=== PATIENT | female | born 1995 | race African-American/Black ===

== ENCOUNTER 2016-11-28 20:21 | Inpatient (IN) | payer SELFPAY ==
[~2016-11-28] VITALS: Ht 297.2 cm; Wt 70.3 kg
[2016-11-28 20:23] VITALS: BP 128/83; PULSE 131; RESP 15; TEMP 99.1; O2SAT 100
--- NOTE | 2016-11-28 20:59 | PD ---
HPI Chief Complaint: Psychiatric Symptoms Time Seen by Provider: 20:58 Travel History International Travel<30 days: No Contact w/Intl Traveler<30days: No Traveled to known affect area: No History of Present Illness HPI 21 yo F arrives voluntarily with mother 1 day following discharge from inpatient psychiatry facility in [place]. Pt has dx of schizophrenia. She was discharged with a few "mood stabilizer" samples. Today the patient ran into traffic. The patient does answer questions. The history is provided by the mother. Patient argues with mother at the time of evaluation. Wood act completed by the undersigned. Location neuropsychiatric. Severity moderate. Timing constant. PFSH Past Medical History Schizophrenia: Yes ?: Not LMP: uto Past Surgical History Surgical History: No Previous Surgery Social History Tobacco Use: No Allergies-Medications (Allergen,Severity, Reaction): Coded Allergies: No Known Allergies (Unverified , 11/28/16) Reported Meds & Prescriptions Reported Meds & Active Scripts Active Active Prescriptions or Reported Medications Unobtainable Review of Systems ROS Limitations: Clinical Condition, Uncooperative Physical Exam Narrative GENERAL: 21-year-old female answers no questions SKIN: Warm and dry. HEAD: Atraumatic. Normocephalic. EYES: Pupils equal and round. No scleral icterus. No injection or drainage. ENT: No nasal bleeding or discharge. Mucous membranes pink and moist. NECK: Trachea midline. No JVD. CARDIOVASCULAR: Regular rate and rhythm. RESPIRATORY: No accessory muscle use. Clear to auscultation. Breath sounds equal bilaterally. GASTROINTESTINAL: Abdomen soft, non-tender, nondistended. Hepatic and splenic margins not palpable. MUSCULOSKELETAL: Extremities without clubbing, cyanosis, or edema. No obvious deformities. NEUROLOGICAL: Awake and alert. No obvious cranial nerve deficits. Motor grossly within normal limits. Five out of 5 muscle strength in the arms and legs. Normal speech. PSYCHIATRIC: Does not answer questions. Positive suicidal gesture earlier today. Data Data Last Documented VS Vital Signs Date Time Temp Pulse Resp B/P (MAP) Pulse Ox O2 Delivery O2 Flow Rate FiO2 11/28/16 22:08 92 17 99 Room Air 11/28/16 20:23 99.1 128/83 (98) VS reviewed Orders Orders Complete Blood Count With Diff (11/28/16 21:40) Comprehensive Metabolic Panel (11/28/16 21:40) Iv Access Insert/Monitor (11/28/16 21:40) Ecg Monitoring (11/28/16 21:40) Psych Screen (11/28/16 21:40) Drug Screen, Random Urine (11/28/16 21:40) Sodium Chlor 0.9% 1000 Ml Inj (Ns 1000 M (11/28/16 21:45) Labs Laboratory Tests Test 11/28/16 21:50 White Blood Count 13.1 TH/MM3 Red Blood Count 3.99 MIL/MM3 Hemoglobin 11.3 GM/DL Hematocrit 34.7 % Mean Corpuscular Volume 86.9 FL Mean Corpuscular Hemoglobin 28.2 PG Mean Corpuscular Hemoglobin Concent 32.5 % Red Cell Distribution Width 16.1 % Platelet Count 288 TH/MM3 Mean Platelet Volume 7.7 FL Neutrophils (%) (Auto) 72.3 % Lymphocytes (%) (Auto) 19.2 % Monocytes (%) (Auto) 7.4 % Eosinophils (%) (Auto) 0.6 % Basophils (%) (Auto) 0.5 % Neutrophils # (Auto) 9.5 TH/MM3 Lymphocytes # (Auto) 2.5 TH/MM3 Monocytes # (Auto) 1.0 TH/MM3 Eosinophils # (Auto) 0.1 TH/MM3 Basophils # (Auto) 0.1 TH/MM3 CBC Comment DIFF FINAL Differential Comment Blood Urea Nitrogen 9 MG/DL Creatinine 0.93 MG/DL Random Glucose 97 MG/DL Total Protein 8.1 GM/DL Albumin 4.0 GM/DL Calcium Level 9.2 MG/DL Alkaline Phosphatase 77 U/L Aspartate Amino Transf (AST/SGOT) 13 U/L Alanine Aminotransferase (ALT/SGPT) 21 U/L Total Bilirubin 0.2 MG/DL Sodium Level 139 MEQ/L Potassium Level 3.8 MEQ/L Chloride Level 104 MEQ/L Carbon Dioxide Level 29.5 MEQ/L Anion Gap 6 MEQ/L Estimat Glomerular Filtration Rate 92 ML/MIN [facility] Medical Decision Making Medical Screen Exam Complete: Yes Emergency Medical Condition: Yes Differential Diagnosis Altered mental status/psychosis due to infection/environmental exposure/ metabolic abnormality, polypharmacy, alcohol abuse/intoxication, illicit or prescribed drug abuse, malingering/secondary gain, non-organic psychiatric disease Narrative Course CBC & BMP Diagram 11/28/16 21:50 Total Protein 8.1, Albumin 4.0, Calcium Level 9.2, Alkaline Phosphatase 77, Aspartate Amino Transf (AST/SGOT) 13 L, Alanine Aminotransferase (ALT/SGPT) 21, Total Bilirubin 0.2 IVF given. HR decreased to 92. Work up unremarkable. Pt medical stable for psychiatry evaluation. Diagnosis Primary Impression: Psychosis Qualified Codes: F29 - Unspecified psychosis not due to a substance or known physiological condition Additional Impression: Suicidal behavior Qualified Codes: T14.91 - Suicide attempt Scripts Unable to Obtain Active Prescriptions or Reported Meds Ricci Nelson MD Nov 28, 2016 20:59
[2016-11-28] MEDS ORDERED: SODIUM CHLOR 0.9% 1000 ML INJ 1,000 ML IV ONE (21:45)
[2016-11-28 22:08] VITALS: PULSE 92; RESP 17; O2SAT 99
[2016-11-28 22:12] LABS: AUTOMATED NEUTROPHIL # 9.5 TH/MM3 (1.8-7.7); BASOPHIL # 0.1 TH/MM3 (0-0.2); BASOPHIL % 0.5 % (0.0-2.0); EOSINOPHIL # 0.1 TH/MM3 (0-0.4); EOSINOPHIL % 0.6 % (0.0-4.0); HEMATOCRIT 34.7 % (35.0-46.0); HEMO FLAGS DIFF FINAL; LYMPH % 19.2 % (9.0-44.0); LYMPHOCYTE # 2.5 TH/MM3 (1.0-4.8); MEAN CELL VOLUME 86.9 FL (80.0-100.0); MEAN CORPUSCULAR HEMOGLOBIN 28.2 PG (27.0-34.0); MEAN CORPUSCULAR HGB CONC 32.5 % (32.0-36.0); MONO % 7.4 % (0.0-8.0); NEUT % 72.3 % (16.0-70.0); PLATELET COUNT 288 TH/MM3 (150-450); RED BLOOD COUNT 3.99 MIL/MM3 (4.00-5.30); RED CELL DISTRIBUTION WIDTH 16.1 % (11.6-17.2); WHITE BLOOD COUNT 13.1 TH/MM3 (4.0-11.0)
[2016-11-28 22:36] LABS: ALT (GPT) 21 U/L (10-53); ANION GAP 6 MEQ/L (5-15); AST (GOT) 13 U/L (15-37); BICARBONATE 29.5 MEQ/L (21.0-32.0); BLOOD UREA NITROGEN 9 MG/DL (7-18); CHLORIDE 104 MEQ/L (98-107); GLOMERULAR FILTRATION RATE 92 ML/MIN (>89); POTASSIUM 3.8 MEQ/L (3.5-5.1); SODIUM (NA) 139 MEQ/L (136-145)
[2016-11-28 22:38] LABS: ALKALINE PHOSPHATASE 77 U/L (45-117); TOTAL BILIRUBIN ADULT 0.2 MG/DL (0.2-1.0)
[2016-11-29 06:00] VITALS: BP 120/67; PULSE 101; RESP 16; O2SAT 100
[2016-11-29] MEDS ORDERED: OLANZapine IM 10 MG VIAL IM ONE (06:30)
[2016-11-29 10:15] VITALS: BP 96/56; PULSE 100; TEMP 98.7; O2SAT 100
[2016-11-29 15:00] VITALS: BP 144/75; PULSE 106; RESP 20; TEMP 98.4; O2SAT 100
[2016-11-29 22:09] VITALS: BP 119/64; PULSE 104; RESP 18
[2016-11-29] MEDS ORDERED: HALOPERIDOL LACTATE 5 MG/ML AMP IM ONE (23:15)
[2016-11-29] MEDS ORDERED: LORazepam 2 MG/ML VIAL IM ONE (23:15)
[2016-11-29] MEDS ORDERED: diphenhydrAMINE HCL 50 MG/ML VIAL IM ONE (23:15)
[2016-11-30 06:31] VITALS: RESP 16
[2016-11-30 10:50] VITALS: BP 106/67; PULSE 78; RESP 18
[2016-11-30 13:48] LABS: BETA HCG QUANT LESS THAN 1 MIU/ML (0-5)
[2016-11-30 17:27] VITALS: BP 98/54; PULSE 72; RESP 18
[2016-11-30 23:24] VITALS: RESP 16
[2016-12-01 06:08] VITALS: BP 110/62; PULSE 101; RESP 20
--- NOTE | 2016-12-01 08:15 | PD ---
Data Data Last Documented VS Vital Signs Date Time Temp Pulse Resp B/P (MAP) Pulse Ox O2 Delivery O2 Flow Rate FiO2 12/01/16 11:11 101 18 100/70 (80) 100 Room Air 11/29/16 15:00 98.4 Orders Orders Complete Blood Count With Diff (11/28/16 21:40) Comprehensive Metabolic Panel (11/28/16 21:40) Iv Access Insert/Monitor (11/28/16 21:40) Ecg Monitoring (11/28/16 21:40) Psych Screen (11/28/16 21:40) Drug Screen, Random Urine (11/28/16 21:40) Sodium Chlor 0.9% 1000 Ml Inj (Ns 1000 M (11/28/16 21:45) Diet Regular Basic (11/29/16 Breakfast) Olanzapine Inj (Zyprexa Inj) (11/29/16 06:30) Diet Regular Basic (11/29/16 Lunch) Haloperidol Inj (Haldol Inj) (11/29/16 23:15) Lorazepam Inj (Ativan Inj) (11/29/16 23:15) Diphenhydramine Inj (Benadryl Inj) (11/29/16 23:15) Diet Regular Basic (11/30/16 Breakfast) Diet Regular Basic (11/30/16 Lunch) Beta Hcg (Quant/Titer) (11/30/16 13:16) Diet Regular Basic (11/30/16 Dinner) Diet Regular Basic (12/01/16 Breakfast) Diet Regular Basic (12/01/16 Lunch) Olanzapine Odt (Zyprexa Zydis Odt) (12/01/16 11:00) Admit Order (Ed Use Only) (12/01/16 13:17) Labs Laboratory Tests Test 11/28/16 21:50 White Blood Count 13.1 TH/MM3 Red Blood Count 3.99 MIL/MM3 Hemoglobin 11.3 GM/DL Hematocrit 34.7 % Mean Corpuscular Volume 86.9 FL Mean Corpuscular Hemoglobin 28.2 PG Mean Corpuscular Hemoglobin Concent 32.5 % Red Cell Distribution Width 16.1 % Platelet Count 288 TH/MM3 Mean Platelet Volume 7.7 FL Neutrophils (%) (Auto) 72.3 % Lymphocytes (%) (Auto) 19.2 % Monocytes (%) (Auto) 7.4 % Eosinophils (%) (Auto) 0.6 % Basophils (%) (Auto) 0.5 % Neutrophils # (Auto) 9.5 TH/MM3 Lymphocytes # (Auto) 2.5 TH/MM3 Monocytes # (Auto) 1.0 TH/MM3 Eosinophils # (Auto) 0.1 TH/MM3 Basophils # (Auto) 0.1 TH/MM3 CBC Comment DIFF FINAL Differential Comment Blood Urea Nitrogen 9 MG/DL Creatinine 0.93 MG/DL Random Glucose 97 MG/DL Total Protein 8.1 GM/DL Albumin 4.0 GM/DL Calcium Level 9.2 MG/DL Alkaline Phosphatase 77 U/L Aspartate Amino Transf (AST/SGOT) 13 U/L Alanine Aminotransferase (ALT/SGPT) 21 U/L Total Bilirubin 0.2 MG/DL Sodium Level 139 MEQ/L Potassium Level 3.8 MEQ/L Chloride Level 104 MEQ/L Carbon Dioxide Level 29.5 MEQ/L Anion Gap 6 MEQ/L Estimat Glomerular Filtration Rate 92 ML/MIN Human Chorionic Gonadotropin, Quant LESS THAN 1 MIU/ML Urine Opiates Screen NEG Urine Barbiturates Screen NEG Urine Amphetamines Screen NEG Urine Benzodiazepines Screen NEG Urine Cocaine Screen NEG Urine Cannabinoids Screen NEG MDM Supervised Visit with LORENA: No Narrative Course Was asked to see this patient by the psych screener for possible discharge this morning as a Wood act has been lifted. Apparently there is some social issues at play here with the patient's Wood act stated that she tried to walk out into traffic. On my evaluation. Ration is fairly somnolent she was not sedated overnight but is unwilling to speak with me. She has no medical complaints at this time and remains medically clear. After seeing the patient with the psych screener she would like the psychiatrist to evaluate the patient one last time prior to discharge Dr. Balderas has reevaluated the patient and plans for admission to the psychiatric unit. Diagnosis Primary Impression: Psychosis Qualified Codes: F29 - Unspecified psychosis not due to a substance or known physiological condition Additional Impression: Suicidal behavior Qualified Codes: T14.91 - Suicide attempt Scripts Unable to Obtain Active Prescriptions or Reported Meds Condition: Chance Galarza MD Dec 01, 2016 08:15
--- NOTE | 2016-12-01 10:53 | PD ---
History of Present Illness Chief Complaint: Psychiatric Symptoms Time Seen by Provider: 10:45 Travel History International Travel<30 Days: No Contact w/Intl Traveler<30days: No Known affected area: No Legal Status Legal Status: Voluntary History of Present Illness: 21-year-old female placed under a Wood act 3 days ago for wandering in traffic. Patient evaluated by this physician yesterday and this morning. Although patient wants to go home, her mother is in a chcf and the patient is not welcome there. Patient is willing to stay here in the emergency department despite the fact that she has been here for 3 days. Patient is also willing to take medication because she is hearing voices and is unable to describe what they are telling her. Her affect is inappropriate and she is unable to care for herself as demonstrated by her walking into traffic and having no way to obtain money or work. Although patient's mother is supportive , the patient has a 2-year-old sister staying with mom. This physician is concerned the patient may act in a psychotic fashion that would continue to be dangerous to herself or others. Therefore, with patient's consent, we will treat her with Zyprexa. This case was discussed with Dewayne Penny, psychiatry legal administrator. (No beds available to admit patient at this time.) PFSH Past Medical History Medical History: Denies Significant Hx Schizophrenia: Yes ?: Not LMP: uto Past Surgical History Surgical History: No Previous Surgery Psychiatric History Psychiatric History Hx Psychiatric Treatment: Per biological mother - patient's biological father is Jeffrey Mondragon. She is unaware of there being any mental illness issues on his side. Mother stated Schizophrenia is on her side. She stated that she has an Uncle and Great Aunt who had Schizophrenia but both of them are . History of Inpatient Treatment: Yes Guns or firearms in home: No Social History Hx Alcohol Use: No Hx Tobacco Use: No Hx Substance Use: No Hx of Substance Use Treatment: No Allergies-Medications (Allergen,Severity, Reaction): Coded Allergies: No Known Allergies (Unverified , 11/28/16) Reported Meds & Prescriptions Reported Meds & Active Scripts Active Active Prescriptions or Reported Medications Unobtainable Review of Systems Except as stated in HPI: all other systems reviewed are Neg Exam Exam Limitations: Clinical Condition, Poor Historian Alert: Yes [place]: Person, Place Mood: Calm Affect: Restricted, Flat Speech: Illogical Eye Contact: Indirect Memory Intact: Immediate, Recent, Remote Hallucinations: Auditory Delusions: Yes Delusion Type: Paranoid Insight/Judgement Impaired MDM Medical Decision Making Medical Record Reviewed: Yes Assessment/Plan Patient interviewed twice, medical record reviewed, case discussed with nurse, Evelyn. Case also discussed with service line legal administrator. In this physician's opinion, while the patient is voluntarily here for treatment at this time, she is unable to care for self and should not go home with her mother. This physician is asking the patient's nurse to call mother and confirmed this. Despite the patient being in the emergency room for 3 days, there have been limited beds at [place] and at [facility]. Patient will have to wait for open bed and begin treatment here in emergency department. Orders Orders Beta Hcg (Quant/Titer) (11/30/16 13:16) Diet Regular Basic (11/30/16 Dinner) Diet Regular Basic (12/01/16 Breakfast) Diet Regular Basic (12/01/16 Lunch) Olanzapine Odt (Zyprexa Zydis Odt) (12/01/16 11:00) Results Vital Signs Date Time Temp Pulse Resp B/P (MAP) Pulse Ox O2 Delivery O2 Flow Rate FiO2 12/01/16 06:08 101 20 110/62 (78) 11/30/16 23:24 16 11/30/16 17:27 72 18 98/54 (69) 11/30/16 10:50 78 18 106/67 (80) Diagnosis Primary Impression: Schizophrenia, paranoid type Prescriptions Unable to Obtain Active Prescriptions or Reported Meds Darío Balderas MD Dec 01, 2016 10:53
[2016-12-01] MEDS ORDERED: OLANZapine ODT 5 MG TAB PO ONE (11:00)
[2016-12-01 11:11] VITALS: BP 100/70; PULSE 101; RESP 18; O2SAT 100
[2016-12-01] MEDS ORDERED: ALUMINUM/MAGNESIUM/SIMETH 30 ML CUP PO PRN (13:30)
[2016-12-01] MEDS ORDERED: MAGNESIUM HYDROXIDE SUSP 30 ML CUP PO PRN (13:30)
--- NOTE | 2016-12-01 13:33 | HHI.HP ---
Provisional Diagnosis Admission Date [place] I. Schizophrenia Certification of Person's Competence To Provide Express and Informed Consent I have personally examined Sahara Rios , a person being served at [facility] on, Dec 01, 2016 13:23. Express and informed consent means consent voluntarily given in writing, by a competent person, after sufficient explanation and disclosure of the subject matter involved to enable the person to make a knowing and willful decision without any element of force, fraud, deceit, duress, or other form of constraint or coercion. This person is 18 years of age or older, is not now known to be incompetent to consent to treatment with a guardian advocate, and does not have a health care surrogate or proxy currently making medical treatment decisions. I have found this person to be one of the following: [] Competent to provide express and informed consent, as defined above, for voluntary admission to this facility and is competent to provide express and informed consent for treatment. He/she has the consistent capacity to make well reasoned, willful, and knowing decisions concerning his or her medical or mental health treatment. The person fully and consistently understands the purpose of the admission for examination/placement and is fully capable of personally exercising all rights [place] [x] Incompetent to provide express and informed consent to voluntary admission, and this is incompetent to provide express and informed consent to treatment. The person must be transferred to involuntary status and a petition for a guardian advocate filed with the Circuit Court. [] Refusing to provide express and informed consent to voluntary admission but is competent to provide express and informed consent for treatment. The person must be discharged or transferred to involuntary status. Form shall be completed within 24 hours of a person's arrival at the receiving facility and filed in the clinical record of each person: 1. Admitted on a voluntary basis 2. Permitted to provide express and informed consent to his/her own treatment 3. Allowed to transfer from involuntary to voluntary status 4. Prior to permitting a person to consent to his or her own treatment after having been previously found incompetent to consent to treatment. History of Present Illness Capacity: Lacks Capacity HPI This is a 21-year-old female with a history of schizophrenia diagnosed at the age of 19, presenting now after walking into traffic, verbally threatening her mother, experiencing auditory hallucinations, banging her hands, and inability to care for herself. The patient has been in the emergency department for 3 days and at one point was considered for discharge to mother so that patient could be treated on an outpatient basis. However, mother is moving and has a 2- year-old child and is unable to care for the patient at this time. Additionally , the patient has decompensated in the last 12 hours. At this point she is spitting up food, banging her hands together in a stabbing motion, admitting to auditory hallucinations, responding to internal stimuli, and feeling paranoid about leaving. Her affect is very flat and inappropriate. She appears to be exhibiting thought blocking. Her mother states she walks into traffic without looking in either direction and does not appear to understand what she is doing. Patient has no money, no place to live and no weight to care for herself at this time. Mother is willing to serve as guardian advocate. Review of Systems Except as stated in HPI: all other systems reviewed are Neg Past Psych History Psychological trauma history Diagnosed at age 19 with schizophrenia, according to the patient's mother. Patient recently hospitalized at [facility]. She was also incarcerated for theft prior to that. Violence risk - others (6 mos) Moderate to high. Patient has threatened her mother. Violence risk - self (6 mos) High. Substance Abuse History Drugs/Alcohol past 12 months Denied Past Family Social History Coded Allergies: No Known Allergies (Unverified , 11/28/16) Unable to Obtain Active Prescriptions or Reported Meds Started on Abilify and given dose of Zyprexa situs Family History Positive for schizophrenia in 2 family relatives. Social History Patient has been homeless and refusing assistance from her mother intermittently over the last 2 years. She is unemployed. She denies the use of alcohol or drugs. She has been incarcerated for theft. Patient's Strengths (min. 2) Resilient and has access to healthcare. Physical Exam GENERAL: SKIN: Warm and dry. HEAD: Normocephalic. EYES: No scleral icterus. No injection or drainage. NECK: Supple, trachea midline. No JVD or lymphadenopathy. CARDIOVASCULAR: Regular rate and rhythm without murmurs, gallops, or rubs. RESPIRATORY: Breath sounds equal bilaterally. No accessory muscle use. GASTROINTESTINAL: Abdomen soft, non-tender, nondistended. MUSCULOSKELETAL: No cyanosis, or edema. BACK: Nontender without obvious deformity. No CVA tenderness. Vital Signs Vital Signs Date Time Temp Pulse Resp B/P (MAP) Pulse Ox O2 Delivery O2 Flow Rate FiO2 12/01/16 11:11 101 18 100/70 (80) 100 Room Air 11/29/16 15:00 98.4 Mental Status Examination Speech: Unremarkable, Incoherent Orientation: Person Memory: Impaired (describe) Thought Process: Loose Association Thought Content: Bizarre thinking Hallucination Type: Auditory Attention and Concentration: Abnormal Suicidal Ideation: No Previous Suicide Attempts: No Homicidal Ideation: No Previous Homicide Attempts: No Insight: Poor Judgment: Poor Affect: Anxious Affect if Inappropriate: Flat Mood: Anxious Motor Activity: Normal gait Assessment & Plan Problem List: (1) Schizophrenia, paranoid type ICD Codes: F20.0 - Paranoid schizophrenia Status: Acute Assessment & Plan Estimated LOS: days patient felt to be in acute danger of self-neglect and self -harm. She is grossly psychotic and has decompensated "before our eyes". She is no longer able to speak coherently regarding her circumstances or herself. She was wandering in traffic just before she got here. She will not listen to her mother and her mother is unable to care for her. For these reasons, the patient is being admitted for further evaluation and treatment. Patient is not considered to be competent. This physician has ordered a CBC and comprehensive metabolic panel. This is to determine if any infectious process or metabolic process is causing or contributing to her psychosis. Additionally, this physician has ordered a thyroid-stimulating hormone level, vitamin B 12 level and vitamin D level, to determine if deficiencies in these areas are causing or contributing to her psychosis. I have also ordered an EKG to determine her cardiac conduction as she is being placed on antipsychotic medications which could adversely affect her cardiac conduction system. This physician has asked for a second opinion from a psychiatrist as the patient is felt to be incompetent to make medical decisions regarding her care. This physician has spoken with the patient's nurse regarding her recent behavior and spoken with the patient's mother regarding her recent behavior. Finally, case management is being involved to gather more information and assist with disposition planning. Darío Balderas MD Dec 01, 2016 13:33
[2016-12-01 15:16] VITALS: BP 139/82; PULSE 107; RESP 20; O2SAT 100
[2016-12-01 16:57] VITALS: BP 116/67; PULSE 94; RESP 16; TEMP 98.2; O2SAT 99
[2016-12-01] MEDS ORDERED: ARIPiprazole 5 MG TAB PO SCH (21:00)
[2016-12-01] MEDS: LORazepam 1 MG TAB PO PRN (21:51)
[2016-12-01] MEDS: diphenhydrAMINE HCL 50 MG CAP PO PRN (21:51)
[2016-12-02 06:13] VITALS: BP 111/61; PULSE 70; RESP 18; TEMP 98.1; O2SAT 98
--- NOTE | 2016-12-02 11:23 | PD.PSY.CON ---
Provisional Diagnosis Admission Date Dec 01, 2016 at 13:21 [place] I. 1. Schizophrenia, undifferentiated type, acute exacerbation [place]rom[place] II. Deferred History of Present Illness Service Psychiatry Consult Requested By Dr. Balderas Reason for Consult Second opinion for involuntary psychiatric hospitalization Primary Care Physician No Primary Care Physician HPI From Dr. Balderas's H&P: This is a 21-year-old female with a history of schizophrenia diagnosed at the age of 19, presenting now after walking into traffic, verbally threatening her mother, experiencing auditory hallucinations, banging her hands, and inability to care for herself. The patient has been in the emergency department for 3 days and at one point was considered for discharge to mother so that patient could be treated on an outpatient basis. However, mother is moving and has a 2- year-old child and is unable to care for the patient at this time. Additionally , the patient has decompensated in the last 12 hours. At this point she is spitting up food, banging her hands together in a stabbing motion, admitting to auditory hallucinations, responding to internal stimuli, and feeling paranoid about leaving. Her affect is very flat and inappropriate. She appears to be exhibiting thought blocking. Her mother states she walks into traffic without looking in either direction and does not appear to understand what she is doing. Patient has no money, no place to live and no weight to care for herself at this time. Mother is willing to serve as guardian advocate. On my exam today: Patient seen and examined with counselor and nurse. Chart reviewed. Case discussed with nursing staff who reports that the patient continues to respond to internal stimuli. She also reportedly refused laboratories this morning. On my examination today, the patient presents as fairly childlike. She does still appear somewhat internally preoccupied but denies any audiovisual hallucinations. She describes her mood as good and does not describe any depressive or hypomanic/manic symptoms. She denies any suicidal or homicidal ideation but it is not clear that she is reliable to contract for safety, and see the safety concerns highlighted by Dr. Balderas, above. Remainder of the psychiatric ROS is negative. The patient has no physical complaints. She is tolerating the Abilify well without side effects. Past psychiatric history: The patient is unsure of her psychiatric diagnosis. She says that she is not currently under the care of a psychiatrist. She denies a history of psychiatric admissions or suicide attempts. Family history: The patient reports that her mother has bipolar illness. Chemical dependency history: The patient denies any abuse of drugs or alcohol. Social history: The patient lives with her mother. She is single with no children. She went to college for 1 year and studied dance. She says that she is a [employer]regational but was raised Rastafari. Review of Systems ROS Limitations: Psychotic, Poor Historian Except as stated in HPI: all other systems reviewed are Neg Past Family Social History Coded Allergies: No Known Allergies (Unverified , 11/28/16) Past Medical History See electronic medical record Unable to Obtain Active Prescriptions or Reported Meds Current Medications Medications (Trade) Dose Ordered Sig/Jose Carlos Route Start Time Stop Time Status Last Admin (Ativan) 1 mg Q6H PRN PO 12/01/16 13:30 12/01/16 21:51 (Ativan Inj) 1 mg Q6H PRN IM 12/01/16 13:30 (Benadryl) 50 mg Q6H PRN PO 12/01/16 13:30 12/01/16 21:51 (Benadryl Inj) 50 mg Q6H PRN IM 12/01/16 13:30 (Tylenol) 650 mg Q4H PRN PO 12/01/16 13:30 (Milk Of Magnesia Liq) 30 ml DAILY PRN PO 12/01/16 13:30 (Mag-Al Plus Susp Liq) 30 ml Q6H PRN PO 12/01/16 13:30 (Abilify) 5 mg HS PO 12/01/16 21:00 12/01/16 21:51 Family History See above Social History see above Patient's Strengths (min. 2) In a monitored setting. Verbally fluent. Physical Exam Physical exam completed by ED provider. On my examination today, the patient appears to be in no acute physical distress. No abnormal motor movements noted. Labs and vitals reviewed: Vital Signs Vital Signs Date Time Temp Pulse Resp B/P (MAP) Pulse Ox O2 Delivery O2 Flow Rate FiO2 12/02/16 06:13 98.1 70 18 111/61 (78) 98 12/01/16 15:16 Room Air Lab Results Item Value Date Time White Blood Count 13.1 TH/MM3 H 11/28/160 Hemoglobin 11.3 GM/DL L 11/28/162149 Platelet Count 288 TH/MM3 11/28/162149 Sodium Level 139 MEQ/L 11/28/162149 Potassium Level 3.8 MEQ/L 11/28/162149 Chloride Level 104 MEQ/L 11/28/162149 Carbon Dioxide Level 29.5 MEQ/L 11/28/162149 Blood Urea Nitrogen 9 MG/DL 11/28/162149 Creatinine 0.93 MG/DL 11/28/162149 Aspartate Amino Transf (AST/SGOT) 13 U/L L 11/28/162149 Alanine Aminotransferase (ALT/SGPT) 21 U/L 11/28/162149 Alkaline Phosphatase 77 U/L 11/28/162149 Human Chorionic Gonadotropin, Quant LESS THAN 1 MIU/ML 11/28/162149 Urine Opiates Screen NEG 11/28/162149 Urine Barbiturates Screen NEG 11/28/162149 Urine Amphetamines Screen NEG 11/28/162149 Urine Benzodiazepines Screen NEG 11/28/162149 Urine Cocaine Screen NEG 11/28/162149 Urine Cannabinoids Screen NEG 11/28/162149 Patient did reportedly refuse follow-up laboratories this morning. Mental Status Examination No motor abnormalities noted Appearance In hospital gown. Somewhat disheveled but maintaining basic hygiene. Speech: Unremarkable Orientation: Person Memory: Impaired (describe) (likely some degree of confabulation) Thought Process: Organized Thought Content: Other (no delusions elicited) Language Unremarkable Fund of Knowledge Average. Hallucination Type: Auditory (remains a little internally preoccupied) Attention and Concentration: Abnormal Suicidal Ideation: No Previous Suicide Attempts: No Homicidal Ideation: No Previous Homicide Attempts: No Insight: Poor Judgment: Poor Affect: Euthymic Mood: Other (good) Assessment & Plan Problem List: (1) Schizophrenia, undifferentiated, acute episode ICD Codes: F20.3 - Undifferentiated schizophrenia Assessment & Plan Given the circumstances of the patient's presentation here and her presentation on my examination today, I concur with Dr. Balderas that the patient meets criteria for involuntary psychiatric hospitalization under the [place] act. I have completed the second opinion paperwork. I will be assuming care of the patient. Titrate Abilify to 10 mg at bedtime to target residual psychotic symptoms. Consider long-acting injectable antipsychotic. Obtain laboratories ordered by Dr. Balderas. Counselor to see and obtain collateral. Continue to monitor on the high acuity unit. Continue other medications and care as ordered. Discharge Planning Pending psychiatric stabilization Request HC Surrog/Guard Advoc?: Yes Blaine Benedict MD Dec 02, 2016 11:23
--- NOTE | 2016-12-02 12:04 | EKG ---
Date Performed: 12/02/2016 Time Performed: 10:18:11 PTAGE: 21 years EKG: Sinus rhythm NORMAL ECG NO PREVIOUS TRACING DOCTOR: Bebeto Benton Interpretating Date/Time 12/02/2016 12:02:17
[2016-12-02 17:08] VITALS: BP 114/64; PULSE 97; RESP 18; TEMP 98.4; O2SAT 99
[2016-12-02] MEDS: diphenhydrAMINE HCL 50 MG CAP PO PRN (22:33)
[2016-12-02] MEDS: ARIPiprazole 5 MG TAB PO SCH (22:33)
[2016-12-02] MEDS: LORazepam 1 MG TAB PO PRN (22:33)
[2016-12-03 06:15] VITALS: BP 92/52; PULSE 78; RESP 18; TEMP 98; O2SAT 98
--- NOTE | 2016-12-03 09:41 | HHI.PYPN ---
Subjective Remarks Patient seen and examined with counselor and nurse. Chart reviewed. Case discussed with nursing staff who reports patient continues to respond to internal stimuli and has been noted gesticulating to herself. On my examination today, the patient presents as somewhat thought delayed and hypoverbal. She remains internally preoccupied, although she denies AVH when asked. 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 No SI or HI. Denies side effects from medications. No physical complaints. Review of Systems ROS Limitations: Psychotic, Poor Historian Except as stated in HPI: all other systems reviewed are Neg Objective Alert: Yes [place]: Person, Place Mood: Calm Affect: Flat Memory Intact: Comment (not formally assessed) Hallucinations: Auditory (internally preoccupied) Delusions: No Delusion Type: Other (no delusions elicited) Suicidal: Ideation (no SI) Homicidal: Ideation (no HI) Insight/Judgment Poor Remarks Thought process a little delayed. Content of speech fairly vague in general. No motoric abnormalities noted. Labs Test 12/03/16 08:54 Item Value Date Time White Blood Count 9.0 TH/MM3 12/03/16 0854 Hemoglobin 11.9 GM/DL 12/03/16 0854 Platelet Count 306 TH/MM3 12/03/16 0854 Sodium Level 141 MEQ/L 12/03/16 0854 Potassium Level 4.0 MEQ/L 12/03/16 0854 Chloride Level 105 MEQ/L 12/03/16 0854 Carbon Dioxide Level 29.9 MEQ/L 12/03/16 0854 Blood Urea Nitrogen 10 MG/DL 12/03/16 0854 Creatinine 0.73 MG/DL 12/03/16 0854 Aspartate Amino Transf (AST/SGOT) 13 U/L L 12/03/16 0854 Alanine Aminotransferase (ALT/SGPT) 16 U/L 12/03/16 0854 Alkaline Phosphatase 74 U/L 12/03/16 0854 Vitamin B12 Level 707 PG/ML 12/03/16 0854 Thyroid Stimulating Hormone 3rd Gen 0.473 uIU/ML 12/03/16 0854 Laboratories obtained this morning reviewed. These are largely unremarkable. Vitamin D level pending. EKG read as normal sinus rhythm with a QTC of 387 ms. Vitals/IOs Vital Signs Date Time Temp Pulse Resp B/P (MAP) Pulse Ox O2 Delivery O2 Flow Rate FiO2 12/03/16 06:15 98.0 78 18 92/52 (65) 98 12/01/16 15:16 Room Air Assessment & Plan Problem List: (1) Schizophrenia, undifferentiated, acute episode ICD Codes: F20.3 - Undifferentiated schizophrenia Assessment & Plan Titrate Abilify to 15 mg at bedtime to target psychotic symptoms. I will add low dose Ambien as needed for sleep. Continue to monitor on the inpatient unit. Continue other medications and care as ordered. Justification for Cont. Inpt. Impairment in reality construction. Medication changes. High risk for decompensation in less restrictive environment. Discharge Planning Pending psychiatric stabilization Request HC Surrog/Guard Advoc?: Yes Blaine Benedict MD Dec 03, 2016 09:41
[2016-12-03 09:45] LABS: AUTOMATED NEUTROPHIL # 5.5 TH/MM3 (1.8-7.7); BASOPHIL # 0.1 TH/MM3 (0-0.2); BASOPHIL % 0.6 % (0.0-2.0); EOSINOPHIL # 0.2 TH/MM3 (0-0.4); EOSINOPHIL % 1.9 % (0.0-4.0); HEMATOCRIT 36.2 % (35.0-46.0); HEMO FLAGS DIFF FINAL; LYMPH % 29.8 % (9.0-44.0); LYMPHOCYTE # 2.7 TH/MM3 (1.0-4.8); MEAN CELL VOLUME 87.6 FL (80.0-100.0); MEAN CORPUSCULAR HEMOGLOBIN 28.8 PG (27.0-34.0); MEAN CORPUSCULAR HGB CONC 32.9 % (32.0-36.0); MONO % 6.3 % (0.0-8.0); NEUT % 61.4 % (16.0-70.0); PLATELET COUNT 306 TH/MM3 (150-450); RED BLOOD COUNT 4.14 MIL/MM3 (4.00-5.30); RED CELL DISTRIBUTION WIDTH 15.2 % (11.6-17.2)
[2016-12-03 10:33] LABS: ANION GAP 6 MEQ/L (5-15); AST (GOT) 13 U/L (15-37); BICARBONATE 29.9 MEQ/L (21.0-32.0); BLOOD UREA NITROGEN 10 MG/DL (7-18); CHLORIDE 105 MEQ/L (98-107); GLOMERULAR FILTRATION RATE 122 ML/MIN (>89); SODIUM (NA) 141 MEQ/L (136-145)
[2016-12-03 10:34] LABS: ALT (GPT) 16 U/L (10-53)
[2016-12-03 10:59] LABS: ALKALINE PHOSPHATASE 74 U/L (45-117); HDL CHOLESTEROL 78.3 MG/DL (40.0-60.0); LDL CHOLESTEROL 79 MG/DL (0-99); TOTAL BILIRUBIN ADULT 0.2 MG/DL (0.2-1.0)
[2016-12-03 12:29] LABS: HEMOGLOBIN A1a 0.7 %; HEMOGLOBIN A1b 0.5 %; HEMOGLOBIN Ao 87.9 %; HEMOGLOBIN F 1.2 %; HEMOGLOBIN LA1C 1.6 %; HEMOGLOBIN P3 2.9 %
[2016-12-03 17:45] VITALS: BP 112/67; PULSE 104; RESP 18; TEMP 98.7; O2SAT 99
[2016-12-03] MEDS: ZOLPIDEM TARTRATE 5 MG TAB PO PRN (20:44)
[2016-12-03] MEDS: ARIPiprazole 5 MG TAB PO SCH (20:44)
[2016-12-04] MEDS: diphenhydrAMINE HCL 50 MG CAP PO PRN ×2 (00:43→23:58)
[2016-12-04 06:01] VITALS: BP 116/77; PULSE 68; RESP 15; TEMP 98.8; O2SAT 100
--- NOTE | 2016-12-04 11:59 | HHI.PYPN ---
Subjective Remarks patient seen and examined with nurse. Chart reviewed. Case discussed with nursing staff. Patient no real behavioral problem except she urinated in the corner of her room overnight. When I ask the patient about this today she says that she was scared of ghosts. She says that ghosts have been making the doors squeak. Denies any complaints of dysuria or other symptoms. No other hallucinatory material. Remains quite childlike. Denies side effects from medications. No other physical complaints. Review of Systems ROS Limitations: Psychotic, Poor Historian Except as stated in HPI: all other systems reviewed are Neg Objective Alert: Yes [place]: Person, Place Mood: Calm Affect: Other (childlike) Memory Intact: Comment (not formally assessed) Hallucinations: Auditory (ghosts) Delusions: Yes Delusion Type: Other (see above) Suicidal: Ideation (no SI) Homicidal: Ideation (no HI) Insight/Judgment Poor Remarks No abnormal motor movements noted. Grooming and hygiene fair at best. Speech wnl for rate. Steady gait and station. Labs Labs reviewed. Vitamin D level low. Vitals/IOs Vital Signs Date Time Temp Pulse Resp B/P (MAP) Pulse Ox O2 Delivery O2 Flow Rate FiO2 12/04/16 06:01 98.8 68 15 116/77 (90) 100 12/01/16 15:16 Room Air Assessment & Plan Problem List: (1) Schizophrenia, undifferentiated, acute episode ICD Codes: F20.3 - Undifferentiated schizophrenia Assessment & Plan Abilify 15 mg this evening to target psychotic symptoms. Start vitamin D supplement. Check a urinalysis. Continue to monitor on the inpatient unit. Continue other medications and care as ordered. Justification for Cont. Inpt. Med changes. Impairment in reality construction. High risk for decompensation in less restrictive environment. Discharge Planning Pending psychiatric stabilization. Request HC Surrog/Guard Advoc?: Yes Blaine Benedict MD Dec 04, 2016 11:59
[2016-12-04 16:00] VITALS: BP_SYST 66; PULSE 74; RESP 16; TEMP 99.1; O2SAT 98
[2016-12-04] MEDS: ERGOCALCIFEROL (VIT D2) 50,000 UNIT CAP PO SCH (17:00)
[2016-12-04] MEDS: ZOLPIDEM TARTRATE 5 MG TAB PO PRN (20:54)
[2016-12-04] MEDS ORDERED: ARIPiprazole 15 MG TAB PO SCH (21:00)
[2016-12-04] MEDS: LORazepam 1 MG TAB PO PRN (23:58)
[2016-12-05 06:03] VITALS: BP 124/69; PULSE 85; RESP 14; TEMP 98.4; O2SAT 99
--- NOTE | 2016-12-05 11:59 | HHI.PYPN ---
Subjective Remarks Patient seen and examined with nurse. Chart reviewed. Case discussed with nursing staff who reports that the patient had difficulty sleeping last night. Nurse reports that the patient has been quite animated and pacing around the unit gesturing. On my examination today, the patient presents with a silly, childlike affect. She says that she slept poorly overnight because she was scared of ghosts who were tapping on her window. She says "they don't like me, or like me too much." Denies side effects from medications but says that she has done better with Risperdal in the past and that this agent helped her sleep. No physical complaints. Review of Systems ROS Limitations: Psychotic, Poor Historian Except as stated in HPI: all other systems reviewed are Neg Objective Alert: Yes [place]: Person, Place Mood: Calm Affect: Other (quite childlike) Memory Intact: Comment (not formally assessed) Hallucinations: Auditory (ongoing, ghosts) Delusions: Yes Delusion Type: Other (of ghosts harassing her) Suicidal: Ideation (no SI) Homicidal: Ideation (no HI) Insight/Judgment Poor Remarks No motoric abnormalities noted. Grooming and hygiene fair. Labs Labs reviewed. Urinalysis bland. Vitals/IOs Vital Signs Date Time Temp Pulse Resp B/P (MAP) Pulse Ox O2 Delivery O2 Flow Rate FiO2 12/05/16 06:03 98.4 85 14 124/69 (87) 99 12/01/16 15:16 Room Air Assessment & Plan Problem List: (1) Schizophrenia, undifferentiated, acute episode ICD Codes: F20.3 - Undifferentiated schizophrenia Assessment & Plan We haven't seen much benefit with the Abilify, and the patient reports a better response to Risperdal in the past. Discontinue Abilify and initiate Risperdal M tabs 1 mg twice daily with plans to titrate through the weekend. To consider long-acting injectable Risperdal or Invega Sustenna. Continue to monitor on the inpatient unit. Continue other medications and care as ordered. Justification for Cont. Inpt. Impairment in reality construction. Medication changes. High risk for decompensation in less restrictive environment. Discharge Planning Case discussed with counselor. Unclear if patient's mother is able to accept the patient home at this time or if placement will be required. Counselor to clarify. Request HC Surrog/Guard Advoc?: Yes Blaine Benedict MD Dec 05, 2016 11:59
[2016-12-05 13:47] LABS: BLOOD, URINE NEG (NEG); COMMENT (UR) CULT NOT INDICATED; CULTURE IF INDICATED CULT NOT INDICATED; GLUCOSE,URINE NEG (NEG); KETONE, URINE NEG (NEG); MUCUS URINE FEW /lpf (OCC); NITRITE,URINE NEG (NEG); PH, URINE 6.5 (5.0-8.5); SQUAMOUS EPITHELIAL CELL URINE 4 /hpf (0-5); URINE COLOR YELLOW (YELLW/STRAW)
[2016-12-05 17:58] VITALS: BP 125/66; PULSE 100; RESP 17; TEMP 98.3; O2SAT 99
[2016-12-05] MEDS: risperiDONE ODT 1 MG TAB PO SCH (20:21)
[2016-12-05] MEDS: ZOLPIDEM TARTRATE 5 MG TAB PO PRN (20:21)
[2016-12-06 06:11] VITALS: BP 132/65; PULSE 79; RESP 17; TEMP 97.6; O2SAT 97
[2016-12-06] MEDS: risperiDONE ODT 1 MG TAB PO SCH ×2 (08:56→20:36)
[2016-12-06] MEDS: LORazepam 1 MG TAB PO PRN (09:49)
[2016-12-06 18:27] VITALS: BP 118/72; PULSE 83; RESP 16; TEMP 97.6; O2SAT 100
--- NOTE | 2016-12-06 18:52 | HHI.PYPN ---
Subjective Remarks Patient was seen and case discussed with nursing. Patient remains internally preoccupied. She is responding to internal stimuli and smiling inappropriately throughout the interview. Flat affect, soft spoken. Compliant with medications and tolerating it well. Objective Alert: Yes [place]: Person, Place Mood: Calm Affect: Other (quite childlike) Memory Intact: Comment (not formally assessed) Hallucinations: Auditory (ongoing, ghosts) Delusions: Yes Delusion Type: Other (internally stimulated) Suicidal: Ideation (no SI) Homicidal: Ideation (no HI) Insight/Judgment Poor Vitals/IOs Vital Signs Date Time Temp Pulse Resp B/P (MAP) Pulse Ox O2 Delivery O2 Flow Rate FiO2 12/06/16 18:27 97.6 83 16 118/72 (87) 100 Assessment & Plan Problem List: (1) Schizophrenia, undifferentiated, acute episode ICD Codes: F20.3 - Undifferentiated schizophrenia Assessment & Plan Continue current treatment plan Justification for Cont. Inpt. Patient would decompensate in a less restrictive setting Request HC Surrog/Guard Advoc?: Yes Martinez Adhikari DO Dec 06, 2016 18:52
[2016-12-06] MEDS: ZOLPIDEM TARTRATE 5 MG TAB PO PRN (22:07)
[2016-12-07 06:00] VITALS: BP 113/61; PULSE 69; RESP 18; TEMP 98.1; O2SAT 98
[2016-12-07] MEDS: risperiDONE ODT 1 MG TAB PO SCH ×3 (08:47→20:36)
--- NOTE | 2016-12-07 14:30 | HHI.PYPN ---
Subjective Remarks Patient was seen and case discussed with nursing. Patient remains elevated and smiling inappropriately throughout the interview. Responding to internal stimuli. Patient is contradicting with the voices that she hears telling the nurse yes, than telling me no. Says she hears yelling at night. Says that she is scared of her room. Tearful this morning per nursing. Denies suicidal or homicidal ideations Objective Alert: Yes [place]: Person, Place Mood: Calm Affect: Other (quite childlike) Memory Intact: Comment (not formally assessed) Hallucinations: Auditory (negative things per nursing) Delusions: Yes Delusion Type: Other (internally stimulated) Suicidal: Ideation (no SI) Homicidal: Ideation (no HI) Insight/Judgment Poor Vitals/IOs Vital Signs Date Time Temp Pulse Resp B/P (MAP) Pulse Ox O2 Delivery O2 Flow Rate FiO2 12/07/16 06:00 98.1 69 18 113/61 (78) 98 Assessment & Plan Problem List: (1) Schizophrenia, undifferentiated, acute episode ICD Codes: F20.3 - Undifferentiated schizophrenia Assessment & Plan Continue current treatment plan Justification for Cont. Inpt. Patient will decompensate in a less restrictive setting Request HC Surrog/Guard Advoc?: Yes Martinez Adhikari DO Dec 07, 2016 14:30
[2016-12-07 18:00] VITALS: BP 107/70; PULSE 79; RESP 18; TEMP 98.1; O2SAT 100
[2016-12-07] MEDS: diphenhydrAMINE HCL 50 MG CAP PO PRN (20:34)
[2016-12-07] MEDS: LORazepam 2 MG/ML VIAL IM PRN (21:41)
[2016-12-08 05:46] VITALS: BP 116/66; PULSE 79; RESP 16; TEMP 98.1; O2SAT 96
[2016-12-08] MEDS: risperiDONE ODT 1 MG TAB PO SCH ×2 (08:57→20:55)
[2016-12-08 15:48] VITALS: BP 129/85; PULSE 99; RESP 18; TEMP 98.1; O2SAT 98
--- NOTE | 2016-12-08 17:44 | HHI.PYPN ---
Subjective Remarks Patient seen in [place] with nurse Celia, patient mood somewhat elevated silly patient appears to be responding to internal stimuli acknowledging voices in her head. Patient showing no insight into disease however she is compliant with her medications Review of Systems Except as stated in HPI: all other systems reviewed are Neg Objective Alert: Yes [place]: Person, Place Mood: Calm Affect: Other (quite childlike) Memory Intact: Comment (not formally assessed) Hallucinations: Auditory (negative things per nursing) Delusions: Yes Delusion Type: Other (internally stimulated) Suicidal: Ideation (no SI) Homicidal: Ideation (no HI) Insight/Judgment Very poor Vitals/IOs Vital Signs Date Time Temp Pulse Resp B/P (MAP) Pulse Ox O2 Delivery O2 Flow Rate FiO2 12/08/16 15:48 98.1 99 18 129/85 (100) 98 Assessment & Plan Problem List: (1) Schizophrenia, undifferentiated, acute episode ICD Codes: F20.3 - Undifferentiated schizophrenia Assessment & Plan Estimated LOS: days patient continue psychotic and paranoid with mildly elevated almost childlike attitude. Compliant medications. For now continue treatment Justification for Cont. Inpt. At this time patient will decompensate the placed in the lower level of care Discharge Planning To be determined Request HC Surrog/Guard Advoc?: Yes James Jones MD Dec 08, 2016 17:44
[2016-12-08] MEDS: ZOLPIDEM TARTRATE 5 MG TAB PO PRN (20:55)
[2016-12-09 06:11] VITALS: BP 124/77; PULSE 78; RESP 16; TEMP 98.4; O2SAT 97
[2016-12-09] MEDS: risperiDONE ODT 1 MG TAB PO SCH ×2 (08:25→20:58)
--- NOTE | 2016-12-09 10:05 | HHI.PYPN ---
Subjective Remarks Patient seen in her room with nurse Kathy and counselor Eulalio. Patient compliant medications. Patient continues superficial silly childlike marked thought blocking acknowledges continued auditory hallucinations of a somewhat silly threatening manner. Today patient's past history with compliance medication I feel the addition of a monthly decanoate would be appropriate. I will order invega sustena 234 milligrams IM today and every 28 days Review of Systems Except as stated in HPI: all other systems reviewed are Neg Objective Alert: Yes [place]: Person, Place Mood: Calm Affect: Other (quite childlike) Memory Intact: Comment (not formally assessed) Hallucinations: Auditory (negative things per nursing) Delusions: Yes Delusion Type: Other (internally stimulated) Suicidal: Ideation (no SI) Homicidal: Ideation (no HI) Insight/Judgment Very poor Vitals/IOs Vital Signs Date Time Temp Pulse Resp B/P (MAP) Pulse Ox O2 Delivery O2 Flow Rate FiO2 12/09/16 06:11 98.4 78 16 124/77 (93) 97 Assessment & Plan Problem List: (1) Schizophrenia, undifferentiated, acute episode ICD Codes: F20.3 - Undifferentiated schizophrenia Assessment & Plan Estimated LOS: days patient remained psychotic delusional somewhat silly and childlike. She medication addition above Justification for Cont. Inpt. At this time patient will decompensate the placed in a lower level of care Discharge Planning To be determined Request HC Surrog/Guard Advoc?: Yes James Jones MD Dec 09, 2016 10:05
[2016-12-09] MEDS ORDERED: PALIPERIDONE PALMITATE 234 MG/1.5 ML SYRINGE IM SCH (11:00)
[2016-12-09 18:20] VITALS: BP 128/65; PULSE 80; RESP 17; TEMP 98.3; O2SAT 98
[2016-12-09] MEDS: diphenhydrAMINE HCL 50 MG CAP PO PRN (20:58)
[2016-12-09] MEDS: ZOLPIDEM TARTRATE 5 MG TAB PO PRN (20:58)
[2016-12-10 06:20] VITALS: BP 121/66; PULSE 82; RESP 16; TEMP 98.1; O2SAT 100
[2016-12-10] MEDS: risperiDONE ODT 1 MG TAB PO SCH ×2 (08:32→21:18)
--- NOTE | 2016-12-10 13:27 | HHI.PYPN ---
Subjective Remarks Patient seen in day room with nurse Steffi, chart review, patient compliant medications, patient did receive her invega sustena yesterday. Patient continues somewhat superficial childlike acknowledges continued auditory hallucinations but diminishing. Distal feel patient has the capacity to sign voluntary. Patient has been scheduled for [employer] tomorrow will lift [employer] act allow her sign voluntary. Review of Systems Except as stated in HPI: all other systems reviewed are Neg Objective Alert: Yes [place]: Person, Place Mood: Calm Affect: Other (quite childlike) Memory Intact: Comment (not formally assessed) Hallucinations: Auditory (negative things per nursing) Delusions: Yes Delusion Type: Other (internally stimulated) Suicidal: Ideation (no SI) Homicidal: Ideation (no HI) Insight/Judgment Very poor Vitals/IOs Vital Signs Date Time Temp Pulse Resp B/P (MAP) Pulse Ox O2 Delivery O2 Flow Rate FiO2 12/10/16 06:20 98.1 82 16 121/66 (84) 100 Assessment & Plan Problem List: (1) Schizophrenia, undifferentiated, acute episode ICD Codes: F20.3 - Undifferentiated schizophrenia Assessment & Plan Estimated LOS: days patient is psychotic but slowly improving. Compliant medications will lift [employer] act allow patient to sign voluntary Justification for Cont. Inpt. Stating patient would decompensate if placed in the lower level of care Discharge Planning To be determined Request HC Surrog/Guard Advoc?: Yes James Jones MD Dec 10, 2016 13:27
[2016-12-10 17:00] VITALS: BP 107/62; PULSE 92; RESP 18; TEMP 97.8; O2SAT 100
[2016-12-10] MEDS: LORazepam 1 MG TAB PO PRN (18:25)
[2016-12-10] MEDS: ZOLPIDEM TARTRATE 5 MG TAB PO PRN (21:18)
[2016-12-10] MEDS: diphenhydrAMINE HCL 50 MG CAP PO PRN (21:19)
[2016-12-11 05:38] VITALS: BP 104/59; PULSE 82; RESP 17; TEMP 97.8
[2016-12-11] MEDS: risperiDONE ODT 1 MG TAB PO SCH (08:31)
[2016-12-11] MEDS: BENZTROPINE MESYLATE 1 MG TAB PO SCH ×2 (14:45→20:42)
--- NOTE | 2016-12-11 14:52 | HHI.PYPN ---
Subjective Remarks Patient seen in day room with nurse Radha, patient walking with a somewhat stiff gait. Denies any significant less nuclear pain. Continue somewhat silly and superficial is of responding to internal stimuli. I question patient is having some akathisia. We'll discontinue oral Respinol. And Cogentin 0.5 mg twice a day Review of Systems Except as stated in HPI: all other systems reviewed are Neg Mental Status Examination Appearance: Appropriate Consciousness: Alert, Highly Distractible Orientation: Person Motor Activity: Other (patient somewhat stiff in her gait and her posture) Speech: Hesitant, Other (tangential) Language: Other (markedly disorganized) Fund of Knowledge: Poor Attention and Concentration: Easily Distracted Memory: Impaired Mood: Appropriate (to somewhat restricted) Affect: Other Thought Process & Associations: Tangential Thought Content: Bizarre thinking Hallucination Type: Auditory (quite vague) Delusion Type: Other (vigilant) Suicidal Ideation: No Suicidal Plan: No Suicidal Intention: No Homicidal Ideation: No Homicidal Plan: No Homicidal Intention: No Insight: Poor Judgment: Poor Results Vitals/IOs Vital Signs Date Time Temp Pulse Resp B/P (MAP) Pulse Ox O2 Delivery O2 Flow Rate FiO2 12/11/16 05:38 97.8 82 17 104/59 (74) 12/10/16 17:00 100 Assessment & Plan Problem List: (1) Schizophrenia, undifferentiated, acute episode ICD Codes: F20.3 - Undifferentiated schizophrenia Assessment & Plan Estimated LOS: days patient continues psychotic somewhat superficial and silly. She'll be having some fascia will discontinue oral Respinol at Cogentin 0.5 mg twice a day Justification for Cont. Inpt. This time patient decompensate the placed in a lower level of care Discharge Planning Consider discharge to family home when stabilized Request HC Surrog/Guard Advoc?: Yes James Jones MD Dec 11, 2016 14:52
[2016-12-11] MEDS ORDERED: PILL SPLITTER OTHER PRN (15:00)
[2016-12-11 16:21] VITALS: BP 119/71; PULSE 111; RESP 18; TEMP 97.6; O2SAT 99
[2016-12-11] MEDS: ERGOCALCIFEROL (VIT D2) 50,000 UNIT CAP PO SCH (17:00)
[2016-12-11] MEDS: diphenhydrAMINE HCL 50 MG CAP PO PRN (20:42)
[2016-12-11] MEDS: LORazepam 1 MG TAB PO PRN (20:42)
[2016-12-12 05:41] VITALS: BP 95/46; PULSE 78; RESP 18; TEMP 98.6; O2SAT 99
[2016-12-12] MEDS: BENZTROPINE MESYLATE 1 MG TAB PO SCH ×2 (08:00→20:06)
[2016-12-12] MEDS: ACETAMINOPHEN 325 MG TAB PO PRN (12:22)
--- NOTE | 2016-12-12 15:43 | HHI.PYPN ---
Subjective Remarks Patient seen in [place] with nurse Radha, chart review, patient compliant medications. Patient somewhat more flexible today moving extremities more easily scratching at head making gestures with and. Stating she has profits her head in the profits are talking to her Chief Complaint: patient psychotic hearing voices threatening mother walking and dancing in Review of Systems Except as stated in HPI: all other systems reviewed are Neg Mental Status Examination Appearance: Appropriate Consciousness: Alert, Highly Distractible Orientation: Person Motor Activity: Other (patient somewhat stiff in her gait and her posture) Speech: Hesitant, Other (tangential) Language: Other (markedly disorganized) Fund of Knowledge: Poor Attention and Concentration: Easily Distracted Memory: Impaired Mood: Appropriate (to somewhat restricted) Affect: Other Thought Process & Associations: Tangential Thought Content: Bizarre thinking Hallucination Type: Auditory (quite vague) Delusion Type: Other (vigilant) Suicidal Ideation: No Suicidal Plan: No Suicidal Intention: No Homicidal Ideation: No Homicidal Plan: No Homicidal Intention: No Insight: Poor Judgment: Poor Results Vitals/IOs Vital Signs Date Time Temp Pulse Resp B/P (MAP) Pulse Ox O2 Delivery O2 Flow Rate FiO2 12/12/16 05:41 98.6 78 18 95/46 (62) 99 Assessment & Plan Problem List: (1) Schizophrenia, undifferentiated, 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 Inpt. At this time patient will decompensate the placed in a lower level of care Discharge Planning Plan is to return to home with mother once patient is stabilized Request HC Surrog/Guard Advoc?: Yes James Jones MD Dec 12, 2016 15:43
[2016-12-12 16:58] VITALS: BP 109/70; PULSE 95; RESP 18; TEMP 98.5; O2SAT 100
[2016-12-13 05:45] VITALS: BP 108/55; PULSE 71; RESP 16; TEMP 97.2; O2SAT 98
[2016-12-13] MEDS: BENZTROPINE MESYLATE 1 MG TAB PO SCH ×2 (07:56→20:17)
--- NOTE | 2016-12-13 13:11 | HHI.PYPN ---
Subjective Remarks Pt seen and discussed with staff. EPS symptoms resolved and have not returned. Today AH have decreased in frequency and intensity. No aggression or behavior problems. She remains paranoid and refuses to engage in interview with MD Chief Complaint: Pt admitted for psychosis Mental Status Examination Appearance: Appropriate Consciousness: Alert, Highly Distractible Orientation: Person Motor Activity: Other (patient somewhat stiff in her gait and her posture) Speech: Hesitant, Other (tangential) Language: Other (markedly disorganized) Fund of Knowledge: Poor Attention and Concentration: Easily Distracted Memory: Impaired Mood: Appropriate (to somewhat restricted) Affect: Other Thought Process & Associations: Tangential Thought Content: Bizarre thinking, Delusional Hallucination Type: Auditory (quite vague) Delusion Type: Paranoid, Other (vigilant) Suicidal Ideation: No Suicidal Plan: No Suicidal Intention: No Homicidal Ideation: No Homicidal Plan: No Homicidal Intention: No Insight: Poor Judgment: Poor Results Vitals/IOs Vital Signs Date Time Temp Pulse Resp B/P (MAP) Pulse Ox O2 Delivery O2 Flow Rate FiO2 12/13/16 05:45 97.2 71 16 108/55 (72) 98 Assessment & Plan Problem List: (1) Schizophrenia, undifferentiated, acute episode ICD Codes: F20.3 - Undifferentiated schizophrenia Assessment & Plan Continue current tx plan. Estimated LOS: days Justification for Cont. Inpt. impairments in reality testing Request HC Surrog/Guard Advoc?: Yes Frannie Banks MD Dec 13, 2016 13:11
[2016-12-13] MEDS: LORazepam 1 MG TAB PO PRN ×2 (14:20→20:17)
[2016-12-13 17:38] VITALS: BP 144/68; PULSE 101; RESP 17; TEMP 98.2; O2SAT 99
[2016-12-13] MEDS: ZOLPIDEM TARTRATE 5 MG TAB PO PRN (22:17)
[2016-12-14 05:30] VITALS: BP 95/67; PULSE 70; RESP 17; TEMP 97.4; O2SAT 100
[2016-12-14] MEDS: BENZTROPINE MESYLATE 1 MG TAB PO SCH ×2 (07:44→20:13)
[2016-12-14] MEDS: LORazepam 2 MG/ML VIAL IM PRN (10:15)
--- NOTE | 2016-12-14 12:35 | HHI.PYPN ---
Subjective Remarks Pt seen and discussed with staff. She has been hypersexual and making inappropriate, sexually aggressive gestures to male MHTs. She was given ativan PO for agitation but was ineffective. She is increasingly disorganzied in behaviors. Given risperidone ODT 1mg X1 dose for agitation. No SI/HI Chief Complaint: Pt admitted for psychosis Mental Status Examination Appearance: Appropriate Consciousness: Alert, Highly Distractible Orientation: Person Motor Activity: Other (patient somewhat stiff in her gait and her posture) Speech: Hesitant, Other (tangential) Language: Other (markedly disorganized) Fund of Knowledge: Poor Attention and Concentration: Easily Distracted Memory: Impaired Mood: Irritable Affect: Labile Thought Process & Associations: Tangential Thought Content: Bizarre thinking, Delusional Hallucination Type: Auditory (quite vague) Delusion Type: Paranoid, Other (vigilant) Suicidal Ideation: No Suicidal Plan: No Suicidal Intention: No Homicidal Ideation: No Homicidal Plan: No Homicidal Intention: No Insight: Poor Judgment: Poor Results Vitals/IOs Vital Signs Date Time Temp Pulse Resp B/P (MAP) Pulse Ox O2 Delivery O2 Flow Rate FiO2 12/14/16 05:30 97.4 70 17 95/67 (76) 100 Assessment & Plan Problem List: (1) Schizophrenia, undifferentiated, acute episode ICD Codes: F20.3 - Undifferentiated schizophrenia Assessment & Plan Continue current tx plan. Estimated LOS: days Justification for Cont. Inpt. impairments in reality testing Request HC Surrog/Guard Advoc?: Yes Frannie Banks MD Dec 14, 2016 12:35
[2016-12-14] MEDS ORDERED: risperiDONE ODT 1 MG TAB PO ONE (12:45)
[2016-12-14 16:23] VITALS: BP 99/66; PULSE 108; RESP 16; TEMP 97.7; O2SAT 99
[2016-12-14] MEDS: diphenhydrAMINE HCL 50 MG CAP PO PRN (20:13)
[2016-12-14] MEDS: ZOLPIDEM TARTRATE 5 MG TAB PO PRN (20:13)
[2016-12-15 05:46] VITALS: BP 100/60; PULSE 60; RESP 16; TEMP 98.6; O2SAT 100
[2016-12-15] MEDS: BENZTROPINE MESYLATE 1 MG TAB PO SCH ×2 (09:00→20:31)
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
[2016-12-15 15:29] VITALS: BP 113/67; PULSE 96; RESP 18; TEMP 96.4; O2SAT 97
[2016-12-16 05:43] VITALS: BP 108/61; PULSE 67; RESP 16; TEMP 98.2; O2SAT 99
[2016-12-16] MEDS: BENZTROPINE MESYLATE 1 MG TAB PO SCH ×3 (09:31→21:15)
--- NOTE | 2016-12-16 12:51 | HHI.PYPN ---
Subjective Remarks Patient seen in [place] with nurse Zeina, counselor Adriane, and medical student key, patient markedly elevated intense superficial childlike mood at the same her mood and behaviors are quite hypersexual, she has a saying she wants to make love to various staff members on the unit, she has been exposing her breasts in the day room. Also including with me. Patient so far showing mixed compliance with the Tegretol. His right opinion at this time with increased manic type behaviors and hypersexuality vaguely to significantly dangerous situations the patient does need medication to help slow her down more quickly. We will order Haldol 5 mg twice a day to be given along with Cogentin 1 mg twice a day. Hopefully will also gain further compliance with the Tegretol Chief Complaint: Pt admitted for psychosis Review of Systems Except as stated in HPI: all other systems reviewed are Neg Mental Status Examination Appearance: Appropriate Consciousness: Alert, Highly Distractible Orientation: Person Motor Activity: Other (patient somewhat manic and hyperactive moving in a loose dancing [place]) Speech: Pressured, Rapid, Other (quite sexual in nature) Language: Other (markedly disorganized) Fund of Knowledge: Poor Attention and Concentration: Easily Distracted Memory: Impaired Mood: Angry, Oppositional, Anxious, Irritable Affect: Other Thought Process & Associations: Disorganized, Tangential Thought Content: Bizarre thinking, Delusional Hallucination Type: Auditory (quite vague) Delusion Type: Paranoid, Other (vigilant) Suicidal Ideation: No Suicidal Plan: No Suicidal Intention: No Homicidal Ideation: No Homicidal Plan: No Homicidal Intention: No Insight: Poor Judgment: Poor Results Vitals/IOs Vital Signs Date Time Temp Pulse Resp B/P (MAP) Pulse Ox O2 Delivery O2 Flow Rate FiO2 12/16/16 05:43 98.2 67 16 108/61 (77) 99 Assessment & Plan Problem List: (1) Schizophrenia, undifferentiated, acute episode ICD Codes: F20.3 - Undifferentiated schizophrenia Assessment & Plan Estimated LOS: days patient now showing increased manic behaviors, rapid pressured speech somewhat hyperactive and hypersexual. Blood lab Haldol 5 mg twice a day and Cogentin 1 mg twice a day to regimen. Also encourage improve compliance with Tegretol Justification for Cont. Inpt. At this time patient will decompensate the placed a lower level of care Discharge Planning Continue to consider placement with mother once patient is stabilized Request HC Surrog/Guard Advoc?: Yes James Jones MD Dec 16, 2016 12:51
[2016-12-16] MEDS: HALOPERIDOL 5 MG TAB PO SCH ×2 (14:15→21:15)
[2016-12-16] MEDS: diphenhydrAMINE HCL 50 MG CAP PO PRN (21:16)
[2016-12-16] MEDS: ZOLPIDEM TARTRATE 5 MG TAB PO PRN (21:16)
[2016-12-17 06:14] VITALS: RESP 16; TEMP 98.4; O2SAT 97
[2016-12-17] MEDS: HALOPERIDOL 5 MG TAB PO SCH ×2 (09:29→20:56)
[2016-12-17] MEDS: BENZTROPINE MESYLATE 1 MG TAB PO SCH ×2 (09:29→20:56)
--- NOTE | 2016-12-17 12:37 | HHI.PYPN ---
Subjective Remarks Patient seen in [place] with nurse Zeina, chart review, patient compliant medicine. Patient while somewhat calmer than yesterday remains quite hypersexual and delusional somewhat grandiose. Patient scheduled for a Tegretol blood level tomorrow morning. For now continue treatment considering patient's significant mood component of this I question whether her diagnosis might better be described as schizoaffective disorder bipolar type Chief Complaint: Pt admitted for psychosis Review of Systems Except as stated in HPI: all other systems reviewed are Neg Mental Status Examination Appearance: Appropriate Consciousness: Alert, Highly Distractible Orientation: Person Motor Activity: Other (patient somewhat manic and hyperactive moving in a loose dancing [place]) Speech: Pressured, Rapid, Other (quite sexual in nature) Language: Other (markedly disorganized) Fund of Knowledge: Poor Attention and Concentration: Easily Distracted Memory: Impaired Mood: Angry, Oppositional, Anxious, Irritable Affect: Other Thought Process & Associations: Disorganized, Tangential Thought Content: Bizarre thinking, Delusional Hallucination Type: Auditory (quite vague) Delusion Type: Paranoid, Other (vigilant) Suicidal Ideation: No Suicidal Plan: No Suicidal Intention: No Homicidal Ideation: No Homicidal Plan: No Homicidal Intention: No Insight: Poor Judgment: Poor Results Vitals/IOs Vital Signs Date Time Temp Pulse Resp B/P (MAP) Pulse Ox O2 Delivery O2 Flow Rate FiO2 12/17/16 06:14 98.4 16 97 12/16/16 05:43 67 108/61 (77) Assessment & Plan Problem List: (1) Schizophrenia, undifferentiated, acute episode ICD Codes: F20.3 - Undifferentiated schizophrenia (2) Schizoaffective disorder, bipolar type ICD Codes: F25.0 - Schizoaffective disorder, bipolar type Assessment & Plan Estimated LOS: days patient's mood remains elevated intense hypersexual she also now is making vague statements about voices in her head. And that she has been having sex with a "" ghost" patient scheduled for Depakote blood level tomorrow also Justification for Cont. Inpt. At this time patient will decompensate who placed a lower level of care Discharge Planning Patient remains quite psychotic in the midst of medication management and adjustment Request HC Surrog/Guard Advoc?: Yes James Jones MD Dec 17, 2016 12:37
[2016-12-17 16:00] VITALS: BP 94/53; PULSE 67; RESP 18; O2SAT 99
[2016-12-17] MEDS: ZOLPIDEM TARTRATE 5 MG TAB PO PRN (20:56)
[2016-12-17] MEDS: diphenhydrAMINE HCL 50 MG CAP PO PRN (20:56)
[2016-12-18 06:00] VITALS: BP 101/59; PULSE 68; RESP 18; TEMP 97.9; O2SAT 98
[2016-12-18] MEDS: HALOPERIDOL 5 MG TAB PO SCH ×2 (08:31→20:16)
[2016-12-18] MEDS: BENZTROPINE MESYLATE 1 MG TAB PO SCH ×2 (08:31→20:16)
[2016-12-18] MEDS: LORazepam 1 MG TAB PO PRN (10:21)
--- NOTE | 2016-12-18 15:45 | HHI.PYPN ---
Subjective Remarks Patient seen in her room with nurse Marnie and medical student key, patient compliant medications. Staff states that well patient was showering today she stated she had a pelvic in her vagina that fell out. She also states there is a mouse that lives in her vagina. She also continues to be inappropriate with male patient's becoming somewhat intimidating and invading their personal space. It appears patient refused Tegretol level this a.m. will ordered for tomorrow morning. I feel it is medically necessary less patient may be restrained to draw the blood Chief Complaint: Pt admitted for psychosis Review of Systems Except as stated in HPI: all other systems reviewed are Neg Mental Status Examination Appearance: Appropriate Consciousness: Alert, Highly Distractible Orientation: Person Motor Activity: Other (patient somewhat manic and hyperactive moving in a loose dancing [place]) Speech: Pressured, Rapid, Other (quite sexual in nature) Language: Other (markedly disorganized) Fund of Knowledge: Poor Attention and Concentration: Easily Distracted Memory: Impaired Mood: Angry, Oppositional, Anxious, Irritable Affect: Other Thought Process & Associations: Disorganized, Tangential Thought Content: Bizarre thinking, Delusional Hallucination Type: Auditory (quite vague), Tactile (patient felt as if a pelican her falling out of her vagina and most lives in the vagina) Delusion Type: Paranoid, Other (vigilant) Suicidal Ideation: No Suicidal Plan: No Suicidal Intention: No Homicidal Ideation: No Homicidal Plan: No Homicidal Intention: No Insight: Poor Judgment: Poor Results Vitals/IOs Vital Signs Date Time Temp Pulse Resp B/P (MAP) Pulse Ox O2 Delivery O2 Flow Rate FiO2 12/18/16 06:00 97.9 68 18 101/59 (73) 98 Assessment & Plan Problem List: (1) Schizophrenia, undifferentiated, acute episode ICD Codes: F20.3 - Undifferentiated schizophrenia (2) Schizoaffective disorder, bipolar type ICD Codes: F25.0 - Schizoaffective disorder, bipolar type Assessment & Plan Estimated LOS: days patient continues quite psychotic delusional paranoid and hypersexual. We'll attempt to get Tegretol blood level tomorrow Justification for Cont. Inpt. At this time patient will decompensate then placed a lower level of care Discharge Planning Plan would be for patient to return home when she is stabilized Request HC Surrog/Guard Advoc?: Yes James Jones MD Dec 18, 2016 15:45
[2016-12-18] MEDS: ERGOCALCIFEROL (VIT D2) 50,000 UNIT CAP PO SCH (17:00)
[2016-12-18] MEDS: ZOLPIDEM TARTRATE 5 MG TAB PO PRN (20:15)
[2016-12-18] MEDS: diphenhydrAMINE HCL 50 MG CAP PO PRN (20:15)
[2016-12-19 06:25] VITALS: BP 90/53; PULSE 60; RESP 16; TEMP 97.9; O2SAT 99
[2016-12-19] MEDS: HALOPERIDOL 5 MG TAB PO SCH ×2 (09:00→20:51)
[2016-12-19] MEDS: BENZTROPINE MESYLATE 1 MG TAB PO SCH ×2 (09:00→20:51)
[2016-12-19] MEDS ORDERED: HALOPERIDOL LACTATE 5 MG/ML AMP IM STA (10:45)
[2016-12-19] MEDS ORDERED: LORazepam 2 MG/ML VIAL IM STA (10:46)
--- NOTE | 2016-12-19 14:13 | PD.PN.STU ---
Subjective Remarks pt is a 21 y.o AA female with a hx of schizophrenia who has [facility] since 12/01/2016. Pt was brought to the ED under [facility] secondary to "walking into traffic". She was at the EDX3 day during which she was considered to be sent home to mother. However, because her mother has a 2 yr old child, she is unable to properly care for [place] and is therefore unable to bring her home. During her hospital stay [place] has seemed to decompensate. She has been having auditory and visual hallucinations, delusions, and responds to internal stimuli. She has been confused, uncooperative, and antagonizes other patients in the unit. Today, she still has the delusion that there is a mouse in her vagina. Pt is on Tegratol. her Tegratol blood level is 4.7. Considering increasing the dose Objective Vitals Vital Signs Date Time Temp Pulse Resp B/P (MAP) Pulse Ox O2 Delivery O2 Flow Rate FiO2 12/19/16 06:25 97.9 60 16 90/53 (65) 99 Objective Remarks pt is well developed female, disheveled, confused. She seems to be responding to internal stimuli. She is very uncooperative Medications and IVs Tegretol Haldol Risperidone A/P Assessment and Plan 1. Schizophrenia Today's Blood Tegretol level was 4.7. can safely increase the dose of Tegretol. Will look into placement Discharge Planning will keep patient in the unit until stable enough and until a more permeant living arraignment is found [place] Bustillo M3 Dec 19, 2016 14:13
--- NOTE | 2016-12-19 16:02 | HHI.PYPN ---
Subjective Remarks Patient seen in [place] with nurse Steffi, chart review, Depakote level drawn the same as 4.7 on 100 mg twice a day. Will increase dose 200 mg a.m. 20 mg at bedtime and repeat blood level on . Patient remains superficial silly quite psychotic and hypersexual. Today stated she felt like people touching her "privates" Chief Complaint: Pt admitted for psychosis Review of Systems Except as stated in HPI: all other systems reviewed are Neg Mental Status Examination Appearance: Appropriate Consciousness: Alert, Highly Distractible Orientation: Person Motor Activity: Other (patient somewhat manic and hyperactive moving in a loose dancing [place]) Speech: Pressured, Rapid, Other (quite sexual in nature) Language: Other (markedly disorganized) Fund of Knowledge: Poor Attention and Concentration: Easily Distracted Memory: Impaired Mood: Angry, Oppositional, Anxious, Irritable Affect: Other Thought Process & Associations: Disorganized, Tangential Thought Content: Bizarre thinking, Delusional Hallucination Type: Auditory (quite vague), Tactile (patient felt as if a pelican her falling out of her vagina and most lives in the vagina) Delusion Type: Paranoid, Other (vigilant) Suicidal Ideation: No Suicidal Plan: No Suicidal Intention: No Homicidal Ideation: No Homicidal Plan: No Homicidal Intention: No Insight: Poor Judgment: Poor Results Labs Test 12/19/16 09:12 Carbamazepine (Tegretol) Level 4.7 MCG/ML Vitals/IOs Vital Signs Date Time Temp Pulse Resp B/P (MAP) Pulse Ox O2 Delivery O2 Flow Rate FiO2 12/19/16 06:25 97.9 60 16 90/53 (65) 99 Assessment & Plan Problem List: (1) Schizophrenia, undifferentiated, acute episode ICD Codes: F20.3 - Undifferentiated schizophrenia (2) Schizoaffective disorder, bipolar type ICD Codes: F25.0 - Schizoaffective disorder, bipolar type Assessment & Plan Estimated LOS: days patient remains psychotic delusional sexually inappropriate. She medication adjustment above Justification for Cont. Inpt. At this time patient will decompensate placed on the lower level of care Discharge Planning Placement would be predicted back with patient's mother once she is stabilized Request HC Surrog/Guard Advoc?: Yes James Jones MD Dec 19, 2016 16:02
[2016-12-19 18:14] VITALS: BP 97/61; PULSE 100; RESP 17; O2SAT 99
[2016-12-19] MEDS: diphenhydrAMINE HCL 50 MG CAP PO PRN (20:50)
[2016-12-19] MEDS: LORazepam 1 MG TAB PO PRN (23:21)
[2016-12-19] MEDS: ZOLPIDEM TARTRATE 5 MG TAB PO PRN (23:21)
[2016-12-20 06:07] VITALS: BP 107/77; PULSE 73; RESP 16; TEMP 97.7; O2SAT 99
[2016-12-20] MEDS: BENZTROPINE MESYLATE 1 MG TAB PO SCH ×2 (08:49→20:22)
[2016-12-20] MEDS: HALOPERIDOL 5 MG TAB PO SCH ×2 (08:49→20:22)
--- NOTE | 2016-12-20 16:08 | HHI.PYPN ---
Subjective Remarks Patient was seen and case discussed with nursing. Patient remains pleasantly psychotic. Affect is elevated. She has a bizarre delusions that there are rats in her vagina. His compliant with medications and behaving well on the unit. Admits to auditory hallucinations at night. Chief Complaint: Pt admitted for psychosis Mental Status Examination Appearance: Appropriate Consciousness: Alert, Highly Distractible Orientation: Person Motor Activity: Other (patient somewhat manic and hyperactive moving in a loose dancing [place]) Speech: Pressured, Other (quite sexual in nature) Language: Other (markedly disorganized) Fund of Knowledge: Poor Attention and Concentration: Easily Distracted Memory: Impaired Mood: Anxious, Irritable Affect: Anxious Thought Process & Associations: Disorganized, Tangential Thought Content: Bizarre thinking, Delusional Hallucination Type: Auditory (quite vague), Tactile (patient felt as if a pelican her falling out of her vagina and most lives in the vagina) Delusion Type: Paranoid, Other (vigilant) Suicidal Ideation: No Suicidal Plan: No Suicidal Intention: No Homicidal Ideation: No Homicidal Plan: No Homicidal Intention: No Insight: Poor Judgment: Poor Results Vitals/IOs Vital Signs Date Time Temp Pulse Resp B/P (MAP) Pulse Ox O2 Delivery O2 Flow Rate FiO2 12/20/16 06:07 97.7 73 16 107/77 (87) 99 Assessment & Plan Problem List: (1) Schizophrenia, undifferentiated, acute episode ICD Codes: F20.3 - Undifferentiated schizophrenia (2) Schizoaffective disorder, bipolar type ICD Codes: F25.0 - Schizoaffective disorder, bipolar type Assessment & Plan Continue current treatment plan Justification for Cont. Inpt. Patient would decompensate in a less restrictive setting Request HC Surrog/Guard Advoc?: Yes Martinez Adhikari DO Dec 20, 2016 16:07
[2016-12-20 17:47] VITALS: BP 103/63; PULSE 80; RESP 16; TEMP 97.7; O2SAT 99
[2016-12-20] MEDS: LORazepam 1 MG TAB PO PRN (20:22)
[2016-12-21 05:45] VITALS: BP 90/50; PULSE 52; RESP 16; TEMP 97.7; O2SAT 100
[2016-12-21] MEDS: HALOPERIDOL 5 MG TAB PO SCH ×2 (08:51→21:52)
[2016-12-21] MEDS: BENZTROPINE MESYLATE 1 MG TAB PO SCH ×2 (08:51→21:52)
[2016-12-21 10:30] VITALS: BP 100/69; PULSE 88
[2016-12-21] MEDS: LORazepam 1 MG TAB PO PRN (11:09)
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
[2016-12-21 20:14] VITALS: BP 111/60; PULSE 97; RESP 20
[2016-12-21] MEDS: ZOLPIDEM TARTRATE 5 MG TAB PO PRN (21:52)
[2016-12-22 00:04] VITALS: BP 96/54; PULSE 75
[2016-12-22 06:11] VITALS: BP 117/55; PULSE 75; RESP 16; TEMP 98; O2SAT 98
--- NOTE | 2016-12-22 12:53 | HHI.PYPN ---
Subjective Remarks Patient seen in the day room with nurse Katina and medical student key, patient now is noncompliant with her medications did refuse also the Tegretol blood level drawn this morning. She is showing increased signs of ap denying mental illness denying need for medication states she just wants to be discharged. Patient also been more intrusive with the other patients on the floor staff. She is also started her menstrual period. She showing more irritability and paranoia towards me also. When attempted to discuss her legal status, medications, and my concern for her she said she does not have mental illness will refused medications in the future. At this time I feel patient does not have capacity to make decisions concerning her admission or her medication. Thus I feel she does meet criteria for involuntary psychiatric hospitalization of the [place] act. I will do first opinion petition supporting the [place] act. And I will also ask for healthcare surrogate and guardian advocate. We will adjust patient's Haldol to 10 mg by mouth, and if she refuses then to give her 10 mg although IM in its place. Only with permission of health care surrogate/guardian advocate. At this time I'll also initiate state hospital referral packet Chief Complaint: Pt admitted for psychosis Review of Systems Except as stated in HPI: all other systems reviewed are Neg Mental Status Examination Appearance: Appropriate Consciousness: Alert, Highly Distractible Orientation: Person Motor Activity: Other (patient somewhat manic and hyperactive moving in a loose dancing [place]) Speech: Pressured, Other (quite sexual in nature) Language: Other (markedly disorganized) Fund of Knowledge: Poor Attention and Concentration: Easily Distracted Memory: Impaired Mood: Anxious, Irritable Affect: Anxious Thought Process & Associations: Disorganized, Tangential Thought Content: Bizarre thinking, Delusional Hallucination Type: Auditory (quite vague), Tactile (patient felt as if a pelican her falling out of her vagina and most lives in the vagina) Delusion Type: Paranoid, Other (vigilant) Suicidal Ideation: No Suicidal Plan: No Suicidal Intention: No Homicidal Ideation: No Homicidal Plan: No Homicidal Intention: No Insight: Poor Judgment: Poor Results Vitals/IOs Vital Signs Date Time Temp Pulse Resp B/P (MAP) Pulse Ox O2 Delivery O2 Flow Rate FiO2 12/22/16 06:11 98.0 75 16 117/55 (75) 98 Assessment & Plan Problem List: (1) Schizophrenia, undifferentiated, acute episode ICD Codes: F20.3 - Undifferentiated schizophrenia (2) Schizoaffective disorder, bipolar type ICD Codes: F25.0 - Schizoaffective disorder, bipolar type Assessment & Plan Estimated LOS: days patient showing increased psychosis increased manic behaviors, noncompliance medication denial of illness refusal to accept medication. Thus I will initiate the [place] act I'll do first opinion petition supporting [place] act I feel she does not have capacity to sign for medications or admission thus I will do a health care surrogate and guardian advocate. See medication adjustments above Justification for Cont. Inpt. Patient increased psychosis ap noncompliance medication denial of illness needing more significant medication management observation Discharge Planning With this time it patient's increased psychosis I question whether he should also initiate state hospital referral at this time Request HC Surrog/Guard Advoc?: Yes James Jones MD Dec 22, 2016 12:53
[2016-12-22] MEDS: ACETAMINOPHEN 325 MG TAB PO PRN (13:22)
[2016-12-22] MEDS: HALOPERIDOL 5 MG TAB PO SCH (13:22)
[2016-12-22] MEDS: LORazepam 2 MG/ML VIAL IM PRN (17:05)
[2016-12-22 18:00] VITALS: BP 114/66; PULSE 85; RESP 16; TEMP 98.7; O2SAT 99
[2016-12-22] MEDS: BENZTROPINE MESYLATE 1 MG TAB PO SCH (20:26)
[2016-12-22] MEDS: HALOPERIDOL LACTATE 5 MG/ML AMP IM SCH (20:27)
[2016-12-22] MEDS: ZOLPIDEM TARTRATE 5 MG TAB PO PRN (21:34)
[2016-12-22] MEDS: diphenhydrAMINE HCL 50 MG CAP PO PRN (21:34)
[2016-12-23 06:03] VITALS: PULSE 51; RESP 16; TEMP 98; O2SAT 98
[2016-12-23] MEDS: BENZTROPINE MESYLATE 1 MG TAB PO SCH ×2 (07:57→20:51)
[2016-12-23] MEDS: HALOPERIDOL 5 MG TAB PO SCH ×2 (07:57→20:51)
[2016-12-23] MEDS: HALOPERIDOL LACTATE 5 MG/ML AMP IM SCH ×2 (08:11→20:51)
--- NOTE | 2016-12-23 13:06 | HHI.PYPN ---
Subjective Remarks Patient seen in day room with nurse Katina and medical student sheryl. Chart reviewed, now compliant medications. Patient today is calm more appropriate pleasant with me somewhat childlike and silly in her responses. She does acknowledge feeling that she does not need medication feeling that she does not have a mental illness. I attempted to explain my response to her behaviors from yesterday she showed little insight with that. For now continue treatment Chief Complaint: Pt admitted for psychosis Review of Systems Except as stated in HPI: all other systems reviewed are Neg Mental Status Examination Appearance: Appropriate Consciousness: Alert, Highly Distractible Orientation: Person Motor Activity: Other (patient somewhat manic and hyperactive moving in a loose dancing [place]) Speech: Pressured, Other (quite sexual in nature) Language: Other (markedly disorganized) Fund of Knowledge: Poor Attention and Concentration: Easily Distracted Memory: Impaired Mood: Anxious, Irritable Affect: Anxious Thought Process & Associations: Disorganized, Tangential Thought Content: Bizarre thinking, Delusional Hallucination Type: Auditory (quite vague), Tactile (patient felt as if a pelican her falling out of her vagina and most lives in the vagina) Delusion Type: Paranoid, Other (vigilant) Suicidal Ideation: No Suicidal Plan: No Suicidal Intention: No Homicidal Ideation: No Homicidal Plan: No Homicidal Intention: No Insight: Poor Judgment: Poor Results Labs Test 12/22/16 19:08 Carbamazepine (Tegretol) Level 6.1 MCG/ML Vitals/IOs Vital Signs Date Time Temp Pulse Resp B/P (MAP) Pulse Ox O2 Delivery O2 Flow Rate FiO2 12/23/16 06:03 98.0 51 16 98 12/22/16 18:00 114/66 (82) Assessment & Plan Problem List: (1) Schizophrenia, undifferentiated, acute episode ICD Codes: F20.3 - Undifferentiated schizophrenia (2) Schizoaffective disorder, bipolar type ICD Codes: F25.0 - Schizoaffective disorder, bipolar type Assessment & Plan Estimated LOS: days patient continue psychotic paranoid and delusional. Though the paranoia behaviors have softened somewhat Justification for Cont. Inpt. At this time patient will decompensate then placed in a lower level of care Discharge Planning Placement may be problematic. We have service state referral packet Request HC Surrog/Guard Advoc?: Yes James Jones MD Dec 23, 2016 13:06
--- NOTE | 2016-12-23 14:52 | PD.PSY.CON ---
Provisional Diagnosis Admission Date Dec 01, 2016 at 13:21 Seltzer I. 1. Schizophrenia, undifferentiated type, acute exacerbation Seltzer II. Deferred History of Present Illness Service Psychiatry Consult Requested By Reason for Consult Second opinion Primary Care Physician No Primary Care Physician HPI From Dr. Balderas's H&P: This is a 21-year-old female with a history of schizophrenia diagnosed at the age of 19, presenting now after walking into traffic, verbally threatening her mother, experiencing auditory hallucinations, banging her hands, and inability to care for herself. The patient has been in the emergency department for 3 days and at one point was considered for discharge to mother so that patient could be treated on an outpatient basis. However, mother is moving and has a 2- year-old child and is unable to care for the patient at this time. Additionally , the patient has decompensated in the last 12 hours. At this point she is spitting up food, banging her hands together in a stabbing motion, admitting to auditory hallucinations, responding to internal stimuli, and feeling paranoid about leaving. Her affect is very flat and inappropriate. She appears to be exhibiting thought blocking. Her mother states she walks into traffic without looking in either direction and does not appear to understand what she is doing. Patient has no money, no place to live and no weight to care for herself at this time. Mother is willing to serve as guardian advocate. Patient was seen today for psychiatric evaluation of second opinion. Patient is in the floor, disorganized, oppositional and resistant to provide information. She says that she feels okay, reports hearing voices, but declined to open up about the content. She denies suicidal and homicidal ideation, she denies visual hallucinations. Past Family Social History Coded Allergies: No Known Allergies (Unverified , 11/28/16) Unable to Obtain Active Prescriptions or Reported Meds Current Medications Medications (Trade) Dose Ordered Sig/Jose Carlos Route Start Time Stop Time Status Last Admin (Ativan) 1 mg Q6H PRN PO 12/01/16 13:30 12/21/16 11:09 (Ativan Inj) 1 mg Q6H PRN IM 12/01/16 13:30 12/22/16 17:05 (Benadryl) 50 mg Q6H PRN PO 12/01/16 13:30 12/22/16 21:34 (Benadryl Inj) 50 mg Q6H PRN IM 12/01/16 13:30 (Tylenol) 650 mg Q4H PRN PO 12/01/16 13:30 12/22/16 13:22 (Milk Of Magnesia Liq) 30 ml DAILY PRN PO 12/01/16 13:30 (Mag-Al Plus Susp Liq) 30 ml Q6H PRN PO 12/01/16 13:30 (Ambien) 5 mg HS PRN PO 12/03/16 13:45 12/22/16 21:34 (Drisdol) 50,000 units Q7D PO 12/04/16 17:00 01/22/17 17:01 12/11/16 17:00 (Invega Sustenna Inj) 234 mg Q28D IM 12/09/16 11:00 12/09/16 13:11 (Pill Splitter) 1 ea UNSCH PRN OTHER 12/11/16 15:00 (Cogentin) 1 mg BID PO 12/16/16 12:45 12/23/16 07:57 (TEGretol CHEW) 100 mg DAILY PO 12/20/16 09:00 12/23/16 07:57 (TEGretol CHEW) 200 mg HS PO 12/19/16 21:00 12/22/16 20:25 (Haldol) 10 mg BID PO 12/22/16 21:00 12/23/16 07:57 (Haldol Inj) 10 mg BID IM 12/22/16 21:00 Patient's Strengths (min. 2) In a monitored setting. Verbally fluent. Physical Exam Vital Signs Vital Signs Date Time Temp Pulse Resp B/P (MAP) Pulse Ox O2 Delivery O2 Flow Rate FiO2 12/23/16 06:03 98.0 51 16 98 12/22/16 18:00 114/66 (82) Lab Results Test 12/22/16 19:08 Carbamazepine (Tegretol) Level 6.1 MCG/ML Mental Status Examination Appearance: Appropriate Consciousness: Alert, Highly Distractible Orientation: Person Motor Activity: Other (patient somewhat manic and hyperactive moving in a loose dancing [place]) Speech: Pressured, Other (quite sexual in nature) Language: Other (markedly disorganized) Fund of Knowledge: Poor Attention and Concentration: Easily Distracted Memory: Impaired Mood: Anxious, Irritable Affect: Anxious Thought Process & Associations: Disorganized, Tangential Thought Content: Bizarre thinking, Delusional Hallucination Type: Auditory (quite vague), Tactile (patient felt as if a pelican her falling out of her vagina and most lives in the vagina) Delusion Type: Paranoid, Other (vigilant) Suicidal Ideation: No Suicidal Plan: No Suicidal Intention: No Homicidal Ideation: No Homicidal Plan: No Homicidal Intention: No Insight: Poor Judgment: Poor Assessment & Plan Problem List: (1) Schizophrenia, undifferentiated, acute episode ICD Codes: F20.3 - Undifferentiated schizophrenia (2) Schizoaffective disorder, bipolar type ICD Codes: F25.0 - Schizoaffective disorder, bipolar type Assessment & Plan: I have seen and examined this patient, reviewed the documentation, agree and concur with Dr. Jones's assessment and plan. Assessment & Plan Estimated LOS: days Request HC Surrog/Guard Advoc?: Yes Jian Donohue MD Dec 23, 2016 14:52
[2016-12-23 15:53] VITALS: BP 97/52; PULSE 80; RESP 18; TEMP 98.4; O2SAT 98
[2016-12-23] MEDS: ACETAMINOPHEN 325 MG TAB PO PRN (16:35)
[2016-12-24 06:06] VITALS: BP 92/51; PULSE 60; RESP 16; TEMP 97.4; O2SAT 96
[2016-12-24] MEDS: HALOPERIDOL 5 MG TAB PO SCH ×2 (08:03→20:43)
[2016-12-24] MEDS: BENZTROPINE MESYLATE 1 MG TAB PO SCH ×2 (08:03→20:43)
[2016-12-24] MEDS: HALOPERIDOL LACTATE 5 MG/ML AMP IM SCH ×2 (08:41→20:45)
--- NOTE | 2016-12-24 14:08 | HHI.PYPN ---
Subjective Chief Complaint: Pt admitted for psychosis Remarks Patient seen in day room with nurse Stacey, chart reviewed. Patient compliant medications. She continues superficial silly and somewhat hypersexual. Today she also has smeared toothpaste on her face like face cream. Patient continues to show no insight into her disease continues labile irritable denies need for medication upon discharge relate she hasn't mental illness Review of Systems Except as stated in HPI: all other systems reviewed are Neg Mental Status Examination Appearance: Appropriate Consciousness: Alert, Highly Distractible Orientation: Person Motor Activity: Other (patient somewhat manic and hyperactive moving in a loose dancing [place]) Speech: Pressured, Other (quite sexual in nature) Language: Other (markedly disorganized) Fund of Knowledge: Poor Attention and Concentration: Easily Distracted Memory: Impaired Mood: Anxious, Irritable Affect: Anxious Thought Process & Associations: Disorganized, Tangential Thought Content: Bizarre thinking, Delusional Hallucination Type: Auditory (quite vague), Tactile (patient felt as if a pelican her falling out of her vagina and most lives in the vagina) Delusion Type: Paranoid, Other (vigilant) Suicidal Ideation: No Suicidal Plan: No Suicidal Intention: No Homicidal Ideation: No Homicidal Plan: No Homicidal Intention: No Insight: Poor Judgment: Poor Results Vitals/IOs Vital Signs Date Time Temp Pulse Resp B/P (MAP) Pulse Ox O2 Delivery O2 Flow Rate FiO2 12/24/16 06:06 97.4 60 16 92/51 (65) 96 Assessment & Plan Problem List: (1) Schizophrenia, undifferentiated, acute episode ICD Codes: F20.3 - Undifferentiated schizophrenia (2) Schizoaffective disorder, bipolar type ICD Codes: F25.0 - Schizoaffective disorder, bipolar type Assessment & Plan Estimated LOS: days patient continue somewhat psychotic manic flavor. And delusional. For now continue treatment. Patient is scheduled for [facility] tomorrow Justification for Cont. Inpt. At this time patient will decompensate place a lower level of care Discharge Planning The state referral packet has been sent on this young woman Request HC Surrog/Guard Advoc?: Yes James Jones MD Dec 24, 2016 14:08
[2016-12-24 17:00] VITALS: BP 111/72; PULSE 100; RESP 18; TEMP 98.1; O2SAT 100
[2016-12-24] MEDS: ACETAMINOPHEN 325 MG TAB PO PRN (18:35)
[2016-12-24] MEDS: ZOLPIDEM TARTRATE 5 MG TAB PO PRN (20:43)
[2016-12-24] MEDS: diphenhydrAMINE HCL 50 MG CAP PO PRN (20:43)
[2016-12-25 05:59] VITALS: BP 104/50; PULSE 57; RESP 16; TEMP 98; O2SAT 97
[2016-12-25] MEDS: HALOPERIDOL LACTATE 5 MG/ML AMP IM SCH ×2 (09:00→20:42)
[2016-12-25] MEDS: HALOPERIDOL 5 MG TAB PO SCH ×2 (09:17→20:42)
[2016-12-25] MEDS: BENZTROPINE MESYLATE 1 MG TAB PO SCH ×2 (09:17→20:43)
--- NOTE | 2016-12-25 14:59 | HHI.PYPN ---
Subjective Chief Complaint: Pt admitted for psychosis Remarks Patient seen in [facility]. Patient retained by [employer] court cashier and waiter/waitress. With guardian advocate appointed. Patient somewhat quite and court though with his superficial somewhat childlike silly attitude. Continue to deny need for medication. Patient seen back on the unit continues superficial silly and childlike. Initially showing some resistance to taking the medication though reluctantly agreed to the oral medicine Review of Systems Except as stated in HPI: all other systems reviewed are Neg Mental Status Examination Appearance: Appropriate Consciousness: Alert, Highly Distractible Orientation: Person Motor Activity: Other (patient somewhat manic and hyperactive moving in a loose dancing [place]) Speech: Pressured, Other (quite sexual in nature) Language: Other (markedly disorganized) Fund of Knowledge: Poor Attention and Concentration: Easily Distracted Memory: Impaired Mood: Anxious, Irritable Affect: Anxious Thought Process & Associations: Disorganized, Tangential Thought Content: Bizarre thinking, Delusional Hallucination Type: Auditory (quite vague), Tactile (patient felt as if a pelican her falling out of her vagina and most lives in the vagina) Delusion Type: Paranoid, Other (vigilant) Suicidal Ideation: No Suicidal Plan: No Suicidal Intention: No Homicidal Ideation: No Homicidal Plan: No Homicidal Intention: No Insight: Poor Judgment: Poor Results Vitals/IOs Vital Signs Date Time Temp Pulse Resp B/P (MAP) Pulse Ox O2 Delivery O2 Flow Rate FiO2 12/25/16 05:59 98.0 57 16 104/50 (68) 97 Assessment & Plan Problem List: (1) Schizophrenia, undifferentiated, acute episode ICD Codes: F20.3 - Undifferentiated schizophrenia (2) Schizoaffective disorder, bipolar type ICD Codes: F25.0 - Schizoaffective disorder, bipolar type Assessment & Plan Estimated LOS: days patient continues psychotic superficial silly and childlike , continues with overly sexual comments and behaviors Justification for Cont. Inpt. At this time patient will decompensate of placed on the lower level of care Discharge Planning State referral packet has been sent Request HC Surrog/Guard Advoc?: Yes James Jones MD Dec 25, 2016 14:59
[2016-12-25] MEDS: ERGOCALCIFEROL (VIT D2) 50,000 UNIT CAP PO SCH (16:43)
[2016-12-25] MEDS: diphenhydrAMINE HCL 50 MG CAP PO PRN (20:42)
[2016-12-25] MEDS: ZOLPIDEM TARTRATE 5 MG TAB PO PRN (20:42)
[2016-12-26 05:51] VITALS: BP 91/61; PULSE 59; RESP 18; TEMP 98; O2SAT 97
[2016-12-26] MEDS: BENZTROPINE MESYLATE 1 MG TAB PO SCH ×2 (08:40→20:22)
[2016-12-26] MEDS: HALOPERIDOL 5 MG TAB PO SCH ×2 (08:40→20:22)
[2016-12-26] MEDS: HALOPERIDOL LACTATE 5 MG/ML AMP IM SCH ×2 (08:42→20:48)
--- NOTE | 2016-12-26 15:19 | HHI.PYPN ---
Subjective Chief Complaint: Pt admitted for psychosis Remarks Patient seen in her room with nurse Allison and medical student key . Chart reviewed, patient compliant medication. Patient today showed marked disorganization of to the point of flight of ideas somewhat sexualized and somatic in his nature she was quite childlike somewhat hyperactive and silly. Will increase Tegretol to 20 mg twice a day check level on 12/29 Review of Systems Except as stated in HPI: all other systems reviewed are Neg Mental Status Examination Appearance: Appropriate Consciousness: Alert, Highly Distractible Orientation: Person Motor Activity: Other (patient somewhat manic and hyperactive moving in a loose dancing [place]) Speech: Pressured, Other (quite sexual in nature) Language: Other (markedly disorganized) Fund of Knowledge: Poor Attention and Concentration: Easily Distracted Memory: Impaired Mood: Anxious, Irritable Affect: Anxious Thought Process & Associations: Disorganized, Tangential Thought Content: Bizarre thinking, Delusional Hallucination Type: Auditory (quite vague), Tactile (patient felt as if a pelican her falling out of her vagina and most lives in the vagina) Delusion Type: Paranoid, Other (vigilant) Suicidal Ideation: No Suicidal Plan: No Suicidal Intention: No Homicidal Ideation: No Homicidal Plan: No Homicidal Intention: No Insight: Poor Judgment: Poor Results Vitals/IOs Vital Signs Date Time Temp Pulse Resp B/P (MAP) Pulse Ox O2 Delivery O2 Flow Rate FiO2 12/26/16 05:51 98.0 59 18 91/61 (71) 97 Assessment & Plan Problem List: (1) Schizophrenia, undifferentiated, acute episode ICD Codes: F20.3 - Undifferentiated schizophrenia (2) Schizoaffective disorder, bipolar type ICD Codes: F25.0 - Schizoaffective disorder, bipolar type Assessment & Plan Estimated LOS: days patient continues psychotic somewhat manic delusional with rapid pressured speech that is markedly disorganized. We'll increase Tegretol to 200 mg twice a day check level in 12/29 Justification for Cont. Inpt. At this time patient will decompensate in place to the lower level of care Discharge Planning Continue to await word from [facility] hospital referral Request HC Surrog/Guard Advoc?: Yes James Jones MD Dec 26, 2016 15:19
[2016-12-26 18:03] VITALS: BP 133/68; PULSE 75; RESP 17; TEMP 98.2; O2SAT 100
[2016-12-26] MEDS: diphenhydrAMINE HCL 50 MG CAP PO PRN (20:22)
[2016-12-27 05:39] VITALS: BP 103/58; PULSE 63; RESP 18; TEMP 97.7; O2SAT 99
[2016-12-27] MEDS: HALOPERIDOL LACTATE 5 MG/ML AMP IM SCH ×2 (09:00→21:00)
[2016-12-27] MEDS: HALOPERIDOL 5 MG TAB PO SCH ×2 (09:02→20:31)
[2016-12-27] MEDS: BENZTROPINE MESYLATE 1 MG TAB PO SCH ×2 (09:03→20:30)
--- NOTE | 2016-12-27 13:47 | HHI.PYPN ---
Subjective Chief Complaint: Pt admitted for psychosis Remarks Pt seen and discussed with staff. She was aggressive with staff earlier today and was redirected to her room. She calmed without ETO and has spent most of afternoon sleeping. She is paranoid and disorganized. Mental Status Examination Appearance: Appropriate Consciousness: Alert, Highly Distractible Orientation: Person Motor Activity: Other (patient somewhat manic and hyperactive moving in a loose dancing [place]) Speech: Pressured, Other (quite sexual in nature) Language: Other (markedly disorganized) Fund of Knowledge: Poor Attention and Concentration: Easily Distracted Memory: Impaired Mood: Irritable, Other (withdrawn) Affect: Other (bizarre stare) Thought Process & Associations: Disorganized, Tangential Thought Content: Bizarre thinking, Delusional Hallucination Type: Auditory (quite vague), Tactile (patient felt as if a pelican her falling out of her vagina and most lives in the vagina) Delusion Type: Paranoid, Other (vigilant) Suicidal Ideation: No Suicidal Plan: No Suicidal Intention: No Homicidal Ideation: No Homicidal Plan: No Homicidal Intention: No Insight: Poor Judgment: Poor Results Vitals/IOs Vital Signs Date Time Temp Pulse Resp B/P (MAP) Pulse Ox O2 Delivery O2 Flow Rate FiO2 12/27/16 05:39 97.7 63 18 103/58 (73) 99 Assessment & Plan Problem List: (1) Schizoaffective disorder, bipolar type ICD Codes: F25.0 - Schizoaffective disorder, bipolar type Assessment & Plan Continue current tx plan. Estimated LOS: days Justification for Cont. Inpt. impairments in reality testing and safety Request HC Surrog/Guard Advoc?: Yes Frannie Banks MD Dec 27, 2016 13:47
[2016-12-27 17:29] VITALS: BP 106/54; PULSE 69; RESP 17; TEMP 97.9; O2SAT 100
[2016-12-27] MEDS: diphenhydrAMINE HCL 50 MG CAP PO PRN (20:30)
[2016-12-27] MEDS: ZOLPIDEM TARTRATE 5 MG TAB PO PRN (20:31)
[2016-12-28 05:12] VITALS: BP 97/55; PULSE 60; RESP 18; TEMP 97.3; O2SAT 99
[2016-12-28] MEDS: BENZTROPINE MESYLATE 1 MG TAB PO SCH ×2 (08:28→20:23)
[2016-12-28] MEDS: HALOPERIDOL 5 MG TAB PO SCH ×2 (08:29→20:23)
[2016-12-28] MEDS: HALOPERIDOL LACTATE 5 MG/ML AMP IM SCH ×2 (09:00→20:23)
--- NOTE | 2016-12-28 13:45 | HHI.PYPN ---
Subjective Chief Complaint: Pt admitted for psychosis Remarks Pt seen and discussed with staff. She has not been aggressive today. She is compliant with medications. She has been dancing and singing on the unit. She had to be redirected due to putting TV remote on genitals. Mental Status Examination Appearance: Appropriate Consciousness: Alert, Highly Distractible Orientation: Person Motor Activity: Other (patient somewhat manic and hyperactive moving in a loose dancing [place]) Speech: Pressured, Other (quite sexual in nature) Language: Other (markedly disorganized) Fund of Knowledge: Poor Attention and Concentration: Easily Distracted Memory: Impaired Mood: Other (elevated) Affect: Other (bizarre stare) Thought Process & Associations: Disorganized, Tangential Thought Content: Bizarre thinking, Delusional Hallucination Type: Auditory (quite vague), Tactile (patient felt as if a pelican her falling out of her vagina and most lives in the vagina) Delusion Type: Paranoid, Other (vigilant) Suicidal Ideation: No Suicidal Plan: No Suicidal Intention: No Homicidal Ideation: No Homicidal Plan: No Homicidal Intention: No Insight: Poor Judgment: Poor Results Vitals/IOs Vital Signs Date Time Temp Pulse Resp B/P (MAP) Pulse Ox O2 Delivery O2 Flow Rate FiO2 12/28/16 05:12 97.3 60 18 97/55 (69) 99 Assessment & Plan Problem List: (1) Schizoaffective disorder, bipolar type ICD Codes: F25.0 - Schizoaffective disorder, bipolar type Assessment & Plan Continue current tx plan Estimated LOS: days Justification for Cont. Inpt. impairments in reality testing and social functioning Request HC Surrog/Guard Advoc?: Yes Frannie Banks MD Dec 28, 2016 13:45
[2016-12-28 17:05] VITALS: BP 109/64; PULSE 78; RESP 17; TEMP 97.2; O2SAT 97
[2016-12-28] MEDS: ZOLPIDEM TARTRATE 5 MG TAB PO PRN (22:18)
[2016-12-28] MEDS: diphenhydrAMINE HCL 50 MG CAP PO PRN (22:18)
[2016-12-29 05:56] VITALS: BP 97/64; PULSE 59; RESP 16; TEMP 97.8; O2SAT 100
[2016-12-29] MEDS: HALOPERIDOL LACTATE 5 MG/ML AMP IM SCH ×2 (09:00→20:39)
[2016-12-29] MEDS: HALOPERIDOL 5 MG TAB PO SCH ×2 (09:06→20:39)
[2016-12-29] MEDS: BENZTROPINE MESYLATE 1 MG TAB PO SCH ×2 (09:06→20:39)
--- NOTE | 2016-12-29 14:01 | PD.TTN ---
Patient Problems 1. Discharge planning 2. Medication compliance 3. Knowledge deficit 4. Lack of coping skills Progress Toward Goals Provider Present: Dr. Any Jones Provider Input: Dr. Jones's treatment team met to discuss patient treatment plan, discharge, and medication. Doctor reports patient is childlike, superficial no insight. Continue treatment. Nurse(s) Input: Patient's nurse Celia reports patient is medication compliant, childlike, internally stimulated. Psychiatric Counselors Present: [facility]cc[facility] Input: Patient seen today in her room. Patient presents childlike, seclusive, affect blunted. Patient is alert to person, place, but has poor insight into her situation. Patient is medication compliant, eating and sleeping ok. Patient's affect is congruent with her mood. Patient denies suicidal and homicidal ideation. Patient denies being internally stimulated , however patient presents internally stimulated. [facility] at [facility] Group Spec/RT/OT/HILL Present: SERGIO Blanchard Spec/RT/OT/HILL Input: Melina HILL reports patient stopped attending groups, and isolates Kylee Mccoy [facility] Dec 29, 2016 14:01
--- NOTE | 2016-12-29 17:09 | HHI.PYPN ---
Subjective Chief Complaint: Pt admitted for psychosis Remarks Patient seen in dayroom with medical student Bhavna mackey alert and calm at this time though somewhat silly and superficial, no behavior problems. Compliant medications. Review of Systems Except as stated in HPI: all other systems reviewed are Neg Mental Status Examination Appearance: Appropriate Consciousness: Alert, Highly Distractible Orientation: Person Motor Activity: Other (patient somewhat manic and hyperactive moving in a loose dancing [place]) Speech: Pressured, Other (quite sexual in nature) Language: Other (markedly disorganized) Fund of Knowledge: Poor Attention and Concentration: Easily Distracted Memory: Impaired Mood: Other (elevated) Affect: Other (bizarre stare) Thought Process & Associations: Disorganized, Tangential Thought Content: Bizarre thinking, Delusional Hallucination Type: Auditory (quite vague), Tactile (patient felt as if a pelican her falling out of her vagina and most lives in the vagina) Delusion Type: Paranoid, Other (vigilant) Suicidal Ideation: No Suicidal Plan: No Suicidal Intention: No Homicidal Ideation: No Homicidal Plan: No Homicidal Intention: No Insight: Poor Judgment: Poor Results Labs Test 12/29/16 11:02 Carbamazepine (Tegretol) Level 7.3 MCG/ML Vitals/IOs Vital Signs Date Time Temp Pulse Resp B/P (MAP) Pulse Ox O2 Delivery O2 Flow Rate FiO2 12/29/16 05:56 97.8 59 16 97/64 (75) 100 Assessment & Plan Problem List: (1) Schizoaffective disorder, bipolar type ICD Codes: F25.0 - Schizoaffective disorder, bipolar type Assessment & Plan Estimated LOS: days patient remains somewhat psychotic silly with no significant insight into her disease. Continue to await word from [facility] Justification for Cont. Inpt. Patient will decompensate if placed in a lower level of care Discharge Planning Continue to await word from state referral Request HC Surrog/Guard Advoc?: Yes James Jones MD Dec 29, 2016 17:09
[2016-12-29 17:17] VITALS: BP 111/56; PULSE 80; RESP 18; TEMP 97.4; O2SAT 99
[2016-12-29] MEDS: ACETAMINOPHEN 325 MG TAB PO PRN (17:23)
[2016-12-29] MEDS: ZOLPIDEM TARTRATE 5 MG TAB PO PRN (20:41)
[2016-12-30 05:49] VITALS: BP 98/53; PULSE 62; RESP 16; TEMP 97.7
[2016-12-30] MEDS: HALOPERIDOL 5 MG TAB PO SCH ×2 (09:00→20:43)
[2016-12-30] MEDS: HALOPERIDOL LACTATE 5 MG/ML AMP IM SCH ×2 (09:00→21:00)
[2016-12-30] MEDS: BENZTROPINE MESYLATE 1 MG TAB PO SCH ×2 (09:00→20:43)
[2016-12-30] MEDS: LORazepam 1 MG TAB PO PRN (09:08)
--- NOTE | 2016-12-30 12:53 | HHI.PYPN ---
Subjective Chief Complaint: Pt admitted for psychosis Remarks Patient seen in day room this morning with nurse Alexandria and medical students rufino and key, continue showed some diffusely sexual inappropriate behavior this morning. Staff states the patient was rubbing her perineum well flirting with some male patient's on the unit. Patient's Tegretol level this morning is 7.3 on 20 mg twice a day Tegretol. Will increase Tegretol to 200 mg a.m. 300 mg at bedtime check a blood level on 01/02, patient has been compliant with her medication Review of Systems Except as stated in HPI: all other systems reviewed are Neg Mental Status Examination Appearance: Appropriate Consciousness: Alert, Highly Distractible Orientation: Person Motor Activity: Other (patient somewhat manic and hyperactive moving in a loose dancing [place]) Speech: Pressured, Other (quite sexual in nature) Language: Other (markedly disorganized) Fund of Knowledge: Poor Attention and Concentration: Easily Distracted Memory: Impaired Mood: Other (elevated) Affect: Other (bizarre stare) Thought Process & Associations: Disorganized, Tangential Thought Content: Bizarre thinking, Delusional Hallucination Type: Auditory (quite vague), Tactile (patient felt as if a pelican her falling out of her vagina and most lives in the vagina) Delusion Type: Paranoid, Other (vigilant) Suicidal Ideation: No Suicidal Plan: No Suicidal Intention: No Homicidal Ideation: No Homicidal Plan: No Homicidal Intention: No Insight: Poor Judgment: Poor Results Vitals/IOs Vital Signs Date Time Temp Pulse Resp B/P (MAP) Pulse Ox O2 Delivery O2 Flow Rate FiO2 12/30/16 05:49 97.7 62 16 98/53 (68) 12/29/16 17:17 99 Assessment & Plan Problem List: (1) Schizoaffective disorder, bipolar type ICD Codes: F25.0 - Schizoaffective disorder, bipolar type Assessment & Plan Estimated LOS: days patient continues delusional psychotic and hypersexual with her behaviors. She medication adjustments above Justification for Cont. Inpt. At this point patient will decompensate if placed in a lower level of care Discharge Planning With continued await word from state placement referral Request HC Surrog/Guard Advoc?: Yes James Jones MD Dec 30, 2016 12:53
--- NOTE | 2016-12-30 13:53 | PD.TTN ---
Patient Problems 1. Discharge planning 2. Medication compliance 3. Knowledge deficit 4. Lack of coping skills Progress Toward Goals Provider Present: Dr. Any Jones Provider Input: Dr. Jones's treatment team met to discuss patient treatment plan, discharge, and medication. Doctor reports patient is childlike, superficial no insight. Continue treatment. 12/30/16 Patient continues to present childlike, no insight. Continue treatment Nurse(s) Input: Patient's nurse Celia reports patient is medication compliant, childlike, internally stimulated. 12/30/16 Patient's nurse Alexandria reports patient is sexually inappropriate, pacing halls, continues touching herself in front of other males Psychiatric Counselors [facility] Input: Patient seen today in her room. Patient presents childlike, seclusive, affect blunted. Patient is alert to person, place, but has poor insight into her situation. Patient is medication compliant, eating and sleeping ok. Patient's affect is congruent with her mood. Patient denies suicidal and homicidal ideation. Patient denies being internally stimulated , 12/30/16 Patient has poor insight. Patient denies suicidal and homicidal ideation. Patient made good eye contact. Patient is medication compliant. Patient is alert to person and place. Patient continues to present internally stimulated along with delusional content. Patient continues to present with inappropriate behaviors. [facility] however patient presents internally stimulated. Patient at this time [facility] Group Spec/RT/OT/HILL Present: SERGIO Blanchard Group Spec/RT/OT/HILL Input: Melina HILL reports patient stopped attending groups, and isolates 12/30/16 Edward Schreiber OT states patient is not able to tolerate groups Kylee MccoyMegan Dec 30, 2016 13:53
[2016-12-30 18:16] VITALS: BP 94/50; PULSE 104; RESP 16; TEMP 98.4; O2SAT 100
[2016-12-30] MEDS: ZOLPIDEM TARTRATE 5 MG TAB PO PRN (20:44)
[2016-12-31 05:34] VITALS: BP 103/54; PULSE 64; RESP 18; TEMP 97.6; O2SAT 99
[2016-12-31] MEDS: HALOPERIDOL LACTATE 5 MG/ML AMP IM SCH ×2 (09:00→20:18)
[2016-12-31] MEDS: HALOPERIDOL 5 MG TAB PO SCH ×2 (10:10→20:18)
[2016-12-31] MEDS: BENZTROPINE MESYLATE 1 MG TAB PO SCH ×2 (10:11→20:18)
[2016-12-31] MEDS: LORazepam 2 MG/ML VIAL IM PRN (11:54)
[2016-12-31] MEDS: diphenhydrAMINE HCL 50 MG/ML VIAL IM PRN (11:54)
--- NOTE | 2016-12-31 14:40 | HHI.PYPN ---
Subjective Chief Complaint: Pt admitted for psychosis Remarks Patient seen in her room with nurse Allison, chart reviewed, patient compliant medications. Patient laying on her mattress on the floor Uma position quite similar to the position she was in when I saw her yesterday. Staff states she was up talking earlier today continuing to be sexually inappropriate and intrusive and somewhat challenging to other patients and staff. Thus refuse to speak with me today. For now continue treatment with continued await word from the [facility] Review of Systems Except as stated in HPI: all other systems reviewed are Neg Mental Status Examination Appearance: Appropriate Consciousness: Alert, Highly Distractible Orientation: Person Motor Activity: Other (patient somewhat manic and hyperactive moving in a loose dancing [place]) Speech: Pressured, Other (quite sexual in nature) Language: Other (markedly disorganized) Fund of Knowledge: Poor Attention and Concentration: Easily Distracted Memory: Impaired Mood: Other (elevated) Affect: Other (bizarre stare) Thought Process & Associations: Disorganized, Tangential Thought Content: Bizarre thinking, Delusional Hallucination Type: Auditory (quite vague), Tactile (patient felt as if a pelican her falling out of her vagina and most lives in the vagina) Delusion Type: Paranoid, Other (vigilant) Suicidal Ideation: No Suicidal Plan: No Suicidal Intention: No Homicidal Ideation: No Homicidal Plan: No Homicidal Intention: No Insight: Poor Judgment: Poor Results Vitals/IOs Vital Signs Date Time Temp Pulse Resp B/P (MAP) Pulse Ox O2 Delivery O2 Flow Rate FiO2 12/31/16 05:34 97.6 64 18 103/54 (70) 99 Assessment & Plan Problem List: (1) Schizoaffective disorder, bipolar type ICD Codes: F25.0 - Schizoaffective disorder, bipolar type Assessment & Plan Estimated LOS: days patient continues labile with sexually inappropriate behaviors, compliant medications. For now continue treatment continued would word from [facility] Justification for Cont. Inpt. At this time patient will decompensate if placed in a lower level of care Discharge Planning Continue to await word from [facility] Request HC Surrog/Guard Advoc?: Yes James Jones MD Dec 31, 2016 14:40
[2016-12-31] MEDS: ACETAMINOPHEN 325 MG TAB PO PRN (20:17)
[2016-12-31] MEDS: ZOLPIDEM TARTRATE 5 MG TAB PO PRN (20:17)
[2016-12-31] MEDS: diphenhydrAMINE HCL 50 MG CAP PO PRN (20:17)
[2016-12-31] MEDS: LORazepam 1 MG TAB PO PRN (22:22)
[2017-01-01 05:51] VITALS: BP 102/55; PULSE 58; RESP 16; TEMP 97.8; O2SAT 99
[2017-01-01] MEDS: HALOPERIDOL 5 MG TAB PO SCH ×3 (08:20→21:00)
[2017-01-01] MEDS: BENZTROPINE MESYLATE 1 MG TAB PO SCH ×3 (08:21→21:00)
[2017-01-01] MEDS: HALOPERIDOL LACTATE 5 MG/ML AMP IM SCH ×2 (08:24→20:42)
--- NOTE | 2017-01-01 11:19 | HHI.PYPN ---
Subjective Chief Complaint: Pt admitted for psychosis Remarks Patient seen in her room with nurse Allison, chart review, patient compliant medications. Patient sitting on her mattress on the floor she is more alert focused with me calm and cooperative. She is somewhat vague about auditory hallucinations, she is somewhat delusional mildly tangential. She states she is willing to continue taking medication. She states she has talked with a mother who may be willing to have her return with her. We'll have counselor verify if this is a possibility. Patient so far is been compliant also with a Tegretol. There is a repeat blood level to be drawn tomorrow morning. We will adjust medications according to that result. Otherwise continue to await word from [facility] Review of Systems Except as stated in HPI: all other systems reviewed are Neg Mental Status Examination Appearance: Appropriate Consciousness: Alert, Highly Distractible Orientation: Person Motor Activity: Other (patient somewhat manic and hyperactive moving in a loose dancing [place]) Speech: Pressured, Other (quite sexual in nature) Language: Other (markedly disorganized) Fund of Knowledge: Poor Attention and Concentration: Easily Distracted Memory: Impaired Mood: Other (elevated) Affect: Other (bizarre stare) Thought Process & Associations: Disorganized, Tangential Thought Content: Bizarre thinking, Delusional Hallucination Type: Auditory (quite vague), Tactile (patient felt as if a pelican her falling out of her vagina and most lives in the vagina) Delusion Type: Paranoid, Other (vigilant) Suicidal Ideation: No Suicidal Plan: No Suicidal Intention: No Homicidal Ideation: No Homicidal Plan: No Homicidal Intention: No Insight: Poor Judgment: Poor Results Vitals/IOs Vital Signs Date Time Temp Pulse Resp B/P (MAP) Pulse Ox O2 Delivery O2 Flow Rate FiO2 01/01/17 05:51 97.8 58 16 102/55 (71) 99 Assessment & Plan Problem List: (1) Schizoaffective disorder, bipolar type ICD Codes: F25.0 - Schizoaffective disorder, bipolar type Assessment & Plan Estimated LOS: days patient continues somewhat delusional confused and psychotic though it is softening somewhat. She continues to be compliant medication. She is tolerating the Tegretol well will repeat blood level tomorrow morning Justification for Cont. Inpt. This time patient decompensate if not placed in an appropriate level of care Discharge Planning Continue to await word from [facility]. We'll also have counselor verify with mother possibility of return living with her Request HC Surrog/Guard Advoc?: Yes James Jones MD Jan 01, 2017 11:19
[2017-01-01] MEDS: ERGOCALCIFEROL (VIT D2) 50,000 UNIT CAP PO SCH (17:27)
[2017-01-01 18:02] VITALS: BP 128/59; PULSE 70; RESP 17; TEMP 98.5; O2SAT 100
[2017-01-01] MEDS: ACETAMINOPHEN 325 MG TAB PO PRN (18:26)
[2017-01-01] MEDS: diphenhydrAMINE HCL 50 MG CAP PO PRN (20:05)
[2017-01-01] MEDS: LORazepam 2 MG/ML VIAL IM PRN (20:43)
[2017-01-01] MEDS: diphenhydrAMINE HCL 50 MG/ML VIAL IM PRN (20:43)
[2017-01-02 05:53] VITALS: BP 96/54; PULSE 65; RESP 18; TEMP 97.7; O2SAT 97
[2017-01-02] MEDS: BENZTROPINE MESYLATE 1 MG TAB PO SCH ×2 (08:53→20:49)
[2017-01-02] MEDS: HALOPERIDOL LACTATE 5 MG/ML AMP IM SCH ×2 (08:55→21:00)
[2017-01-02] MEDS: HALOPERIDOL 5 MG TAB PO SCH ×2 (09:00→20:49)
--- NOTE | 2017-01-02 15:19 | HHI.PYPN ---
Subjective Chief Complaint: Pt admitted for psychosis Remarks Patient seen in room with nurse Allison, chart review, patient showing mixed compliance with the medication. Tegretol blood level drawn this morning came back at 6.6 will increase Tegretol to 200 mg a.m. 400 mg at bedtime patient continue somewhat silly, staff states patient is continues intrusive with sexually inappropriate behavior towards one of the male patient's. For now continue treatment Review of Systems Except as stated in HPI: all other systems reviewed are Neg Mental Status Examination Appearance: Appropriate Consciousness: Alert, Highly Distractible Orientation: Person Motor Activity: Other (patient somewhat manic and hyperactive moving in a loose dancing [place]) Speech: Pressured, Other (quite sexual in nature) Language: Other (markedly disorganized) Fund of Knowledge: Poor Attention and Concentration: Easily Distracted Memory: Impaired Mood: Other (elevated) Affect: Other (bizarre stare) Thought Process & Associations: Disorganized, Tangential Thought Content: Bizarre thinking, Delusional Hallucination Type: Auditory (quite vague), Tactile (patient felt as if a pelican her falling out of her vagina and most lives in the vagina) Delusion Type: Paranoid, Other (vigilant) Suicidal Ideation: No Suicidal Plan: No Suicidal Intention: No Homicidal Ideation: No Homicidal Plan: No Homicidal Intention: No Insight: Poor Judgment: Poor Results Labs Test 01/02/17 09:39 Carbamazepine (Tegretol) Level 6.6 MCG/ML Vitals/IOs Vital Signs Date Time Temp Pulse Resp B/P (MAP) Pulse Ox O2 Delivery O2 Flow Rate FiO2 01/02/17 05:53 97.7 65 18 96/54 (17) 97 Assessment & Plan Problem List: (1) Schizoaffective disorder, bipolar type ICD Codes: F25.0 - Schizoaffective disorder, bipolar type Assessment & Plan Estimated LOS: days patient continue psychotic intrusive with inappropriate sexual behavior at times. Tegretol blood level was 6.6 today will increase Tegretol to 200 mg a.m. 400 mg at bedtime check a blood level on 01/05 Justification for Cont. Inpt. At this time patient decompensated placed a lower level of care Discharge Planning Continue to await word from state placement Request HC Surrog/Guard Advoc?: Yes James Jones MD Jan 02, 2017 15:19
[2017-01-02 17:00] VITALS: BP 103/51; PULSE 76; RESP 18; TEMP 98.1; O2SAT 98
[2017-01-02] MEDS: LORazepam 1 MG TAB PO PRN (17:34)
[2017-01-02] MEDS: diphenhydrAMINE HCL 50 MG CAP PO PRN (20:49)
[2017-01-03 05:46] VITALS: BP 91/53; PULSE 62; RESP 16; TEMP 97.9; O2SAT 98
[2017-01-03 08:09] VITALS: BP 105/61; PULSE 96
[2017-01-03] MEDS: HALOPERIDOL 5 MG TAB PO SCH ×2 (08:55→20:33)
[2017-01-03] MEDS: HALOPERIDOL LACTATE 5 MG/ML AMP IM SCH ×2 (08:55→20:38)
[2017-01-03] MEDS: BENZTROPINE MESYLATE 1 MG TAB PO SCH ×2 (08:55→20:33)
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
[2017-01-03 18:39] VITALS: BP 106/61; PULSE 94; RESP 17; TEMP 98.1; O2SAT 99
[2017-01-03] MEDS: diphenhydrAMINE HCL 50 MG CAP PO PRN (20:33)
[2017-01-03] MEDS: ZOLPIDEM TARTRATE 5 MG TAB PO PRN (20:35)
[2017-01-04 05:33] VITALS: BP 101/55; PULSE 71; RESP 18; TEMP 97.5; O2SAT 98
[2017-01-04] MEDS: HALOPERIDOL 5 MG TAB PO SCH ×2 (08:43→20:51)
[2017-01-04] MEDS: BENZTROPINE MESYLATE 1 MG TAB PO SCH ×2 (08:43→20:51)
[2017-01-04] MEDS: HALOPERIDOL LACTATE 5 MG/ML AMP IM SCH ×2 (08:44→20:55)
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
[2017-01-04 16:48] VITALS: BP 104/57; PULSE 69; RESP 16; TEMP 97.1; O2SAT 99
[2017-01-04] MEDS: diphenhydrAMINE HCL 50 MG CAP PO PRN (20:51)
[2017-01-04] MEDS: ZOLPIDEM TARTRATE 5 MG TAB PO PRN (20:51)
[2017-01-05 05:48] VITALS: BP 90/51; PULSE 65; RESP 18; TEMP 98; O2SAT 98
[2017-01-05] MEDS: HALOPERIDOL LACTATE 5 MG/ML AMP IM SCH (09:00)
[2017-01-05] MEDS: HALOPERIDOL 5 MG TAB PO SCH (09:15)
[2017-01-05] MEDS: BENZTROPINE MESYLATE 1 MG TAB PO SCH (09:15)
[2017-01-05] MEDS ORDERED: PALI234P IM (13:12)
[2017-01-05] MEDS ORDERED: Benztropine PO (13:12)
[2017-01-05] MEDS ORDERED: HALO10TA PO (13:12)
[2017-01-05] MEDS ORDERED: ERGO1CAP30 PO (13:12)
[2017-01-05] MEDS ORDERED: CARB100C PO (13:12)
--- NOTE | 2017-01-05 13:22 | HHI.DS ---
Psychiatry Discharge Summary Inpatient Psychiatric care?: Yes Advance Directive: No Reason Not Provided: Due to Patient Condition Mental Health AdvanceDirective: No Health Care Proxy: No Admission Admission Date Dec 01, 2016 at 13:21 Admission Diagnosis: (1) Schizoaffective disorder, bipolar type ICD Code: F25.0 - Schizoaffective disorder, bipolar type Brief History From Dr. Balderas's H&P: This is a 21-year-old female with a history of schizophrenia diagnosed at the age of 19, presenting now after walking into traffic, verbally threatening her mother, experiencing auditory hallucinations, banging her hands, and inability to care for herself. The patient has been in the emergency department for 3 days and at one point was considered for discharge to mother so that patient could be treated on an outpatient basis. However, mother is moving and has a 2- year-old child and is unable to care for the patient at this time. Additionally , the patient has decompensated in the last 12 hours. At this point she is spitting up food, banging her hands together in a stabbing motion, admitting to auditory hallucinations, responding to internal stimuli, and feeling paranoid about leaving. Her affect is very flat and inappropriate. She appears to be exhibiting thought blocking. Her mother states she walks into traffic without looking in either direction and does not appear to understand what she is doing. Patient has no money, no place to live and no weight to care for herself at this time. Mother is willing to serve as guardian advocate. Patient was seen today for psychiatric evaluation of second opinion. Patient is in the floor, disorganized, oppositional and resistant to provide information. She says that she feels okay, reports hearing voices, but declined to open up about the content. She denies suicidal and homicidal ideation, she denies visual hallucinations. Tobacco Use In Past 30 Days: No Tobacco Past 30 Days Alcohol Use: Never Hospital Course Patient psychosis delusions behavioral issues, hypersexual behavior showed some mild improvement over extended period of time with adjustments of the medication. However she never did improve to the point where she met criteria for discharge the community. It was felt by the treatment team the patient needed extended care at the [facility]. 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 The packet was sent to [facility]. The [facility] of except the patient in transfer her with is been significant delays in bed placement. At this time patient will be transferred to [facility] see issue for further care and attention until that placement date his assigned patient transferred from that facility to [facility] Results Blood Pressure 90 / 51 Vital Signs Date Time Temp Pulse Resp B/P (MAP) Pulse Ox O2 Delivery O2 Flow Rate FiO2 01/05/17 05:48 98.0 65 18 90/51 (64) 98 Laboratory Results Test 12/03/16 08:54 Cholesterol Level 169 MG/DL (120-200) HDL Cholesterol 78.3 MG/DL (40.0-60.0) Hemoglobin A1c 4.3 % (4.3-6.0) LDL Cholesterol 79 MG/DL (0-99) Triglycerides Level 58 MG/DL (42-150) Summary of Procedures None done Pending results at discharge: No Medications # of Antipsychotic meds at D/C: 2 Appropriate >1 Antipsych meds?: 4 (patient being transferred to [facility] see issue for further monitoring and stabilization well awaiting bed placement at [facility]) Approp Antipsych med options 1 - Minimum of three failed multiple trials of monotherapy. 2 - Documented plan to taper to monotherapy due to previous use of multiple meds OR cross-taper in progress at D/C. 3 - Documentation of augmentation of Clozapine. 4 - Justification other than those listed in allowable values 1-3, document here : Discharge Discharge Date: Jan 05, 2017 Discharge Diagnosis: (1) Schizoaffective disorder, bipolar type Diagnosis: Principal ICD Code: F25.0 - Schizoaffective disorder, bipolar type Pt Condition on Discharge: Stable Discharge Disposition: Disc to Psych Care Fac Discharge Instructions Diet Instructions: As Tolerated, No Restrictions Activities you can perform: Regular-No Restrictions Scheduled Appointment: [facility] (patient to be transferred to their CSU for further stabilization monitoring hospitalization until but placement available at [facility]) Discharge Time > 30 minutes Mental Status Examination Appearance: Appropriate Consciousness: Alert, Highly Distractible Orientation: Person Motor Activity: Other (patient somewhat manic and hyperactive moving in a loose dancing [place]) Speech: Pressured, Other (quite sexual in nature) Language: Other (markedly disorganized) Fund of Knowledge: Poor Attention and Concentration: Easily Distracted Memory: Impaired Mood: Other (elevated) Affect: Other (bizarre stare) Thought Process & Associations: Circumstantial, Disorganized Thought Content: Bizarre thinking, Delusional Hallucination Type: Auditory (denies today), Tactile (patient felt as if a pelican her falling out of her vagina and most lives in the vagina) Delusion Type: Paranoid, Other (vigilant) Suicidal Ideation: No Suicidal Plan: No Suicidal Intention: No Homicidal Ideation: No Homicidal Plan: No Homicidal Intention: No Insight: Poor Judgment: Poor Discharge/Advance Care Plan Health Problems: (1) Schizoaffective disorder, bipolar type Goals to promote your health * To prevent worsening of your condition and complications * To maintain your health at the optimal level Directions to meet your goals Take your medications as prescribed Follow your dietary instruction Follow activity as directed Keep your appointments as scheduled Take your immunizations and boosters as scheduled If your symptoms worsen call your PCP, if no PCP go to Urgent Care Center or Emergency Room For 29/09 questions related to your inpatient stay or results of tests pending at discharge, please contact Dr. James Jones at Smoking is Dangerous to Your Health. Avoid second hand smoking James Jones MD Jan 05, 2017 13:22
--- NOTE | 2017-01-05 14:23 | PD.TTN ---
Patient Problems 1. Discharge planning 2. Medication compliance 3. Knowledge deficit 4. Lack of coping skills Progress Toward Goals Provider Present: Dr. Any Jones Provider Input: Dr. Jones's treatment team met to discuss patient treatment plan, discharge, and medication. Doctor reports patient is childlike, superficial no insight. Continue treatment. 12/30/16 Patient continues to present childlike, no insight. Continue treatment 01/05 Pt medication regiment will continue to be evaluated to assist with further stabilization. Nurse(s) Present: Alexandria Pal RN Nurse(s) Input: Patient's nurse Celia reports patient is medication compliant, childlike, internally stimulated. 12/30/16 Patient's nurse Alexandria reports patient is sexually inappropriate, pacing halls, continues touching herself in front of other males 01/05 Pt appears seclusive, medication compliant, fatigued, withdrawn and is no behavioral problem. She has voiced no further delusions or paranoia. She has been appropriate on unit. Psychiatric Counselors Present: Eulalio Fang [facility], Kylee Mccoy, [facility] Psych Therapist Input: Patient seen today in her room. Patient presents childlike, seclusive, affect blunted. Patient is alert to person, place, but has poor insight into her situation. Patient is medication compliant, eating and sleeping ok. Patient's affect is congruent with her mood. Patient denies suicidal and homicidal ideation. Patient denies being internally stimulated , 12/30/16 Patient has poor insight. Patient denies suicidal and homicidal ideation. Patient made good eye contact. Patient is medication compliant. Patient is alert to person and place. Patient continues to present internally stimulated along with delusional content. Patient continues to present with inappropriate behaviors. [facility] however patient presents internally stimulated. Patient at this time [facility]. 01/05 Pt continues to appear withdrawn, to be responding to internal stimuli, guarded, discharge focused and cooperative. She appears less inappropriate on unit suggesting some improvement. She presents with limited insight into condition and need for care. She appears to be minimizing symptoms as an attempt to be discharged. She presents with limited knowledge of coping and emotional regulation skills at this time. Group Spec/RT/OT/HILL Present: SERGIO Blanchard, SERGIO Pelaez Group Spec/RT/OT/HILL Input: Melina Bennett HILL reports patient stopped attending groups, and isolates 12/30/16 Edward Schreiber OT states patient is not able to tolerate groups 01/05 Pt attends some groups when she is able to tolerate. She is often inappropriate. Discharge Plan Other Pt has been referred to [facility] and will remain on unit for further stabilization while awaiting admission there. Eulalio Fang [facility] Jan 05, 2017 14:23
== END 2017-01-05 14:05 | DRG 885 ==
LOC: NEPD 20:21 → NEDA 12-01 13:21 → H270 12-01 16:52
PROVIDERS: ADMIT Psychiatry & Neurology Psychiatry; ATTEND Psychiatry & Neurology Psychiatry
DX: F25.0 Schizoaffective disorder, bipolar type (principal); Z91.14 Patient's other noncompliance with medication regimen; Z81.8 Family history of other mental and behavioral disorders
CPT/HCPCS: 80053; 80061; 80156; 80307; 81001; 82306; 82607; 83036; 84443; 84702; 85025; 93005; 96360; 96361; 96372; J1200; J1630; J2060; J2426; J7030; Q0163

== ENCOUNTER 2017-01-19 14:20 | Inpatient (IN) | payer SELFPAY ==
[~2017-01-19 14:20] MED LIST: Benztropine PO; CARB100C PO; HALO10TA PO; PALI234P IM; VITA500012 PO
[2017-01-19 14:22] VITALS: BP 120/72; PULSE 77; RESP 14; TEMP 98.2; O2SAT 100
--- NOTE | 2017-01-19 14:30 | PD ---
HPI Chief Complaint: Psychiatric Symptoms Time Seen by Provider: 14:30 Travel History International Travel<30 days: No Contact w/Intl Traveler<30days: No Traveled to known affect area: No History of Present Illness HPI 21 year-old female history of paranoid concerning presents to emergency department with her mother today voluntarily for psychiatric evaluation. Patient has been having auditory hallucinations. She been hearing voices. She has been being told to herself. Today the patient was looking for a knife at her mother's house to herself. Prior to arrival, the patient's mother states that she attempted to run into traffic. Patient states that she does not know why she is doing this but she cannot help it. She states she does not want to hurt herself that is why she is here. Patient denies any other acute medical needs. She has no other symptoms to report. PFSH Past Medical History Anxiety: No Depression: No Endocrine: No Genitourinary: No Immune Disorder: No Musculoskeletal: No Neurologic: No Psychiatric: Yes (Pt was diagnosed with Schizophrenia at the age of 19) Reproductive: No Respiratory: No Schizophrenia: Yes ?: Not Social History Alcohol Use: No Tobacco Use: No Substance Use: No Allergies-Medications (Allergen,Severity, Reaction): Coded Allergies: No Known Allergies (Unverified , 11/28/16) Reported Meds & Prescriptions Reported Meds & Active Scripts Active Ergocalciferol 50,000 Unit Cap 50,000 Units PO Q7D Carbamazepine 100 Mg Chew 200 Mg PO DIRECTED 2 by mouth in a.m., 4 by mouth at at bedtime [Benztropine] 1 MG Tab 1 Mg PO BID Review of Systems Except as stated in HPI: all other systems reviewed are Neg Physical Exam Narrative GENERAL: Well-nourished female patient, appears without distress SKIN: Warm and dry. HEAD: Atraumatic. Normocephalic. EYES: Pupils equal and round. No scleral icterus. No injection or drainage. ENT: No nasal bleeding or discharge. Mucous membranes pink and moist. NECK: Trachea midline. CARDIOVASCULAR: Regular rate RESPIRATORY: No accessory muscle use. GASTROINTESTINAL: Abdomen nondistended. MUSCULOSKELETAL: Extremities without clubbing, cyanosis, or edema. No obvious deformities. NEUROLOGICAL: Awake and alert. No obvious cranial nerve deficits. Normal speech. Data Data Last Documented VS Vital Signs Date Time Temp Pulse Resp B/P (MAP) Pulse Ox O2 Delivery O2 Flow Rate FiO2 01/20/17 10:00 83 18 109/70 (83) Room Air 01/19/17 18:09 97.3 100 Orders Orders Complete Blood Count With Diff (01/19/17 14:29) Basic Metabolic Panel (Bmp) (01/19/17 14:29) Ed Urine Pregnancytest Poc (01/19/17 14:29) Psych Screen (01/19/17 14:29) Drug Screen, Random Urine (01/19/17 14:29) Alcohol (Ethanol) (01/19/17 14:29) Diet Regular Basic (01/20/17 Breakfast) Diet Regular Basic (01/20/17 Lunch) Haloperidol (Haldol) (01/20/17 13:45) Benztropine (Cogentin) (01/20/17 14:00) Carbamazepine Chew (Tegretol Chew) (01/20/17 14:00) Admit Order (Ed Use Only) (01/20/17 15:08) Labs Laboratory Tests Test 01/19/17 14:56 01/19/17 18:38 White Blood Count 8.3 TH/MM3 Red Blood Count 3.90 MIL/MM3 Hemoglobin 11.1 GM/DL Hematocrit 33.6 % Mean Corpuscular Volume 86.0 FL Mean Corpuscular Hemoglobin 28.5 PG Mean Corpuscular Hemoglobin Concent 33.1 % Red Cell Distribution Width 14.9 % Platelet Count 253 TH/MM3 Mean Platelet Volume 8.2 FL Neutrophils (%) (Auto) 61.1 % Lymphocytes (%) (Auto) 31.3 % Monocytes (%) (Auto) 6.0 % Eosinophils (%) (Auto) 1.2 % Basophils (%) (Auto) 0.4 % Neutrophils # (Auto) 5.1 TH/MM3 Lymphocytes # (Auto) 2.6 TH/MM3 Monocytes # (Auto) 0.5 TH/MM3 Eosinophils # (Auto) 0.1 TH/MM3 Basophils # (Auto) 0.0 TH/MM3 CBC Comment DIFF FINAL Differential Comment Blood Urea Nitrogen 11 MG/DL Creatinine 0.70 MG/DL Random Glucose 77 MG/DL Calcium Level 8.9 MG/DL Sodium Level 140 MEQ/L Potassium Level 4.2 MEQ/L Chloride Level 105 MEQ/L Carbon Dioxide Level 29.7 MEQ/L Anion Gap 5 MEQ/L Estimat Glomerular Filtration Rate 128 ML/MIN Ethyl Alcohol Level LESS THAN 3 MG/DL Urine Opiates Screen NEG Urine Barbiturates Screen NEG Urine Amphetamines Screen NEG Urine Benzodiazepines Screen NEG Urine Cocaine Screen NEG Urine Cannabinoids Screen NEG MDM Medical Decision Making Medical Screen Exam Complete: Yes Emergency Medical Condition: Yes Medical Record Reviewed: Yes Differential Diagnosis Mood disorder versus personality disorder versus adjustment reaction disorder Narrative Course 21-year-old female presents to emergency department voluntarily for psychiatric evaluation. Patient appears without distress. Lab work is without acute concern. Patient is medically cleared to undergo psychiatric screening for further evaluation and disposition. Mental health screening discussed with the patient. Psychiatric screen ordered. Diagnosis Primary Impression: Schizoaffective disorder, bipolar type Condition: Stable Ruth Walsh Jan 19, 2017 14:30
[2017-01-19 15:31] LABS: AUTOMATED NEUTROPHIL # 5.1 TH/MM3 (1.8-7.7); BASOPHIL % 0.4 % (0.0-2.0); EOSINOPHIL # 0.1 TH/MM3 (0-0.4); EOSINOPHIL % 1.2 % (0.0-4.0); HEMATOCRIT 33.6 % (35.0-46.0); HEMO FLAGS DIFF FINAL; LYMPH % 31.3 % (9.0-44.0); LYMPHOCYTE # 2.6 TH/MM3 (1.0-4.8); MEAN CORPUSCULAR HEMOGLOBIN 28.5 PG (27.0-34.0); MEAN CORPUSCULAR HGB CONC 33.1 % (32.0-36.0); NEUT % 61.1 % (16.0-70.0); PLATELET COUNT 253 TH/MM3 (150-450); RED CELL DISTRIBUTION WIDTH 14.9 % (11.6-17.2); WHITE BLOOD COUNT 8.3 TH/MM3 (4.0-11.0)
[2017-01-19 16:00] LABS: BLOOD UREA NITROGEN 11 MG/DL (7-18)
[2017-01-19 16:01] LABS: ALCOHOL LESS THAN 3 MG/DL (0-5); ANION GAP 5 MEQ/L (5-15); BICARBONATE 29.7 MEQ/L (21.0-32.0); CHLORIDE 105 MEQ/L (98-107); GLOMERULAR FILTRATION RATE 128 ML/MIN (>89); POTASSIUM 4.2 MEQ/L (3.5-5.1); SODIUM (NA) 140 MEQ/L (136-145)
[2017-01-19 18:09] VITALS: BP 123/75; PULSE 50; RESP 16; TEMP 97.3; O2SAT 100
[2017-01-20 06:09] VITALS: BP 90/51; PULSE 58; RESP 18
[2017-01-20 10:00] VITALS: BP 109/70; PULSE 83; RESP 18
[2017-01-20] MEDS ORDERED: HALOPERIDOL 10 MG TAB PO SCH (13:45)
[2017-01-20] MEDS ORDERED: BENZTROPINE MESYLATE 1 MG TAB PO SCH (14:00)
[2017-01-20] MEDS ORDERED: ALUMINUM/MAGNESIUM/SIMETH 30 ML CUP PO PRN (15:15)
[2017-01-20] MEDS ORDERED: LORazepam 2 MG/ML VIAL IM PRN (15:15)
[2017-01-20] MEDS ORDERED: MAGNESIUM HYDROXIDE SUSP 30 ML CUP PO PRN (15:15)
[2017-01-20] MEDS ORDERED: ACETAMINOPHEN 325 MG TAB PO PRN (15:15)
[2017-01-20] MEDS ORDERED: LORazepam 1 MG TAB PO PRN (15:15)
[2017-01-20] MEDS ORDERED: diphenhydrAMINE HCL 50 MG CAP PO PRN (15:15)
[2017-01-20] MEDS ORDERED: diphenhydrAMINE HCL 50 MG/ML VIAL IM PRN (15:15)
--- NOTE | 2017-01-20 15:20 | HHI.HP ---
Provisional Diagnosis Admission Date [place] I. Schizophrenia, chronic paranoid type Certification of Person's Competence To Provide Express and Informed Consent I have personally examined Sahara Rios , a person being served at [facility] on, Jan 20, 2017 15:14. Express and informed consent means consent voluntarily given in writing, by a competent person, after sufficient explanation and disclosure of the subject matter involved to enable the person to make a knowing and willful decision without any element of force, fraud, deceit, duress, or other form of constraint or coercion. This person is 18 years of age or older, is not now known to be incompetent to consent to treatment with a guardian advocate, and does not have a health care surrogate or proxy currently making medical treatment decisions. I have found this person to be one of the following: [x] Competent to provide express and informed consent, as defined above, for voluntary admission to this facility and is competent to provide express and informed consent for treatment. He/she has the consistent capacity to make well reasoned, willful, and knowing decisions concerning his or her medical or mental health treatment. The person fully and consistently understands the purpose of the admission for examination/placement and is fully capable of personally exercising all rights [place] Incompetent to provide express and informed consent to voluntary admission, and this is incompetent to provide express and informed consent to treatment. The person must be transferred to involuntary status and a petition for a guardian advocate filed with the Circuit Court. [] Refusing to provide express and informed consent to voluntary admission but is competent to provide express and informed consent for treatment. The person must be discharged or transferred to involuntary status. Form shall be completed within 24 hours of a person's arrival at the receiving facility and filed in the clinical record of each person: 1. Admitted on a voluntary basis 2. Permitted to provide express and informed consent to his/her own treatment 3. Allowed to transfer from involuntary to voluntary status 4. Prior to permitting a person to consent to his or her own treatment after having been previously found incompetent to consent to treatment. History of Present Illness Capacity: Has Capacity HPI 21-year-old female who is known to this physician from a previous hospitalization at [facility], approximately 2 months ago. Patient was kept in the psychiatric unit here at [facility] for over a month, placed on a state hospital waiting bed and eventually transferred to [facility] According to reports, even though the patient had 2 weeks to wait for a state hospital bed, she was discharged by [facility] She continued to have auditory hallucinations of a command nature, telling her to walk out into traffic and kill herself. She was admitted to [facility] twice but is presenting here at [facility] at this time with the very same symptoms. Upon interview, the patient continues to demonstrate a very flat affect and report auditory hallucinations. These auditory hallucinations are telling her to walk into traffic. They're also telling her to suffocate herself. This physician interviewed the patient's mother and is aware of the patient's mother is unable to care for the patient, despite the mother's desire to be helpful. The patient has a 2-year-old sister who lives with the mother and the mother is afraid for the 2-year-olds safety. Patient has obviously not responded to the combination of Haldol and in a vague assist Marleen in the past. Therefore, this physician changed the patient's medication to Abilify with hopes she will be placed on Abilify Maintena. Review of Systems Except as stated in HPI: all other systems reviewed are Neg Past Psych History Psychological trauma history Unknown for psychological trauma. Patient was diagnosed with schizophrenia at age 19. Violence risk - others (6 mos) Moderate. Patient experiencing command hallucinations which makes her dangerous. Violence risk - self (6 mos) High. Patient experiencing command hallucinations to harm herself. Substance Abuse History Drugs/Alcohol past 12 months Denied Past Family Social History Coded Allergies: No Known Allergies (Unverified , 11/28/16) Active Scripts Ergocalciferol (Ergocalciferol) 50,000 Unit Cap, 48143 UNITS PO Q7D for health, #4 CAP 0 Refills Prov:James Jones MD 01/05/17 Carbamazepine (Carbamazepine) 100 Mg Chew, 200 MG PO DIRECTED for health, # 180 EA 0 Refills 2 by mouth in a.m., 4 by mouth at at bedtime Prov:James Jones MD 01/05/17 [Benztropine] 1 MG TAB No Conflict Check, 1 MG PO BID for health, #60 0 Refills Prov:James Jones MD 01/05/17 Discontinued Scripts Haloperidol (Haloperidol) 10 Mg Tab, 10 MG PO BID for health, #60 TAB 0 Refills Prov:James Jones MD 01/05/17 Paliperidone Palmitate Inj (Invega Sustenna Inj) 234 Mg/1.5 Ml Inj, 234 MG IM Q28D for health, #1 INJECTION 0 Refills Next injection due 01/06/17 Prov:James Jones MD 01/05/17 Current Medications Medications (Trade) Dose Ordered Sig/Jose Carlos Route Start Time Stop Time Status Last Admin (Haldol) 10 mg BID PO 01/20/17 13:45 01/20/17 14:13 (Cogentin) 1 mg BID PO 01/20/17 14:00 01/20/17 14:13 (TEGretol CHEW) 200 mg BID PO 01/20/17 14:00 01/20/17 14:36 (Ativan) 1 mg Q6H PRN PO 01/20/17 15:15 UNV (Ativan Inj) 1 mg Q6H PRN IM 01/20/17 15:15 UNV (Benadryl) 50 mg Q6H PRN PO 01/20/17 15:15 UNV (Benadryl Inj) 50 mg Q6H PRN IM 01/20/17 15:15 UNV (Tylenol) 650 mg Q4H PRN PO 01/20/17 15:15 UNV (Milk Of Magnesia Liq) 30 ml DAILY PRN PO 01/20/17 15:15 UNV (Mag-Al Plus Susp Liq) 30 ml Q6H PRN PO 01/20/17 15:15 UNV Family Psych History According to patient's mother, there are 2 family relatives with schizophrenia. Social History Patient is unemployed and has been unemployed for many months. She does not abuse alcohol or illicit substances. She leaves home without any plan or ability to care for herself. Mother has been unable to care for patient. Patient is obviously disabled due to significant mental illness. Patient's Strengths (min. 2) Young and has access to healthcare. Physical Exam GENERAL: SKIN: Warm and dry. HEAD: Normocephalic. EYES: No scleral icterus. No injection or drainage. NECK: Supple, trachea midline. No JVD or lymphadenopathy. CARDIOVASCULAR: Regular rate and rhythm without murmurs, gallops, or rubs. RESPIRATORY: Breath sounds equal bilaterally. No accessory muscle use. GASTROINTESTINAL: Abdomen soft, non-tender, nondistended. MUSCULOSKELETAL: No cyanosis, or edema. BACK: Nontender without obvious deformity. No CVA tenderness. Vital Signs Vital Signs Date Time Temp Pulse Resp B/P (MAP) Pulse Ox O2 Delivery O2 Flow Rate FiO2 01/20/17 10:00 83 18 109/70 (83) Room Air 01/19/17 18:09 97.3 100 Lab Results Test 01/19/17 18:38 Urine Opiates Screen NEG Urine Barbiturates Screen NEG Urine Amphetamines Screen NEG Urine Benzodiazepines Screen NEG Urine Cocaine Screen NEG Urine Cannabinoids Screen NEG Mental Status Examination Appearance: Disheveled Consciousness: Alert Orientation: Person, Place, Date/Time Motor Activity: Normal gait Speech: Hesitant Language: Adequate Fund of Knowledge: Adequate Attention and Concentration: Inadequate Memory: Impaired Mood: Anxious Affect: Flat Thought Process & Associations: Intact Thought Content: Bizarre thinking, Delusional Hallucination Type: Command Delusion Type: Bizarre Suicidal Ideation: Yes Suicidal Plan: Yes Suicidal Intention: Yes Homicidal Ideation: No Homicidal Plan: No Homicidal Intention: No Insight: Fair Judgment: Impulsive Assessment & Plan Problem List: (1) Schizophrenia, paranoid type ICD Codes: F20.0 - Paranoid schizophrenia Assessment & Plan Estimated LOS: days. Nurse rec tensioner Marlene Cabrera spoke with service line personal care home administrator Mahesh Penny and patient to be admitted to [facility] despite this physician's feeling she was inappropriately discharged by [facility] on 2 recent occasions. Patient remains at high risk for self-harm, demonstrating obvious thought blocking, auditory hallucinations of a command nature, wanting to walk into traffic or suffocate herself according to the hallucinations. This physician has ordered a CBC and basic metabolic profile to determine if some new infectious process or metabolic process might be aggravating the patient's psychosis. Additionally, the patient is receiving a hemoglobin A1c and lipid panel to determine if the patient's recent medications of Haldol and in [place] are causing some metabolic syndrome. (These medicines are known to cause weight gain, diminished high density lipoproteins, increased cholesterol, increased prolactin levels, etc.) this physician changed the patient's antipsychotic medicine to Abilify as the patient's previous combination of Haldol and Invega Sustenna were obviously ineffective. This physician also ordered an EKG to determine if any cardiac conduction changes occurred as a result of the recent psychotropic medicine she has received (the combination of Haldol and Invega Sustenna). This physician spoke with the nurse practitioner, Marlene Cabrera, regarding the patient's recent behavior. This physician is also requesting case management to once again become involved in disposition planning. Darío Balderas MD Jan 20, 2017 15:20
[2017-01-20] MEDS ORDERED: ERGOCALCIFEROL (VIT D2) 50,000 UNIT CAP PO SCH (17:00)
[2017-01-20 17:13] VITALS: BP 111/67; PULSE 62; RESP 18; O2SAT 100
[2017-01-20 17:14] VITALS: BP 111/67; PULSE 62; RESP 18; O2SAT 100
[2017-01-20] MEDS ORDERED: ARIPiprazole 5 MG TAB PO SCH (21:00)
== END 2017-01-20 18:16 | DRG 885 ==
LOC: NEPJ 14:20 → NEDA 01-20 15:10
PROVIDERS: ADMIT Psychiatry & Neurology Psychiatry; ATTEND Psychiatry & Neurology Psychiatry
DX: F20.0 Paranoid schizophrenia (principal); Z81.8 Family history of other mental and behavioral disorders
CPT/HCPCS: 80048; 80307; 84703; 85025

== ENCOUNTER 2017-02-08 02:34 | Observation (INO) | payer OTHER ==
[2017-02-08] VITALS (8 sets, daily range): BP systolic 103–127; BP diastolic 51–81; PULSE 68–99; RESP 15–20; TEMP 96.8–98.9; O2SAT 96–99
[~2017-02-08 02:34] MED LIST changes: -HALO10TA PO; -PALI234P IM
[2017-02-08] MEDS ORDERED: LITH300T3 PO (03:31)
[2017-02-08 04:57] LABS: BLOOD, URINE NEG (NEG); COMMENT (UR) CULT NOT INDICATED; CULTURE IF INDICATED CULT NOT INDICATED; GLUCOSE,URINE NEG (NEG); KETONE, URINE NEG (NEG); NITRITE,URINE NEG (NEG); PH, URINE 7.5 (5.0-8.5); SQUAMOUS EPITHELIAL CELL URINE <1 /hpf (0-5); URINE COLOR YELLOW (YELLW/STRAW)
--- NOTE | 2017-02-08 04:57 | PD ---
HPI Chief Complaint: Psychiatric Symptoms Time Seen by Provider: 04:35 Travel History International Travel<30 days: No Contact w/Intl Traveler<30days: No Traveled to known affect area: No History of Present Illness HPI 21-year-old female presents to the emergency department in police custody for evaluation of possible overdose and Wood act for suicidal ideation. Patient reportedly had mentioned these concerns to her mother and apparently all 911 voicing concerns for wanting to harm herself. According to police/long enforcement Wood act the patient called 911 and started saying she wanted to kill herself and that she had overdosed on pills mother also supported that she supposedly took 3 bottles of pills today patient only presents with a empty bottle of remeron, lithium, and benztropine.. Patient here on provide any history. Patient here only response to acknowledge he her name. PFSH Past Medical History Narrative Medical Bipolar disorder and schizoaffective disorder no tobacco use no alcohol use no substance use cervical nursing notes reviewed Bipolar Disorder: Yes Anxiety: No Depression: No Diabetes: No Diminished Hearing: No Endocrine: No Genitourinary: No Immune Disorder: No Implanted Vascular Access Dvce: No Musculoskeletal: No Neurologic: No Psychiatric: Yes (Pt was diagnosed with Schizophrenia at the age of 19) Reproductive: No Respiratory: No Schizophrenia: Yes Tetanus Vaccination: Unknown Influenza Vaccination: No ?: Not Past Surgical History Surgical History: No Previous Surgery Social History Alcohol Use: No Tobacco Use: No Substance Use: No Allergies-Medications (Allergen,Severity, Reaction): Coded Allergies: No Known Allergies (Unverified Adverse Reaction, Unknown, 02/08/17) Reported Meds & Prescriptions Reported Meds & Active Scripts Active Ergocalciferol 50,000 Unit Cap 50,000 Units PO Q7D Carbamazepine 100 Mg Chew 200 Mg PO DIRECTED 2 by mouth in a.m., 4 by mouth at at bedtime [Benztropine] 1 MG Tab 1 Mg PO BID Reported Gays Carbonate 300 Mg Tab 300 Mg PO BID Review of Systems ROS Limitations: Clinical Condition, Poor Historian Except as stated in HPI: all other systems reviewed are Neg Physical Exam Narrative GENERAL: Well-developed well-nourished female in no acute distress no respiratory distress SKIN: Warm and dry. HEAD: Normocephalic. EYES: No scleral icterus. No injection or drainage. NECK: Supple, trachea midline. No JVD or lymphadenopathy. CARDIOVASCULAR: Increased Regular rate and rhythm without murmurs, gallops, or rubs. RESPIRATORY: Breath sounds equal bilaterally. No accessory muscle use. GASTROINTESTINAL: Abdomen soft, non-tender, nondistended. MUSCULOSKELETAL: No cyanosis, or edema. BACK: Nontender without obvious deformity. No CVA tenderness. Data Data Last Documented VS Vital Signs Date Time Temp Pulse Resp B/P (MAP) Pulse Ox O2 Delivery O2 Flow Rate FiO2 02/08/17 03:05 98.3 96 18 127/81 (96) 99 Orders Orders Complete Blood Count With Diff (02/08/17 04:35) Comprehensive Metabolic Panel (02/08/17 04:35) Thyroid Stimulating Hormone (02/08/17 04:35) Urinalysis - C+S If Indicated (02/08/17 04:35) Ed Urine Pregnancytest Poc (02/08/17 04:35) Electrocardiogram (02/08/17 04:35) Psych Screen (02/08/17 04:35) Gays (Li) (02/08/17 04:35) Blood Glucose (02/08/17 04:35) Drug Screen, Random Urine (02/08/17 04:35) Alcohol (Ethanol) (02/08/17 04:35) Salicylates (Aspirin) (02/08/17 04:35) Tylenol (Acetaminophen) (02/08/17 04:35) Labs Laboratory Tests Test 02/08/17 04:30 White Blood Count 10.5 TH/MM3 Red Blood Count 3.65 MIL/MM3 Hemoglobin 10.4 GM/DL Hematocrit 31.4 % Mean Corpuscular Volume 86.0 FL Mean Corpuscular Hemoglobin 28.4 PG Mean Corpuscular Hemoglobin Concent 33.0 % Red Cell Distribution Width 15.2 % Platelet Count 262 TH/MM3 Mean Platelet Volume 8.5 FL Neutrophils (%) (Auto) 62.9 % Lymphocytes (%) (Auto) 27.0 % Monocytes (%) (Auto) 8.0 % Eosinophils (%) (Auto) 1.7 % Basophils (%) (Auto) 0.4 % Neutrophils # (Auto) 6.6 TH/MM3 Lymphocytes # (Auto) 2.8 TH/MM3 Monocytes # (Auto) 0.8 TH/MM3 Eosinophils # (Auto) 0.2 TH/MM3 Basophils # (Auto) 0.0 TH/MM3 CBC Comment DIFF FINAL Differential Comment Urine Color YELLOW Urine Turbidity CLEAR Urine pH 7.5 Urine Specific [place] 1.020 Urine Protein NEG mg/dL Urine Glucose (UA) NEG mg/dL Urine Ketones NEG mg/dL Urine Occult Blood NEG Urine Nitrite NEG Urine Bilirubin NEG Urine Urobilinogen LESS THAN 2.0 MG/DL Urine Leukocyte Esterase NEG Urine WBC 1 /hpf Urine Squamous Epithelial Cells <1 /hpf Microscopic Urinalysis Comment CULT NOT INDICATED Blood Urea Nitrogen 14 MG/DL Creatinine 0.72 MG/DL Random Glucose 78 MG/DL Total Protein 6.9 GM/DL Albumin 3.6 GM/DL Calcium Level 9.2 MG/DL Alkaline Phosphatase 79 U/L Aspartate Amino Transf (AST/SGOT) 9 U/L Alanine Aminotransferase (ALT/SGPT) 12 U/L Total Bilirubin 0.1 MG/DL Sodium Level 140 MEQ/L Potassium Level 3.5 MEQ/L Chloride Level 106 MEQ/L Carbon Dioxide Level 28.2 MEQ/L Anion Gap 6 MEQ/L Estimat Glomerular Filtration Rate 124 ML/MIN Thyroid Stimulating Hormone 3rd Gen 2.550 uIU/ML Salicylates Level LESS THAN 1.7 MG/DL Urine Opiates Screen NEG Acetaminophen Level LESS THAN 2.0 MCG/ML Urine Barbiturates Screen NEG Urine Amphetamines Screen NEG Urine Benzodiazepines Screen NEG Gays Level 1.6 MEQ/L Urine Cocaine Screen NEG Urine Cannabinoids Screen NEG Ethyl Alcohol Level LESS THAN 3 MG/DL MDM Medical Decision Making Medical Screen Exam Complete: Yes Emergency Medical Condition: Yes Medical Record Reviewed: Yes Interpretation(s) CBC & BMP Diagram 02/08/17 04:30 Total Protein 6.9, Albumin 3.6, Calcium Level 9.2, Alkaline Phosphatase 79, Aspartate Amino Transf (AST/SGOT) 9 L, Alanine Aminotransferase (ALT/SGPT) 12, Total Bilirubin 0.1 L EKG: Normal sinus rhythm rate 84 normal axis and intervals no ST elevation or injury pattern or ectopy noted Vital Signs Date Time Temp Pulse Resp B/P (MAP) Pulse Ox O2 Delivery O2 Flow Rate FiO2 02/08/17 03:05 98.3 96 18 127/81 (96) 99 Gays: 1.6 minimally elevated Urine drug screen: Negative Salicylate level less than 1.7, not elevated acetaminophen level less than 2, not elevated serum alcohol less than 3, not elevated Differential Diagnosis Polysubstance ingestion, intentional versus accidental overdose, depression, suicidal ideation, elect to light disturbance, arrhythmia Narrative Course Specimens collected and sent for resulting EKG ordered; poison control contacted , and patient will be medically cleared for psych screening Patient resting comfortably voicing no complaints stable vital signs CBC is automated differential grossly within normal limits chemistries within normal range with normal renal function salicylate level acetaminophen level; alcohol level not elevated urine drug screen is negative however lithium is 1.6 which is minimally elevated upper limit of normal is 1.5. Poison control has been contacted Will repeat lithium level and if trends downward well medically clear patient for psych screening Diagnosis Primary Impression: Depression Additional Impressions: Suicidal ideation Polysubstance overdose Qualified Codes: T50.902A - Poisoning by unspecified drugs, medicaments and biological substances, intentional self-harm, initial encounter Juli Hameed MD Feb 08, 2017 04:57
[2017-02-08 05:04] LABS: AUTOMATED NEUTROPHIL # 6.6 TH/MM3 (1.8-7.7); BASOPHIL % 0.4 % (0.0-2.0); EOSINOPHIL # 0.2 TH/MM3 (0-0.4); EOSINOPHIL % 1.7 % (0.0-4.0); HEMATOCRIT 31.4 % (35.0-46.0); HEMO FLAGS DIFF FINAL; LYMPHOCYTE # 2.8 TH/MM3 (1.0-4.8); MEAN CORPUSCULAR HEMOGLOBIN 28.4 PG (27.0-34.0); NEUT % 62.9 % (16.0-70.0); PLATELET COUNT 262 TH/MM3 (150-450); RED BLOOD COUNT 3.65 MIL/MM3 (4.00-5.30); RED CELL DISTRIBUTION WIDTH 15.2 % (11.6-17.2); WHITE BLOOD COUNT 10.5 TH/MM3 (4.0-11.0)
[2017-02-08 05:16] LABS: ALT (GPT) 12 U/L (10-53); ANION GAP 6 MEQ/L (5-15); AST (GOT) 9 U/L (15-37); BICARBONATE 28.2 MEQ/L (21.0-32.0); BLOOD UREA NITROGEN 14 MG/DL (7-18); CHLORIDE 106 MEQ/L (98-107); GLOMERULAR FILTRATION RATE 124 ML/MIN (>89); POTASSIUM 3.5 MEQ/L (3.5-5.1); SODIUM (NA) 140 MEQ/L (136-145)
[2017-02-08 05:24] LABS: ALCOHOL LESS THAN 3 MG/DL (0-5)
[2017-02-08 05:26] LABS: ALKALINE PHOSPHATASE 79 U/L (45-117); TOTAL BILIRUBIN ADULT 0.1 MG/DL (0.2-1.0)
[2017-02-08 05:33] LABS: ACETAMINOPHEN LESS THAN 2.0 MCG/ML (10.0-30.0)
[2017-02-08 07:12] LABS: ALT (GPT) 16 U/L (10-53); ANION GAP 5 MEQ/L (5-15); AST (GOT) 11 U/L (15-37); BICARBONATE 28.4 MEQ/L (21.0-32.0); BLOOD UREA NITROGEN 14 MG/DL (7-18); CHLORIDE 108 MEQ/L (98-107); GLOMERULAR FILTRATION RATE 126 ML/MIN (>89); MAGNESIUM 2.4 MG/DL (1.5-2.5); POTASSIUM 4.1 MEQ/L (3.5-5.1); SODIUM (NA) 141 MEQ/L (136-145)
[2017-02-08 07:14] LABS: ALKALINE PHOSPHATASE 77 U/L (45-117); TOTAL BILIRUBIN ADULT 0.2 MG/DL (0.2-1.0)
[2017-02-08] MEDS ORDERED: ONDANSETRON HCL 4 MG/2 ML VIAL IVP PRN (08:15)
[2017-02-08] MEDS ORDERED: SENNOSIDES 8.6 MG TAB PO PRN (08:15)
[2017-02-08] MEDS ORDERED: MAGNESIUM HYDROXIDE SUSP 30 ML CUP PO PRN (08:15)
[2017-02-08] MEDS ORDERED: SODIUM CHLORIDE 0.9% FLUSH 10 ML FLUSH IV FLUSH PRN (08:15)
[2017-02-08] MEDS ORDERED: NALOXONE HCL 0.4 MG/ML AMP IV PUSH PRN (08:15)
[2017-02-08] MEDS ORDERED: BISACODYL 10 MG SUPP RECTAL PRN (08:15)
[2017-02-08] MEDS ORDERED: LACTULOSE SYRUP 20 GM/30 ML CUP PO PRN (08:15)
[2017-02-08] MEDS: DOCUSATE SODIUM 50 MG/SENNA 8.6 MG TAB PO SCH ×2 (08:52→21:56)
[2017-02-08] MEDS: SODIUM CHLORIDE 0.9% FLUSH 10 ML FLUSH IV FLUSH SCH ×2 (08:52→21:56)
--- NOTE | 2017-02-08 10:06 | HHI.HP ---
[facility] [place] No Primary Care Physician Admission Diagnosis lithium overdose Diagnoses: Travel History International Travel<30 Days: No Contact w/Intl Traveler <30 Da: No Traveled to Known Affected Are: No History of Present Illness 21-year-old female presents to the emergency department after an intentional overdose. Per ED notes, the patient was brought in in police custody for evaluation of possible overdose and Wood act for suicidal ideation. The patient apparently called 911 and stated that she wanted to kill herself and that she had overdosed on pills. She presented to the ED with empty bottles of Remeron, lithium and benztropine. During our interview, the patient refuses to answer what she took or if she currently has any suicidal ideation. She is alert and oriented and mildly cooperative with the exam. [place] level I.6 on admission, currently 1.7. Electrolytes within normal limits. Review of Systems Unable to obtain as patient refuses to answer any questions Past Family Social History Past Medical History Denies medical history Past Surgical History Denies surgical history Reported Medications Patient states she does not take any medications on a daily basis Allergies: Coded Allergies: No Known Allergies (Unverified Allergy, Unknown, 02/08/17) Family History Patient refuses to answer Social History Patient refuses to answer Physical Exam Vital Signs Vital Signs Date Time Temp Pulse Resp B/P (MAP) Pulse Ox O2 Delivery O2 Flow Rate FiO2 02/08/17 09:35 68 15 103/53 (70) 98 Room Air 02/08/17 08:12 86 15 117/59 (78) 98 Room Air 02/08/17 06:43 80 18 117/59 (78) 99 Room Air 02/08/17 03:05 98.3 96 18 127/81 (96) 99 Physical Exam GENERAL: female lying in bed with a blanket over her head SKIN: No rashes, ecchymoses or lesions. Cool and dry. HEAD: Atraumatic. Normocephalic. No temporal or scalp tenderness. EYES: Pupils equal round and reactive. Extraocular motions intact. No scleral icterus. No injection or drainage. ENT: Nose without bleeding, purulent drainage or septal hematoma. Throat without erythema, tonsillar hypertrophy or exudate. Uvula midline. Airway patent. NECK: Trachea midline. No JVD or lymphadenopathy. Supple, nontender, no meningeal signs. CARDIOVASCULAR: Regular rate and rhythm without murmurs, gallops, or rubs. RESPIRATORY: Clear to auscultation. Breath sounds equal bilaterally. No wheezes , rales, or rhonchi. GASTROINTESTINAL: Abdomen soft, non-tender, nondistended. No hepato-splenomegaly , or palpable masses. No guarding. MUSCULOSKELETAL: Extremities without clubbing, cyanosis, or edema. No joint tenderness, effusion, or edema noted. No calf tenderness. NEUROLOGICAL: Awake and alert. Cranial nerves II through XII intact. Motor and sensory grossly within normal limits. Normal speech when she does answer questions. Laboratory Laboratory Tests Test 02/08/17 04:30 02/08/17 06:30 White Blood Count 10.5 Red Blood Count 3.65 Hemoglobin 10.4 Hematocrit 31.4 Mean Corpuscular Volume 86.0 Mean Corpuscular Hemoglobin 28.4 Mean Corpuscular Hemoglobin Concent 33.0 Red Cell Distribution Width 15.2 Platelet Count 262 Mean Platelet Volume 8.5 Neutrophils (%) (Auto) 62.9 Lymphocytes (%) (Auto) 27.0 Monocytes (%) (Auto) 8.0 Eosinophils (%) (Auto) 1.7 Basophils (%) (Auto) 0.4 Neutrophils # (Auto) 6.6 Lymphocytes # (Auto) 2.8 Monocytes # (Auto) 0.8 Eosinophils # (Auto) 0.2 Basophils # (Auto) 0.0 CBC Comment DIFF FINAL Differential Comment Urine Color YELLOW Urine Turbidity CLEAR Urine pH 7.5 Urine Specific [place] 1.020 Urine Protein NEG Urine Glucose (UA) NEG Urine Ketones NEG Urine Occult Blood NEG Urine Nitrite NEG Urine Bilirubin NEG Urine Urobilinogen LESS THAN 2.0 Urine Leukocyte Esterase NEG Urine WBC 1 Urine Squamous Epithelial Cells <1 Microscopic Urinalysis Comment CULT NOT INDICATED Blood Urea Nitrogen 14 14 Creatinine 0.72 0.71 Random Glucose 78 89 Total Protein 6.9 6.9 Albumin 3.6 3.6 Calcium Level 9.2 9.2 Alkaline Phosphatase 79 77 Aspartate Amino Transf (AST/SGOT) 9 11 Alanine Aminotransferase (ALT/SGPT) 12 16 Total Bilirubin 0.1 0.2 Sodium Level 140 141 Potassium Level 3.5 4.1 Chloride Level 106 108 Carbon Dioxide Level 28.2 28.4 Anion Gap 6 5 Estimat Glomerular Filtration Rate 124 126 Thyroid Stimulating Hormone 3rd Gen 2.550 Salicylates Level LESS THAN 1.7 Urine Opiates Screen NEG Acetaminophen Level LESS THAN 2.0 LESS THAN 2.0 Urine Barbiturates Screen NEG Urine Amphetamines Screen NEG Urine Benzodiazepines Screen NEG [place] Level 1.6 1.7 Urine Cocaine Screen NEG Urine Cannabinoids Screen NEG Ethyl Alcohol Level LESS THAN 3 Magnesium Level 2.4 Result Diagram: 02/08/170 02/08/17 0630 Caprini VTE Risk Assessment Caprini VTE Risk Assessment: No/Low Risk (score <= 1) Caprini Risk Assessment Model Point Value = 1 Point Value = 2 Point Value = 3 Point Value = 5 Age 41-60 Minor surgery BMI > 25 kg/m2 Swollen legs Varicose veins or History of unexplained or recurrent spontaneous Oral contraceptives or hormone replacement Sepsis (< 1 month) Serious lung disease, including pneumonia (< 1 month) Abnormal pulmonary function Acute myocardial infarction Congestive heart failure (< 1 month) History of inflammatory bowel disease Medical patient at bed rest Age 61-74 Arthroscopic surgery Major open surgery (> 45 min) Laparoscopic surgery (> 45 min) Malignancy Confined to bed (> 72 hours) Immobilizing plaster cast Central venous access Age >= 75 History of VTE Family history of VTE Factor V Leiden Prothrombin [id number] Lupus anticoagulant Anticardiolipin antibodies Elevated serum homocysteine Heparin-induced thrombocytopenia Other congenital or acquired thrombophilia Stroke (< 1 month) Elective arthroplasty Hip, pelvis, or leg fracture Acute spinal cord injury (< 1 month) Prophylaxis Regimen Total Risk Factor Score Risk Level Prophylaxis Regimen 0-1 Low Early ambulation 2 Moderate Order ONE of the following: *Sequential Compression Device (SCD) *Heparin 5000 units SQ BID 3-4 Higher Order ONE of the following medications: *Heparin 5000 units SQ TID *Enoxaparin/Lovenox 40 mg SQ daily (WT < 150 kg, CrCl > 30 mL/min) *Enoxaparin/Lovenox 30 mg SQ daily (WT < 150 kg, CrCl > 10-29 mL/min) *Enoxaparin/Lovenox 30 mg SQ BID (WT < 150 kg, CrCl > 30 mL/min) AND/OR *Sequential Compression Device (SCD) 5 or more Highest Order ONE of the following medications: *Heparin 5000 units SQ TID (Preferred with Epidurals) *Enoxaparin/Lovenox 40 mg SQ daily (WT < 150 kg, CrCl > 30 mL/min) *Enoxaparin/Lovenox 30 mg SQ daily (WT < 150 kg, CrCl > 10-29 mL/min) *Enoxaparin/Lovenox 30 mg SQ BID (WT < 150 kg, CrCl > 30 mL/min) AND *Sequential Compression Device (SCD) Assessment and Plan Assessment and Plan 21-year-old female under Wood act for intentional overdose. 1. Suicidal ideation/intentional overdose/Wood act Patient had 3 empty bottles: Remeron, lithium and benztropine on her arrival to the emergency department Mah[place] level remains elevated at 1.7 Poison control contacted, recommend close monitoring. No intervention needed unless patient's lithium level is 2.5 Check lithium level every 2 hours Monitor sodium levels BMP every 6 hours Psychiatry consulted, appreciate assistance [facility] Heart healthy diet Electrolytes: as above SCDs Case discussed with ER physician at length Rosalie Gonzalez MD Feb 08, 2017 10:06
[2017-02-08 13:56] LABS: BICARBONATE 28.7 MEQ/L (21.0-32.0); POTASSIUM 4.3 MEQ/L (3.5-5.1)
--- NOTE | 2017-02-08 19:01 | PD ---
Data Data Last Documented VS Vital Signs Date Time Temp Pulse Resp B/P (MAP) Pulse Ox O2 Delivery O2 Flow Rate FiO2 02/08/17 06:43 80 18 117/59 (78) 99 Room Air 02/08/17 03:05 98.3 Orders Orders Complete Blood Count With Diff (02/08/17 04:35) Comprehensive Metabolic Panel (02/08/17 04:35) Thyroid Stimulating Hormone (02/08/17 04:35) Urinalysis - C+S If Indicated (02/08/17 04:35) Ed Urine Pregnancytest Poc (02/08/17 04:35) Electrocardiogram (02/08/17 04:35) Psych Screen (02/08/17 04:35) [place] (Li) (02/08/17 04:35) Blood Glucose (02/08/17 04:35) Drug Screen, Random Urine (02/08/17 04:35) Alcohol (Ethanol) (02/08/17 04:35) Salicylates (Aspirin) (02/08/17 04:35) Tylenol (Acetaminophen) (02/08/17 04:35) [place] (Li) (02/08/17 06:02) Tylenol (Acetaminophen) (02/08/17 06:02) Comprehensive Metabolic Panel (02/08/17 06:06) Magnesium (Mg) (02/08/17 06:06) Admit Order (Ed Use Only) (02/08/17 08:07) Labs Laboratory Tests Test 02/08/17 04:30 02/08/17 06:30 White Blood Count 10.5 TH/MM3 Red Blood Count 3.65 MIL/MM3 Hemoglobin 10.4 GM/DL Hematocrit 31.4 % Mean Corpuscular Volume 86.0 FL Mean Corpuscular Hemoglobin 28.4 PG Mean Corpuscular Hemoglobin Concent 33.0 % Red Cell Distribution Width 15.2 % Platelet Count 262 TH/MM3 Mean Platelet Volume 8.5 FL Neutrophils (%) (Auto) 62.9 % Lymphocytes (%) (Auto) 27.0 % Monocytes (%) (Auto) 8.0 % Eosinophils (%) (Auto) 1.7 % Basophils (%) (Auto) 0.4 % Neutrophils # (Auto) 6.6 TH/MM3 Lymphocytes # (Auto) 2.8 TH/MM3 Monocytes # (Auto) 0.8 TH/MM3 Eosinophils # (Auto) 0.2 TH/MM3 Basophils # (Auto) 0.0 TH/MM3 CBC Comment DIFF FINAL Differential Comment Urine Color YELLOW Urine Turbidity CLEAR Urine pH 7.5 Urine Specific [place] 1.020 Urine Protein NEG mg/dL Urine Glucose (UA) NEG mg/dL Urine Ketones NEG mg/dL Urine Occult Blood NEG Urine Nitrite NEG Urine Bilirubin NEG Urine Urobilinogen LESS THAN 2.0 MG/DL Urine Leukocyte Esterase NEG Urine WBC 1 /hpf Urine Squamous Epithelial Cells <1 /hpf Microscopic Urinalysis Comment CULT NOT INDICATED Blood Urea Nitrogen 14 MG/DL 14 MG/DL Creatinine 0.72 MG/DL 0.71 MG/DL Random Glucose 78 MG/DL 89 MG/DL Total Protein 6.9 GM/DL 6.9 GM/DL Albumin 3.6 GM/DL 3.6 GM/DL Calcium Level 9.2 MG/DL 9.2 MG/DL Alkaline Phosphatase 79 U/L 77 U/L Aspartate Amino Transf (AST/SGOT) 9 U/L 11 U/L Alanine Aminotransferase (ALT/SGPT) 12 U/L 16 U/L Total Bilirubin 0.1 MG/DL 0.2 MG/DL Sodium Level 140 MEQ/L 141 MEQ/L Potassium Level 3.5 MEQ/L 4.1 MEQ/L Chloride Level 106 MEQ/L 108 MEQ/L Carbon Dioxide Level 28.2 MEQ/L 28.4 MEQ/L Anion Gap 6 MEQ/L 5 MEQ/L Estimat Glomerular Filtration Rate 124 ML/MIN 126 ML/MIN Thyroid Stimulating Hormone 3rd Gen 2.550 uIU/ML Salicylates Level LESS THAN 1.7 MG/DL Urine Opiates Screen NEG Acetaminophen Level LESS THAN 2.0 MCG/ML LESS THAN 2.0 MCG/ML Urine Barbiturates Screen NEG Urine Amphetamines Screen NEG Urine Benzodiazepines Screen NEG [place] Level 1.6 MEQ/L 1.7 MEQ/L Urine Cocaine Screen NEG Urine Cannabinoids Screen NEG Ethyl Alcohol Level LESS THAN 3 MG/DL Magnesium Level 2.4 MG/DL [facility] Supervised Visit with LORENA: No Narrative Course The history, exam, and medical decision-making in the associated midlevel provider note were completed with my assistance. I reviewed and agree with the findings presented. I attest that I had a [id number] encounter with the patient on the same day, and personally performed and documented my assessment and findings in the medical record. *My assessment and Findings: This is a patient that was seen by Dr. Hameed. She overdosed on lithium as well as Remeron and Cogentin. [place] level was slightly elevated on repeat. Patient was placed in observation for serial lithium levels. She is under a Wood act and will require psychiatric evaluation. Physician Communication Physician Communication Discussed with Dr. Gonzalez Diagnosis Primary Impression: Depression Additional Impressions: Suicidal ideation Polysubstance overdose Qualified Codes: T50.902A - Poisoning by unspecified drugs, medicaments and biological substances, intentional self-harm, initial encounter Admitting Information Admitting Physician Requests: Observation Ellen Salgado MD Feb 08, 2017 19:01
[2017-02-08 22:13] LABS: POTASSIUM 3.7 MEQ/L (3.5-5.1)
--- NOTE | 2017-02-08 22:13 | EKG ---
Date Performed: 02/08/2017 Time Performed: 05:39:14 PTAGE: 21 years EKG: Sinus rhythm NORMAL ECG PREVIOUS TRACING : 12/02/2016 10.18 Compared to prior tracing no significant change DOCTOR: Rakesh Garcia Interpretating Date/Time 02/08/2017 22:12:51
[2017-02-09 01:14] LABS: BICARBONATE 28.9 MEQ/L (21.0-32.0)
[2017-02-09 03:44] VITALS: BP 108/62; PULSE 73; RESP 18; TEMP 98.8; O2SAT 99
[2017-02-09 06:15] LABS: AUTOMATED NEUTROPHIL # 6.4 TH/MM3 (1.8-7.7); BASOPHIL # 0.1 TH/MM3 (0-0.2); BASOPHIL % 0.5 % (0.0-2.0); EOSINOPHIL # 0.3 TH/MM3 (0-0.4); EOSINOPHIL % 2.8 % (0.0-4.0); HEMATOCRIT 32.1 % (35.0-46.0); HEMO FLAGS DIFF FINAL; LYMPHOCYTE # 2.9 TH/MM3 (1.0-4.8); MEAN CELL VOLUME 86.2 FL (80.0-100.0); MEAN CORPUSCULAR HEMOGLOBIN 29.9 PG (27.0-34.0); MEAN CORPUSCULAR HGB CONC 34.7 % (32.0-36.0); MONO % 6.7 % (0.0-8.0); PLATELET COUNT 244 TH/MM3 (150-450); RED BLOOD COUNT 3.73 MIL/MM3 (4.00-5.30); RED CELL DISTRIBUTION WIDTH 15.9 % (11.6-17.2); WHITE BLOOD COUNT 10.4 TH/MM3 (4.0-11.0)
[2017-02-09 06:48] LABS: BICARBONATE 27.6 MEQ/L (21.0-32.0); POTASSIUM 3.9 MEQ/L (3.5-5.1)
[2017-02-09 07:21] VITALS: BP 97/54; PULSE 82; RESP 18; TEMP 98.5; O2SAT 98
[2017-02-09] MEDS: DOCUSATE SODIUM 50 MG/SENNA 8.6 MG TAB PO SCH (08:44)
[2017-02-09] MEDS: SODIUM CHLORIDE 0.9% FLUSH 10 ML FLUSH IV FLUSH SCH (08:44)
--- NOTE | 2017-02-09 10:12 | HHI.PR ---
Subjective Remarks 21-year-old female presents to the emergency department after an intentional overdose. Per ED notes, the patient was brought in in police custody for evaluation of possible overdose and Wood act for suicidal ideation. The patient apparently called 911 and stated that she wanted to kill herself and that she had overdosed on pills. She presented to the ED with empty bottles of Remeron, lithium and benztropine. During our interview, the patient refuses to answer what she took or if she currently has any suicidal ideation. She is alert and oriented and mildly cooperative with the exam. [place] level I.6 on admission, currently 1.7. Electrolytes within normal limits. 12-4 Follow up on patient s/p OD. Patient seen and examined. Patient states she feels ok. She denies any dizziness, lightheadedness or vision changes. She reports some phlegm in her throat but denies any cough or sputum production. She denies any fever or chills. She denies any chest pain or dyspnea. She denies any nausea, vomiting or abdominal pain. 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 consult psychiatry continue wood act dw rn and pt needs to see psychiatry medically cleared lithium level is better Objective Vitals Vital Signs Date Time Temp Pulse Resp B/P (MAP) Pulse Ox O2 Delivery O2 Flow Rate FiO2 02/09/17 07:21 98.5 82 18 97/54 (68) 98 02/09/17 03:44 98.8 73 18 108/62 (77) 99 02/08/17 20:24 98.9 99 18 111/57 (75) 99 02/08/17 17:01 96.8 80 20 110/60 (77) 96 02/08/17 12:03 98.0 20 106/63 (77) 96 02/08/17 10:51 66 15 105/51 (69) 98 I/O 02/08/17 02/08/17 02/08/17 02/09/17 02/09/17 02/09/17 06:59 14:59 22:59 06:59 14:59 22:59 Intake Total 240 ml Balance 240 ml Intake Oral 240 ml # Voids 1 1 Result Diagram: 02/09/17 0557 02/09/17 0557 Other Results Laboratory Tests Test 02/08/17 04:30 12/3/17 06:30 02/08/17 12:30 02/08/17 21:26 White Blood Count 10.5 TH/MM3 Red Blood Count 3.65 MIL/MM3 Hemoglobin 10.4 GM/DL Hematocrit 31.4 % Mean Corpuscular Volume 86.0 FL Mean Corpuscular Hemoglobin 28.4 PG Mean Corpuscular Hemoglobin Concent 33.0 % Red Cell Distribution Width 15.2 % Platelet Count 262 TH/MM3 Mean Platelet Volume 8.5 FL Neutrophils (%) (Auto) 62.9 % Lymphocytes (%) (Auto) 27.0 % Monocytes (%) (Auto) 8.0 % Eosinophils (%) (Auto) 1.7 % Basophils (%) (Auto) 0.4 % Neutrophils # (Auto) 6.6 TH/MM3 Lymphocytes # (Auto) 2.8 TH/MM3 Monocytes # (Auto) 0.8 TH/MM3 Eosinophils # (Auto) 0.2 TH/MM3 Basophils # (Auto) 0.0 TH/MM3 CBC Comment DIFF FINAL Differential Comment Urine Color YELLOW Urine Turbidity CLEAR Urine pH 7.5 Urine Specific [place] 1.020 Urine Protein NEG mg/dL Urine Glucose (UA) NEG mg/dL Urine Ketones NEG mg/dL Urine Occult Blood NEG Urine Nitrite NEG Urine Bilirubin NEG Urine Urobilinogen LESS THAN 2.0 MG/DL Urine Leukocyte Esterase NEG Urine WBC 1 /hpf Urine Squamous Epithelial Cells <1 /hpf Microscopic Urinalysis Comment CULT NOT INDICATED Blood Urea Nitrogen 14 MG/DL 14 MG/DL 11 MG/DL 15 MG/DL Creatinine 0.72 MG/DL 0.71 MG/DL 0.72 MG/DL 0.89 MG/DL Random Glucose 78 MG/DL 89 MG/DL 76 MG/DL 87 MG/DL Total Protein 6.9 GM/DL 6.9 GM/DL Albumin 3.6 GM/DL 3.6 GM/DL Calcium Level 9.2 MG/DL 9.2 MG/DL 9.3 MG/DL 8.8 MG/DL Alkaline Phosphatase 79 U/L 77 U/L Aspartate Amino Transf (AST/SGOT) 9 U/L 11 U/L Alanine Aminotransferase (ALT/SGPT) 12 U/L 16 U/L Total Bilirubin 0.1 MG/DL 0.2 MG/DL Sodium Level 140 MEQ/L 141 MEQ/L 140 MEQ/L 139 MEQ/L Potassium Level 3.5 MEQ/L 4.1 MEQ/L 4.3 MEQ/L 3.7 MEQ/L Chloride Level 106 MEQ/L 108 MEQ/L 108 MEQ/L 105 MEQ/L Carbon Dioxide Level 28.2 MEQ/L 28.4 MEQ/L 28.7 MEQ/L 26.0 MEQ/L Anion Gap 6 MEQ/L 5 MEQ/L 3 MEQ/L 8 MEQ/L Estimat Glomerular Filtration Rate 124 ML/MIN 126 ML/MIN 124 ML/MIN 97 ML/MIN Thyroid Stimulating Hormone 3rd Gen 2.550 uIU/ML Salicylates Level LESS THAN 1.7 MG/DL Urine Opiates Screen NEG Acetaminophen Level LESS THAN 2.0 MCG/ML LESS THAN 2.0 MCG/ML Urine Barbiturates Screen NEG Urine Amphetamines Screen NEG Urine Benzodiazepines Screen NEG [place] Level 1.6 MEQ/L 1.7 MEQ/L 1.2 MEQ/L 0.9 MEQ/L Urine Cocaine Screen NEG Urine Cannabinoids Screen NEG Ethyl Alcohol Level LESS THAN 3 MG/DL Magnesium Level 2.4 MG/DL Test 02/09/17 00:35 02/09/17 05:57 Blood Urea Nitrogen 14 MG/DL 15 MG/DL Creatinine 0.81 MG/DL 0.85 MG/DL Random Glucose 80 MG/DL 80 MG/DL Calcium Level 8.7 MG/DL 8.7 MG/DL Sodium Level 139 MEQ/L 139 MEQ/L Potassium Level 4.0 MEQ/L 3.9 MEQ/L Chloride Level 106 MEQ/L 105 MEQ/L Carbon Dioxide Level 28.9 MEQ/L 27.6 MEQ/L Anion Gap 4 MEQ/L 6 MEQ/L Estimat Glomerular Filtration Rate 108 ML/MIN 102 ML/MIN [place] Level 0.9 MEQ/L White Blood Count 10.4 TH/MM3 Red Blood Count 3.73 MIL/MM3 Hemoglobin 11.1 GM/DL Hematocrit 32.1 % Mean Corpuscular Volume 86.2 FL Mean Corpuscular Hemoglobin 29.9 PG Mean Corpuscular Hemoglobin Concent 34.7 % Red Cell Distribution Width 15.9 % Platelet Count 244 TH/MM3 Mean Platelet Volume 7.8 FL Neutrophils (%) (Auto) 62.0 % Lymphocytes (%) (Auto) 28.0 % Monocytes (%) (Auto) 6.7 % Eosinophils (%) (Auto) 2.8 % Basophils (%) (Auto) 0.5 % Neutrophils # (Auto) 6.4 TH/MM3 Lymphocytes # (Auto) 2.9 TH/MM3 Monocytes # (Auto) 0.7 TH/MM3 Eosinophils # (Auto) 0.3 TH/MM3 Basophils # (Auto) 0.1 TH/MM3 CBC Comment DIFF FINAL Differential Comment Objective Remarks GENERAL: Well-nourished, well-developed female in NAD. Awake and alert. Sitter at the bedside. SKIN: Warm and dry. HEAD: Normocephalic. Atraumatic. EYES: EOMI. No scleral icterus. No injection or drainage. ENT: No nasal bleeding or discharge. Mucous membranes pink and moist. NECK: Trachea midline. CARDIOVASCULAR: Tachycardic. S1, S2 noted. No murmur appreciated. RESPIRATORY: Nonlabored. Clear to auscultation. Breath sounds equal bilaterally. GASTROINTESTINAL: Abdomen soft, non-tender, nondistended. Normoactive bowel sounds x4. MUSCULOSKELETAL: No obvious deformities. Extremities without clubbing, cyanosis , or edema. NEUROLOGICAL: Awake and alert. Able to move all extremities. No focal neurologic finding. Normal speech. PSYCHIATRIC: Inappropriate mood and flat affect; insight and judgment abnormal. Medications and IVs Current Medications Medications (Trade) Dose Ordered Sig/Jose Carlos Route Start Time Stop Time Status Last Admin (NS Flush) 2 ml UNSCH PRN IV FLUSH 02/08/17 08:15 (NS Flush) 2 ml BID IV FLUSH 02/08/17 09:00 02/09/17 08:44 (Zofran Inj) 4 mg Q6H PRN IVP 02/08/17 08:15 (Narcan Inj) 0.4 mg UNSCH PRN IV PUSH 02/08/17 08:15 (Miranda-Colace) 1 tab BID PO 02/08/17 09:00 02/09/17 08:44 (Milk Of Magnesia Liq) 30 ml Q12H PRN PO 02/08/17 08:15 (Senokot) 17.2 mg Q12H PRN PO 02/08/17 08:15 (Dulcolax Supp) 10 mg DAILY PRN RECTAL 02/08/17 08:15 (Lactulose Liq) 30 ml DAILY PRN PO 02/08/17 08:15 Urinary Catheter: No Vascular Central Line Catheter: No A/P Problem List: (1) Polysubstance overdose ICD Code: T50.901A - Poisoning by unspecified drugs, medicaments and biological substances, accidental (unintentional), initial encounter Status: Acute (2) Schizophrenia, undifferentiated, acute episode ICD Code: F20.3 - Undifferentiated schizophrenia (3) Schizoaffective disorder, bipolar type ICD Code: F25.0 - Schizoaffective disorder, bipolar type (4) Schizophrenia, paranoid type ICD Code: F20.0 - Paranoid schizophrenia (5) Depression ICD Code: F32.9 - Major depressive disorder, single episode, unspecified Status: Acute (6) Suicidal ideation ICD Code: R45.851 - Suicidal ideations Status: Acute Assessment and Plan 21-year-old female under Wood act for intentional overdose. Suicidal ideation/intentional overdose Schizophrenia - patient under Wood Act - Patient had 3 empty bottles: Remeron, lithium and benztropine on her arrival to the emergency department - Poison control contacted and recommended monitoring lithium level which has trended down to 0.9 - Psych consulted, appreciate assistance. Patient is medically stable to transfer to inpatient psychiatry if accepted. - continue sitter at bedside DVT prophylaxis - patient is ambulatory Discussed with patient and Dr. Reilly Discharge patient to home Condition on discharge: Improved Wood Act lifted by psychiatry Regular Diet as tolerated Ad Ledy activity Rx written: Resume home medications Follow-up with primary care physician MEDICALLY CLEARED FOR INPATIENT PSYCHIATRY WOOD ACT LIFTED BY PSYCHIATRY DC TO HOME Discharge Planning WOOD ACT LIFTED BY PSYCHIATRY DC TO HOME Attending Statement The exam, history, and the medical decision-making described in the above note were completed with the assistance of the mid-level provider. I reviewed and agree with the findings presented. I attest that I had a [id number] encounter with the patient on the same day, and personally performed and documented my assessment and findings in the medical record. Problem Qualifiers (1) Polysubstance overdose: Qualified Codes: T50.902A - Poisoning by unspecified drugs, medicaments and biological substances, intentional self-harm, initial encounter Lore Castañeda Feb 09, 2017 10:12 Duran Reilly DO Feb 09, 2017 11:02
--- NOTE | 2017-02-09 10:58 | RADRPT ---
EXAM DATE/TIME: 02/09/2017 10:21 [facility] COMPARISON: No previous studies available for comparison. INDICATIONS : Shortness of breath. MEDICAL HISTORY : None. SURGICAL HISTORY : None. ENCOUNTER: Initial ACUITY: 1 day PAIN SCORE: 0/10 LOCATION: Bilateral chest FINDINGS: Portable AP view of the chest demonstrates a normal-sized cardiac silhouette. Lungs are underinflated with mild left basilar opacity. No pneumothorax is visualized. The bones and soft tissues demonstrat e no acute abnormality. CONCLUSION: Underinflation and mild left basilar opacity which could represent atelectasis. However, consolidatio n or small effusion cannot be excluded. If it would assist with clinical management consider good ins piratory formal PA and lateral views of the chest. James Flower MD on February 09, 2017 at 10:54 Board Certified Radiologist. This report was verified electronically.
--- NOTE | 2017-02-09 11:09 | HHI.DS ---
Discharge Summary Admission Date Feb 08, 2017 at 08:09 Discharge Date: Feb 09, 2017 Admitting Diagnosis lithium overdose (1) Polysubstance overdose ICD Code: T50.901A - Poisoning by unspecified drugs, medicaments and biological substances, accidental (unintentional), initial encounter Diagnosis: Principal Status: Acute (2) Schizophrenia, undifferentiated, acute episode ICD Code: F20.3 - Undifferentiated schizophrenia Diagnosis: Principal (3) Schizoaffective disorder, bipolar type ICD Code: F25.0 - Schizoaffective disorder, bipolar type (4) Schizophrenia, paranoid type ICD Code: F20.0 - Paranoid schizophrenia Diagnosis: Secondary (5) Depression ICD Code: F32.9 - Major depressive disorder, single episode, unspecified Diagnosis: Principal Status: Acute (6) Suicidal ideation ICD Code: R45.851 - Suicidal ideations Diagnosis: Principal Status: Acute Procedures NONE Brief History - From Admission 21-year-old female presents to the emergency department after an intentional overdose. Per ED notes, the patient was brought in in police custody for evaluation of possible overdose and Wood act for suicidal ideation. The patient apparently called 911 and stated that she wanted to kill herself and that she had overdosed on pills. She presented to the ED with empty bottles of Remeron, lithium and benztropine. During our interview, the patient refuses to answer what she took or if she currently has any suicidal ideation. She is alert and oriented and mildly cooperative with the exam. [place] level I.6 on admission, currently 1.7. Electrolytes within normal limits. CBC/BMP: 02/09/17 0557 02/09/17 0557 Significant Findings Laboratory Tests Test 02/08/17 04:30 02/08/17 06:30 02/08/17 12:30 02/08/17 21:26 Red Blood Count 3.65 MIL/MM3 (4.00-5.30) Hemoglobin 10.4 GM/DL (11.6-15.3) Hematocrit 31.4 % (35.0-46.0) Aspartate Amino Transf (AST/SGOT) 9 U/L (15-37) 11 U/L (15-37) Total Bilirubin 0.1 MG/DL (0.2-1.0) Salicylates Level LESS THAN 1.7 MG/DL Acetaminophen Level LESS THAN 2.0 MCG/ML LESS THAN 2.0 MCG/ML [place] Level 1.6 MEQ/L (0.5-1.5) 1.7 MEQ/L (0.5-1.5) Chloride Level 108 MEQ/L (98-107) 108 MEQ/L (98-107) Anion Gap 3 MEQ/L (5-15) Test 02/09/17 00:35 02/09/17 05:57 Anion Gap 4 MEQ/L (5-15) Red Blood Count 3.73 MIL/MM3 (4.00-5.30) Hemoglobin 11.1 GM/DL (11.6-15.3) Hematocrit 32.1 % (35.0-46.0) PE at Discharge GENERAL: Well-nourished, well-developed female in NAD. Awake and alert. Sitter at the bedside. SKIN: Warm and dry. HEAD: Normocephalic. Atraumatic. EYES: EOMI. No scleral icterus. No injection or drainage. ENT: No nasal bleeding or discharge. Mucous membranes pink and moist. NECK: Trachea midline. CARDIOVASCULAR: Tachycardic. S1, S2 noted. No murmur appreciated. RESPIRATORY: Nonlabored. Clear to auscultation. Breath sounds equal bilaterally. GASTROINTESTINAL: Abdomen soft, non-tender, nondistended. Normoactive bowel sounds x4. MUSCULOSKELETAL: No obvious deformities. Extremities without clubbing, cyanosis , or edema. NEUROLOGICAL: Awake and alert. Able to move all extremities. No focal neurologic finding. Normal speech. PSYCHIATRIC: Inappropriate mood and flat affect; insight and judgment abnormal. Hospital Course 21-year-old female presents to the emergency department after an intentional overdose. Per ED notes, the patient was brought in in police custody for evaluation of possible overdose and Wood act for suicidal ideation. The patient apparently called 911 and stated that she wanted to kill herself and that she had overdosed on pills. She presented to the ED with empty bottles of Remeron, lithium and benztropine. During our interview, the patient refuses to answer what she took or if she currently has any suicidal ideation. She is alert and oriented and mildly cooperative with the exam. [place] level I.6 on admission, currently 1.7. Electrolytes within normal limits. 12-4 Follow up on patient s/p OD. Patient seen and examined. Patient states she feels ok. She denies any dizziness, lightheadedness or vision changes. She reports some phlegm in her throat but denies any cough or sputum production. She denies any fever or chills. She denies any chest pain or dyspnea. She denies any nausea, vomiting or abdominal pain. 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 consult psychiatry continue wood act dw rn and pt needs to see psychiatry medically cleared lithium level is better Pt Condition on Discharge: Good Discharge Disposition: Disc to Psych Care Fac Discharge Time: <= 30 minutes Discharge Instructions DIET: Follow Instructions for: As Tolerated, No Restrictions Speech Therapy-Diet Recommends: Regular Activities you can perform: Regular-No Restrictions Follow up Referrals: PCP Follow-up - 1 Week Psychiatry Adult - Today Continued Medications: Carbamazepine (Carbamazepine) 100 Mg Chew 200 MG PO DIRECTED for health, #180 EA 0 Refills 2 by mouth in a.m., 4 by mouth at at bedtime Ergocalciferol (Ergocalciferol) 50,000 Unit Cap 78181 UNITS PO Q7D for health, #4 CAP 0 Refills [place] Carbonate ([place] Carbonate) 300 Mg Tab 300 MG PO BID, TAB 0 Refills [Benztropine] () 1 MG TAB 1 MG PO BID for health, #60 0 Refills Duran Reilly DO Feb 09, 2017 11:09
[2017-02-09 11:31] VITALS: BP 118/77; PULSE 109; RESP 18; TEMP 98.2; O2SAT 99
[2017-02-09] MEDS ORDERED: Benztropine PO (11:34)
[2017-02-09] MEDS ORDERED: CARB100C PO (11:34)
[2017-02-09] MEDS ORDERED: VITA500012 PO (11:34)
[2017-02-09] MEDS ORDERED: LITH300T3 PO (11:34)
--- NOTE | 2017-02-09 12:44 | PD.PSY.CON ---
Provisional Diagnosis Admission Date Feb 08, 2017 at 08:09 [place]. Schizoaffective disorder, bipolar type History of Present Illness Service Psychiatry Consult Requested By Attending physician Reason for Consult Possible lithium overdose Primary Care Physician No Primary Care Physician HPI 21-year-old female brought in under a Wood act for possible medication overdose. Patient is known to this physician from previous visits to [facility]. She carries a history of schizoaffective disorder and is currently living with her mother and her sister. (This physician has met with the patient's mother.) The patient is currently denying that she overdosed on her medications. She states she was simply taking her medicines while riding a song, waiting for the police to come. Her affect is somewhat inappropriate in that she smiles at this physician. She denies being depressed or suicidal. She reports being compliant with her medicines and her current treatment. (This has been a problem in the past.) This physician reviewed the patient's lithium levels since her arrival and has seen the levels peak and start going down. Even at their highest level, it is unlikely a transient level of approximately 1.7 is going to cause any harm. Patient has been repeatedly hospitalized here at [facility] and [facility]. Apparently she is still being treated at [facility] and is willing to return there today for further evaluation and care. [facility] has apparently declined to send her to the [facility] [place] in the past. As the patient is not currently psychotic and she is verbally and competently marino for safety, this physician feels she does not meet Wood act criteria. She would like to go home and seek outpatient care and this is felt to be the least restrictive alternative. Review of Systems Except as stated in HPI: all other systems reviewed are Neg Past Family Social History Coded Allergies: No Known Allergies (Unverified Allergy, Unknown, 02/08/17) Active Scripts [place] Carbonate ([place] Carbonate) 300 Mg Tab, 300 MG PO BID for Anxiety, # 60 TAB 0 Refills Prov:Duran Reilly DO 02/09/17 Ergocalciferol (Ergocalciferol) 50,000 Unit Cap, [id number] UNITS PO Q7D for health, #4 CAP 0 Refills Prov:Duran Reilly DO 02/09/17 Carbamazepine (Carbamazepine) 100 Mg Chew, 200 MG PO DIRECTED for health, # 180 EA 0 Refills 2 by mouth in a.m., 4 by mouth at at bedtime Prov:Duran Reilly DO 02/09/17 [Benztropine] 1 MG TAB No Conflict Check, 1 MG PO BID for health, #60 TAB 0 Refills Prov:Duran Reilly DO 02/09/17 Family Psych History Positive for psychotic mental illness Social History Unemployed. Did poorly in school. Lives with her mother. Denies alcohol or illicit substance abuse. Patient's Strengths (min. 2) Verbal and has access to healthcare. Physical Exam Vital Signs Vital Signs Date Time Temp Pulse Resp B/P (MAP) Pulse Ox O2 Delivery O2 Flow Rate FiO2 02/09/17 11:31 98.2 109 18 118/77 (91) 99 02/08/17 09:35 Room Air I/O 02/09/17 02/09/17 02/10/17 08:00 16:00 00:00 Intake Total 240 ml Balance 240 ml Lab Results Test 02/08/17 21:26 02/09/17 00:35 02/09/17 05:57 Blood Urea Nitrogen 15 MG/DL 14 MG/DL 15 MG/DL Creatinine 0.89 MG/DL 0.81 MG/DL 0.85 MG/DL Random Glucose 87 MG/DL 80 MG/DL 80 MG/DL Calcium Level 8.8 MG/DL 8.7 MG/DL 8.7 MG/DL Sodium Level 139 MEQ/L 139 MEQ/L 139 MEQ/L Potassium Level 3.7 MEQ/L 4.0 MEQ/L 3.9 MEQ/L Chloride Level 105 MEQ/L 106 MEQ/L 105 MEQ/L Carbon Dioxide Level 26.0 MEQ/L 28.9 MEQ/L 27.6 MEQ/L Anion Gap 8 MEQ/L 4 MEQ/L 6 MEQ/L Estimat Glomerular Filtration Rate 97 ML/MIN 108 ML/MIN 102 ML/MIN [place] Level 0.9 MEQ/L 0.9 MEQ/L White Blood Count 10.4 TH/MM3 Red Blood Count 3.73 MIL/MM3 Hemoglobin 11.1 GM/DL Hematocrit 32.1 % Mean Corpuscular Volume 86.2 FL Mean Corpuscular Hemoglobin 29.9 PG Mean Corpuscular Hemoglobin Concent 34.7 % Red Cell Distribution Width 15.9 % Platelet Count 244 TH/MM3 Mean Platelet Volume 7.8 FL Neutrophils (%) (Auto) 62.0 % Lymphocytes (%) (Auto) 28.0 % Monocytes (%) (Auto) 6.7 % Eosinophils (%) (Auto) 2.8 % Basophils (%) (Auto) 0.5 % Neutrophils # (Auto) 6.4 TH/MM3 Lymphocytes # (Auto) 2.9 TH/MM3 Monocytes # (Auto) 0.7 TH/MM3 Eosinophils # (Auto) 0.3 TH/MM3 Basophils # (Auto) 0.1 TH/MM3 CBC Comment DIFF FINAL Differential Comment Mental Status Examination Appearance: Appropriate Consciousness: Alert Orientation: x4 Motor Activity: Normal gait Speech: Unremarkable Language: Adequate Fund of Knowledge: Adequate Attention and Concentration: Adequate Memory: Unremarkable Mood: Appropriate Affect: Other Thought Process & Associations: Intact Thought Content: Appropriate Hallucination Type: None Delusion Type: None Suicidal Ideation: No Suicidal Plan: No Suicidal Intention: No Homicidal Ideation: No Homicidal Plan: No Homicidal Intention: No Insight: Adequate Judgment: Adequate Assessment & Plan Problem List: (1) Schizoaffective disorder, bipolar type ICD Codes: F25.0 - Schizoaffective disorder, bipolar type Assessment & Plan Estimated LOS: days patient interviewed at bedside. Medical record reviewed. Case discussed with patient's nurse and physician. While patient continues to show some signs of mental illness, she does not meet Wood act criteria at this time and she would like to go home. As she is willing to seek follow up at [facility], least restrictive alternative applies. Patient is not psychotic or suicidal. Darío Balderas MD Feb 09, 2017 12:44
== END 2017-02-09 12:27 | disposition home or self-care (01) ==
LOC: NEPC 02:34 → NEDA 08:09 → NEPGCP 11:03
PROVIDERS: ADMIT Hospitalist; ATTEND Hospitalist
DX: T43.592A Poisoning by other antipsychotics and neuroleptics, intentional self-harm, initial encounter (principal); R06.02 Shortness of breath; F25.0 Schizoaffective disorder, bipolar type
CPT/HCPCS: 71010; 80048; 80053; 80178; 80307; 81001; 83735; 84443; 84703; 85025; 93005; 99285; G0378

== ENCOUNTER 2017-02-12 10:10 | Emergency (ER) | payer OTHER ==
[~2017-02-12] VITALS: Ht 165.1 cm; Wt 68.2 kg
[~2017-02-12 10:10] MED LIST changes: +LITH300T3 PO
[2017-02-12 10:30] VITALS: BP 116/75; PULSE 98; RESP 15; TEMP 98; O2SAT 98
[2017-02-12 11:36] LABS: BLOOD, URINE NEG (NEG); COMMENT (UR) CULT NOT INDICATED; CULTURE IF INDICATED CULT NOT INDICATED; GLUCOSE,URINE NEG (NEG); KETONE, URINE NEG (NEG); MUCUS URINE FEW /lpf (OCC); NITRITE,URINE NEG (NEG); PH, URINE 5.5 (5.0-8.5); SQUAMOUS EPITHELIAL CELL URINE 1 /hpf (0-5); URINE COLOR YELLOW (YELLW/STRAW)
[2017-02-12 11:51] LABS: AUTOMATED NEUTROPHIL # 6.4 TH/MM3 (1.8-7.7); BASOPHIL # 0.1 TH/MM3 (0-0.2); BASOPHIL % 0.6 % (0.0-2.0); EOSINOPHIL # 0.1 TH/MM3 (0-0.4); EOSINOPHIL % 1.2 % (0.0-4.0); HEMATOCRIT 33.5 % (35.0-46.0); HEMO FLAGS DIFF FINAL; LYMPH % 23.1 % (9.0-44.0); LYMPHOCYTE # 2.1 TH/MM3 (1.0-4.8); MEAN CELL VOLUME 87.2 FL (80.0-100.0); MEAN CORPUSCULAR HEMOGLOBIN 28.6 PG (27.0-34.0); MEAN CORPUSCULAR HGB CONC 32.8 % (32.0-36.0); MONO % 5.4 % (0.0-8.0); NEUT % 69.7 % (16.0-70.0); PLATELET COUNT 259 TH/MM3 (150-450); RED BLOOD COUNT 3.84 MIL/MM3 (4.00-5.30); WHITE BLOOD COUNT 9.1 TH/MM3 (4.0-11.0)
[2017-02-12 12:05] LABS: ANION GAP 5 MEQ/L (5-15)
[2017-02-12 12:17] LABS: ALKALINE PHOSPHATASE 79 U/L (45-117); ALT (GPT) 15 U/L (10-53); AST (GOT) 10 U/L (15-37); BICARBONATE 30.3 MEQ/L (21.0-32.0); BLOOD UREA NITROGEN 12 MG/DL (7-18); CHLORIDE 106 MEQ/L (98-107); GLOMERULAR FILTRATION RATE 92 ML/MIN (>89); POTASSIUM 3.8 MEQ/L (3.5-5.1); SODIUM (NA) 141 MEQ/L (136-145); TOTAL BILIRUBIN ADULT 0.4 MG/DL (0.2-1.0)
[2017-02-12 12:20] LABS: ACETAMINOPHEN LESS THAN 2.0 MCG/ML (10.0-30.0); ALCOHOL LESS THAN 3 MG/DL (0-5)
--- NOTE | 2017-02-12 12:53 | PD ---
HPI Chief Complaint: Suicide Ideation/Attempt Time Seen by Provider: 10:33 Travel History International Travel<30 days: No Contact w/Intl Traveler<30days: No Traveled to known affect area: No History of Present Illness HPI Patient is a 21-year-old female presents emergency department under Wood act. Patient states that she took multiple pills last night and the chief make of these pills was given gentamicin but is unsure exactly what she took. She states her parents watch her overnight and when she was doing fine decided to Wood act her this morning. Patient denies taking any Tylenol. Denies any physical complaints currently denies any chest pain shortness breath abdominal pain nausea vomiting. She has been seen here multiple times for psychosis. She states the voices in her head told her to take pills. PFSH Past Medical History Bipolar Disorder: Yes Anxiety: No Depression: Yes Cancer: No Cardiovascular Problems: No Diabetes: No Diminished Hearing: No Endocrine: No Genitourinary: No Immune Disorder: No Implanted Vascular Access Dvce: No Musculoskeletal: No Neurologic: No Psychiatric: Yes (Pt was diagnosed with Schizophrenia at the age of 19) Reproductive: No Respiratory: No Schizophrenia: Yes ?: Not Social History Alcohol Use: No Tobacco Use: No Substance Use: No Allergies-Medications (Allergen,Severity, Reaction): Coded Allergies: No Known Allergies (Unverified Allergy, Unknown, 02/08/17) Reported Meds & Prescriptions Reported Meds & Active Scripts Active Hasty Carbonate 300 Mg Tab 300 Mg PO BID Ergocalciferol 50,000 Unit Cap 50,000 Units PO Q7D Carbamazepine 100 Mg Chew 200 Mg PO DIRECTED 2 by mouth in a.m., 4 by mouth at at bedtime [Benztropine] 1 MG Tab 1 Mg PO BID Review of Systems Except as stated in HPI: all other systems reviewed are Neg Physical Exam Narrative GENERAL: Well-developed well-nourished, not blinking but in no obvious distress. SKIN: Focused skin assessment warm/dry. HEAD: Atraumatic. Normocephalic. EYES: Pupils equal and round. No scleral icterus. No injection or drainage. ENT: No nasal bleeding or discharge. Mucous membranes pink and moist. NECK: Trachea midline. No JVD. CARDIOVASCULAR: Regular rate and rhythm. No murmur appreciated. RESPIRATORY: No accessory muscle use. Clear to auscultation. Breath sounds equal bilaterally. GASTROINTESTINAL: Abdomen soft, non-tender, nondistended. Hepatic and splenic margins not palpable. MUSCULOSKELETAL: No obvious deformities. No clubbing. No cyanosis. No edema. NEUROLOGICAL: Awake and alert. No obvious cranial nerve deficits. Motor grossly within normal limits. Normal speech. PSYCHIATRIC: Flat affect, blank stare at times, denies any suicidal homicidal ideation, endorses audio hallucinations. Data Data Last Documented VS Vital Signs Date Time Temp Pulse Resp B/P (MAP) Pulse Ox O2 Delivery O2 Flow Rate FiO2 02/12/17 17:26 02/12/17 14:54 98.3 94 18 97 Room Air Orders Orders Complete Blood Count With Diff (02/12/17 10:31) Comprehensive Metabolic Panel (02/12/17 10:31) Urinalysis - C+S If Indicated (02/12/17 10:31) Ed Urine Pregnancytest Poc (02/12/17 10:31) Electrocardiogram (02/12/17 10:31) Psych Screen (02/12/17 10:31) Drug Screen, Random Urine (02/12/17 10:31) Alcohol (Ethanol) (02/12/17 10:31) Salicylates (Aspirin) (02/12/17 10:31) Tylenol (Acetaminophen) (02/12/17 10:31) Diet 2200 Ada Cons Carb (02/12/17 Lunch) Labs Laboratory Tests Test 02/12/17 10:20 02/12/17 10:30 White Blood Count 9.1 TH/MM3 Red Blood Count 3.84 MIL/MM3 Hemoglobin 11.0 GM/DL Hematocrit 33.5 % Mean Corpuscular Volume 87.2 FL Mean Corpuscular Hemoglobin 28.6 PG Mean Corpuscular Hemoglobin Concent 32.8 % Red Cell Distribution Width 16.0 % Platelet Count 259 TH/MM3 Mean Platelet Volume 8.1 FL Neutrophils (%) (Auto) 69.7 % Lymphocytes (%) (Auto) 23.1 % Monocytes (%) (Auto) 5.4 % Eosinophils (%) (Auto) 1.2 % Basophils (%) (Auto) 0.6 % Neutrophils # (Auto) 6.4 TH/MM3 Lymphocytes # (Auto) 2.1 TH/MM3 Monocytes # (Auto) 0.5 TH/MM3 Eosinophils # (Auto) 0.1 TH/MM3 Basophils # (Auto) 0.1 TH/MM3 CBC Comment DIFF FINAL Differential Comment Blood Urea Nitrogen 12 MG/DL Creatinine 0.93 MG/DL Random Glucose 87 MG/DL Total Protein 7.2 GM/DL Albumin 3.8 GM/DL Calcium Level 8.9 MG/DL Alkaline Phosphatase 79 U/L Aspartate Amino Transf (AST/SGOT) 10 U/L Alanine Aminotransferase (ALT/SGPT) 15 U/L Total Bilirubin 0.4 MG/DL Sodium Level 141 MEQ/L Potassium Level 3.8 MEQ/L Chloride Level 106 MEQ/L Carbon Dioxide Level 30.3 MEQ/L Anion Gap 5 MEQ/L Estimat Glomerular Filtration Rate 92 ML/MIN Salicylates Level LESS THAN 1.7 MG/DL Acetaminophen Level LESS THAN 2.0 MCG/ML Ethyl Alcohol Level LESS THAN 3 MG/DL Urine Color YELLOW Urine Turbidity CLEAR Urine pH 5.5 Urine Specific Baker 1.017 Urine Protein NEG mg/dL Urine Glucose (UA) NEG mg/dL Urine Ketones NEG mg/dL Urine Occult Blood NEG Urine Nitrite NEG Urine Bilirubin NEG Urine Urobilinogen 2.0 MG/DL Urine Leukocyte Esterase NEG Urine RBC LESS THAN 1 /hpf Urine WBC 1 /hpf Urine Squamous Epithelial Cells 1 /hpf Urine Mucus FEW /lpf Microscopic Urinalysis Comment CULT NOT INDICATED Urine Opiates Screen NEG Urine Barbiturates Screen NEG Urine Amphetamines Screen NEG Urine Benzodiazepines Screen NEG Urine Cocaine Screen NEG Urine Cannabinoids Screen NEG MDM Medical Decision Making Medical Screen Exam Complete: Yes Emergency Medical Condition: Yes Differential Diagnosis Overdose, schizophrenia, electro-light abnormality, Narrative Course Patient is 21-year-old female with history of schizophrenia and schizoaffective disorder presents emergency department for evaluation after overdose last night. She states the voices in her head told her to take an unknown number of pills and unknown identity. She states the major contributor these pills that she took was Cogentin. Tylenol level negative, she seemed an amply stable labs are all within normal limits. She is medically cleared for psychiatric evaluation and disposition Diagnosis Primary Impression: Schizophrenia, undifferentiated, acute episode Condition: Stable Chance Monge MD Feb 12, 2017 12:53
[2017-02-12 14:54] VITALS: BP 124/83; PULSE 94; RESP 18; TEMP 98.3; O2SAT 97
--- NOTE | 2017-02-12 16:25 | EKG ---
Date Performed: 02/12/2017 Time Performed: 11:08:23 PTAGE: 21 years EKG: Sinus rhythm WITH MARKED SINUS ARRHYTHMIA ST ELEVATION, PROBABLY EARLY REPOLARIZATION BORDERLINE ECG Since PREVIOUS TRACING , no significant change noted PREVIOUS TRACIN02/08/2017 05.39 DOCTOR: Blair Lee Interpretating Date/Time 02/12/2017 16:24:22
== END 2017-02-12 17:45 ==
LOC: NEPD 10:10 → NEPJ 17:45
DX: F23 Brief psychotic disorder (principal); R94.31 Abnormal electrocardiogram [ECG] [EKG]; F31.9 Bipolar disorder, unspecified
CPT/HCPCS: 80053; 80307; 81001; 84703; 85025; 93005; 99285

== ENCOUNTER 2017-03-10 13:32 | Emergency (ER) | payer OTHER ==
[~2017-03-10] VITALS: Ht 175.3 cm; Wt 100.0 kg
[2017-03-10 13:35] VITALS: BP 107/68; PULSE 72; RESP 12; TEMP 98.9; O2SAT 97
[2017-03-10 14:14] VITALS: BP 131/77; PULSE 83; RESP 18; TEMP 98.2; O2SAT 99
[2017-03-10] MEDS ORDERED: ZIPRASIDONE MESYLATE 20 MG VIAL IM ONE (15:15)
[2017-03-10] MEDS ORDERED: diphenhydrAMINE HCL 50 MG/ML VIAL IM ONE (15:15)
[2017-03-10] MEDS ORDERED: MIRTA15 PO (15:32)
[2017-03-10] MEDS ORDERED: ZYPR20TA PO (15:32)
[2017-03-10] MEDS ORDERED: LITH300C2 PO (15:33)
[2017-03-10 16:21] LABS: AUTOMATED NEUTROPHIL # 6.8 TH/MM3 (1.8-7.7); BASOPHIL % 0.4 % (0.0-2.0); EOSINOPHIL % 0.5 % (0.0-4.0); HEMATOCRIT 36.7 % (35.0-46.0); HEMOGLOBIN 12.2 GM/DL (11.6-15.3); LYMPH % 23.5 % (9.0-44.0); LYMPHOCYTE # 2.2 TH/MM3 (1.0-4.8); MEAN CELL VOLUME 87.3 FL (80.0-100.0); MEAN CORPUSCULAR HGB CONC 33.3 % (32.0-36.0); MEAN PLATELET VOLUME 8.1 FL (7.0-11.0); MONO % 4.2 % (0.0-8.0); MONOCYTE # 0.4 TH/MM3 (0-0.9); NEUT % 71.4 % (16.0-70.0); PLATELET COUNT 256 TH/MM3 (150-450); RED BLOOD COUNT 4.21 MIL/MM3 (4.00-5.30); RED CELL DISTRIBUTION WIDTH 15.6 % (11.6-17.2); WHITE BLOOD COUNT 9.5 TH/MM3 (4.0-11.0)
[2017-03-10 16:30] LABS: ALBUMIN 4.3 GM/DL (3.4-5.0); ALT (GPT) 12 U/L (10-53); AST (GOT) 10 U/L (15-37); BICARBONATE 30.7 MEQ/L (21.0-32.0); BLOOD UREA NITROGEN 7 MG/DL (7-18); CALCIUM 9.4 MG/DL (8.5-10.1); CHLORIDE 105 MEQ/L (98-107); CREATININE 0.93 MG/DL (0.50-1.00); GLOMERULAR FILTRATION RATE 92 ML/MIN (>89); GLUCOSE,RANDOM 79 MG/DL (74-106); SODIUM (NA) 142 MEQ/L (136-145)
[2017-03-10 16:33] LABS: ALKALINE PHOSPHATASE 91 U/L (45-117); TOTAL BILIRUBIN ADULT 0.6 MG/DL (0.2-1.0); TOTAL PROTEIN 8.2 GM/DL (6.4-8.2)
--- NOTE | 2017-03-10 17:50 | PD ---
HPI Chief Complaint: Psychiatric Symptoms Time Seen by Provider: 17:47 Travel History International Travel<30 days: No Contact w/Intl Traveler<30days: No Traveled to known affect area: No History of Present Illness HPI 21-year-old Afro-Monegasque female with history of schizophrenia is brought into the emergency department voluntarily with visual laboratory hallucinations. Patient denies suicidal ideation. She has no significant medical complaints. She is unsure of her last menstrual period was when she is short of 2 months ago. She is supposed to be on lithium but it is unclear whether she has been taking her medications. She has no known drug allergies. PFSH Past Medical History Bipolar Disorder: Yes Anxiety: No Depression: Yes Cancer: No Cardiovascular Problems: No Diabetes: No Patient Takes Glucophage: No Diminished Hearing: No Endocrine: No Genitourinary: No Immune Disorder: No Implanted Vascular Access Dvce: No Musculoskeletal: No Neurologic: No Psychiatric: Yes (Pt was diagnosed with Schizophrenia at the age of 19) Reproductive: No Respiratory: No Schizophrenia: Yes Tetanus Vaccination: Unknown ?: Unknown LMP: Reports no menses in 2months. : 0 Para: 0 Miscarriage: 0 : 0 Past Surgical History Surgical History: No Previous Surgery Social History Alcohol Use: Yes (Once in a while) Tobacco Use: Yes (Black and Milds) Substance Use: No Allergies-Medications (Allergen,Severity, Reaction): Coded Allergies: No Known Allergies (Unverified Allergy, Unknown, 03/10/17) Per pt. Reported Meds & Prescriptions Reported Meds & Active Scripts Active Reported [place] Carbonate 300 Mg Cap 300 Mg PO BID Zyprexa (Olanzapine) 20 Mg Tab 20 Mg PO HS Mirtazapine 15 Mg Tab 15 Mg PO HS Review of Systems ROS Limitations: Psychotic, Poor Historian Except as stated in HPI: all other systems reviewed are Neg General / Constitutional: No: Fever Eyes: No: Visual changes HENT: No: Headaches Cardiovascular: No: Chest Pain or Discomfort Respiratory: No: Shortness of Breath Gastrointestinal: No: Abdominal Pain Genitourinary: No: Dysuria Musculoskeletal: No: Pain Skin: No Rash Neurologic: No: Weakness Psychiatric: No: Depression Endocrine: No: Polydipsia Hematologic/Lymphatic: No: Easy Bruising Physical Exam Exam Limitations: Psychotic Narrative GENERAL: Patient appears in no obvious distress. SKIN: Warm and dry. Normal color. Normal turgor. No signs of trauma. HEAD: Atraumatic. Normocephalic. EYES: Pupils equal and round. No scleral icterus. No injection or drainage. ENT: No nasal bleeding or discharge. Mucous membranes pink and moist. Pharynx is clear. Airway is patent. NECK: Trachea midline. No JVD. CARDIOVASCULAR: Regular rate and rhythm. RESPIRATORY: No accessory muscle use. Clear to auscultation. Breath sounds equal bilaterally. GASTROINTESTINAL: Abdomen soft, non-tender, nondistended. Hepatic and splenic margins not palpable. MUSCULOSKELETAL: Extremities without clubbing, cyanosis, or edema. No obvious deformities. NEUROLOGICAL: Awake and alert. No obvious cranial nerve deficits. Motor grossly within normal limits. Five out of 5 muscle strength in the arms and legs. Normal speech. Data Data Last Documented VS Vital Signs Date Time Temp Pulse Resp B/P (MAP) Pulse Ox O2 Delivery O2 Flow Rate FiO2 03/10/17 14:14 98.2 83 18 131/77 (95) 99 Room Air Orders Orders Ziprasidone Inj (Geodon Inj) (03/10/17 15:15) Diphenhydramine Inj (Benadryl Inj) (03/10/17 15:15) Complete Blood Count With Diff (03/10/17 15:37) Comprehensive Metabolic Panel (03/10/17 15:37) Urinalysis - C+S If Indicated (03/10/17 15:37) Ed Urine Pregnancytest Poc (03/10/17 15:37) Psych Screen (03/10/17 15:37) Belfry (Li) (03/10/17 15:37) Drug Screen, Random Urine (03/10/17 15:37) Diet Regular Basic (03/10/17 Dinner) Labs Laboratory Tests Test 03/10/17 15:45 White Blood Count 9.5 TH/MM3 Red Blood Count 4.21 MIL/MM3 Hemoglobin 12.2 GM/DL Hematocrit 36.7 % Mean Corpuscular Volume 87.3 FL Mean Corpuscular Hemoglobin 29.0 PG Mean Corpuscular Hemoglobin Concent 33.3 % Red Cell Distribution Width 15.6 % Platelet Count 256 TH/MM3 Mean Platelet Volume 8.1 FL Neutrophils (%) (Auto) 71.4 % Lymphocytes (%) (Auto) 23.5 % Monocytes (%) (Auto) 4.2 % Eosinophils (%) (Auto) 0.5 % Basophils (%) (Auto) 0.4 % Neutrophils # (Auto) 6.8 TH/MM3 Lymphocytes # (Auto) 2.2 TH/MM3 Monocytes # (Auto) 0.4 TH/MM3 Eosinophils # (Auto) 0.0 TH/MM3 Basophils # (Auto) 0.0 TH/MM3 CBC Comment DIFF FINAL Differential Comment Blood Urea Nitrogen 7 MG/DL Creatinine 0.93 MG/DL Random Glucose 79 MG/DL Total Protein 8.2 GM/DL Albumin 4.3 GM/DL Calcium Level 9.4 MG/DL Alkaline Phosphatase 91 U/L Aspartate Amino Transf (AST/SGOT) 10 U/L Alanine Aminotransferase (ALT/SGPT) 12 U/L Total Bilirubin 0.6 MG/DL Sodium Level 142 MEQ/L Potassium Level 3.6 MEQ/L Chloride Level 105 MEQ/L Carbon Dioxide Level 30.7 MEQ/L Anion Gap 6 MEQ/L Estimat Glomerular Filtration Rate 92 ML/MIN Belf[place] Level LESS THAN 0.1 MEQ/L MDM Medical Decision Making Medical Screen Exam Complete: Yes Emergency Medical Condition: Yes Differential Diagnosis Schizophrenia. Psychosis. Psychiatric evaluation. Narrative Course Psychiatric labs ordered per protocol. Urine is negative. Patient is medically cleared for psychiatric evaluation. Diagnosis Primary Impression: Schizophrenia, undifferentiated, acute episode Additional Impression: Medical clearance for psychiatric admission Condition: Stable Edward Velazquez Mar 10, 2017 17:50
[2017-03-10 18:20] VITALS: BP 112/67; PULSE 75; RESP 16; O2SAT 100
[2017-03-11 01:35] LABS: BILIRUBIN, URINE NEG (NEG); BLOOD, URINE NEG (NEG); GLUCOSE,URINE NEG (NEG); KETONE, URINE NEG (NEG); NITRITE,URINE NEG (NEG); PH, URINE 7.5 (5.0-8.5); SQUAMOUS EPITHELIAL CELL URINE 1 /hpf (0-5); URINE COLOR LIGHT-YELLOW (YELLW/STRAW); URINE LEUKOCYTE ESTERASE NEG (NEG)
== END 2017-03-10 20:31 ==
LOC: NEPJ 13:32
DX: F20.3 Undifferentiated schizophrenia (principal); F31.9 Bipolar disorder, unspecified; Z72.0 Tobacco use; Z79.899 Other long term (current) drug therapy
CPT/HCPCS: 80053; 80178; 80307; 81001; 84703; 85025; 96372; 99284; J1200; J3486

== ENCOUNTER 2017-05-10 15:10 | Inpatient (IN) | payer OTHER ==
[~2017-05-10] VITALS: Ht 175.3 cm; Wt 91.7 kg
[~2017-05-10 15:10] MED LIST changes: -Benztropine PO; -CARB100C PO; +LITH300C2 PO; -LITH300T3 PO; +MIRTA15 PO; -VITA500012 PO; +ZYPR20TA PO
[2017-05-10 15:31] VITALS: BP 143/65; PULSE 139; RESP 16; TEMP 98.2; O2SAT 99
[2017-05-10 17:42] VITALS: BP 120/75; PULSE 130; RESP 18; TEMP 97.5; O2SAT 100
[2017-05-10 19:55] LABS: AUTOMATED NEUTROPHIL # 5.7 TH/MM3 (1.8-7.7); BASOPHIL # 0.1 TH/MM3 (0-0.2); BASOPHIL % 0.6 % (0.0-2.0); EOSINOPHIL # 0.1 TH/MM3 (0-0.4); EOSINOPHIL % 0.6 % (0.0-4.0); HEMATOCRIT 32.1 % (35.0-46.0); HEMOGLOBIN 10.8 GM/DL (11.6-15.3); LYMPH % 35.4 % (9.0-44.0); LYMPHOCYTE # 3.5 TH/MM3 (1.0-4.8); MEAN CELL VOLUME 90.2 FL (80.0-100.0); MEAN CORPUSCULAR HEMOGLOBIN 30.2 PG (27.0-34.0); MEAN CORPUSCULAR HGB CONC 33.5 % (32.0-36.0); MEAN PLATELET VOLUME 8.1 FL (7.0-11.0); MONO % 4.9 % (0.0-8.0); MONOCYTE # 0.5 TH/MM3 (0-0.9); NEUT % 58.5 % (16.0-70.0); PLATELET COUNT 253 TH/MM3 (150-450); RED BLOOD COUNT 3.56 MIL/MM3 (4.00-5.30); RED CELL DISTRIBUTION WIDTH 15.6 % (11.6-17.2); WHITE BLOOD COUNT 9.8 TH/MM3 (4.0-11.0)
[2017-05-10 20:13] LABS: ALBUMIN 3.2 GM/DL (3.4-5.0); AST (GOT) 13 U/L (15-37); BICARBONATE 26.7 MEQ/L (21.0-32.0); BLOOD UREA NITROGEN 11 MG/DL (7-18); CALCIUM 8.1 MG/DL (8.5-10.1); CHLORIDE 110 MEQ/L (98-107); CREATININE 0.88 MG/DL (0.50-1.00); GLOMERULAR FILTRATION RATE 98 ML/MIN (>89); GLUCOSE,RANDOM 85 MG/DL (74-106); SODIUM (NA) 142 MEQ/L (136-145)
[2017-05-10 20:24] LABS: ACETAMINOPHEN LESS THAN 2.0 MCG/ML (10.0-30.0); ALKALINE PHOSPHATASE 75 U/L (45-117); ALT (GPT) 12 U/L (10-53); TOTAL BILIRUBIN ADULT 0.2 MG/DL (0.2-1.0); TOTAL PROTEIN 6.5 GM/DL (6.4-8.2)
[2017-05-10] MEDS ORDERED: OLANZapine IM 10 MG VIAL IM ONE (20:30)
[2017-05-10] MEDS ORDERED: diphenhydrAMINE HCL 50 MG/ML VIAL IM ONE (20:30)
[2017-05-10] MEDS ORDERED: OLAN15TA PO (20:31)
[2017-05-10] MEDS ORDERED: RISP2TAB2 PO (20:31)
[2017-05-10] MEDS ORDERED: DIVA500T PO (20:31)
--- NOTE | 2017-05-10 20:35 | PD ---
HPI Chief Complaint: Medical Clearance Time Seen by Provider: 19:26 Travel History International Travel<30 days: No Contact w/Intl Traveler<30days: No Traveled to known affect area: No History of Present Illness HPI 21-year-old black female with a history of schizophrenia noncompliant presents emergency department under a Wood act. The patient once again has been noncompliant with her medications. She is becoming increasingly paranoid and delusional at home. She is becoming combative with family members. The patient is responding to internal stimuli. She is acutely psychotic. The patient is unable to render a complete history today. She babbles inappropriately at times. PFS Past Medical History Narrative Medical Schizophrenia, bipolar Bipolar Disorder: Yes Anxiety: No Depression: Yes Cancer: No Cardiovascular Problems: No Diabetes: No Diminished Hearing: No Endocrine: No Genitourinary: No Immune Disorder: No Implanted Vascular Access Dvce: No Musculoskeletal: No Neurologic: No Psychiatric: Yes (Pt was diagnosed with Schizophrenia at the age of 19) Reproductive: No Respiratory: No Schizophrenia: Yes Tetanus Vaccination: Unknown ?: Not : 0 Para: 0 Miscarriage: 0 : 0 Past Surgical History Surgical History: Unable to Obtain Social History Alcohol Use: Yes (Once in a while) Tobacco Use: Yes (Black and Milds) Substance Use: Yes Allergies-Medications (Allergen,Severity, Reaction): Coded Allergies: No Known Allergies (Unverified Allergy, Unknown, 03/10/17) Per pt. Reported Meds & Prescriptions Reported Meds & Active Scripts Active Reported Divalproex DR (Divalproex Sodium) 500 Mg Tabdr 500 Mg PO HS Risperidone 2 Mg Tab 2 Mg PO BID Olanzapine 15 Mg Tab 30 Mg PO HS Review of Systems ROS Limitations: Psychotic Physical Exam Narrative GENERAL: Well-nourished, well-developed patient. SKIN: Warm and dry. HEAD: Normocephalic and atraumatic. EYES: No scleral icterus. No injection or drainage. ENT: No nasal drainage noted. Mucous membranes pink. Airway patent. NECK: Supple, trachea midline. Moves head freely without obvious discomfort. CARDIOVASCULAR: Regular rate and rhythm without murmurs, gallops, or rubs. RESPIRATORY: Breath sounds equal bilaterally. No accessory muscle use. GASTROINTESTINAL: Abdomen soft, non-tender, nondistended. EXTREMITIES: No cyanosis or edema. BACK: Nontender without obvious deformity. No CVA tenderness. NEURO: Patient is alert and oriented. no sensorimotor deficits. Nonfocal. Normal speech. PSYCH: Patient is acutely psychotic. She is babbling and responding to internal stimuli. She is not making any sense. Data Data Last Documented VS Vital Signs Date Time Temp Pulse Resp B/P (MAP) Pulse Ox O2 Delivery O2 Flow Rate FiO2 05/10/17 17:42 97.5 130 18 120/75 (90) 100 Room Air Orders Orders Complete Blood Count With Diff (05/10/17 18:16) Comprehensive Metabolic Panel (05/10/17 18:16) Thyroid Stimulating Hormone (05/10/17 18:16) Psych Screen (05/10/17 18:16) Drug Screen, Random Urine (05/10/17 18:16) Alcohol (Ethanol) (05/10/17 18:16) Salicylates (Aspirin) (05/10/17 18:16) Tylenol (Acetaminophen) (05/10/17 18:16) Ed Urine Pregnancytest Poc (05/10/17 19:29) Olanzapine Inj (Zyprexa Inj) (05/10/17 20:30) Diphenhydramine Inj (Benadryl Inj) (05/10/17 20:30) Labs Laboratory Tests Test 05/10/17 19:20 05/10/17 19:35 White Blood Count 9.8 TH/MM3 Red Blood Count 3.56 MIL/MM3 Hemoglobin 10.8 GM/DL Hematocrit 32.1 % Mean Corpuscular Volume 90.2 FL Mean Corpuscular Hemoglobin 30.2 PG Mean Corpuscular Hemoglobin Concent 33.5 % Red Cell Distribution Width 15.6 % Platelet Count 253 TH/MM3 Mean Platelet Volume 8.1 FL Neutrophils (%) (Auto) 58.5 % Lymphocytes (%) (Auto) 35.4 % Monocytes (%) (Auto) 4.9 % Eosinophils (%) (Auto) 0.6 % Basophils (%) (Auto) 0.6 % Neutrophils # (Auto) 5.7 TH/MM3 Lymphocytes # (Auto) 3.5 TH/MM3 Monocytes # (Auto) 0.5 TH/MM3 Eosinophils # (Auto) 0.1 TH/MM3 Basophils # (Auto) 0.1 TH/MM3 CBC Comment DIFF FINAL Differential Comment Blood Urea Nitrogen 11 MG/DL Creatinine 0.88 MG/DL Random Glucose 85 MG/DL Total Protein 6.5 GM/DL Albumin 3.2 GM/DL Calcium Level 8.1 MG/DL Alkaline Phosphatase 75 U/L Aspartate Amino Transf (AST/SGOT) 13 U/L Alanine Aminotransferase (ALT/SGPT) 12 U/L Total Bilirubin 0.2 MG/DL Sodium Level 142 MEQ/L Potassium Level 3.9 MEQ/L Chloride Level 110 MEQ/L Carbon Dioxide Level 26.7 MEQ/L Anion Gap 5 MEQ/L Estimat Glomerular Filtration Rate 98 ML/MIN Thyroid Stimulating Hormone 3rd Gen 0.365 uIU/ML Salicylates Level 3.5 MG/DL Acetaminophen Level LESS THAN 2.0 MCG/ML Ethyl Alcohol Level LESS THAN 3 MG/DL Urine Opiates Screen NEG Urine Barbiturates Screen NEG Urine Amphetamines Screen NEG Urine Benzodiazepines Screen NEG Urine Cocaine Screen NEG Urine Cannabinoids Screen POS MDM Medical Decision Making Medical Screen Exam Complete: Yes Emergency Medical Condition: Yes Medical Record Reviewed: Yes Interpretation(s) HCG: Negative Laboratory Tests Test 05/10/17 19:20 05/10/17 19:35 White Blood Count 9.8 TH/MM3 Red Blood Count 3.56 MIL/MM3 Hemoglobin 10.8 GM/DL Hematocrit 32.1 % Mean Corpuscular Volume 90.2 FL Mean Corpuscular Hemoglobin 30.2 PG Mean Corpuscular Hemoglobin Concent 33.5 % Red Cell Distribution Width 15.6 % Platelet Count 253 TH/MM3 Mean Platelet Volume 8.1 FL Neutrophils (%) (Auto) 58.5 % Lymphocytes (%) (Auto) 35.4 % Monocytes (%) (Auto) 4.9 % Eosinophils (%) (Auto) 0.6 % Basophils (%) (Auto) 0.6 % Neutrophils # (Auto) 5.7 TH/MM3 Lymphocytes # (Auto) 3.5 TH/MM3 Monocytes # (Auto) 0.5 TH/MM3 Eosinophils # (Auto) 0.1 TH/MM3 Basophils # (Auto) 0.1 TH/MM3 CBC Comment DIFF FINAL Differential Comment Blood Urea Nitrogen 11 MG/DL Creatinine 0.88 MG/DL Random Glucose 85 MG/DL Total Protein 6.5 GM/DL Albumin 3.2 GM/DL Calcium Level 8.1 MG/DL Alkaline Phosphatase 75 U/L Aspartate Amino Transf (AST/SGOT) 13 U/L Alanine Aminotransferase (ALT/SGPT) 12 U/L Total Bilirubin 0.2 MG/DL Sodium Level 142 MEQ/L Potassium Level 3.9 MEQ/L Chloride Level 110 MEQ/L Carbon Dioxide Level 26.7 MEQ/L Anion Gap 5 MEQ/L Estimat Glomerular Filtration Rate 98 ML/MIN Thyroid Stimulating Hormone 3rd Gen 0.365 uIU/ML Salicylates Level 3.5 MG/DL Acetaminophen Level LESS THAN 2.0 MCG/ML Ethyl Alcohol Level LESS THAN 3 MG/DL Urine Opiates Screen NEG Urine Barbiturates Screen NEG Urine Amphetamines Screen NEG Urine Benzodiazepines Screen NEG Urine Cocaine Screen NEG Urine Cannabinoids Screen POS Differential Diagnosis MDM: High Differential diagnoses: Schizophrenia, schizoaffective disorder, bipolar, anxiety, depression, adjustment reaction, mood disorder NOS, ODD, depressive disorder NOS, dementia, dementia with agitation, psychosis NOS, substance induced mood disorder, DMDD, Asperger syndrome, infection,electrolyte abnormality, malingering. Narrative Course Mental health screening discussed with the patient. Psychiatric screen ordered. The patient is medicated with Zyprexa 10 mg IM and Benadryl 50 mg IM. The patient has been medically cleared. This is medical clearance for psychiatric admission, schizophrenia Diagnosis Primary Impression: Medical clearance for psychiatric admission Additional Impression: Schizophrenia Condition: Stable Clyde Pandey May 10, 2017 20:35
[2017-05-10 21:50] VITALS: BP 103/53; PULSE 97; RESP 18; TEMP 99.1; O2SAT 97
[2017-05-11 02:16] VITALS: BP 107/57; PULSE 80; RESP 18; TEMP 98.5; O2SAT 100
[2017-05-11 06:22] VITALS: BP 130/69; PULSE 76; RESP 18; TEMP 98.2; O2SAT 98
--- NOTE | 2017-05-11 09:36 | MB ---
cc: Blaine Benedict MD DATE OF CONSULT: 05/11/2017 PHYSICIAN REQUESTING CONSULTATION: Emergency Department REASON FOR CONSULTATION: Psychiatric evaluation. HISTORY OF PRESENT ILLNESS: Ms. Bhagat is a 21-year-old female with a history of schizoaffective disorder, well known to the psychiatric service here from multiple previous contacts. She presents on this occasion voluntarily, and per the ED provider note she has been nonadherent with medications and increasingly paranoid and delusional at home. Reviewing the electronic medical record, I note the patient was seen most recently in the emergency room in March and was previously admitted under Dr. Balderas. The patient is seen and examined. Chart reviewed. Case discussed with nursing staff. On my examination today, the patient tells me, "Me and my mom keep getting into it." She says that they have been arguing about pizza. She endorses commend auditory hallucinations to hurt herself, although she denies any erum jeffrey suicidal ideation, intent or plan. She denies any homicidal ideation. Patient seems unreliable to contract for safety at this point. She is paranoid regarding her mother and says that she is trying to scare her. She says, "I just want to be somewhere safe." Affect is somewhat dysphoric. No hypomanic or manic symptoms. The remainder of the psychiatric ROS is negative. No physical complaints. PAST PSYCHIATRIC HISTORY: The patient has a history of schizoaffective disorder. She follows at [facility] with Manish Kim. She was reportedly prescribed Risperdal, Zyprexa and Cogentin. She does report that she is medication compliant, although this is somewhat questionable. She reports she was psychiatrically admitted most recently one month ago. She endorses previous suicide attempts, drinking bleach. She initially says that this was done a few weeks ago but then says that she did this when she was 5 years old. FAMILY HISTORY: The patient reports that her mother has bipolar disorder. CHEMICAL DEPENDENCY HISTORY: No reported abuse of substances. SOCIAL HISTORY: The patient lives with her mother. She is single with no children. She has a ninth grade education. She reports that she has no income, in particular no disability income. Denies any or legal history. Denies any access to guns or firearms. Denies any protestant or spiritual beliefs. PAST MEDICAL HISTORY: No reported medical issues. MEDICATIONS: As above. ALLERGIES: NO KNOWN ALLERGIES. REVIEW OF SYSTEMS: Except at noted in the HPI, this is negative. PHYSICAL EXAMINATION: VITAL SIGNS: Temp 98.5, blood pressure 107/57, pulse 80/minute, respirations 18/minute, pulse oximetry 100% on room air. Physical examination was completed by the ED provider. On my examination today, the patient appears to be in no acute physical distress. No motor abnormalities noted. LABORATORIES REVIEWED: CMP unremarkable. CBC reveals mild normocytic anemia with a hemoglobin of 10.8. Urine toxicology positive for cannabinoids. Alcohol level undetectable. Tylenol and salicylate level undetectable. MENTAL STATUS EXAMINATION: The patient is in hospital attire. She is somewhat disheveled but maintaining basic hygiene. She is awake and alert and oriented x 3. No motor abnormalities noted. Speech is within normal limits for rate, tone and volume. Language and fund of knowledge seems somewhat reduced. Focus and concentration is somewhat distracted. Memory grossly intact on clinical exam. Mood is dysphoric and affect is restricted and consistent with state of mood. Thought process tangential. No loosening of associations. No paranoid delusions likely present. The patient endorses command auditory hallucinations to self-injure, although she does deny any suicidal intent at this time. No homicidal ideation. No other hallucinatory material. Insight and judgement are presently poor. ASSESSMENT AND PLAN: 1. Schizoaffective disorder, bipolar type, F25.0. 2. Cannabis abuse, F12.10. This is a 21-year-old female with psychiatric history as detailed above who presents voluntarily to the psychiatric emergency room. On my examination today, the patient reports command auditory hallucinations to self-injure. She is fairly dysphoric. She does report medication adherence, although this is somewhat questionable. The patient most certainly requires psychiatric admission at this time for safety, observation and stabilization, although she is ambivalent at best about admission to the inpatient psychiatric unit at this time. I will therefore initiate a Wood Act for the purpose of admitting the patient to the inpatient unit. Our high acuity unit is presently full and so I have instructed the nursing staff to refer the patient for high acuity inpatient services elsewhere. Patient to be retained in the J pod under a Wood Act until the patient can be safely transferred to a high acuity inpatient bed. Case discussed with nursing staff. Thank you very much for this consultation. MD JOSUE Collins/ALFRED/oziel , 07:40 AM , 09:12 AM MINESH
[2017-05-11] MEDS ORDERED: diphenhydrAMINE HCL 50 MG CAP PO ONE (16:00)
[2017-05-11] MEDS ORDERED: OLANZapine ODT 10 MG TAB PO ONE (16:00)
[2017-05-11 17:58] VITALS: BP 102/54; PULSE 94; RESP 18; O2SAT 99
[2017-05-11 22:37] VITALS: BP 113/75; PULSE 96; RESP 18; TEMP 98.5; O2SAT 100
[2017-05-11] MEDS ORDERED: BENZTROPINE MESYLATE 2 MG/2 ML VIAL IM PRN (22:45)
[2017-05-11] MEDS ORDERED: ALUMINUM/MAGNESIUM/SIMETH 30 ML CUP PO PRN (22:45)
[2017-05-11] MEDS ORDERED: BENZTROPINE MESYLATE 1 MG TAB PO PRN (22:45)
[2017-05-11] MEDS ORDERED: MAGNESIUM HYDROXIDE SUSP 30 ML CUP PO PRN (22:45)
[2017-05-12 06:12] VITALS: BP 91/52; PULSE 62; RESP 18; TEMP 97.7
[2017-05-12 09:19] LABS: BICARBONATE 25.7 MEQ/L (21.0-32.0); BLOOD UREA NITROGEN 13 MG/DL (7-18); CALCIUM 8.7 MG/DL (8.5-10.1); CHLORIDE 107 MEQ/L (98-107); CREATININE 1.01 MG/DL (0.50-1.00); GLOMERULAR FILTRATION RATE 84 ML/MIN (>89); GLUCOSE,RANDOM 64 MG/DL (74-106); SODIUM (NA) 141 MEQ/L (136-145)
[2017-05-12 09:21] LABS: CHOLESTEROL 128 MG/DL (120-200); TRIGLYCERIDES 68 MG/DL (42-150)
[2017-05-12 09:23] LABS: CHOLESTEROL/ HDL RATIO 1.58 RATIO; LDL CHOLESTEROL 33 MG/DL (0-99)
[2017-05-12] MEDS ORDERED: PNEUMOCOCCAL POLYVALENT INJ 25 MCG/0.5 ML SYR IM ONE (10:00)
--- NOTE | 2017-05-12 10:39 | HHI.HP ---
Provisional Diagnosis Admission Date May 11, 2017 at 18:16 [place] I. 1. Schizoaffective disorder, bipolar type, acute exacerbation 2. Cannabis abuse [place] II. Deferred Certification of Person's Competence To Provide Express and Informed Consent I have personally examined Sahara Rios , a person being served at [facility] on, May 12, 2017 10:39. Express and informed consent means consent voluntarily given in writing, by a competent person, after sufficient explanation and disclosure of the subject matter involved to enable the person to make a knowing and willful decision without any element of force, fraud, deceit, duress, or other form of constraint or coercion. This person is 18 years of age or older, is not now known to be incompetent to consent to treatment with a guardian advocate, and does not have a health care surrogate or proxy currently making medical treatment decisions. I have found this person to be one of the following: [] Competent to provide express and informed consent, as defined above, for voluntary admission to this facility and is competent to provide express and informed consent for treatment. He/she has the consistent capacity to make well reasoned, willful, and knowing decisions concerning his or her medical or mental health treatment. The person fully and consistently understands the purpose of the admission for examination/placement and is fully capable of personally exercising all rights assured [place] [x] Incompetent to provide express and informed consent to voluntary admission, and this is incompetent to provide express and informed consent to treatment. The person must be transferred to involuntary status and a petition for a guardian advocate filed with the Circuit Court. [] Refusing to provide express and informed consent to voluntary admission but is competent to provide express and informed consent for treatment. The person must be discharged or transferred to involuntary status. Form shall be completed within 24 hours of a person's arrival at the receiving facility and filed in the clinical record of each person: 1. Admitted on a voluntary basis 2. Permitted to provide express and informed consent to his/her own treatment 3. Allowed to transfer from involuntary to voluntary status 4. Prior to permitting a person to consent to his or her own treatment after having been previously found incompetent to consent to treatment. History of Present Illness Capacity: Lacks Capacity Psych Chief Complaint: Psychosis HPI From my consult note, 05/11: Ms. Rios is a 21-year-old female with a history of schizoaffective disorder, well known to the psychiatric service here from multiple previous contacts. She presents on this occasion voluntarily, and per the ED provider note she has been nonadherent with medications and increasingly paranoid and delusional at home. Reviewing the electronic medical record, I note the patient was seen most recently in the emergency room in March and was previously admitted under Dr. Balderas. The patient is seen and examined. Chart reviewed. Case discussed with nursing staff. On my examination today, the patient tells me, "Me and my mom keep getting into it." She says that they have been arguing about pizza. She endorses commend auditory hallucinations to hurt herself, although she denies any erum jeffrey suicidal ideation, intent or plan. She denies any homicidal ideation. Patient seems unreliable to contract for safety at this point. She is paranoid regarding her mother and says that she is trying to scare her. She says, "I just want to be somewhere safe." Affect is somewhat dysphoric. No hypomanic or manic symptoms. The remainder of the psychiatric ROS is negative. No physical complaints. On my exam today, 05/12: Patient seen and examined with nurse. Chart reviewed. Case discussed with nursing staff. Case discussed in treatment team. On my examination today, the patient remains internally preoccupied. She denies command auditory hallucinations presently but was reportedly experiencing them as recently as a few hours ago. She denies any suicidal or homicidal ideation but seems unreliable to contract for safety. Mood is fair, and I can elicit no depressive or hypomanic/manic symptoms. Thought process is tangential. She notes ideas of reference in which she believes that Margarita Morataya is telling her that she (i.e. patient) is Margarita Morataya. Paranoia noted. Remainder of the psychiatric ROS is negative. No physical complaints. Past psychiatric history: Patient has a history of schizoaffective disorder. Follows at [facility]. Endorses previous suicide attempt by drinking bleach. Family history: Patient denies a family history of mental illness. Chemical dependency history: Patient denies any abuse of drugs or alcohol, although her urine toxicology is positive for cannabinoids. Social history: Patient reports that she stays with her mother and younger brother. She has a ninth grade education. She reports that she has no income. She denies any legal problems. She has no children of her own. Denies any access to guns or firearms. Patient's outpatient disease case manager, Andrew Kraus, came to the unit to visit the patient today. He notes that patient is on an outpatient commitment program secondary to domestic violence charges against patient's mother. Andrew believes that the patient has been off of her medications only for a few days but has decompensated significantly in that time. Risperdal was apparently most recently added, and plan had been for long-acting injectable, although the patient had not yet had an opportunity to receive this. I did endeavor to reach patient's mother at the number listed in the EMR in hopes that she might act his healthcare surrogate to begin psychotropic medications. I left generic voicemail requesting a call back. Review of Systems ROS Limitations: Psychotic, Poor Historian Except as stated in HPI: all other systems reviewed are Neg Past Family Social History Coded Allergies: No Known Allergies (Unverified Allergy, Unknown, 03/10/17) Per pt. Past Medical History See electronic medical record Reported Medications Divalproex DR (Divalproex DR) 500 Mg Tabdr, 500 MG PO HS for Control Seizures, # 60 TAB 0 Refills 05/10/17 Risperidone (Risperidone) 2 Mg Tab, 2 MG PO BID, #60 TAB 0 Refills 05/10/17 Olanzapine (Olanzapine) 15 Mg Tab, 30 MG PO HS, #30 TAB 0 Refills 05/10/17 Discontinued Reported Medications Luck Carbonate ([place]uck Carbonate) 300 Mg Cap, 300 MG PO BID, CAP 0 Refills 03/10/17 Olanzapine (Zyprexa) 20 Mg Tab, 20 MG PO HS, #30 TAB 0 Refills 03/10/17 Mirtazapine (Mirtazapine) 15 Mg Tab, 15 MG PO HS for Depression Control, #30 TAB 0 Refills 03/10/17 Current Medications Medications (Trade) Dose Ordered Sig/Jose Carlos Route Start Time Stop Time Status Last Admin (Cogentin) 1 mg Q12H PRN PO 05/11/17 22:45 (Cogentin Inj) 1 mg Q12H PRN IM 05/11/17 22:45 (Benadryl) 50 mg HS PRN PO 05/11/17 22:45 (Tylenol) 650 mg Q4H PRN PO 05/11/17 22:45 (Milk Of Magnesia Liq) 30 ml DAILY PRN PO 05/11/17 22:45 (Mag-Al Plus Susp Liq) 30 ml Q6H PRN PO 05/11/17 22:45 Patient's Strengths (min. 2) In a monitored setting. Verbally fluent. Physical Exam Physical exam completed by ED provider. On my examination today, patient appears to be in no physical distress. No motor abnormalities noted. Labs and vitals reviewed: Vital Signs Vital Signs Date Time Temp Pulse Resp B/P (MAP) Pulse Ox O2 Delivery O2 Flow Rate FiO2 05/12/17 06:12 97.7 62 18 91/52 (65) 05/11/17 22:37 100 05/11/17 17:58 Room Air Lab Results Test 05/12/17 08:24 Blood Urea Nitrogen 13 MG/DL Creatinine 1.01 MG/DL Random Glucose 64 MG/DL Calcium Level 8.7 MG/DL Sodium Level 141 MEQ/L Potassium Level 4.0 MEQ/L Chloride Level 107 MEQ/L Carbon Dioxide Level 25.7 MEQ/L Anion Gap 8 MEQ/L Estimat Glomerular Filtration Rate 84 ML/MIN Triglycerides Level 68 MG/DL Cholesterol Level 128 MG/DL LDL Cholesterol 33 MG/DL HDL Cholesterol 81.0 MG/DL Cholesterol/HDL Ratio 1.58 RATIO EKG from February 2017 reveals normal QTc. Mental Status Examination Appearance: Disheveled Consciousness: Alert Orientation: Person, Place (at least) Motor Activity: Normal gait Speech: Unremarkable Language: Other (rambling) Fund of Knowledge: Inadequate Attention and Concentration: Easily Distracted Memory: Impaired (psychosis interferes) Mood: Other (denies issues with mood) Affect: Blunt Thought Process & Associations: Tangential Thought Content: Delusional Hallucination Type: Other (appears internally stimulated) Delusion Type: Paranoid, Other (ideas of reference) Suicidal Ideation: No (unreliable to contract for safety) Suicidal Plan: No Suicidal Intention: No Homicidal Ideation: No Homicidal Plan: No Homicidal Intention: No Insight: Poor Judgment: Poor Assessment & Plan Problem List: (1) Schizoaffective disorder, bipolar type ICD Codes: F25.0 - Schizoaffective disorder, bipolar type (2) Cannabis abuse ICD Codes: F12.10 - Cannabis abuse, uncomplicated Assessment & Plan 21-year-old female with psychiatric history as detailed above presently admitted to the inpatient unit under a Wood act. Per the outpatient disease case manager, plan had been to initiate long-acting injectable, and this seems like a reasonable goal for current hospitalization. Once we have medication consents from healthcare surrogate to initiate psychotropics, we will plan to initiate either Risperdal Consta or Invega Sustenna after assuring good tolerability of oral Risperdal. Patient requires psychiatric hospitalization at this time for safety, observation and stabilization. Admit inpatient. Involuntary status. I have completed first opinion. Consult for second opinion. Request healthcare surrogate and guardian advocate. Plan to resume psychotropic medications once consent has been obtained from healthcare surrogate at outpatient doses. Plan for long-acting injectable antipsychotic as noted above. We will also plan to add Ativan as needed for anxiety. Patient has Cogentin as needed for EPS and Benadryl as needed for sleep. Vitals every shift. Counselor to see. Disposition planning. Estimated length of stay: 5-7 days. Discharge Planning Pending psychiatric stabilization Request HC Surrog/Guard Advoc?: Yes Blaine Benedict MD May 12, 2017 10:39
[2017-05-12 16:06] LABS: HEMOGLOBIN A1C 4.7 % (4.3-6.0)
[2017-05-12 18:22] VITALS: BP 108/59; PULSE 87; RESP 18; TEMP 97.5; O2SAT 99
[2017-05-12] MEDS ORDERED: diphenhydrAMINE HCL 50 MG/ML VIAL IM ONE (21:45)
[2017-05-12] MEDS ORDERED: OLANZapine IM 10 MG VIAL IM ONE (21:45)
[2017-05-13 05:54] VITALS: BP 108/63; PULSE 60; RESP 18; TEMP 98.4; O2SAT 98
--- NOTE | 2017-05-13 10:19 | HHI.PYPN ---
Subjective Chief Complaint: Psychosis Remarks Patient seen and examined with nurse. Chart reviewed. Case discussed with nursing staff. Overnight, patient behaviorally disinhibited, dancing and yelling. She complained of worsening auditory hallucinations and was medicated by the doctor on-call with Zyprexa and Benadryl IM and passed an uneventful night thereafter. On my examination this morning, the patient remains internally stimulated. Affect blunted. Thought process perseverative on eating breakfast. No side effects from medications received overnight. No physical complaints. Review of Systems ROS Limitations: Psychotic, Poor Historian Except as stated in HPI: all other systems reviewed are Neg Mental Status Examination Appearance: Disheveled Consciousness: Alert Orientation: Person, Place Motor Activity: Other (no motor abnormalities noted) Speech: Unremarkable Language: Adequate Fund of Knowledge: Inadequate Attention and Concentration: Easily Distracted Memory: Impaired (psychosis interferes) Mood: Other (no reported issues with mood) Affect: Blunt (tending towards flat) Thought Process & Associations: Other (perseverative) Thought Content: Hallucinations Hallucination Type: Other (internally preoccupied) Delusion Type: None Suicidal Ideation: No (remains unreliable to contract for safety) Suicidal Plan: No Suicidal Intention: No Homicidal Ideation: No Homicidal Plan: No Homicidal Intention: No Insight: Poor Judgment: Poor Results Labs Labs reviewed. Anemia within historical range. Vitals/IOs Vital Signs Date Time Temp Pulse Resp B/P (MAP) Pulse Ox O2 Delivery O2 Flow Rate FiO2 05/13/17 05:54 98.4 60 18 108/63 (78) 98 05/11/17 17:58 Room Air Assessment & Plan Problem List: (1) Schizoaffective disorder, bipolar type ICD Codes: F25.0 - Schizoaffective disorder, bipolar type (2) Cannabis abuse ICD Codes: F12.10 - Cannabis abuse, uncomplicated Assessment & Plan Left a voicemail requesting a call back ~10:30am for patient's mother and presumptive HCS. Psychotropic medications on hold pending consent for these from [facility]. I will plan to resume Zyprexa, Risperdal and Cogentin and plan for long-acting injectable antipsychotic, most likely Consta or Sustenna. Continue to monitor on high acuity unit. Continue other medications and care as ordered. Justification for Cont. Inpt. Impairment in reality construction. Med changes planned. High risk for decompensation in less restrictive environment. Discharge Planning Pending psychiatric stabilization. Request HC Surrog/Guard Advoc?: Yes Blaine Benedict MD May 13, 2017 10:19
--- NOTE | 2017-05-13 13:28 | PD.PSY.CON ---
Provisional Diagnosis Admission Date May 11, 2017 at 18:16 [place] I. 1. Schizoaffective disorder, bipolar type, acute exacerbation 2. Cannabis abuse [place] II. Deferred History of Present Illness Service Psychiatry Consult Requested By Psychiatry Reason for Consult Second opinion Primary Care Physician No Primary Care Physician HPI Ms. Bhagat is a 21-year-old female with a history of schizoaffective disorder, well known to the psychiatric service here from multiple previous contacts. She presents on this occasion voluntarily, and per the ED provider note she has been nonadherent with medications and increasingly paranoid and delusional at home. Reviewing the electronic medical record, I note the patient was seen most recently in the emergency room in March and was previously admitted under .The patient is seen and examined. Chart reviewed. Case discussed with nursing staff. On my examination today, the patient tells me, "Me and my mom keep getting into it." She says that they have been arguing about pizza. She endorses commend auditory hallucinations to hurt herself, althoughshe denies any erum jeffrey suicidal ideation, intent or plan. She denies any homicidal ideation. Patient seems unreliable to contractfor safety at this point. She is paranoid regarding her mother and says that she is trying to scare her. She says, "I just want to be somewhere safe." Affect is somewhat dysphoric. No hypomanic or manic symptoms. The remainder of the psychiatric ROS is negative. Nophysical complaints. On my exam today, 05/12: Patient seen and examined with nurse. Chart reviewed. Case discussed with nursing staff. Case discussed in treatment team. On my examination today, the patient remains internally preoccupied. She denies command auditory hallucinations presently but was reportedly experiencing them as recently as a few hours ago. She denies any suicidal or homicidal ideation but seems unreliable to contract for safety. Mood is fair, and I can elicit no depressive or hypomanic/manic symptoms. Thought process is tangential. She notes ideas of reference in which she believes that Margarita Morataya is telling her that she (i.e. patient) is Margarita Morataya. Paranoia noted. Remainder of the psychiatric ROS is negative. No physical complaints. The patient is a 21 year old woman, domiciled with her mother, single, unemployed, with extensive psychiatric history of schizophrenia, schizoaffective disorder, cannabis use disorder, multiple psychiatric hospitalizations, establish outpatient psychiatric care in [facility], previous suicidal attempts, history of self cutting behavior, no significant medical history, who initially was admitted voluntarily for medication adjustment. Subsequently she was Wood acted. Consulted to me for second opinion. On psychiatric evaluation today the patient is cooperative, irritable, and guarded. Patient reports eating okay. She says that she continues hearing voices "telling me to see ghosts". Patient says that she was brought to the hospital because she was not taking her medications, she said that her current psychotropic regimen has not be working properly. She says that at time voices could be commanding type. She denies suicidal and homicidal ideation, she denies visual and auditory hallucinations. Past Family Social History Coded Allergies: No Known Allergies (Unverified Allergy, Unknown, 03/10/17) Per pt. Reported Medications Divalproex DR (Divalproex DR) 500 Mg Tabdr, 500 MG PO HS for Control Seizures, # 60 TAB 0 Refills 05/10/17 Risperidone (Risperidone) 2 Mg Tab, 2 MG PO BID, #60 TAB 0 Refills 05/10/17 Olanzapine (Olanzapine) 15 Mg Tab, 30 MG PO HS, #30 TAB 0 Refills 05/10/17 Discontinued Reported Medications [place] Carbonate ([place] Carbonate) 300 Mg Cap, 300 MG PO BID, CAP 0 Refills 03/10/17 Olanzapine (Zyprexa) 20 Mg Tab, 20 MG PO HS, #30 TAB 0 Refills 03/10/17 Mirtazapine (Mirtazapine) 15 Mg Tab, 15 MG PO HS for Depression Control, #30 TAB 0 Refills 03/10/17 Current Medications Medications (Trade) Dose Ordered Sig/Jose Carlos Route Start Time Stop Time Status Last Admin (Cogentin) 1 mg Q12H PRN PO 05/11/17 22:45 (Cogentin Inj) 1 mg Q12H PRN IM 05/11/17 22:45 (Benadryl) 50 mg HS PRN PO 05/11/17 22:45 (Tylenol) 650 mg Q4H PRN PO 05/11/17 22:45 (Milk Of Magnesia Liq) 30 ml DAILY PRN PO 05/11/17 22:45 (Mag-Al Plus Susp Liq) 30 ml Q6H PRN PO 05/11/17 22:45 Patient's Strengths (min. 2) In a monitored setting. Verbally fluent. Physical Exam Vital Signs Vital Signs Date Time Temp Pulse Resp B/P (MAP) Pulse Ox O2 Delivery O2 Flow Rate FiO2 05/13/17 05:54 98.4 60 18 108/63 (78) 98 05/11/17 17:58 Room Air Mental Status Examination Appearance: Disheveled Consciousness: Alert Orientation: Person, Place Motor Activity: Other (no motor abnormalities noted) Speech: Unremarkable Language: Adequate Fund of Knowledge: Inadequate Attention and Concentration: Easily Distracted Memory: Impaired (psychosis interferes) Mood: Other (no reported issues with mood) Affect: Blunt (tending towards flat) Thought Process & Associations: Other (perseverative) Thought Content: Hallucinations Hallucination Type: Other (internally preoccupied) Delusion Type: None Suicidal Ideation: No (remains unreliable to contract for safety) Suicidal Plan: No Suicidal Intention: No Homicidal Ideation: No Homicidal Plan: No Homicidal Intention: No Insight: Poor Judgment: Poor Assessment & Plan Problem List: (1) Schizoaffective disorder, bipolar type ICD Codes: F25.0 - Schizoaffective disorder, bipolar type Assessment & Plan: I have seen and examined this patient, reviewed the documentation, discussed with nurses, I agree and concur with Dr. Benedict assessment and plan. (2) Cannabis abuse ICD Codes: F12.10 - Cannabis abuse, uncomplicated Assessment & Plan Estimated LOS: days Request HC Surrog/Guard Advoc?: Yes Jian Donohue MD May 13, 2017 13:28
[2017-05-13] MEDS ORDERED: PALIPERIDONE PALMITATE 234 MG/1.5 ML SYRINGE IM ONE (13:45)
[2017-05-13] MEDS ORDERED: LORazepam 1 MG TAB PO PRN (14:00)
[2017-05-13] MEDS ORDERED: LORazepam 2 MG/ML VIAL IM PRN (14:00)
[2017-05-13] MEDS: BENZTROPINE MESYLATE 1 MG TAB PO SCH ×2 (15:58→21:17)
[2017-05-13 17:13] VITALS: BP 121/65; PULSE 97; RESP 18; TEMP 97.9; O2SAT 99
[2017-05-13] MEDS: OLANZapine ODT 10 MG TAB PO SCH (21:17)
[2017-05-13] MEDS: diphenhydrAMINE HCL 50 MG CAP - HS PRN PO (21:17)
[2017-05-14 06:12] VITALS: BP 101/55; PULSE 52; RESP 16; TEMP 97.8; O2SAT 98
[2017-05-14] MEDS: BENZTROPINE MESYLATE 1 MG TAB PO SCH ×2 (10:05→21:15)
--- NOTE | 2017-05-14 11:34 | HHI.PYPN ---
Subjective Chief Complaint: Psychosis Remarks Patient seen and examined. Chart reviewed. Case discussed with nursing staff. Case discussed with counselor. On my examination today, the patient is calm and cooperative with exam. She denies any SI, HI or AVH. She is tolerating medications well without side effects. No physical complaints. Review of Systems ROS Limitations: Poor Historian Except as stated in HPI: all other systems reviewed are Neg Mental Status Examination Appearance: Appropriate Consciousness: Alert Orientation: Person, Place Motor Activity: Other (no abnormal motor movements noted) Speech: Unremarkable Language: Adequate Fund of Knowledge: Inadequate Attention and Concentration: Easily Distracted Memory: Unremarkable Mood: Other (calm) Affect: Appropriate Thought Process & Associations: Intact Thought Content: Appropriate Hallucination Type: None Delusion Type: None Suicidal Ideation: No Homicidal Ideation: No Insight: Poor Judgment: Poor Results Labs Labs reviewed. No new labs. Vitals/IOs Vital Signs Date Time Temp Pulse Resp B/P (MAP) Pulse Ox O2 Delivery O2 Flow Rate FiO2 05/14/17 06:12 97.8 52 16 101/55 (70) 98 05/11/17 17:58 Room Air Assessment & Plan Problem List: (1) Schizoaffective disorder, bipolar type ICD Codes: F25.0 - Schizoaffective disorder, bipolar type (2) Cannabis abuse ICD Codes: F12.10 - Cannabis abuse, uncomplicated Assessment & Plan Plan for booster dose of Invega Sustenna over the weekend. Continue Zyprexa as ordered. Continue to monitor on high acuity unit. Continue other medications and care as ordered. Justification for Cont. Inpt. Med changes planned. Risk for decompensation in less restrictive environment. Discharge Planning Anticipate discharge beginning of next week. Request HC Surrog/Guard Advoc?: Yes Blaine Benedict MD May 14, 2017 11:34
[2017-05-14 18:21] VITALS: BP 116/59; PULSE 84; RESP 18; TEMP 96.9; O2SAT 99
[2017-05-14] MEDS: OLANZapine ODT 10 MG TAB PO SCH (21:14)
[2017-05-14] MEDS: diphenhydrAMINE HCL 50 MG CAP - HS PRN PO (21:15)
[2017-05-15 06:14] VITALS: BP 97/49; PULSE 62; RESP 16; TEMP 97.7; O2SAT 100
[2017-05-15] MEDS: BENZTROPINE MESYLATE 1 MG TAB PO SCH ×2 (10:15→21:18)
--- NOTE | 2017-05-15 10:22 | HHI.PYPN ---
Subjective Chief Complaint: Psychosis Remarks Patient seen and examined. Chart reviewed. Case discussed with nursing staff. Patient noted to be provocative but not frankly sexually inappropriate with male peers and instigating toward female peers. Case discussed in treatment team. On my examination today, patient is seclusive to room. She is somewhat hypoverbal and blunted. She presents as internally preoccupied, although she denies AVH. Denies SI or HI but seems unreliable to contract for safety. She denies side effects from medications. No physical complaints. Review of Systems ROS Limitations: Poor Historian Except as stated in HPI: all other systems reviewed are Neg Mental Status Examination Appearance: Appropriate Consciousness: Alert Orientation: Person, Place Motor Activity: Other (No motor abnormalities noted) Speech: Unremarkable Language: Adequate Fund of Knowledge: Inadequate Attention and Concentration: Easily Distracted Memory: Unremarkable Mood: Other (calm) Affect: Blunt Thought Process & Associations: Intact Thought Content: Appropriate Hallucination Type: Other (Denies AVH but appears to be responding to internal stimuli) Delusion Type: None Suicidal Ideation: No (unreliable to contract for safety) Homicidal Ideation: No Insight: Poor Judgment: Poor Results Labs Labs reviewed. Vitals/IOs Vital Signs Date Time Temp Pulse Resp B/P (MAP) Pulse Ox O2 Delivery O2 Flow Rate FiO2 05/15/17 06:14 97.7 62 16 97/49 (65) 100 05/11/17 17:58 Room Air Assessment & Plan Problem List: (1) Schizoaffective disorder, bipolar type ICD Codes: F25.0 - Schizoaffective disorder, bipolar type (2) Cannabis abuse ICD Codes: F12.10 - Cannabis abuse, uncomplicated Assessment & Plan Plan for booster dose of Invega Sustenna 156mg IM Thursday. Continue Zyprexa at HS as ordered. Continue Cogentin as ordered. Continue to monitor on the high acuity unit. Continue other medications and care as ordered. Justification for Cont. Inpt. Medication changes. Risk for decompensation and less restrictive environment. Discharge Planning Anticipate discharge Thursday. Case d/w counselor. Request HC Surrog/Guard Advoc?: Yes Blaine Benedict MD May 15, 2017 10:22
--- NOTE | 2017-05-15 10:25 | PD.TTN ---
Patient Problems 1. Discharge planning 2. Medication compliance 3. Knowledge deficit 4. Lack of coping skills Progress Toward Goals Provider Present: Dr. Leonardo Benedict Provider Input: Psychotic, started on lang acting injectable. Nurse(s) Present: None Psychiatric Counselors Present: Anna Hoskins LCSW Psych Therapist Input: Has outpatient case management discharge disposition. She needs to remain in restricted area with [facility] Crop Nutrition Scientist. Group Spec/RT/OT/HILL Present: Christiana Ace, GPS, Edward Schreiber, OT, Other ( HILL Cafeteria Assistant) Christiana Ace May 15, 2017 10:25
--- NOTE | 2017-05-15 13:02 | PD.TTN ---
Patient Problems 1. Discharge planning 2. Medication compliance 3. Knowledge deficit 4. Lack of coping skills Progress Toward Goals Provider Present: Dr. Leonardo Benedict Provider Input: 05/15/2017: Psychotic, started on long acting injectable. Nurse(s) Present: None Psychiatric Counselors Present: Anna Hoskins LCSW Psych Therapist Input: Has outpatient case management discharge disposition. Group Spec/RT/OT/HILL Present: HUBER Jarrell, Edward Schreiber, OT, Other ( HILL Assembly Line Robot Operator) Group Spec/RT/OT/HILL Input: Patient attends select group activities. No behaviors to note. Pt tends to isolate to herself. Top Edge Beveler Present: Birgit Brock Discharge Plan Possible discharge to boyfriend in [place], [place]. Documentation Scribe: Christiana Andrade May 15, 2017 13:01
[2017-05-15 18:10] VITALS: BP 133/61; PULSE 82; RESP 17; TEMP 97.6; O2SAT 100
[2017-05-15] MEDS: diphenhydrAMINE HCL 50 MG CAP - HS PRN PO (21:18)
[2017-05-15] MEDS: OLANZapine ODT 10 MG TAB PO SCH (21:18)
[2017-05-16 06:32] VITALS: BP 105/57; PULSE 82; RESP 17; TEMP 98; O2SAT 97
[2017-05-16] MEDS: BENZTROPINE MESYLATE 1 MG TAB PO SCH ×2 (12:06→20:27)
--- NOTE | 2017-05-16 12:54 | HHI.PYPN ---
Subjective Chief Complaint: Psychosis Remarks Pt seen and discussed with staff. She is compliant with medications. She has been a little less isolative today and did go out for one group. She reports that AH persist. Staff report that pt has been focused on leaving [facility]. No medication side effects. Mental Status Examination Appearance: Appropriate Consciousness: Alert Orientation: Person, Place Motor Activity: Other (No motor abnormalities noted) Speech: Unremarkable Language: Adequate Fund of Knowledge: Inadequate Attention and Concentration: Easily Distracted Memory: Unremarkable Mood: Other (calm) Affect: Blunt Thought Process & Associations: Intact Thought Content: Appropriate Hallucination Type: Auditory Delusion Type: None Suicidal Ideation: No (unreliable to contract for safety) Homicidal Ideation: No Insight: Poor Judgment: Poor Results Vitals/IOs Vital Signs Date Time Temp Pulse Resp B/P (MAP) Pulse Ox O2 Delivery O2 Flow Rate FiO2 05/16/17 06:32 98.0 82 17 105/57 (73) 97 Assessment & Plan Problem List: (1) Schizoaffective disorder, bipolar type ICD Codes: F25.0 - Schizoaffective disorder, bipolar type (2) Cannabis abuse ICD Codes: F12.10 - Cannabis abuse, uncomplicated Assessment & Plan Continue current tx plan. Estimated LOS: days Justification for Cont. Inpt. impairments in reality testing. Request HC Surrog/Guard Advoc?: Yes Frannie Banks MD May 16, 2017 12:54
[2017-05-16] MEDS: ACETAMINOPHEN 325 MG TAB PO PRN ×2 (14:26→22:30)
[2017-05-16 17:43] VITALS: BP 114/61; PULSE 104; RESP 17; TEMP 97.8; O2SAT 98
[2017-05-16] MEDS: OLANZapine ODT 10 MG TAB PO SCH (20:28)
[2017-05-17 06:19] VITALS: BP 91/43; PULSE 59; RESP 16; TEMP 97.6; O2SAT 100
[2017-05-17] MEDS: BENZTROPINE MESYLATE 1 MG TAB PO SCH ×2 (08:49→20:19)
[2017-05-17] MEDS ORDERED: PALIPERIDONE PALMITATE 156 MG/ML SYRINGE IM ONE (09:00)
--- NOTE | 2017-05-17 13:25 | HHI.PYPN ---
Subjective Chief Complaint: Psychosis Remarks Pt seen and discussed with staff. She received Sustenna MONSON today without incident. She has been more engaged in milieu activities today. She was observed pacing hallways and responding to internal stimuli. No SI/HI. She is compliant with medications. Mental Status Examination Appearance: Appropriate Consciousness: Alert Orientation: Person, Place Motor Activity: Other (No motor abnormalities noted) Speech: Unremarkable Language: Adequate Fund of Knowledge: Inadequate Attention and Concentration: Easily Distracted Memory: Unremarkable Mood: Other (calm) Affect: Blunt Thought Process & Associations: Intact Thought Content: Appropriate Hallucination Type: Auditory Delusion Type: None Suicidal Ideation: No (denies) Homicidal Ideation: No Insight: Poor Judgment: Poor Results Vitals/IOs Vital Signs Date Time Temp Pulse Resp B/P (MAP) Pulse Ox O2 Delivery O2 Flow Rate FiO2 05/17/17 06:19 97.6 59 16 91/43 (59) 100 Assessment & Plan Problem List: (1) Schizoaffective disorder, bipolar type ICD Codes: F25.0 - Schizoaffective disorder, bipolar type (2) Cannabis abuse ICD Codes: F12.10 - Cannabis abuse, uncomplicated Assessment & Plan Pt improving. Continue current tx plan Estimated LOS: days Justification for Cont. Inpt. impairments in reality testing Request HC Surrog/Guard Advoc?: Yes Frannie Banks MD May 17, 2017 13:25
[2017-05-17 17:28] VITALS: BP 103/57; PULSE 78; RESP 16; TEMP 97.8; O2SAT 100
[2017-05-17] MEDS: OLANZapine ODT 10 MG TAB PO SCH (20:19)
[2017-05-18 05:59] VITALS: BP 94/46; PULSE 66; RESP 17; TEMP 97.7; O2SAT 100
[2017-05-18] MEDS: BENZTROPINE MESYLATE 1 MG TAB PO SCH (08:02)
[2017-05-18 11:55] VITALS: BP 105/58; PULSE 74
[2017-05-18] MEDS ORDERED: OLAN15TA PO (11:56)
[2017-05-18] MEDS ORDERED: PALI156P IM (11:56)
--- NOTE | 2017-05-18 11:56 | HHI.DS ---
Psychiatry Discharge Summary Inpatient Psychiatric care?: Yes Advance Directive: No Reason Not Provided: doesnt have. Mental Health AdvanceDirective: No Health Care Proxy: No Admission Admission Date May 11, 2017 at 18:16 Admission Diagnosis: (1) Schizoaffective disorder, bipolar type ICD Code: F25.0 - Schizoaffective disorder, bipolar type (2) Cannabis abuse ICD Code: F12.10 - Cannabis abuse, uncomplicated Brief History Ms. Bhagat is a 21-year-old female with a history of schizoaffective disorder, well known to the psychiatric service here from multiple previous contacts. She presents on this occasion voluntarily, and per the ED provider note she has been nonadherent with medications and increasingly paranoid and delusional at home. Reviewing the electronic medical record, I note the patient was seen most recently in the emergency room in March and was previously admitted under .The patient is seen and examined. Chart reviewed. Case discussed with nursing staff. On my examination today, the patient tells me, "Me and my mom keep getting into it." She says that they have been arguing about pizza. She endorses commend auditory hallucinations to hurt herself, althoughshe denies any erum jeffrey suicidal ideation, intent or plan. She denies any homicidal ideation. Patient seems unreliable to contractfor safety at this point. She is paranoid regarding her mother and says that she is trying to scare her. She says, "I just want to be somewhere safe." Affect is somewhat dysphoric. No hypomanic or manic symptoms. The remainder of the psychiatric ROS is negative. Nophysical complaints. On my exam today, 05/12: Patient seen and examined with nurse. Chart reviewed. Case discussed with nursing staff. Case discussed in treatment team. On my examination today, the patient remains internally preoccupied. She denies command auditory hallucinations presently but was reportedly experiencing them as recently as a few hours ago. She denies any suicidal or homicidal ideation but seems unreliable to contract for safety. Mood is fair, and I can elicit no depressive or hypomanic/manic symptoms. Thought process is tangential. She notes ideas of reference in which she believes that Margarita Coynej is telling her that she (i.e. patient) is Margarita Morataya. Paranoia noted. Remainder of the psychiatric ROS is negative. No physical complaints. Tobacco Use In Past 30 Days: 5 or More Cigarettes/Day Alcohol Use: 2-4 Times Per Month Hospital Course Patient was admitted to a locked, inpatient psychiatric unit. Appropriate precautions were in place throughout patient's hospital stay. Patient was seen and examined on the unit by psychiatry and also visited by counselor. Psychotropic medications were adjusted. Patient tolerated medication changes well without side effects. Patient was started on long-acting injectable Invega Sustenna and received both the initial dose and the booster dose on the inpatient unit. There was no evidence of any suicidality or homicidality on the inpatient unit. Patient's behavior improved with the benefit of psychopharmacologic treatment. Collateral information was obtained from the patient's outpatient registered nurse hh case manager and mother. On the day of discharge: Patient seen and examined with nurse. Chart reviewed. Case discussed with nursing staff. No behavioral issues noted overnight. Case discussed with counselor. On my examination today, the patient requests discharge home today. She denies any suicidal or homicidal ideation, intent or plan on direct questioning and contracts for safety. Mood is "good" and I can elicit no depressive or hypomanic/manic symptoms at this time. She denies any audiovisual hallucinations. I can elicit no delusional material. I can elicit no paranoia , no ideas of reference, and in particular she does not feel like she is receiving messages from [employer] any longer. She denies any side effects from medications. Education provided to patient regarding her discharge medication regimen. No physical complaints. Suicide and violence risk assessment on day of discharge both suggest lower imminent risk, and the patient 's level of function is adequate for outpatient care. The patient has maximized benefit from this inpatient psychiatric hospital stay and will be discharged home today with psychiatric follow-up as arranged by counselor. Patient is to reenter involuntary outpatient commitment program, and counselor has liaisoned with patient's outpatient registered nurse hh case manager at my instruction to facilitate smooth transition. Patient is also to follow-up with primary care. I have counseled the patient to abstain from substances of abuse. I have counseled the patient regarding warning signs for need to return to the psychiatric emergency room as part of the general safety plan. Results Blood Pressure 94 / 46 Vital Signs Date Time Temp Pulse Resp B/P (MAP) Pulse Ox O2 Delivery O2 Flow Rate FiO2 05/18/17 05:59 97.7 66 17 94/46 (62) Recheck 105/58 100 Laboratory Results Test 05/12/17 08:24 Cholesterol Level 128 MG/DL (120-200) HDL Cholesterol 81.0 MG/DL (40.0-60.0) Hemoglobin A1c 4.7 % (4.3-6.0) LDL Cholesterol 33 MG/DL (0-99) Triglycerides Level 68 MG/DL (42-150) Summary of Procedures None done Imaging None done Pending results at discharge: No Medications # of Antipsychotic meds at D/C: 2 Appropriate >1 Antipsych meds?: 4 Approp Antipsych med options 1 - Minimum of three failed multiple trials of monotherapy. 2 - Documented plan to taper to monotherapy due to previous use of multiple meds OR cross-taper in progress at D/C. 3 - Documentation of augmentation of Clozapine. 4 - Justification other than those listed in allowable values 1-3, document here : Multiple antipsychotics required for acute stabilization Discharge Discharge Date: May 18, 2017 Discharge Diagnosis: (1) Schizoaffective disorder, bipolar type Diagnosis: Principal (stabilized) ICD Code: F25.0 - Schizoaffective disorder, bipolar type (2) Cannabis abuse Diagnosis: Secondary (counseled to quit) ICD Code: F12.10 - Cannabis abuse, uncomplicated Pt Condition on Discharge: Stable Discharge Disposition: Discharge Home Discharge Instructions Diet Instructions: As Tolerated, No Restrictions Activities you can perform: Weight Bearing as Giovany Scheduled Appointment: as per counselor's notes New Orders: BASIC METABOLIC PROF - 1 Week CBC WITH DIFF - 1 Week New Medications: Paliperidone Palmitate Inj (Invega Sustenna Inj) 156 Mg/Ml Inj 156 MG IM Q28D for Mental Health, #1 VIAL 0 Refills This dose of Invega Sustenna is due on 06/10/2017. Continued Medications: Olanzapine (Olanzapine) 15 Mg Tab 30 MG PO HS for Mental Health for 15 Days, #30 TAB 1 Refill (This prescription has been renewed) Discontinued Medications: Divalproex DR (Divalproex DR) 500 Mg Tabdr 500 MG PO HS for Control Seizures, #60 TAB 0 Refills Risperidone (Risperidone) 2 Mg Tab 2 MG PO BID, #60 TAB 0 Refills Discharge Time > 30 minutes Mental Status Examination Appearance: Appropriate Consciousness: Alert Orientation: x4 Motor Activity: Other (no hand tremor, no cogwheeling, no dystonias, no dyskinesias, no other motor abnormalities noted) Speech: Unremarkable Language: Adequate Fund of Knowledge: Inadequate Attention and Concentration: Adequate Memory: Unremarkable Mood: Appropriate Affect: Appropriate Thought Process & Associations: Intact, Logical, Linear Thought Content: Appropriate Hallucination Type: None Delusion Type: None Suicidal Ideation: No Suicidal Plan: No Suicidal Intention: No Homicidal Ideation: No Homicidal Plan: No Homicidal Intention: No Insight: Poor (chronic condition) Judgment: Poor (chronic condition) Discharge/Advance Care Plan Health Problems: (1) Schizoaffective disorder, bipolar type (2) Cannabis abuse Goals to promote your health * To prevent worsening of your condition and complications * To maintain your health at the optimal level Directions to meet your goals Take your medications as prescribed Follow your dietary instruction Follow activity as directed Keep your appointments as scheduled Take your immunizations and boosters as scheduled If your symptoms worsen call your PCP, if no PCP go to Urgent Care Center or Emergency Room For 29/09 questions related to your inpatient stay or results of tests pending at discharge, please contact Dr. Blaine Benedict at Smoking is Dangerous to Your Health. Avoid second hand smoking Blaine Benedict MD May 18, 2017 11:56
== END 2017-05-18 19:14 | disposition home or self-care (01) | DRG 885 ==
LOC: NEPJ 15:10 → NEDA 05-11 18:16 → H270 05-11 19:48
PROVIDERS: ADMIT Psychiatry & Neurology Psychiatry; ATTEND Psychiatry & Neurology Psychiatry
DX: F25.0 Schizoaffective disorder, bipolar type (principal); Z91.14 Patient's other noncompliance with medication regimen; F41.9 Anxiety disorder, unspecified; F17.290 Nicotine dependence, other tobacco product, uncomplicated; F12.10 Cannabis abuse, uncomplicated; Z81.8 Family history of other mental and behavioral disorders; Z91.5 Personal history of self-harm
CPT/HCPCS: 80048; 80053; 80061; 80307; 83036; 84443; 84703; 85025; 99285; J1200; J2426; Q0163

== ENCOUNTER 2017-06-15 13:00 | Emergency (ER) | payer OTHER ==
[~2017-06-15] VITALS: Ht 175.3 cm; Wt 94.5 kg
[~2017-06-15 13:00] MED LIST changes: -LITH300C2 PO; -MIRTA15 PO; +OLAN15TA PO; +PALI156P IM; -ZYPR20TA PO
[2017-06-15 13:57] VITALS: BP 146/88; PULSE 85; RESP 18; TEMP 98.6; O2SAT 100
--- NOTE | 2017-06-15 17:11 | PD ---
HPI Chief Complaint: Psychiatric Symptoms Time Seen by Provider: 16:50 Travel History International Travel<30 days: No Contact w/Intl Traveler<30days: No Traveled to known affect area: No History of Present Illness HPI Patient is a 21-year-old female presented to the emergency department for psychiatric evaluation. Patient presented voluntarily. She states she is out of her Seroquel. She states she wants something to help her stop wandering around. Patient reports taking 24 Coricidin pills on Thursday and an attempt to get high. She denies any suicidal ideations. She reports that she did not take those pills in order to hurt herself. She reports that she is hallucinating and hears voices. She states that she cannot have her Seroquel filled until . She has no physical complaints at this time. She denies any chest pain, abdominal pain, headache, nausea, vomiting. Symptom onset is unknown, symptoms are moderate in nature. PFSH Past Medical History Bipolar Disorder: Yes Depression: Yes Psychiatric: Yes (Schizophrenia, Schizoaffective Disorder, BiPolar Disorder) Immunizations Current: Yes Schizophrenia: Yes ?: Not : 0 Para: 0 Miscarriage: 0 : 0 Social History Alcohol Use: No Tobacco Use: Yes (Black and Milds) Substance Use: Yes (thc) Allergies-Medications (Allergen,Severity, Reaction): Coded Allergies: No Known Allergies (Unverified Allergy, Unknown, 03/10/17) Per pt. Reported Meds & Prescriptions Reported Meds & Active Scripts Active Invega Sustenna Inj (Paliperidone Palmitate) 156 Mg/Ml Inj 156 Mg IM Q28D This dose of Invega Sustenna is due on 06/10/2017. Olanzapine 15 Mg Tab 30 Mg PO HS 15 Days Review of Systems Except as stated in HPI: all other systems reviewed are Neg Psychiatric: Positive: Disorder of Thought, Mood Disorder, No: Suicidal Ideations, Homicidal Ideation Physical Exam Narrative GENERAL: Well-developed, well-nourished, alert -[place] female. Presenting in no acute distress. SKIN: Warm and dry. HEAD: Atraumatic. Normocephalic. EYES: Pupils equal and round. No scleral icterus. No injection or drainage. ENT: No nasal bleeding or discharge. Mucous membranes pink and moist. NECK: Trachea midline. No JVD. CARDIOVASCULAR: Regular rate and rhythm. RESPIRATORY: No accessory muscle use. Clear to auscultation. Breath sounds equal bilaterally. GASTROINTESTINAL: Abdomen soft, non-tender, nondistended. Hepatic and splenic margins not palpable. MUSCULOSKELETAL: Extremities without clubbing, cyanosis, or edema. No obvious deformities. NEUROLOGICAL: Awake and alert. No obvious cranial nerve deficits. Motor grossly within normal limits. Five out of 5 muscle strength in the arms and legs. Normal speech. PSYCHIATRIC: Appropriate mood and affect; insight and judgment impaired, responding to internal stimuli. Data Data Last Documented VS Vital Signs Date Time Temp Pulse Resp B/P (MAP) Pulse Ox O2 Delivery O2 Flow Rate FiO2 06/15/17 13:57 98.6 85 18 146/88 (107) 100 Orders Orders Complete Blood Count With Diff (06/15/17 13:59) Comprehensive Metabolic Panel (06/15/17 13:59) Thyroid Stimulating Hormone (06/15/17 13:59) Urinalysis - C+S If Indicated (06/15/17 13:59) Ed Urine Pregnancytest Poc (06/15/17 13:59) Psych Screen (06/15/17 13:59) Drug Screen, Random Urine (06/15/17 13:59) Alcohol (Ethanol) (06/15/17 13:59) Salicylates (Aspirin) (06/15/17 13:59) Tylenol (Acetaminophen) (06/15/17 13:59) Electrocardiogram (06/15/17 ) Call Poison Control (06/15/17 16:56) Labs Laboratory Tests Test 06/15/17 17:05 06/15/17 17:30 White Blood Count 8.3 TH/MM3 Red Blood Count 3.99 MIL/MM3 Hemoglobin 12.3 GM/DL Hematocrit 36.9 % Mean Corpuscular Volume 92.4 FL Mean Corpuscular Hemoglobin 30.9 PG Mean Corpuscular Hemoglobin Concent 33.4 % Red Cell Distribution Width 15.4 % Platelet Count 230 TH/MM3 Mean Platelet Volume 8.1 FL Neutrophils (%) (Auto) 56.0 % Lymphocytes (%) (Auto) 31.7 % Monocytes (%) (Auto) 10.2 % Eosinophils (%) (Auto) 1.4 % Basophils (%) (Auto) 0.7 % Neutrophils # (Auto) 4.7 TH/MM3 Lymphocytes # (Auto) 2.6 TH/MM3 Monocytes # (Auto) 0.8 TH/MM3 Eosinophils # (Auto) 0.1 TH/MM3 Basophils # (Auto) 0.1 TH/MM3 CBC Comment DIFF FINAL Differential Comment Blood Urea Nitrogen 12 MG/DL Creatinine 0.86 MG/DL Random Glucose 76 MG/DL Total Protein 7.4 GM/DL Albumin 3.6 GM/DL Calcium Level 8.3 MG/DL Alkaline Phosphatase 82 U/L Aspartate Amino Transf (AST/SGOT) 17 U/L Alanine Aminotransferase (ALT/SGPT) 18 U/L Total Bilirubin 0.2 MG/DL Sodium Level 142 MEQ/L Potassium Level 4.1 MEQ/L Chloride Level 107 MEQ/L Carbon Dioxide Level 28.8 MEQ/L Anion Gap 6 MEQ/L Estimat Glomerular Filtration Rate 101 ML/MIN Thyroid Stimulating Hormone 3rd Gen 0.856 uIU/ML Salicylates Level 4.6 MG/DL Acetaminophen Level LESS THAN 2.0 MCG/ML Ethyl Alcohol Level LESS THAN 3 MG/DL Urine Color YELLOW Urine Turbidity CLEAR Urine pH 7.0 Urine Specific [place] 1.023 Urine Protein NEG mg/dL Urine Glucose (UA) NEG mg/dL Urine Ketones NEG mg/dL Urine Occult Blood NEG Urine Nitrite NEG Urine Bilirubin NEG Urine Urobilinogen 2.0 MG/DL Urine Leukocyte Esterase NEG Urine RBC LESS THAN 1 /hpf Urine WBC LESS THAN 1 /hpf Urine Squamous Epithelial Cells 1 /hpf Microscopic Urinalysis Comment CULT NOT INDICATED Urine Opiates Screen NEG Urine Barbiturates Screen NEG Urine Amphetamines Screen NEG Urine Benzodiazepines Screen NEG Urine Cocaine Screen NEG Urine Cannabinoids Screen NEG MDM Medical Decision Making Medical Screen Exam Complete: Yes Emergency Medical Condition: Yes Interpretation(s) Laboratory Tests Test 06/15/17 17:05 06/15/17 17:30 White Blood Count 8.3 TH/MM3 Red Blood Count 3.99 MIL/MM3 Hemoglobin 12.3 GM/DL Hematocrit 36.9 % Mean Corpuscular Volume 92.4 FL Mean Corpuscular Hemoglobin 30.9 PG Mean Corpuscular Hemoglobin Concent 33.4 % Red Cell Distribution Width 15.4 % Platelet Count 230 TH/MM3 Mean Platelet Volume 8.1 FL Neutrophils (%) (Auto) 56.0 % Lymphocytes (%) (Auto) 31.7 % Monocytes (%) (Auto) 10.2 % Eosinophils (%) (Auto) 1.4 % Basophils (%) (Auto) 0.7 % Neutrophils # (Auto) 4.7 TH/MM3 Lymphocytes # (Auto) 2.6 TH/MM3 Monocytes # (Auto) 0.8 TH/MM3 Eosinophils # (Auto) 0.1 TH/MM3 Basophils # (Auto) 0.1 TH/MM3 CBC Comment DIFF FINAL Differential Comment Blood Urea Nitrogen 12 MG/DL Creatinine 0.86 MG/DL Random Glucose 76 MG/DL Total Protein 7.4 GM/DL Albumin 3.6 GM/DL Calcium Level 8.3 MG/DL Alkaline Phosphatase 82 U/L Aspartate Amino Transf (AST/SGOT) 17 U/L Alanine Aminotransferase (ALT/SGPT) 18 U/L Total Bilirubin 0.2 MG/DL Sodium Level 142 MEQ/L Potassium Level 4.1 MEQ/L Chloride Level 107 MEQ/L Carbon Dioxide Level 28.8 MEQ/L Anion Gap 6 MEQ/L Estimat Glomerular Filtration Rate 101 ML/MIN Thyroid Stimulating Hormone 3rd Gen 0.856 uIU/ML Salicylates Level 4.6 MG/DL Acetaminophen Level LESS THAN 2.0 MCG/ML Ethyl Alcohol Level LESS THAN 3 MG/DL Urine Color YELLOW Urine Turbidity CLEAR Urine pH 7.0 Urine Specific [place] 1.023 Urine Protein NEG mg/dL Urine Glucose (UA) NEG mg/dL Urine Ketones NEG mg/dL Urine Occult Blood NEG Urine Nitrite NEG Urine Bilirubin NEG Urine Urobilinogen 2.0 MG/DL Urine Leukocyte Esterase NEG Urine RBC LESS THAN 1 /hpf Urine WBC LESS THAN 1 /hpf Urine Squamous Epithelial Cells 1 /hpf Microscopic Urinalysis Comment CULT NOT INDICATED Urine Opiates Screen NEG Urine Barbiturates Screen NEG Urine Amphetamines Screen NEG Urine Benzodiazepines Screen NEG Urine Cocaine Screen NEG Urine Cannabinoids Screen NEG Vital Signs Date Time Temp Pulse Resp B/P (MAP) Pulse Ox O2 Delivery O2 Flow Rate FiO2 06/15/17 13:57 98.6 85 18 146/88 (107) 100 Differential Diagnosis Mood disorder versus metabolic abnormality versus psychosis versus schizophrenia versus other Narrative Course Patient is a 21-year-old female that presented to the emergency department voluntarily for psychiatric evaluation. Patient admittedly took 24 Coricidin tablets on Thursday and attempt to get high. She denies any suicidal homicidal ideations. Poison control was contacted by RN, please see her note. EKG shows normal sinus rhythm with a heart rate of 62. Labs reviewed, no acute findings identified. Patient is medically cleared for psychiatric evaluation at this time. Diagnosis Primary Impression: Medical clearance for psychiatric admission Additional Impression: Schizophrenia, paranoid type Condition: Stable Ivana Ventura Jun 15, 2017 17:11
[2017-06-15 17:19] LABS: AUTOMATED NEUTROPHIL # 4.7 TH/MM3 (1.8-7.7); BASOPHIL # 0.1 TH/MM3 (0-0.2); BASOPHIL % 0.7 % (0.0-2.0); EOSINOPHIL # 0.1 TH/MM3 (0-0.4); EOSINOPHIL % 1.4 % (0.0-4.0); HEMATOCRIT 36.9 % (35.0-46.0); HEMOGLOBIN 12.3 GM/DL (11.6-15.3); LYMPH % 31.7 % (9.0-44.0); LYMPHOCYTE # 2.6 TH/MM3 (1.0-4.8); MEAN CELL VOLUME 92.4 FL (80.0-100.0); MEAN CORPUSCULAR HEMOGLOBIN 30.9 PG (27.0-34.0); MEAN CORPUSCULAR HGB CONC 33.4 % (32.0-36.0); MEAN PLATELET VOLUME 8.1 FL (7.0-11.0); MONO % 10.2 % (0.0-8.0); MONOCYTE # 0.8 TH/MM3 (0-0.9); PLATELET COUNT 230 TH/MM3 (150-450); RED BLOOD COUNT 3.99 MIL/MM3 (4.00-5.30); RED CELL DISTRIBUTION WIDTH 15.4 % (11.6-17.2); WHITE BLOOD COUNT 8.3 TH/MM3 (4.0-11.0)
[2017-06-15 17:49] LABS: ALKALINE PHOSPHATASE 82 U/L (45-117); TOTAL BILIRUBIN ADULT 0.2 MG/DL (0.2-1.0); TOTAL PROTEIN 7.4 GM/DL (6.4-8.2)
[2017-06-15 17:51] LABS: ALBUMIN 3.6 GM/DL (3.4-5.0); ALT (GPT) 18 U/L (10-53); AST (GOT) 17 U/L (15-37); BICARBONATE 28.8 MEQ/L (21.0-32.0); BLOOD UREA NITROGEN 12 MG/DL (7-18); CALCIUM 8.3 MG/DL (8.5-10.1); CHLORIDE 107 MEQ/L (98-107); CREATININE 0.86 MG/DL (0.50-1.00); GLOMERULAR FILTRATION RATE 101 ML/MIN (>89); GLUCOSE,RANDOM 76 MG/DL (74-106); SODIUM (NA) 142 MEQ/L (136-145)
[2017-06-15 17:56] LABS: ACETAMINOPHEN LESS THAN 2.0 MCG/ML (10.0-30.0)
[2017-06-15 17:59] LABS: BILIRUBIN, URINE NEG (NEG); BLOOD, URINE NEG (NEG); GLUCOSE,URINE NEG (NEG); KETONE, URINE NEG (NEG); NITRITE,URINE NEG (NEG); SQUAMOUS EPITHELIAL CELL URINE 1 /hpf (0-5); URINE COLOR YELLOW (YELLW/STRAW); URINE LEUKOCYTE ESTERASE NEG (NEG)
[2017-06-15 19:06] VITALS: BP 119/78; PULSE 72; RESP 15
--- NOTE | 2017-06-16 04:52 | EKG ---
Date Performed: 06/15/2017 Time Performed: 17:14:42 PTAGE: 21 years EKG: Sinus rhythm NORMAL ECG No significant change from prior electrocardiogram. PREVIOUS TRACING : 02/12/2017 11.08 DOCTOR: Tray Nieves Interpretating Date/Time 06/17/2017 06:52:58
--- NOTE | 2017-06-16 12:42 | PD ---
Physical Exam Date Seen by Provider: Jun 16, 2017 Time Seen by Provider: 12:39 Narrative 21-year-old -[place] female with history of psychiatric disease, previously medically cleared for psychiatric evaluation voluntarily for being out of her Seroquel. Patient is treated through [facility], and also takes Invega IM. I am informed that the patient can give her refill on . She is requesting one dose, and she would like to go. She appears medically stable for discharge. Patient will follow-up with [facility] on as planned. Data Data Last Documented VS Vital Signs Date Time Temp Pulse Resp B/P (MAP) Pulse Ox O2 Delivery O2 Flow Rate FiO2 06/15/17 19:06 72 15 119/78 (92) 98 06/15/17 13:57 98.6 100 Orders Orders Complete Blood Count With Diff (06/15/17 13:59) Comprehensive Metabolic Panel (06/15/17 13:59) Thyroid Stimulating Hormone (06/15/17 13:59) Urinalysis - C+S If Indicated (06/15/17 13:59) Ed Urine Pregnancytest Poc (06/15/17 13:59) Psych Screen (06/15/17 13:59) Drug Screen, Random Urine (06/15/17 13:59) Alcohol (Ethanol) (06/15/17 13:59) Salicylates (Aspirin) (06/15/17 13:59) Tylenol (Acetaminophen) (06/15/17 13:59) Electrocardiogram (06/15/17 ) Call Poison Control (06/15/17 16:56) Olanzapine (Zyprexa) (06/15/17 22:45) Diet Regular Basic (06/16/17 Breakfast) Quetiapine (Seroquel) (06/16/17 12:45) Labs Laboratory Tests Test 06/15/17 17:05 06/15/17 17:30 White Blood Count 8.3 TH/MM3 Red Blood Count 3.99 MIL/MM3 Hemoglobin 12.3 GM/DL Hematocrit 36.9 % Mean Corpuscular Volume 92.4 FL Mean Corpuscular Hemoglobin 30.9 PG Mean Corpuscular Hemoglobin Concent 33.4 % Red Cell Distribution Width 15.4 % Platelet Count 230 TH/MM3 Mean Platelet Volume 8.1 FL Neutrophils (%) (Auto) 56.0 % Lymphocytes (%) (Auto) 31.7 % Monocytes (%) (Auto) 10.2 % Eosinophils (%) (Auto) 1.4 % Basophils (%) (Auto) 0.7 % Neutrophils # (Auto) 4.7 TH/MM3 Lymphocytes # (Auto) 2.6 TH/MM3 Monocytes # (Auto) 0.8 TH/MM3 Eosinophils # (Auto) 0.1 TH/MM3 Basophils # (Auto) 0.1 TH/MM3 CBC Comment DIFF FINAL Differential Comment Blood Urea Nitrogen 12 MG/DL Creatinine 0.86 MG/DL Random Glucose 76 MG/DL Total Protein 7.4 GM/DL Albumin 3.6 GM/DL Calcium Level 8.3 MG/DL Alkaline Phosphatase 82 U/L Aspartate Amino Transf (AST/SGOT) 17 U/L Alanine Aminotransferase (ALT/SGPT) 18 U/L Total Bilirubin 0.2 MG/DL Sodium Level 142 MEQ/L Potassium Level 4.1 MEQ/L Chloride Level 107 MEQ/L Carbon Dioxide Level 28.8 MEQ/L Anion Gap 6 MEQ/L Estimat Glomerular Filtration Rate 101 ML/MIN Thyroid Stimulating Hormone 3rd Gen 0.856 uIU/ML Salicylates Level 4.6 MG/DL Acetaminophen Level LESS THAN 2.0 MCG/ML Ethyl Alcohol Level LESS THAN 3 MG/DL Urine Color YELLOW Urine Turbidity CLEAR Urine pH 7.0 Urine Specific [place] 1.023 Urine Protein NEG mg/dL Urine Glucose (UA) NEG mg/dL Urine Ketones NEG mg/dL Urine Occult Blood NEG Urine Nitrite NEG Urine Bilirubin NEG Urine Urobilinogen 2.0 MG/DL Urine Leukocyte Esterase NEG Urine RBC LESS THAN 1 /hpf Urine WBC LESS THAN 1 /hpf Urine Squamous Epithelial Cells 1 /hpf Microscopic Urinalysis Comment CULT NOT INDICATED Urine Opiates Screen NEG Urine Barbiturates Screen NEG Urine Amphetamines Screen NEG Urine Benzodiazepines Screen NEG Urine Cocaine Screen NEG Urine Cannabinoids Screen NEG MDM Medical Record Reviewed: Yes Supervised Visit with LORENA: Yes Narrative Course Patient is given her Seroquel 300 mg dose p.o. now. 21-year-old -[place] female with history of psychiatric disease, previously medically cleared for psychiatric evaluation voluntarily for being out of her Seroquel. Patient is treated through [facility], and also takes Invega IM. I am informed that the patient can give her refill on . She is requesting one dose, and she would like to go. She appears medically stable for discharge. Patient will follow-up with [facility] on as planned. Diagnosis Primary Impression: Medical clearance for psychiatric admission Additional Impression: Schizophrenia, paranoid type Referrals: [facility] Patient Instructions: General Instructions Med/Other Pt SpecificInfo: No Change to Meds Disposition: 01 DISCHARGE HOME Condition: Stable Edward Velazquez Jun 16, 2017 12:42
[2017-06-16] MEDS ORDERED: QUEtiapine FUMARATE 300 MG TAB PO ONE (12:45)
== END 2017-06-16 13:46 | disposition home or self-care (01) ==
LOC: NEPD 13:00
DX: F20.0 Paranoid schizophrenia (principal); F31.9 Bipolar disorder, unspecified; Z72.0 Tobacco use; Z79.899 Other long term (current) drug therapy
CPT/HCPCS: 80053; 80307; 81001; 84443; 84703; 85025; 93005; 99284

== ENCOUNTER 2017-06-19 13:02 | Emergency (ER) | payer OTHER ==
[2017-06-19 13:06] VITALS: BP 126/80; PULSE 84; RESP 18; TEMP 97.8; O2SAT 100
[2017-06-19 14:15] VITALS: BP 151/90; PULSE 112; RESP 20; TEMP 97.6; O2SAT 99
--- NOTE | 2017-06-19 14:49 | PD ---
HPI Chief Complaint: Psychiatric Symptoms Time Seen by Provider: 14:28 Travel History International Travel<30 days: No Contact w/Intl Traveler<30days: No Traveled to known affect area: No History of Present Illness HPI Patient is a 21-year-old female presenting to the emergency department voluntarily for psychiatric evaluation. Patient states she is schizophrenic and the voices are telling her to come to the emergency department. She denies feeling suicidal but states she may get to that point because she is off her medicine. Patient states that she cannot get her medications filled until Thursday. She is currently on Seroquel and Zyprexa. She gets her [facility] . She has no complaints of pain, headache, abdominal pain, chest pain, shortness of breath. Symptom onset is chronic, symptoms are moderate in nature. Symptoms are exacerbated due to noncompliance of medication. PFSH Past Medical History Bipolar Disorder: Yes Depression: Yes Diminished Hearing: No Psychiatric: Yes (Schizophrenia, Schizoaffective Disorder, BiPolar Disorder) Immunizations Current: Yes Schizophrenia: Yes ?: Not LMP: last month : 0 Para: 0 Miscarriage: 0 : 0 Social History Alcohol Use: No Tobacco Use: Yes (Black and Milds) Substance Use: Yes (thc) Allergies-Medications (Allergen,Severity, Reaction): Coded Allergies: No Known Allergies (Unverified Allergy, Unknown, 03/10/17) Per pt. Reported Meds & Prescriptions Reported Meds & Active Scripts Active Invega Sustenna Inj (Paliperidone Palmitate) 156 Mg/Ml Inj 156 Mg IM Q28D This dose of Invega Sustenna is due on 06/10/2017. Olanzapine 15 Mg Tab 30 Mg PO HS 15 Days Review of Systems Except as stated in HPI: all other systems reviewed are Neg Psychiatric: Positive: Disorder of Thought, Mood Disorder Physical Exam Narrative GENERAL: Well-developed, well-nourished, alert -[place] female. Presenting in no acute distress. SKIN: Warm and dry. HEAD: Atraumatic. Normocephalic. EYES: Pupils equal and round. No scleral icterus. No injection or drainage. ENT: No nasal bleeding or discharge. Mucous membranes pink and moist. NECK: Trachea midline. No JVD. CARDIOVASCULAR: Regular rate and rhythm. RESPIRATORY: No accessory muscle use. Clear to auscultation. Breath sounds equal bilaterally. GASTROINTESTINAL: Abdomen soft, non-tender, nondistended. Hepatic and splenic margins not palpable. MUSCULOSKELETAL: Extremities without clubbing, cyanosis, or edema. No obvious deformities. NEUROLOGICAL: Awake and alert. No obvious cranial nerve deficits. Motor grossly within normal limits. Five out of 5 muscle strength in the arms and legs. Normal speech. PSYCHIATRIC: Appropriate mood and affect; insight and judgment normal. Appears to be responding to internal stimuli. Data Data Last Documented VS Vital Signs Date Time Temp Pulse Resp B/P (MAP) Pulse Ox O2 Delivery O2 Flow Rate FiO2 06/19/17 13:06 97.8 84 18 126/80 (95) 100 [facility] Medical Decision Making Medical Screen Exam Complete: Yes Emergency Medical Condition: Yes Medical Record Reviewed: Yes Interpretation(s) Vital Signs Date Time Temp Pulse Resp B/P (MAP) Pulse Ox O2 Delivery O2 Flow Rate FiO2 06/19/17 13:06 97.8 84 18 126/80 (95) 100 Differential Diagnosis Mood disorder versus psychosis versus metabolic abnormality versus noncompliance versus schizophrenia versus other Narrative Course Patient is a 21-year-old female presented voluntarily for psychiatric evaluation. Patient's vital signs are stable. She is well-appearing, well- kept. Mental health screening discussed with the patient. Psychiatric screen ordered. Patient was seen and evaluated emergency department on 06/15/17, labs reviewed from that visit. Patient is medically cleared for psychiatric evaluation. Diagnosis Primary Impression: Medical clearance for psychiatric admission Condition: Stable Lorenzo,Isabel STEREOTYPER Jun 19, 2017 14:49
[2017-06-19] MEDS ORDERED: OLAN15TA PO (16:32)
--- NOTE | 2017-06-19 17:23 | PD ---
Physical Exam Date Seen by Provider: Jun 19, 2017 Time Seen by Provider: 17:18 Narrative For full H&P please see previous note. Data Data Last Documented VS Vital Signs Date Time Temp Pulse Resp B/P (MAP) Pulse Ox O2 Delivery O2 Flow Rate FiO2 06/19/17 14:15 97.6 112 20 151/90 (110) 99 Room Air Orders Orders Olanzapine (Zyprexa) (06/19/17 17:30) MDM Medical Record Reviewed: Yes Supervised Visit with LORENA: No Interpretation(s) Vital Signs Date Time Temp Pulse Resp B/P (MAP) Pulse Ox O2 Delivery O2 Flow Rate FiO2 06/19/17 14:15 97.6 112 20 151/90 (110) 99 Room Air 06/19/17 13:06 97.8 84 18 126/80 (95) 100 Narrative Course Patient presented voluntarily to the emergency department for psychiatric evaluation due to being out of her medications. Medical records reviewed from previous visit. Patient was evaluated by the psychiatric screener. Patient has no suicidal homicidal ideations. She will be given dose of olanzapine now. She was given a written prescription by Yuan WALKER for 1 week's worth of medication until she can get her medications filled at [facility]. Patient was encouraged to return to emergency department any new worsening symptoms. She is advised to follow-up with [facility]. Patient stable for discharge. Diagnosis Primary Impression: Schizoaffective disorder, bipolar type Referrals: [facility] 2 days Patient Instructions: General Instructions Additional Instruction: Follow-up with [facility] to have your medications refilled Return to emergency department for any new or worsening symptoms Med/Other Pt SpecificInfo: Prescription(s) given Scripts Olanzapine (Olanzapine) 15 Mg Tab 30 MG PO HS for Mental Health for 7 Days, #14 TAB 1 Refill Prov: Jessica Franco 06/19/17 Disposition: 01 DISCHARGE HOME Condition: Stable Ivana Ventura Jun 19, 2017 17:23
[2017-06-19 18:04] VITALS: BP 142/82; PULSE 110; RESP 18; TEMP 98.5; O2SAT 99
== END 2017-06-19 18:15 | disposition home or self-care (01) ==
LOC: NEPJ 13:02
DX: F25.0 Schizoaffective disorder, bipolar type (principal); Z91.14 Patient's other noncompliance with medication regimen; Z72.0 Tobacco use; F12.90 Cannabis use, unspecified, uncomplicated
CPT/HCPCS: 99283

== ENCOUNTER 2017-06-21 17:43 | Emergency (ER) | payer OTHER ==
[~2017-06-21] VITALS: Ht 175.3 cm; Wt 100.0 kg
[2017-06-21 17:50] VITALS: BP 134/84; PULSE 100; RESP 18; TEMP 98.1; O2SAT 100
[2017-06-21 18:32] VITALS: BP 170/95; PULSE 101; RESP 16; TEMP 97.9; O2SAT 98
--- NOTE | 2017-06-21 19:31 | PD ---
HPI Chief Complaint: Psychiatric Symptoms Time Seen by Provider: 19:13 Travel History International Travel<30 days: No Contact w/Intl Traveler<30days: No Traveled to known affect area: No History of Present Illness HPI 21-year-old female presents to the ED for evaluation of both her psych eval. Patient states that she feels suicidal. She has a history of schizophrenia and takes medications for this. Per patient she is still hearing voices and they are telling her to kill herself. Per patient she will take all her meds. She denies any homicidal ideation. She states that she does smoke drugs. Per patient she is marijuana. Denies any injectables. She denies any medical issues at this time other than hypothyroidism and states that she has not taken medication for this. States that his symptoms have been worsening for the past couple days. She has been here multiple times in the past for similar. Has been admitted multiple times for embolization of her schizophrenia. She is concerned that she is now on the right medications at this time. She has no allergies to medication. No other medical issues. PFSH Past Medical History Bipolar Disorder: Yes Depression: Yes Diminished Hearing: No Endocrine: No Gastrointestinal Disorders: No Genitourinary: No Immune Disorder: No Implanted Vascular Access Dvce: No Musculoskeletal: No Neurologic: No Psychiatric: Yes (Schizophrenia, Schizoaffective Disorder, BiPolar Disorder) Immunizations Current: Yes Schizophrenia: Yes Thyroid Disease: Yes (hyperthyroidism) ?: Not : 0 Para: 0 Miscarriage: 0 : 0 Social History Alcohol Use: No Tobacco Use: Yes (Black and Milds) Substance Use: Yes (thc) Allergies-Medications (Allergen,Severity, Reaction): Coded Allergies: No Known Allergies (Unverified Allergy, Unknown, 03/10/17) Per pt. Reported Meds & Prescriptions Reported Meds & Active Scripts Active Olanzapine 15 Mg Tab 30 Mg PO HS 7 Days Invega Sustenna Inj (Paliperidone Palmitate) 156 Mg/Ml Inj 156 Mg IM Q28D This dose of Invega Sustenna is due on 06/10/2017. Review of Systems Except as stated in HPI: all other systems reviewed are Neg Physical Exam Narrative GENERAL: SKIN: Warm and dry. HEAD: Atraumatic. Normocephalic. EYES: Pupils equal and round. No scleral icterus. No injection or drainage. ENT: No nasal bleeding or discharge. Mucous membranes pink and moist. Tongue is midline. No uvula deviation. NECK: Trachea midline. No JVD. CARDIOVASCULAR: Regular rate and rhythm. No murmurs, S3, S4. RESPIRATORY: No accessory muscle use. Clear to auscultation. Breath sounds equal bilaterally. GASTROINTESTINAL: Abdomen soft, non-tender, nondistended. Hepatic and splenic margins not palpable. MUSCULOSKELETAL: Extremities without clubbing, cyanosis, or edema. No obvious deformities. Full range of motion of the upper and lower extremities bilaterally. 2+ pulses bilaterally. NEUROLOGICAL: Awake and alert. No obvious cranial nerve deficits. Motor grossly within normal limits. Five out of 5 muscle strength in the arms and legs. Normal speech. PSYCHIATRIC: Appropriate mood and affect; insight and judgment normal. Data Data Last Documented VS Vital Signs Date Time Temp Pulse Resp B/P (MAP) Pulse Ox O2 Delivery O2 Flow Rate FiO2 06/21/17 18:32 97.9 101 16 170/95 (120) 98 Room Air Orders Orders Psych Screen (06/21/17 19:13) Drug Screen, Random Urine (06/21/17 19:13) MDM Medical Decision Making Medical Screen Exam Complete: Yes Emergency Medical Condition: Yes Medical Record Reviewed: Yes Differential Diagnosis Depression versus suicidal ideation versus anxiety versus adjustment disorder versus mood disorder versus bipolar disorder versus schizophrenia versus paranoid disorder versus psychosis versus substance abuse versus alcohol abuse versus alcohol induced psychosis versus homicidality addition versus cutting versus personality disorder Narrative Course 21-year-old female that presents to the ED for evaluation of psychiatric illness. No significant medical distress. Reviewed patient's medical records and she had blood work on the ninth of this month. All was normal. Drug screen ordered. patient will be medically cleared. Okay to be seen by psych. Mental health screening was discussed with the patient. Diagnosis Primary Impression: Schizophrenia, paranoid type Mayur Zhang Jun 21, 2017 19:31
[2017-06-21] MEDS ORDERED: OLANZapine 10 MG TAB PO SCH (21:00)
[2017-06-21 23:06] VITALS: BP 124/59; PULSE 76; RESP 18; TEMP 98; O2SAT 98
[2017-06-22 02:16] VITALS: BP 96/53; PULSE 78; RESP 16; TEMP 98.2; O2SAT 98
[2017-06-22 06:52] VITALS: BP 135/81; PULSE 58; RESP 18; TEMP 98.2; O2SAT 99
[2017-06-22 09:55] VITALS: BP 135/81; PULSE 58; RESP 18; TEMP 98.2; O2SAT 99
--- NOTE | 2017-06-22 10:54 | PD.PSY.CON ---
Provisional Diagnosis Admission Date Date of consultation 06/22/2017 Lupton I. 1. Schizoaffective disorder, bipolar type Lupton II. Deferred History of Present Illness Service Psychiatry Consult Requested By Emergency department Reason for Consult Voluntary psychiatric evaluation Primary Care Physician No Primary Care Physician HPI Ms. Rios is a 21-year-old female with a history of schizoaffective disorder who presented to the emergency department voluntarily complaining of command auditory hallucinations to self injure. Patient is well-known to the psychiatric service here, and in reviewing the electronic medical record I note the patient presented to the emergency department 3 days ago for psychiatric complaints. Patient seen and examined. Chart reviewed. Case discussed with nursing staff. There has been no evidence of any suicidality or homicidality while the patient has been under observation in the J pod. Nurse does note that the patient urinated on the floor yesterday evening and then denied having done so. No other behavioral disturbance reported by nursing. On my examination this morning, the patient is calm and cooperative. She says "I was hearing voices yesterday. I know if I get out today, I can get my meds from [facility]." She notes that she has been without her psychotropic medications for a week and a half. She says that her auditory hallucinations are improved today. She denies any command auditory hallucinations. She says "I am not hearing suicidal voices, just noises." She does not report any other hallucinatory material. She denies any suicidal or homicidal ideation, intent or plan on direct questioning and contracts for safety. Mood is "happy" and I can elicit no depressive or hypomanic/manic symptoms except that the patient notes that her sleep has been somewhat poor since she has been off of her medications, which include Seroquel. I can elicit no delusional material. The remainder of the psychiatric ROS is negative. The patient has no acute physical complaints. She is requesting discharge from the emergency room this morning and is presently voluntary. I have obtained collateral information from the patient's outpatient case fitter, Andrew Kraus. At my request he has come this morning to evaluate the patient in the J-Pod. He notes that the patient is actually doing fairly well, relative to her chronic baseline, and Mr. Kraus does not feel that inpatient psychiatric hospitalization is needed at this juncture. He will assist the patient in getting back on medications and following closely with outpatient provider. Past psychiatric history: Patient has a history of schizoaffective disorder. She follows at [facility]. She denies any recent psychiatric admissions or suicide attempts. She was admitted last month under my care to the inpatient unit. Family history: The patient reports that her maternal grandmother had bipolar disorder/schizophrenia. She denies any family history of suicide. Chemical dependency history: The patient denies any abuse of drugs or alcohol. Social history: The patient lives with her mother. She has 9th grade education. She has received Medicaid benefits, she says but is still awaiting disability benefits. She has no income presently. She denies any legal troubles. Denies any access to guns or firearms. She is a Restorationist. She is single with no children. Review of Systems Except as stated in HPI: all other systems reviewed are Neg Past Family Social History Coded Allergies: No Known Allergies (Unverified Allergy, Unknown, 03/10/17) Per pt. Past Medical History See electronic medical record Active Scripts Olanzapine (Olanzapine) 15 Mg Tab, 30 MG PO HS for Mental Health for 7 Days, # 14 TAB 1 Refill Prov:Jessica Franco 06/19/17 Paliperidone Palmitate Inj (Invega Sustenna Inj) 156 Mg/Ml Inj, 156 MG IM Q28D for Mental Health, #1 VIAL 0 Refills This dose of Invega Sustenna is due on 06/10/2017. Prov:Blaine Benedict MD 05/18/17 Patient's Strengths (min. 2) Attending to basic needs. Verbally fluent. Physical Exam Physical examination was completed by ED provider. On my examination today, the patient appears to be in no acute physical distress. No motoric abnormalities are noted. Laboratories and vital signs reviewed: Vital Signs Vital Signs Date Time Temp Pulse Resp B/P (MAP) Pulse Ox O2 Delivery O2 Flow Rate FiO2 06/22/17 09:55 98.2 58 18 135/81 (99) 99 06/22/17 06:52 Room Air Lab Results Test 06/21/17 20:05 Urine Opiates Screen NEG Urine Barbiturates Screen NEG Urine Amphetamines Screen NEG Urine Benzodiazepines Screen NEG Urine Cocaine Screen NEG Urine Cannabinoids Screen NEG Mental Status Examination Appearance: Other (Fair grooming and hygiene.) Consciousness: Alert Orientation: x4 Motor Activity: Other (No motor abnormalities noted) Speech: Unremarkable Language: Adequate Fund of Knowledge: Adequate Attention and Concentration: Adequate Memory: Unremarkable Mood: Appropriate Affect: Appropriate Thought Process & Associations: Intact, Logical, Linear Thought Content: Hallucinations Hallucination Type: Auditory (Noncommand, improved) Delusion Type: None Suicidal Ideation: No Suicidal Plan: No Suicidal Intention: No Homicidal Ideation: No Homicidal Plan: No Homicidal Intention: No Mental Status Exam Remarks Insight and judgment are chronically fair to poor Assessment & Plan Problem List: (1) Schizoaffective disorder, bipolar type ICD Codes: F25.0 - Schizoaffective disorder, bipolar type Assessment & Plan 21-year-old female with psychiatric history as detailed above who presents voluntarily for psychiatric evaluation. On my examination this morning, the patient reports that she feels that her psychiatric symptoms are improved and is requesting discharge from the emergency room today. She presently denies suicidal or homicidal ideation. She reports some ongoing auditory hallucinations, but these are noncommand at present. There is no evidence of severe self-care deficit. Collateral from patient's outpatient case fitter indicates that the patient is at or near her chronic baseline, and case fitter does not feel that the patient requires psychiatric hospitalization at this time. I concur. The patient does not meet the Wood act criteria based on the available evidence. She is requesting discharge from the ER this morning, and I have no basis to retain her over her objection. Patient will be discharged into case fitter's care today. I recommend outpatient psychiatric follow-up. I have reminded the patient to return to the psychiatric emergency room for any concerning psychiatric symptoms as part of a general safety plan. Patient is psychiatrically clear for discharge from the ED. Thank you very much for this consultation. Blaine Benedict MD Jun 22, 2017 10:54
--- NOTE | 2017-06-22 12:27 | PD ---
Physical Exam Time Seen by Provider: 12:[address] Mohamud has evaluated the patient and cleared the patient for discharge. The patient's patient case coordinator is here from [facility] and is taking her home and will continue to follow her outpatient. Data Data Last Documented VS Vital Signs Date Time Temp Pulse Resp B/P (MAP) Pulse Ox O2 Delivery O2 Flow Rate FiO2 06/22/17 09:55 98.2 58 18 135/81 (99) 99 06/22/17 06:52 Room Air Orders Orders Psych Screen (06/21/17 19:13) Drug Screen, Random Urine (06/21/17 19:13) Olanzapine (Zyprexa) (06/21/17 21:00) Diet Regular Basic (06/22/17 Breakfast) Labs Laboratory Tests Test 06/21/17 20:05 Urine Opiates Screen NEG Urine Barbiturates Screen NEG Urine Amphetamines Screen NEG Urine Benzodiazepines Screen NEG Urine Cocaine Screen NEG Urine Cannabinoids Screen NEG MDM Supervised Visit with LORENA: No Narrative Course Dr. Mohamud has evaluated the patient and cleared the patient for discharge. The patient's patient case coordinator is here from [facility] and is taking her home and will continue to follow her outpatient. Patient contracts safety. Denies suicidal or homicidal ideations. Patient will be provided community resource packet to [facility] for follow-up. Has friends and family for support. Patient was medically cleared by alternate provider prior to psych screening. Patient has been evaluated by psychiatry and and is now cleared for discharge. Diagnosis Primary Impression: Schizophrenia, paranoid type Referrals: [facility] (Out patient) [facility] Primary Care Physician Psychiatrist Vickie [facility] Patient Instructions: General Instructions, Schizophrenia (ED) Additional Instruction: Contract safety to your self and others Follow-up with psychiatry Follow-up with primary care provider Follow-up with Kaushik Soto Return to the emergency department immediately with worsening of symptoms Med/Other Pt SpecificInfo: No Change to Meds, No Meds Exist/No RX given Disposition: 01 DISCHARGE HOME Condition: Stable Ida Yu Jun 22, 2017 12:27
== END 2017-06-22 13:17 | disposition home or self-care (01) ==
LOC: NEPJ 17:43
DX: F20.0 Paranoid schizophrenia (principal); F31.9 Bipolar disorder, unspecified; E03.9 Hypothyroidism, unspecified
CPT/HCPCS: 80307; 99284

== ENCOUNTER 2017-07-15 20:23 | Emergency (ER) | payer OTHER ==
[~2017-07-15] VITALS: Ht 175.3 cm; Wt 100.0 kg
[2017-07-15 21:34] VITALS: BP 122/83; PULSE 110; RESP 17; TEMP 97.7; O2SAT 100
--- NOTE | 2017-07-15 23:35 | PD ---
HPI Chief Complaint: Psychiatric Symptoms Time Seen by Provider: 23:20 Travel History International Travel<30 days: No Contact w/Intl Traveler<30days: No Traveled to known affect area: No History of Present Illness HPI 21yo F with PMH of paranoid schizophrenia presents to the ED with c/o hearing voices that is telling her to hurt herself. Said she did have thoughts of hurting herself earlier today. Denies taking any pills or having a plan. Denies any fever, chest pain, sob, n/v, abdominal pain, focal weakness or numbness. Denies any fall or trauma. PFSH Past Medical History Bipolar Disorder: Yes Anxiety: No Depression: Yes Diabetes: No Diminished Hearing: No Endocrine: No Gastrointestinal Disorders: No Genitourinary: No Headaches: Yes Immune Disorder: No Implanted Vascular Access Dvce: No Musculoskeletal: No Neurologic: No Psychiatric: Yes (Schizophrenia, Schizoaffective Disorder, BiPolar Disorder) Immunizations Current: Yes Schizophrenia: Yes Thyroid Disease: Yes (hyperthyroidism) ?: Unknown LMP: 07/01/17 : 0 Para: 0 Miscarriage: 0 : 0 Past Surgical History Surgical History: No Previous Surgery Other Surgery: No Social History Alcohol Use: No Tobacco Use: Yes (Black and Milds) Substance Use: No (IN THE PAST) Allergies-Medications (Allergen,Severity, Reaction): Coded Allergies: No Known Allergies (Unverified Allergy, Unknown, 03/10/17) Per pt. Reported Meds & Prescriptions Reported Meds & Active Scripts Active Olanzapine 15 Mg Tab 30 Mg PO HS 7 Days Invega Sustenna Inj (Paliperidone Palmitate) 156 Mg/Ml Inj 156 Mg IM Q28D This dose of Invega Sustenna is due on 06/10/2017. Review of Systems Except as stated in HPI: all other systems reviewed are Neg Physical Exam Narrative GENERAL: 21yo F not in distress. +leaves in hair. SKIN: Focused skin assessment warm/dry. HEAD: Atraumatic. Normocephalic. EYES: Pupils equal and round. No scleral icterus. No injection or drainage. ENT: No nasal bleeding or discharge. Mucous membranes pink and moist. NECK: Trachea midline. No JVD. CARDIOVASCULAR: Regular rate and rhythm. No murmur appreciated. RESPIRATORY: No accessory muscle use. Clear to auscultation. Breath sounds equal bilaterally. GASTROINTESTINAL: Abdomen soft, non-tender, nondistended. MUSCULOSKELETAL: No obvious deformities. No clubbing. No cyanosis. No edema. NEUROLOGICAL: Awake and alert. No obvious cranial nerve deficits. Motor grossly within normal limits in all extremities. Sensation equal. Normal speech. PSYCHIATRIC: Inappropriate mood and affect; poor insight and judgment. Data Data Last Documented VS Vital Signs Date Time Temp Pulse Resp B/P (MAP) Pulse Ox O2 Delivery O2 Flow Rate FiO2 07/15/17 23:36 98.5 89 16 126/75 (92) 99 Room Air Orders Orders Complete Blood Count With Diff (07/15/17 23:25) Drug Screen, Random Urine (07/15/17 23:25) Ed Urine Pregnancytest Poc (07/15/17 23:25) Psych Screen (07/15/17 23:25) Tylenol (Acetaminophen) (07/15/17 23:25) Salicylates (Aspirin) (07/15/17 23:25) Comprehensive Metabolic Panel (07/15/17 23:25) Labs Laboratory Tests Test 07/15/17 23:45 White Blood Count 12.1 TH/MM3 Red Blood Count 3.92 MIL/MM3 Hemoglobin 12.0 GM/DL Hematocrit 35.3 % Mean Corpuscular Volume 90.1 FL Mean Corpuscular Hemoglobin 30.6 PG Mean Corpuscular Hemoglobin Concent 33.9 % Red Cell Distribution Width 14.3 % Platelet Count 287 TH/MM3 Mean Platelet Volume 7.7 FL Neutrophils (%) (Auto) 49.5 % Lymphocytes (%) (Auto) 38.6 % Monocytes (%) (Auto) 8.8 % Eosinophils (%) (Auto) 2.6 % Basophils (%) (Auto) 0.5 % Neutrophils # (Auto) 6.0 TH/MM3 Lymphocytes # (Auto) 4.7 TH/MM3 Monocytes # (Auto) 1.1 TH/MM3 Eosinophils # (Auto) 0.3 TH/MM3 Basophils # (Auto) 0.1 TH/MM3 CBC Comment DIFF FINAL Differential Comment Blood Urea Nitrogen 12 MG/DL Creatinine 0.90 MG/DL Random Glucose 96 MG/DL Total Protein 7.5 GM/DL Albumin 3.8 GM/DL Calcium Level 8.6 MG/DL Alkaline Phosphatase 94 U/L Aspartate Amino Transf (AST/SGOT) 14 U/L Alanine Aminotransferase (ALT/SGPT) 13 U/L Total Bilirubin 0.3 MG/DL Sodium Level 140 MEQ/L Potassium Level 3.8 MEQ/L Chloride Level 106 MEQ/L Carbon Dioxide Level 28.1 MEQ/L Anion Gap 6 MEQ/L Estimat Glomerular Filtration Rate 96 ML/MIN Salicylates Level 4.7 MG/DL Urine Opiates Screen NEG Acetaminophen Level LESS THAN 2.0 MCG/ML Urine Barbiturates Screen NEG Urine Amphetamines Screen POS Urine Benzodiazepines Screen NEG Urine Cocaine Screen POS Urine Cannabinoids Screen NEG MDM Medical Decision Making Medical Screen Exam Complete: Yes Emergency Medical Condition: Yes Differential Diagnosis Schizophrenia Narrative Course 21yo F with schizophrenia here stating she hears voices that tell her to tell herself. Pt does appear paranoid. Labs reviewed, WBC 12.1. H/H normal. CMP unremarkable. Utox showed positive amphetamine, and cocaine. Negative acetaminophen. Urine negative. Pt is medically clear for psych evaluation. Diagnosis Primary Impression: Schizophrenia, paranoid type Sabrina Goldman DO July 15, 2017 23:35
[2017-07-15 23:36] VITALS: BP 126/75; PULSE 89; RESP 16; TEMP 98.5; O2SAT 99
[2017-07-15 23:56] LABS: BASOPHIL # 0.1 TH/MM3 (0-0.2); BASOPHIL % 0.5 % (0.0-2.0); EOSINOPHIL # 0.3 TH/MM3 (0-0.4); EOSINOPHIL % 2.6 % (0.0-4.0); HEMATOCRIT 35.3 % (35.0-46.0); LYMPH % 38.6 % (9.0-44.0); LYMPHOCYTE # 4.7 TH/MM3 (1.0-4.8); MEAN CELL VOLUME 90.1 FL (80.0-100.0); MEAN CORPUSCULAR HEMOGLOBIN 30.6 PG (27.0-34.0); MEAN CORPUSCULAR HGB CONC 33.9 % (32.0-36.0); MEAN PLATELET VOLUME 7.7 FL (7.0-11.0); MONO % 8.8 % (0.0-8.0); MONOCYTE # 1.1 TH/MM3 (0-0.9); NEUT % 49.5 % (16.0-70.0); PLATELET COUNT 287 TH/MM3 (150-450); RED BLOOD COUNT 3.92 MIL/MM3 (4.00-5.30); RED CELL DISTRIBUTION WIDTH 14.3 % (11.6-17.2); WHITE BLOOD COUNT 12.1 TH/MM3 (4.0-11.0)
[2017-07-16 00:13] LABS: ALBUMIN 3.8 GM/DL (3.4-5.0); ALT (GPT) 13 U/L (10-53); AST (GOT) 14 U/L (15-37); BICARBONATE 28.1 MEQ/L (21.0-32.0); BLOOD UREA NITROGEN 12 MG/DL (7-18); CALCIUM 8.6 MG/DL (8.5-10.1); CHLORIDE 106 MEQ/L (98-107); GLOMERULAR FILTRATION RATE 96 ML/MIN (>89); GLUCOSE,RANDOM 96 MG/DL (74-106); SODIUM (NA) 140 MEQ/L (136-145)
[2017-07-16 00:15] LABS: ALKALINE PHOSPHATASE 94 U/L (45-117); TOTAL BILIRUBIN ADULT 0.3 MG/DL (0.2-1.0); TOTAL PROTEIN 7.5 GM/DL (6.4-8.2)
[2017-07-16 00:16] LABS: ACETAMINOPHEN LESS THAN 2.0 MCG/ML (10.0-30.0)
[2017-07-16 02:15] VITALS: BP 125/68; PULSE 95; RESP 18; TEMP 97.6; O2SAT 98
[2017-07-16 06:28] VITALS: BP 119/72; PULSE 118; RESP 20; TEMP 98.4; O2SAT 97
[2017-07-16 11:24] VITALS: BP 112/60; PULSE 104; RESP 20; O2SAT 99
[2017-07-16 17:33] VITALS: BP 122/79; PULSE 97; RESP 18; O2SAT 99
[2017-07-17 00:11] VITALS: BP 128/67; PULSE 76; RESP 16; O2SAT 98
[2017-07-17 06:16] VITALS: BP 141/81; PULSE 71; RESP 18; O2SAT 98
--- NOTE | 2017-07-17 10:13 | PD ---
History of Present Illness Chief Complaint: Psychiatric Symptoms Time Seen by Provider: 10:45 Travel History International Travel<30 Days: No Contact w/Intl Traveler<30days: No Known affected area: No Legal Status Legal Status: Involuntary Wood Act Signed By: Bernarda Wood Act Comment: CERTIFICATE OF PROFESSIONAL INITIATING INVOLUNTARY EXAMINATION07/15/17@2330 History of Present Illness: History of Present Illness HPI 21 y o , single female, lives with her mother with PMH of schizophrenia who presents to the ED with c/o hearing voices telling her to hurt herself in context of an argument with her mother over her mother borrowing her pants. Patient said she had increase in voices and therefore her mother called the police after the patient threw a pot against a wall. Patient is seen. There has been no evidence of any suicidality or homicidality while the patient has been under observation in the J pod. No other behavioral disturbance reported by nursing. On my examination this morning, the patient is calm and cooperative. Alert and oriented. Does not appear to be responding to internal stimuli. No evidence of any psychosis, ap, paranoia. Denies feeling depressed. She says "I was hearing voices yesterday but I hear them al the time. They are telling me to stay calm". Denies current suicidal or homicidal ideation, intent or plan. Remainder of psychiatric review of system is negative. Case discussed with nurses. Case discussed with machine adjuster leader case trim Edward who verifies that patient was seen at [facility] on July 14 and received Invega Sustenna as well as increase in Seroquel. She will be able to shredder picker the increase in the Seroquel on Thursday. I spoke with her [facility] case Andrew pinon who has no concerns if she is discharged and sates that this has been her coping behavior, either take extra Seroquel or come to the hospital. PFSH Past Medical History Bipolar Disorder: Yes Anxiety: No Depression: Yes Diabetes: No Diminished Hearing: No Endocrine: No Gastrointestinal Disorders: No Genitourinary: No Headaches: Yes Immune Disorder: No Implanted Vascular Access Dvce: No Musculoskeletal: No Neurologic: No Psychiatric: Yes (Schizophrenia, Schizoaffective Disorder, BiPolar Disorder) Immunizations Current: Yes Schizophrenia: Yes Thyroid Disease: Yes (hyperthyroidism) ?: Unknown LMP: 07/01/17 : 0 Para: 0 Miscarriage: 0 : 0 Past Surgical History Surgical History: No Previous Surgery Other Surgery: No Psychiatric History Psychiatric History Hx Psychiatric Treatment: History of schizophrenia, bipolar disorder. Has had several admissions to our inpatient psychiatric unit last admission in May 2017. Is followed by Manish at [facility] for outpatient treatment. 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 Lives with her mother. Completed ninth grade. Unemployed. Hx Alcohol Use: No Hx Tobacco Use: Yes (Black and Milds) Hx Substance Use: No (IN THE PAST) Substance Use Type: Cocaine Other Substances Used: Patient states that she does cocaine Hx of Substance Use Treatment: Yes Family Psychiatric History Mother with reported bipolar disorder Allergies-Medications (Allergen,Severity, Reaction): Coded Allergies: No Known Allergies (Unverified Allergy, Unknown, 03/10/17) Per pt. Reported Meds & Prescriptions Reported Meds & Active Scripts Active Olanzapine 15 Mg Tab 30 Mg PO HS 7 Days Invega Sustenna Inj (Paliperidone Palmitate) 156 Mg/Ml Inj 156 Mg IM Q28D This dose of Invega Sustenna is due on 06/10/2017. Review of Systems Psychiatric: COMPLAINS OF: Hallucinations Except as stated in HPI: all other systems reviewed are Neg Mental Status Examination Appearance: Disheveled Consciousness: Alert Orientation: x4 Motor Activity: Normal gait Speech: Unremarkable Language: Adequate Fund of Knowledge: Adequate Attention and Concentration: Adequate Memory: Unremarkable Mood: Appropriate Affect: Blunt Thought Process & Associations: Intact, Logical, Goal directed Thought Content: Hallucinations Hallucination Type: Auditory ('Tell me to relax") Delusion Type: None Suicidal Ideation: No Suicidal Plan: No Suicidal Intention: No Homicidal Ideation: No Homicidal Plan: No Homicidal Intention: No Insight: Fair Judgment: Impulsive MDM Medical Decision Making Medical Record Reviewed: Yes Assessment/Plan 21 y o , single female with PMH of schizophrenia who presents to the ED with c/o hearing voices telling her to hurt herself in context of an argument with her mother over her mother borrowing her pants. Said she did have thoughts of hurting herself yesterday. Patient was monitor and secure environment and presented no behavioral concerns and no suicidality. This morning she is denying any command type hallucinations. He tells me that the voices are now telling her to relax. She is willing to continue follow -up at [facility] and we have contacted her machine adjuster leader case trim who has no concerns if she were to be discharged. He reports he spoke with her yesterday. At this time the patient does not meet criteria to remain under the Wood act. She is advised to follow up with [facility]. BA is lifted. Psychiatrically clear for discharge from ED. Orders Orders Olanzapine (Zyprexa) (07/16/17 21:00) Diet Regular Basic (07/17/17 Breakfast) Diet Regular Basic (07/17/17 Lunch) Results Vital Signs Date Time Temp Pulse Resp B/P (MAP) Pulse Ox O2 Delivery O2 Flow Rate FiO2 07/17/17 06:16 71 18 141/81 (101) 98 Room Air 07/17/17 00:11 76 16 128/67 (87) 98 Room Air 07/16/17 17:33 97 18 122/79 (93) 99 Room Air 07/16/17 11:24 104 20 112/60 (77) 99 Room Air Diagnosis Primary Impression: Schizophrenia, undifferentiated, acute episode Psychiatrically Cleared: Yes Med/ Other Pt Specific Info: No Change to Meds Disposition: 01 DISCHARGE HOME Condition: Stable CabreraLea starkeydys Gracia Richard WALKER July 17, 2017 10:13
--- NOTE | 2017-07-17 12:36 | PD ---
Physical Exam Date Seen by Provider: July 17, 2017 Time Seen by Provider: 12:34 Narrative 21-year-old female previously Wood acted with signs of schizophrenia, was medically cleared for psychiatric evaluation. Patient has been seen and evaluated by psychiatric staff and deemed to be psychiatrically stable for discharge at this time. Patient remains medically stable for discharge. Follow -up will be based on psychiatric note Data Data Last Documented VS Vital Signs Date Time Temp Pulse Resp B/P (MAP) Pulse Ox O2 Delivery O2 Flow Rate FiO2 07/17/17 06:16 71 18 141/81 (101) 98 Room Air 07/16/17 06:28 98.4 Orders Orders Complete Blood Count With Diff (07/15/17 23:25) Drug Screen, Random Urine (07/15/17 23:25) Ed Urine Pregnancytest Poc (07/15/17 23:25) Psych Screen (07/15/17 23:25) Tylenol (Acetaminophen) (07/15/17 23:25) Salicylates (Aspirin) (07/15/17 23:25) Comprehensive Metabolic Panel (07/15/17 23:25) Diet Regular Basic (07/16/17 Breakfast) Diet Regular Basic (07/16/17 Lunch) Olanzapine (Zyprexa) (07/16/17 21:00) Diet Regular Basic (07/17/17 Breakfast) Diet Regular Basic (07/17/17 Lunch) Labs Laboratory Tests Test 07/15/17 23:45 White Blood Count 12.1 TH/MM3 Red Blood Count 3.92 MIL/MM3 Hemoglobin 12.0 GM/DL Hematocrit 35.3 % Mean Corpuscular Volume 90.1 FL Mean Corpuscular Hemoglobin 30.6 PG Mean Corpuscular Hemoglobin Concent 33.9 % Red Cell Distribution Width 14.3 % Platelet Count 287 TH/MM3 Mean Platelet Volume 7.7 FL Neutrophils (%) (Auto) 49.5 % Lymphocytes (%) (Auto) 38.6 % Monocytes (%) (Auto) 8.8 % Eosinophils (%) (Auto) 2.6 % Basophils (%) (Auto) 0.5 % Neutrophils # (Auto) 6.0 TH/MM3 Lymphocytes # (Auto) 4.7 TH/MM3 Monocytes # (Auto) 1.1 TH/MM3 Eosinophils # (Auto) 0.3 TH/MM3 Basophils # (Auto) 0.1 TH/MM3 CBC Comment DIFF FINAL Differential Comment Blood Urea Nitrogen 12 MG/DL Creatinine 0.90 MG/DL Random Glucose 96 MG/DL Total Protein 7.5 GM/DL Albumin 3.8 GM/DL Calcium Level 8.6 MG/DL Alkaline Phosphatase 94 U/L Aspartate Amino Transf (AST/SGOT) 14 U/L Alanine Aminotransferase (ALT/SGPT) 13 U/L Total Bilirubin 0.3 MG/DL Sodium Level 140 MEQ/L Potassium Level 3.8 MEQ/L Chloride Level 106 MEQ/L Carbon Dioxide Level 28.1 MEQ/L Anion Gap 6 MEQ/L Estimat Glomerular Filtration Rate 96 ML/MIN Salicylates Level 4.7 MG/DL Urine Opiates Screen NEG Acetaminophen Level LESS THAN 2.0 MCG/ML Urine Barbiturates Screen NEG Urine Amphetamines Screen POS Urine Benzodiazepines Screen NEG Urine Cocaine Screen POS Urine Cannabinoids Screen NEG MDM Medical Record Reviewed: Yes Supervised Visit with LORENA: Yes Narrative Course 21-year-old female previously Wood acted with signs of schizophrenia, was medically cleared for psychiatric evaluation. Patient has been seen and evaluated by psychiatric staff and deemed to be psychiatrically stable for discharge at this time. Patient remains medically stable for discharge. Follow -up will be based on psychiatric note. Diagnosis Primary Impression: Schizophrenia, paranoid type Patient Instructions: General Instructions Disposition: 01 DISCHARGE HOME Condition: Stable Edward Velazquez July 17, 2017 12:36
== END 2017-07-17 13:05 | disposition home or self-care (01) ==
LOC: NEPD 20:23 → NEPJ 07-17 13:05
DX: F20.0 Paranoid schizophrenia (principal)
CPT/HCPCS: 80053; 80307; 84703; 85025; 99283

== ENCOUNTER 2017-08-03 06:18 | Inpatient (IN) | payer OTHER ==
[~2017-08-03] VITALS: Ht 175.3 cm; Wt 104.3 kg
[2017-08-03 06:32] VITALS: RESP 12; TEMP 98.6
[2017-08-03 07:15] VITALS: BP 112/76; PULSE 78; RESP 18; O2SAT 98
[2017-08-03 07:17] LABS: AUTOMATED NEUTROPHIL # 5.5 TH/MM3 (1.8-7.7); BASOPHIL # 0.1 TH/MM3 (0-0.2); BASOPHIL % 0.7 % (0.0-2.0); EOSINOPHIL # 0.4 TH/MM3 (0-0.4); EOSINOPHIL % 3.9 % (0.0-4.0); HEMATOCRIT 35.7 % (35.0-46.0); HEMOGLOBIN 12.3 GM/DL (11.6-15.3); LYMPH % 31.6 % (9.0-44.0); LYMPHOCYTE # 3.1 TH/MM3 (1.0-4.8); MEAN CELL VOLUME 87.9 FL (80.0-100.0); MEAN CORPUSCULAR HEMOGLOBIN 30.1 PG (27.0-34.0); MEAN CORPUSCULAR HGB CONC 34.3 % (32.0-36.0); MEAN PLATELET VOLUME 8.3 FL (7.0-11.0); MONO % 7.4 % (0.0-8.0); MONOCYTE # 0.7 TH/MM3 (0-0.9); NEUT % 56.4 % (16.0-70.0); PLATELET COUNT 268 TH/MM3 (150-450); RED BLOOD COUNT 4.07 MIL/MM3 (4.00-5.30); RED CELL DISTRIBUTION WIDTH 14.1 % (11.6-17.2); WHITE BLOOD COUNT 9.8 TH/MM3 (4.0-11.0)
[2017-08-03 07:22] LABS: BILIRUBIN, URINE NEG (NEG); BLOOD, URINE NEG (NEG); GLUCOSE,URINE NEG (NEG); KETONE, URINE NEG (NEG); MUCUS URINE FEW /lpf (OCC); NITRITE,URINE NEG (NEG); SQUAMOUS EPITHELIAL CELL URINE 1 /hpf (0-5); URINE COLOR YELLOW (YELLW/STRAW); URINE LEUKOCYTE ESTERASE NEG (NEG)
[2017-08-03 07:22] LABS: ALBUMIN 3.7 GM/DL (3.4-5.0); ALT (GPT) 12 U/L (10-53); AST (GOT) 17 U/L (15-37); BICARBONATE 25.3 MEQ/L (21.0-32.0); BLOOD UREA NITROGEN 8 MG/DL (7-18); CALCIUM 8.6 MG/DL (8.5-10.1); CHLORIDE 107 MEQ/L (98-107); CREATININE 0.87 MG/DL (0.50-1.00); GLOMERULAR FILTRATION RATE 99 ML/MIN (>89); GLUCOSE,RANDOM 84 MG/DL (74-106); SODIUM (NA) 140 MEQ/L (136-145)
[2017-08-03 07:24] LABS: ALKALINE PHOSPHATASE 96 U/L (45-117); TOTAL BILIRUBIN ADULT 0.5 MG/DL (0.2-1.0); TOTAL PROTEIN 7.3 GM/DL (6.4-8.2)
--- NOTE | 2017-08-03 09:28 | PD ---
HPI Chief Complaint: Psychiatric Symptoms Time Seen by Provider: 09:14 Travel History International Travel<30 days: No Contact w/Intl Traveler<30days: No Traveled to known affect area: No History of Present Illness HPI 21y female presents to the ED with auditory hallucinations as a carlson act from [facility]. She says that she changed her Seroquel dose 2 weeks ago with her psychiatrist, Dr. Hammond. She says that ever since then she has had increasing auditory hallucinations that sound like "baby whispers" she says that initially the voices told her to do bad things to people however, this has subsided. She currently denies suicidal or homicidal ideations. She is due to follow-up with her psychiatrist in 2 months. She admits to history of bipolar schizophrenia. She has no other complaints or concerns today. Patient lives at home with her mother who apparently is a [id number] mother. PFSH Past Medical History Hx Anticoagulant Therapy: No Bipolar Disorder: Yes Anxiety: No Depression: Yes Chemotherapy: No Cerebrovascular Accident: No Diabetes: No Diminished Hearing: No Endocrine: No Gastrointestinal Disorders: No Genitourinary: No Headaches: Yes Immune Disorder: No Implanted Vascular Access Dvce: No Musculoskeletal: No Neurologic: No Psychiatric: Yes (Schizophrenia, Schizoaffective Disorder, BiPolar Disorder) Immunizations Current: Yes Schizophrenia: Yes Thyroid Disease: Yes (hyperthyroidism) ?: Not : 0 Para: 0 Miscarriage: 0 : 0 Past Surgical History Other Surgery: No Social History Alcohol Use: No Tobacco Use: Yes (Black and Milds) Substance Use: Yes Allergies-Medications (Allergen,Severity, Reaction): Coded Allergies: No Known Allergies (Unverified Allergy, Unknown, 03/10/17) Per pt. Reported Meds & Prescriptions Reported Meds & Active Scripts Active Olanzapine 15 Mg Tab 30 Mg PO HS 7 Days Invega Sustenna Inj (Paliperidone Palmitate) 156 Mg/Ml Inj 156 Mg IM Q28D This dose of Invega Sustenna is due on 06/10/2017. Reported Propranolol (Propranolol HCl) 10 Mg Tab 10 Mg PO Q12HR Seroquel (Quetiapine Fumarate) 300 Mg Tab 300 Mg PO HS Review of Systems Except as stated in HPI: all other systems reviewed are Neg Physical Exam Narrative GENERAL: Well-developed, well-nourished in no apparent distress SKIN: Focused skin assessment warm/dry. HEAD: Atraumatic. Normocephalic. EYES: Pupils equal and round. No scleral icterus. No injection or drainage. ENT: No nasal bleeding or discharge. Mucous membranes pink and moist. NECK: Trachea midline. No JVD. CARDIOVASCULAR: Regular rate and rhythm. No murmur appreciated. RESPIRATORY: No accessory muscle use. Clear to auscultation. Breath sounds equal bilaterally. No CVA tenderness MUSCULOSKELETAL: No obvious deformities. No clubbing. No cyanosis. No edema. NEUROLOGICAL: Awake and alert. No obvious cranial nerve deficits. Motor grossly within normal limits. Normal speech. PSYCHIATRIC: Appropriate mood and affect; insight and judgment normal. Data Data Last Documented VS Vital Signs Date Time Temp Pulse Resp B/P (MAP) Pulse Ox O2 Delivery O2 Flow Rate FiO2 08/03/17 07:15 78 18 112/76 (88) 98 Room Air 08/03/17 06:32 98.6 Orders Orders Complete Blood Count With Diff (08/03/17 06:30) Comprehensive Metabolic Panel (08/03/17 06:30) Urinalysis - C+S If Indicated (08/03/17 06:30) Psych Screen (08/03/17 06:30) Drug Screen, Random Urine (08/03/17 06:30) Alcohol (Ethanol) (08/03/17 06:30) Diet Regular Basic (08/03/17 Breakfast) Ed Urine Pregnancytest Poc (08/03/17 08:31) Admit Order (Ed Use Only) (08/03/17 ) Labs Laboratory Tests Test 08/03/17 06:43 08/03/17 06:48 Urine Color YELLOW Urine Turbidity CLEAR Urine pH 7.0 Urine Specific [place] 1.008 Urine Protein NEG mg/dL Urine Glucose (UA) NEG mg/dL Urine Ketones NEG mg/dL Urine Occult Blood NEG Urine Nitrite NEG Urine Bilirubin NEG Urine Urobilinogen 4.0 MG/DL Urine Leukocyte Esterase NEG Urine RBC LESS THAN 1 /hpf Urine Squamous Epithelial Cells 1 /hpf Urine Mucus FEW /lpf Microscopic Urinalysis Comment CULT NOT INDICATED Urine Opiates Screen NEG Urine Barbiturates Screen NEG Urine Amphetamines Screen NEG Urine Benzodiazepines Screen NEG Urine Cocaine Screen POS Urine Cannabinoids Screen POS White Blood Count 9.8 TH/MM3 Red Blood Count 4.07 MIL/MM3 Hemoglobin 12.3 GM/DL Hematocrit 35.7 % Mean Corpuscular Volume 87.9 FL Mean Corpuscular Hemoglobin 30.1 PG Mean Corpuscular Hemoglobin Concent 34.3 % Red Cell Distribution Width 14.1 % Platelet Count 268 TH/MM3 Mean Platelet Volume 8.3 FL Neutrophils (%) (Auto) 56.4 % Lymphocytes (%) (Auto) 31.6 % Monocytes (%) (Auto) 7.4 % Eosinophils (%) (Auto) 3.9 % Basophils (%) (Auto) 0.7 % Neutrophils # (Auto) 5.5 TH/MM3 Lymphocytes # (Auto) 3.1 TH/MM3 Monocytes # (Auto) 0.7 TH/MM3 Eosinophils # (Auto) 0.4 TH/MM3 Basophils # (Auto) 0.1 TH/MM3 CBC Comment DIFF FINAL Differential Comment Blood Urea Nitrogen 8 MG/DL Creatinine 0.87 MG/DL Random Glucose 84 MG/DL Total Protein 7.3 GM/DL Albumin 3.7 GM/DL Calcium Level 8.6 MG/DL Alkaline Phosphatase 96 U/L Aspartate Amino Transf (AST/SGOT) 17 U/L Alanine Aminotransferase (ALT/SGPT) 12 U/L Total Bilirubin 0.5 MG/DL Sodium Level 140 MEQ/L Potassium Level 3.9 MEQ/L Chloride Level 107 MEQ/L Carbon Dioxide Level 25.3 MEQ/L Anion Gap 8 MEQ/L Estimat Glomerular Filtration Rate 99 ML/MIN Ethyl Alcohol Level LESS THAN 3 MG/DL MDM Medical Decision Making Medical Screen Exam Complete: Yes Emergency Medical Condition: Yes Differential Diagnosis Psychosis, substance use, depression, hallucinations, occasional complaints Narrative Course 21y female presents to the ED with auditory hallucinations as a carlson act from [facility]. She says that she changed her Seroquel dose 2 weeks ago with her psychiatrist, Dr. Hammond. She says that ever since then she has had increasing auditory hallucinations that sound like "baby whispers" she says that initially the voices told her to do bad things to people however, this has subsided. She currently denies suicidal or homicidal ideations. She is due to follow-up with her psychiatrist in 2 months. She admits to history of bipolar schizophrenia. She has no other complaints or concerns today. Patient lives at home with her mother who apparently is a [id number] mother. Vital signs are stable. Physical exam findings essentially unremarkable. She is a well-developed, well- nourished 21-year-old female in no acute distress. Seems to answer my questions appropriately. Labs are stable. Patient is medically cleared to see psych. Diagnosis Primary Impression: Schizophrenia, paranoid type Condition: Stable Diann Garcia August 03, 2017 09:28
[2017-08-03] MEDS ORDERED: SERO300T PO (10:18)
[2017-08-03] MEDS ORDERED: PROP10TA6 PO (10:18)
--- NOTE | 2017-08-03 10:29 | HHI.HP ---
Provisional Diagnosis Admission Date 08/03/2017 [place] I. 1. Schizoaffective disorder, bipolar type, acute exacerbation 2. Polysubstance abuse [place] II. Deferred Certification of Person's Competence To Provide Express and Informed Consent I have personally examined Sahara Rios , a person being served at [facility] on, August 03, 2017 10:29. Express and informed consent means consent voluntarily given in writing, by a competent person, after sufficient explanation and disclosure of the subject matter involved to enable the person to make a knowing and willful decision without any element of force, fraud, deceit, duress, or other form of constraint or coercion. This person is 18 years of age or older, is not now known to be incompetent to consent to treatment with a guardian advocate, and does not have a health care surrogate or proxy currently making medical treatment decisions. I have found this person to be one of the following: [x] Competent to provide express and informed consent, as defined above, for voluntary admission to this facility and is competent to provide express and informed consent for treatment. He/she has the consistent capacity to make well reasoned, willful, and knowing decisions concerning his or her medical or mental health treatment. The person fully and consistently understands the purpose of the admission for examination/placement and is fully capable of personally exercising all rights assured [place] [] Incompetent to provide express and informed consent to voluntary admission, and this is incompetent to provide express and informed consent to treatment. The person must be transferred to involuntary status and a petition for a guardian advocate filed with the Circuit Court. [] Refusing to provide express and informed consent to voluntary admission but is competent to provide express and informed consent for treatment. The person must be discharged or transferred to involuntary status. Form shall be completed within 24 hours of a person's arrival at the receiving facility and filed in the clinical record of each person: 1. Admitted on a voluntary basis 2. Permitted to provide express and informed consent to his/her own treatment 3. Allowed to transfer from involuntary to voluntary status 4. Prior to permitting a person to consent to his or her own treatment after having been previously found incompetent to consent to treatment. History of Present Illness Capacity: Has Capacity Psych Chief Complaint: Psychosis HPI Ms. Rios is a 21-year-old female with a history of schizoaffective disorder who presents under a [place] act by law enforcement alleging that patient is hearing voices including command auditory hallucinations to self injure. Patient is well-known to the psychiatric service here from multiple previous psychiatric admissions, most recently under my care in May of this year. Electronic medical record reviewed. Patient seen and examined. Chart reviewed. Case discussed with nurse in the J pod. On my examination today, the patient endorses ongoing auditory hallucinations of "faith music." She also tells me "something is going wrong with my brain. Baby salcido. Little voices that hurt your brain and scalp." She endorses visual hallucinations of "which is an devils in my room." She reports that she has not been able to sleep for the last 3 nights secondary to these hallucinations. She endorses suicidal ideations. She endorses racing thoughts. She denies homicidal ideations. Mood is "aggravated" and affect is fairly dysphoric. Remainder of the psychiatric ROS is negative. No acute physical complaints. Past psychiatric history: Patient has a history of schizoaffective disorder. She follows with Manish Kim at [facility]. She reports that she is adherent with her psychotropic medications and is able to tell me that she takes Seroquel 600 mg at bedtime, which is accurate. Most recent psychiatric admission was here at [facility]. Denies any recent suicide attempts. Family history: Patient suspects mother has bipolar disorder. No reported family history of suicide. Chemical dependency history: Patient admits to recent use of cocaine and cannabis. Denies any other substance use. Social history: Patient is living with her mother. She is single with no children. She has 9 grade education. She is applying for disability. Denies any access to guns or firearms. No reported history of abuse or mistreatment. I called over to [facility] and confirmed patient's most recent medication list. The patient was seen in the office on 07/14/17 and was administered Invega Sustenna 234 mg at that time. She also was given prescriptions for Seroquel 600 mg at bedtime and Inderal 10 mg twice daily. Review of Systems ROS Limitations: Psychotic Except as stated in HPI: all other systems reviewed are Neg Past Family Social History Coded Allergies: No Known Allergies (Unverified Allergy, Unknown, 03/10/17) Per pt. Past Medical History See EMR Active Scripts Olanzapine (Olanzapine) 15 Mg Tab, 30 MG PO HS for Mental Health for 7 Days, # 14 TAB 1 Refill Prov:Jessica Franco DENISE 06/19/17 Paliperidone Palmitate Inj (Invega Sustenna Inj) 156 Mg/Ml Inj, 156 MG IM Q28D for Mental Health, #1 VIAL 0 Refills This dose of Invega Sustenna is due on 06/10/2017. Prov:Blaine Benedict MD 05/18/17 Reported Medications Propranolol (Propranolol) 10 Mg Tab, 10 MG PO Q12HR, #60 TAB 0 Refills 08/03/17 Quetiapine (Seroquel) 300 Mg Tab, 300 MG PO HS, #30 TAB 0 Refills 08/03/17 Patient's Strengths (min. 2) In a monitored setting. Verbally fluent. Physical Exam Physical exam completed by ED provider. On my exam, patient in no acute physical distress. No motor abnormalities noted. Labs and vital signs reviewed : Vital Signs Vital Signs Date Time Temp Pulse Resp B/P (MAP) Pulse Ox O2 Delivery O2 Flow Rate FiO2 08/03/17 07:15 78 18 112/76 (88) 98 Room Air 08/03/17 06:32 98.6 Lab Results Test 08/03/17 06:43 08/03/17 06:48 Urine Color YELLOW Urine Turbidity CLEAR Urine pH 7.0 Urine Specific [place] 1.008 Urine Protein NEG mg/dL Urine Glucose (UA) NEG mg/dL Urine Ketones NEG mg/dL Urine Occult Blood NEG Urine Nitrite NEG Urine Bilirubin NEG Urine Urobilinogen 4.0 MG/DL Urine Leukocyte Esterase NEG Urine RBC LESS THAN 1 /hpf Urine Squamous Epithelial Cells 1 /hpf Urine Mucus FEW /lpf Microscopic Urinalysis Comment CULT NOT INDICATED Urine Opiates Screen NEG Urine Barbiturates Screen NEG Urine Amphetamines Screen NEG Urine Benzodiazepines Screen NEG Urine Cocaine Screen POS Urine Cannabinoids Screen POS White Blood Count 9.8 TH/MM3 Red Blood Count 4.07 MIL/MM3 Hemoglobin 12.3 GM/DL Hematocrit 35.7 % Mean Corpuscular Volume 87.9 FL Mean Corpuscular Hemoglobin 30.1 PG Mean Corpuscular Hemoglobin Concent 34.3 % Red Cell Distribution Width 14.1 % Platelet Count 268 TH/MM3 Mean Platelet Volume 8.3 FL Neutrophils (%) (Auto) 56.4 % Lymphocytes (%) (Auto) 31.6 % Monocytes (%) (Auto) 7.4 % Eosinophils (%) (Auto) 3.9 % Basophils (%) (Auto) 0.7 % Neutrophils # (Auto) 5.5 TH/MM3 Lymphocytes # (Auto) 3.1 TH/MM3 Monocytes # (Auto) 0.7 TH/MM3 Eosinophils # (Auto) 0.4 TH/MM3 Basophils # (Auto) 0.1 TH/MM3 CBC Comment DIFF FINAL Differential Comment Blood Urea Nitrogen 8 MG/DL Creatinine 0.87 MG/DL Random Glucose 84 MG/DL Total Protein 7.3 GM/DL Albumin 3.7 GM/DL Calcium Level 8.6 MG/DL Alkaline Phosphatase 96 U/L Aspartate Amino Transf (AST/SGOT) 17 U/L Alanine Aminotransferase (ALT/SGPT) 12 U/L Total Bilirubin 0.5 MG/DL Sodium Level 140 MEQ/L Potassium Level 3.9 MEQ/L Chloride Level 107 MEQ/L Carbon Dioxide Level 25.3 MEQ/L Anion Gap 8 MEQ/L Estimat Glomerular Filtration Rate 99 ML/MIN Ethyl Alcohol Level LESS THAN 3 MG/DL ED point of care test negative Mental Status Examination Appearance: Disheveled Consciousness: Alert Orientation: Person, Place (At least) Motor Activity: Other (No motor abnormalities noted) Speech: Unremarkable Language: Other (Somewhat rambling) Fund of Knowledge: Adequate Attention and Concentration: Easily Distracted Memory: Unremarkable (Grossly intact on clinical exam) Mood: Other ("Aggravated") Affect: Other (Dysphoric) Thought Process & Associations: Circumstantial Thought Content: Hallucinations, Delusional Hallucination Type: Auditory, Visual Delusion Type: Paranoid Suicidal Ideation: Yes Suicidal Plan: No Suicidal Intention: No (No reported urge to hurt self on an inpatient unit) Homicidal Ideation: No Homicidal Plan: No Homicidal Intention: No Insight: Poor Judgment: Poor Assessment & Plan Problem List: (1) Schizoaffective disorder, bipolar type ICD Codes: F25.0 - Schizoaffective disorder, bipolar type (2) Polysubstance abuse ICD Codes: F19.10 - Other psychoactive substance abuse, uncomplicated Assessment & Plan 21-year-old female with psychiatric history as detailed above who presents under Wood act. On my examination today, patient endorses audiovisual hallucinations and suicidal ideation in the setting of reported adherence with psychotropic medications. Substance use may be playing a role, but given patient's repeated presentations to the emergency department and more severe symptoms today, I think it is most prudent to admit the patient to the inpatient psychiatric unit for safety, observation and stabilization. Admit inpatient. Voluntary status. Titrate Seroquel to 100 mg in the morning and 600 mg at bedtime to target psychosis. Continue Inderal as ordered on an outpatient basis. Patient would next be due for Invega Sustenna on 09/10/17. Ativan as needed for anxiety. Cogentin as needed for EPS. Benadryl as needed for sleep. Check hemoglobin A1c and lipid panel in the morning. OT consult. Vitals every shift. Counselor to see. Disposition planning. Estimated length of stay: 5-7 days. Discharge Planning Pending psychiatric stabilization Request HC Surrog/Guard Advoc?: No Blaine Benedict MD August 03, 2017 10:29
[2017-08-03] MEDS ORDERED: LORazepam 2 MG/ML VIAL IM PRN (11:00)
[2017-08-03] MEDS ORDERED: MAGNESIUM HYDROXIDE SUSP 30 ML CUP PO PRN (11:00)
[2017-08-03] MEDS ORDERED: BENZTROPINE MESYLATE 1 MG TAB PO PRN (11:00)
[2017-08-03] MEDS ORDERED: diphenhydrAMINE HCL 50 MG CAP PO PRN (11:00)
[2017-08-03] MEDS ORDERED: ACETAMINOPHEN 325 MG TAB PO PRN (11:00)
[2017-08-03] MEDS ORDERED: ALUMINUM/MAGNESIUM/SIMETH 30 ML CUP PO PRN (11:00)
[2017-08-03] MEDS ORDERED: NICOTINE 21 MG/24 HR PATCH T-DERMAL PRN (11:00)
[2017-08-03] MEDS ORDERED: BENZTROPINE MESYLATE 2 MG/2 ML VIAL IM PRN (11:00)
[2017-08-03 14:00] VITALS: BP 108/67; PULSE 82; RESP 18; O2SAT 99
[2017-08-03] MEDS: PROPRANOLOL HCL 10 MG TAB PO SCH ×2 (14:00→21:03)
[2017-08-03] MEDS: QUEtiapine FUMARATE 100 MG TAB PO SCH (14:00)
[2017-08-03] MEDS: LORazepam 1 MG TAB PO PRN ×2 (16:25→21:06)
[2017-08-03 16:31] VITALS: BP 107/70; PULSE 91; RESP 18; TEMP 97.8
[2017-08-03] MEDS: QUEtiapine FUMARATE 300 MG TAB PO SCH (21:03)
[2017-08-04 07:48] LABS: CHOLESTEROL 124 MG/DL (120-200); TRIGLYCERIDES 48 MG/DL (42-150)
[2017-08-04 07:54] LABS: CHOLESTEROL/ HDL RATIO 2.01 RATIO; HDL CHOLESTEROL 61.5 MG/DL (40.0-60.0); LDL CHOLESTEROL 53 MG/DL (0-99)
[2017-08-04] MEDS: PROPRANOLOL HCL 10 MG TAB PO SCH ×2 (08:44→20:31)
[2017-08-04] MEDS: QUEtiapine FUMARATE 100 MG TAB PO SCH (08:44)
[2017-08-04] MEDS: REMOVE OLD PATCH T-DERMAL SCH (08:47)
[2017-08-04 16:26] LABS: HEMOGLOBIN A1C 4.6 % (4.3-6.0)
[2017-08-04 17:48] VITALS: BP 137/75; PULSE 78; RESP 18; TEMP 98.2; O2SAT 98
--- NOTE | 2017-08-04 18:36 | HHI.PYPN ---
Subjective Chief Complaint: Psychosis Remarks Patient seen for follow-up, chart reviewed. Discussion with nursing staff reported the patient noted to be somewhat sleepy this morning but last night had stated that mother had put a curse on her but later was able to contact mother and no longer believes this. Patient was found lying hospital bed noted be superficially cooperative for this patient states she is feeling very sleepy. Patient mentions that lessening she slept "so-so" as she stated the voices kept her up and continues to have command auditory hallucinations to hurt herself. Patient also endorses auditory hallucinations at time of interview as well. Patient denies any suicidal homicidal ideations. Patient reports feeling that medications are helping. Review of Systems Except as stated in HPI: all other systems reviewed are Neg Mental Status Examination Appearance: Disheveled Consciousness: Alert Orientation: Person, Place (At least) Motor Activity: Other (No motor abnormalities noted) Speech: Unremarkable Language: Adequate Fund of Knowledge: Adequate Attention and Concentration: Easily Distracted Memory: Unremarkable (Grossly intact on clinical exam) Mood: Other ("Aggravated") Affect: Other (Dysphoric) Thought Process & Associations: Other ([place]) Thought Content: Hallucinations, Delusional Hallucination Type: Auditory (Command auditory hallucinations to hurt herself) Delusion Type: Paranoid Suicidal Ideation: Yes (Denies today) Suicidal Plan: No Suicidal Intention: No Homicidal Ideation: No Homicidal Plan: No Homicidal Intention: No Insight: Poor Judgment: Poor Results Labs Labs reviewed Test 08/04/17 06:17 Triglycerides Level 48 MG/DL Cholesterol Level 124 MG/DL LDL Cholesterol 53 MG/DL HDL Cholesterol 61.5 MG/DL Cholesterol/HDL Ratio 2.01 RATIO Vitals/IOs Vital Signs Date Time Temp Pulse Resp B/P (MAP) Pulse Ox O2 Delivery O2 Flow Rate FiO2 08/04/17 17:48 98.2 78 18 137/75 (95) 98 08/03/17 14:00 Room Air Assessment & Plan Problem List: (1) Schizoaffective disorder, bipolar type ICD Codes: F25.0 - Schizoaffective disorder, bipolar type (2) Polysubstance abuse ICD Codes: F19.10 - Other psychoactive substance abuse, uncomplicated Assessment & Plan Patient this time continues with command auditory hallucinations to hurt herself along with paranoid and bizarre delusions. We will continue current treatment as quetiapine was recently increased. We will continue to monitor mood and behavior. Discharge planning in progress. Justification for Cont. Inpt. At risk of further decompensation a lower level of care. Request HC Surrog/Guard Advoc?: No Michael Mace MD August 04, 2017 18:36
[2017-08-04] MEDS: QUEtiapine FUMARATE 300 MG TAB PO SCH (20:31)
[2017-08-04] MEDS: LORazepam 1 MG TAB PO PRN (22:47)
[2017-08-05 06:00] VITALS: BP 130/72; PULSE 108; RESP 16; TEMP 97.8
[2017-08-05] MEDS: QUEtiapine FUMARATE 100 MG TAB PO SCH (09:00)
[2017-08-05] MEDS: REMOVE OLD PATCH T-DERMAL SCH (09:00)
[2017-08-05] MEDS: PROPRANOLOL HCL 10 MG TAB PO SCH ×2 (09:00→21:42)
--- NOTE | 2017-08-05 11:29 | HHI.PYPN ---
Subjective Chief Complaint: Psychosis Remarks Patient seen for follow up, chart reviewed. Discussion nursing staff reported patient doing well denying auditory hallucinations to nursing staff. Patient was found lying hospital bed noted B, cooperative. Patient states that she slept well, mood has been "okay" continues to endorse auditory hallucinations are less intense now that tell her to eat sleep and talk to people but denying any negative comments or commands. Patient states her mood has been "happy and sad, feeling sad that she is in the hospital, reports eating and drinking well and good bowel movement. Patient states that he is she has not spoken to her mother whom she lives with plans on doing so today. Review of Systems Except as stated in HPI: all other systems reviewed are Neg Mental Status Examination Appearance: Disheveled Consciousness: Alert Orientation: Person, Place (At least) Motor Activity: Other (No motor abnormalities noted) Speech: Unremarkable Language: Adequate Fund of Knowledge: Adequate Attention and Concentration: Easily Distracted Memory: Unremarkable (Grossly intact on clinical exam) Mood: Other ("Happy and sad") Affect: Appropriate Thought Process & Associations: Linear, Other ([place]) Thought Content: Hallucinations Hallucination Type: Auditory (Command auditory hallucinations to eat, sleep , talk to people) Delusion Type: Paranoid Suicidal Ideation: No Suicidal Plan: No Suicidal Intention: No Homicidal Ideation: No Homicidal Plan: No Homicidal Intention: No Insight: Fair Judgment: Impulsive Results Vitals/IOs Vital Signs Date Time Temp Pulse Resp B/P (MAP) Pulse Ox O2 Delivery O2 Flow Rate FiO2 08/05/17 06:00 97.8 108 16 130/72 (91) 08/04/17 17:48 98 08/03/17 14:00 Room Air Assessment & Plan Problem List: (1) Schizoaffective disorder, bipolar type ICD Codes: F25.0 - Schizoaffective disorder, bipolar type (2) Polysubstance abuse ICD Codes: F19.10 - Other psychoactive substance abuse, uncomplicated Assessment & Plan Patient at this time continues to endorse auditory hallucinations but no longer commands to hurt self, she states the intensity has decreased. Patient noted to be more reactive and appropriate with no disorganization. We will increase quetiapine to 100 mg a.m./650 mg at bedtime for psychosis, continue rest of medications. Continue to monitor mood and behavior. Treatment team will attempt to contact patient's mother as patient is likely for discharge tomorrow when she appears to be stabilizing now. Discharge planning a progress. Justification for Cont. Inpt. At risk of further decompensation a lower level of care. Discharge Planning Patient return back to her residence was psychiatrically stable. Request HC Surrog/Guard Advoc?: No Michael Mace MD August 05, 2017 11:29
[2017-08-05 17:51] VITALS: BP 109/62; PULSE 97; RESP 20; TEMP 98.4; O2SAT 99
[2017-08-05] MEDS ORDERED: QUEtiapine FUMARATE 300 MG TAB PO SCH ×2 (21:00→22:00)
[2017-08-05] MEDS: LORazepam 1 MG TAB PO PRN (21:46)
[2017-08-05] MEDS ORDERED: QUEtiapine FUMARATE 25 MG TAB PO SCH (22:00)
[2017-08-06 06:37] VITALS: BP 100/62; PULSE 80; RESP 18; TEMP 98; O2SAT 98
[2017-08-06] MEDS: REMOVE OLD PATCH T-DERMAL SCH (09:00)
[2017-08-06] MEDS: PROPRANOLOL HCL 10 MG TAB PO SCH (09:00)
[2017-08-06] MEDS: QUEtiapine FUMARATE 100 MG TAB PO SCH (09:00)
[2017-08-06] MEDS ORDERED: QUET1TAB10 PO (13:56)
[2017-08-06] MEDS ORDERED: PROP10TA6 PO (13:56)
[2017-08-06] MEDS ORDERED: SERO25TA PO (13:56)
[2017-08-06] MEDS ORDERED: QUET1TAB8 PO (13:56)
--- NOTE | 2017-08-06 13:56 | HHI.DS ---
Psychiatry Discharge Summary Inpatient Psychiatric care?: Yes Advance Directive: No Reason Not Provided: not interested Mental Health AdvanceDirective: No (not interested) Health Care Proxy: No Admission Admission Date August 03, 2017 at 10:29 Admission Diagnosis: (1) Schizoaffective disorder, bipolar type ICD Code: F25.0 - Schizoaffective disorder, bipolar type Brief History Ms. Rios is a 21-year-old female with a history of schizoaffective disorder who presents under a Wood act by law enforcement alleging that patient is hearing voices including command auditory hallucinations to self injure. Patient is well-known to the psychiatric service here from multiple previous psychiatric admissions, most recently under my care in May of this year. Electronic medical record reviewed. Patient seen and examined. Chart reviewed. Case discussed with nurse in the J pod. On my examination today, the patient endorses ongoing auditory hallucinations of "cheondoism music." She also tells me "something is going wrong with my brain. Baby salcido. Little voices that hurt your brain and scalp." She endorses visual hallucinations of "which is an devils in my room." She reports that she has not been able to sleep for the last 3 nights secondary to these hallucinations. She endorses suicidal ideations. She endorses racing thoughts. She denies homicidal ideations. Mood is "aggravated" and affect is fairly dysphoric. Remainder of the psychiatric ROS is negative. No acute physical complaints. Past psychiatric history: Patient has a history of schizoaffective disorder. She follows with Manish Kim at [facility] ([facility] She reports that she is adherent with her psychotropic medications and is able to tell me that she takes Seroquel 600 mg at bedtime, which is accurate. Most recent psychiatric admission was here at [place]. Denies any recent suicide attempts. Family history: Patient suspects mother has bipolar disorder. No reported family history of suicide. Chemical dependency history: Patient admits to recent use of cocaine and cannabis. Denies any other substance use. Social history: Patient is living with her mother. She is single with no children. She has 9 grade education. She is applying for disability. Denies any access to guns or firearms. No reported history of abuse or mistreatment. I called over to [facility] Medrano and confirmed patient's most recent medication list. The patient was seen in the office on 07/14/17 and was administered Invega Sustenna 234 mg at that time. She also was given prescriptions for Seroquel 600 mg at bedtime and Inderal 10 mg twice daily. Tobacco Use In Past 30 Days: 5 or More Cigarettes/Day Alcohol Use: Monthly or Less Hospital Course Patient is a 21 y/o woman who carries a diagnosis of schizoaffective disorder, cocaine and THC use disorder, with prior psychiatric admissions (last in May here at [place]), no prior suicide attempts who was brought in under Wood Act by police alleging that she is hearing voices commanding her to hurt herself which patient was admitted to the inpatient psychiatry unit for further evaluation and management. Patient was seen and examined on the unit by psychiatry. Patient was resumed on quetiapine and titrated to 100mg a.m./650mg HS, propranolol 10mg PO BID which patient tolerated well with no adverse drug reactions noted. There was no evidence of any suicidality or homicidality on the inpatient unit nor any episodes of aggression but had command auditory hallucinations to hut herself during initial portion of admission but ceased throughout progression of treatment. Patient was compliant with medications, noted to have stable mood and appropriate behavior on the unit. Patient's behavior had been noted to be calm , cooperative, stable mood and noted to have improvement in mood and noted to be participatory and cooperative with staff with no behavioral disturbances. She agrees to continue mental health treatment. Counselor has made follow-up arrangements for continuity of care. On the day of discharge: Patient seen and examined with nurse and counselor. Chart reviewed. Case discussed with nurse and counselor. No behavioral issues overnight. On my examination today, the patient is agreeable to outpatient follow up and will discharged back to her residence. I can elicit no mood symptoms; continues to endorse chronic audiovisual hallucinations but no longer derogatory nor command and with significantly decrease in intensity. No delusional material verbalized today. No physical complaints. Suicide and violence risk assessment on day of discharge both suggest lower imminent risk, and the patient's level of function is adequate for planned level of outpatient care. Patient has maximized benefit from this inpatient psychiatric hospital stay and will be discharged to back to his residence today with follow-up as arranged by counselor. Patient advised to return to psychiatric emergency room for any concerning psychiatric symptoms. Patient agrees with plan. Results Blood Pressure 100 / 62 Vital Signs Date Time Temp Pulse Resp B/P (MAP) Pulse Ox O2 Delivery O2 Flow Rate FiO2 08/06/17 06:37 98.0 80 18 100/62 (75) 98 08/03/17 14:00 Room Air Laboratory Tests Test 08/04/17 06:17 HDL Cholesterol 61.5 MG/DL (40.0-60.0) Laboratory Results Test 08/04/17 06:17 Cholesterol Level 124 MG/DL (120-200) HDL Cholesterol 61.5 MG/DL (40.0-60.0) Hemoglobin A1c 4.6 % (4.3-6.0) LDL Cholesterol 53 MG/DL (0-99) Triglycerides Level 48 MG/DL (42-150) Summary of Procedures None Pending results at discharge: No Medications # of Antipsychotic meds at D/C: 1 Approp Antipsych med options 1 - Minimum of three failed multiple trials of monotherapy. 2 - Documented plan to taper to monotherapy due to previous use of multiple meds OR cross-taper in progress at D/C. 3 - Documentation of augmentation of Clozapine. 4 - Justification other than those listed in allowable values 1-3, document here : Discharge Discharge Date: August 06, 2017 Discharge Diagnosis: (1) Schizoaffective disorder, bipolar type ICD Code: F25.0 - Schizoaffective disorder, bipolar type Pt Condition on Discharge: Stable Discharge Disposition: Discharge Home Discharge Instructions Diet Instructions: As Tolerated, No Restrictions Activities you can perform: Regular-No Restrictions Discharge Time > 30 minutes Mental Status Examination Appearance: Appropriate Consciousness: Alert Orientation: Person, Place (At least) Motor Activity: Other (No motor abnormalities noted) Speech: Unremarkable Language: Adequate Fund of Knowledge: Adequate Attention and Concentration: Easily Distracted Memory: Unremarkable (Grossly intact on clinical exam) Mood: Appropriate Affect: Appropriate Thought Process & Associations: Intact, Goal directed, Linear Thought Content: Appropriate, Hallucinations (minimal) Hallucination Type: Auditory Delusion Type: None Suicidal Ideation: No Suicidal Plan: No Suicidal Intention: No Homicidal Ideation: No Homicidal Plan: No Homicidal Intention: No Insight: Fair Judgment: Impulsive Discharge/Advance Care Plan Health Problems: (1) Schizoaffective disorder, bipolar type (2) Polysubstance abuse Goals to promote your health * To prevent worsening of your condition and complications * To maintain your health at the optimal level Directions to meet your goals Take your medications as prescribed Follow your dietary instruction Follow activity as directed Keep your appointments as scheduled Take your immunizations and boosters as scheduled If your symptoms worsen call your PCP, if no PCP go to Urgent Care Center or Emergency Room For 29/09 questions related to your inpatient stay or results of tests pending at discharge, please contact Dr. Michael Mace at Smoking is Dangerous to Your Health. Avoid second hand smoking Michael Mace MD August 06, 2017 13:56
== END 2017-08-06 16:40 | disposition home or self-care (01) | DRG 885 ==
LOC: NEPJ 06:18 → NEDA 10:29 → H270 16:11 → H260 08-05 14:49
PROVIDERS: ADMIT Student in an Organized Health Care Education/Training Program; ATTEND Student in an Organized Health Care Education/Training Program
DX: F25.0 Schizoaffective disorder, bipolar type (principal); R45.851 Suicidal ideations; Z72.0 Tobacco use; E05.90 Thyrotoxicosis, unspecified without thyrotoxic crisis or storm; F12.10 Cannabis abuse, uncomplicated; F14.10 Cocaine abuse, uncomplicated
CPT/HCPCS: 80053; 80061; 80307; 81001; 83036; 84703; 85025; 99284

== ENCOUNTER 2017-08-09 11:58 | Emergency (ER) | payer OTHER ==
[~2017-08-09 11:58] MED LIST changes: -OLAN15TA PO; -PALI156P IM; +PROP10TA6 PO; +QUET1TAB10 PO; +QUET1TAB8 PO; +SERO25TA PO
[2017-08-09 13:44] VITALS: BP 100/58; PULSE 92; RESP 18; TEMP 98.2; O2SAT 97
--- NOTE | 2017-08-09 13:46 | PD ---
HPI Chief Complaint: Psychiatric Symptoms Time Seen by Provider: 12:22 Travel History International Travel<30 days: No Contact w/Intl Traveler<30days: No Traveled to known affect area: No History of Present Illness HPI 21-year-old female presents to the emergency department under Wood act. According to law enforcement report "Chiqui admits to hearing voices. Leola advice voices are not letting her sleep or eat. Leola advisor voices have told her to hurt herself or others. Leola has been diagnosed with schizophrenia and was told to take medication; however she is not currently taking her medication." On my examination of the patient and the patient does admit that she is hearing voices and seeing things. She says the voices tell her to move to [place] so she can get help and get better medications to make her better. She says there is a mental health facility there that can help her with her health and medications. She says she sees ghosts. She tells me the voices are not telling her to do anything bad to herself or others. She denies suicidal or homicidal ideations. She does state that she cannot talk like others because her brain is not working and there is something wrong with it. Denies drug use, alcohol use. Reports smoking black in milds. She has history of schizophrenia. She was just seen here on August 03. Apparently she has a prescription at the pharmacy that she has not started taking, and says that she cannot pick it up because she does not have a ride there. Reports currently taking Seroquel, and says it is not working for her. No known aggravating or relieving factors. Onset unknown. Duration chronic. Symptoms are moderate to severe in severity. No primary care provider. Says she sees Holden at [facility] for psychiatry. No known allergies. Has no other medical complaints. No other modifying factors or associated signs and symptoms. PFSH Past Medical History Hx Anticoagulant Therapy: No Bipolar Disorder: Yes Anxiety: No Depression: Yes Cancer: No Cardiovascular Problems: No Chemotherapy: No Cerebrovascular Accident: No Diabetes: No Patient Takes Glucophage: No Diminished Hearing: No Endocrine: No Gastrointestinal Disorders: No Genitourinary: No Headaches: Yes Immune Disorder: No Implanted Vascular Access Dvce: No Musculoskeletal: No Neurologic: No Psychiatric: Yes (Schizophrenia, Schizoaffective Disorder, BiPolar Disorder) Reproductive: No Respiratory: No Immunizations Current: Yes Schizophrenia: Yes Thyroid Disease: Yes (hyperthyroidism) Tetanus Vaccination: > 5 Years Influenza Vaccination: No ?: Not : 0 Para: 0 Miscarriage: 0 : 0 Past Surgical History Surgical History: No Previous Surgery Other Surgery: No Social History Alcohol Use: No Tobacco Use: No Substance Use: No Allergies-Medications (Allergen,Severity, Reaction): Coded Allergies: No Known Allergies (Unverified Allergy, Unknown, 03/10/17) Per pt. Reported Meds & Prescriptions Reported Meds & Active Scripts Active Quetiapine (Quetiapine Fumarate) 100 Mg Tab 100 Mg PO DAILY 30 Days Seroquel (Quetiapine Fumarate) 25 Mg Tab 50 Mg PO HS 30 Days Quetiapine (Quetiapine Fumarate) 300 Mg Tab 600 Mg PO HS 30 Days Propranolol (Propranolol HCl) 10 Mg Tab 10 Mg PO Q12HR 30 Days Review of Systems Except as stated in HPI: all other systems reviewed are Neg Physical Exam Narrative GENERAL: Well-nourished, well-developed black female patient, in no acute distress SKIN: Warm and dry. HEAD: Atraumatic. Normocephalic. EYES: Pupils equal and round. ENT: Mucosa pink and moist. NECK: Supple. Trachea midline. CARDIOVASCULAR: Regular rate and rhythm. No murmur appreciated. RESPIRATORY: No accessory muscle use. Clear to auscultation. Breath sounds equal bilaterally. GASTROINTESTINAL: Abdomen soft, non-tender, nondistended. Hepatic and splenic margins not palpable. Bowel sounds are active 4 quadrants. MUSCULOSKELETAL: No obvious deformities. No clubbing. No cyanosis. No edema. BACK: No CVA tenderness. NEUROLOGICAL: Awake and alert. Oriented 3. No obvious cranial nerve deficits. Motor grossly within normal limits. Normal speech. Moves all extremities. 5/5 strength to all extremities. PSYCHIATRIC: No delusional thought processes. No hallucinations. Data Data Orders Orders Psych Screen (08/09/17 12:22) Drug Screen, Random Urine (08/09/17 12:22) Alcohol (Ethanol) (08/09/17 12:22) Diet Regular Basic (08/09/17 Lunch) [facility] Medical Decision Making Medical Screen Exam Complete: Yes Emergency Medical Condition: Yes Medical Record Reviewed: Yes Differential Diagnosis Schizophrenia, hallucinations, medical clearance for psychiatric admission Narrative Course Patient presents under a Wood act. Physical examination and vital signs are essentially unremarkable. Patient has no medical complaints to report. Psych screen has been ordered. If the laboratory results are unremarkable, the patient will be medically cleared for psychiatric evaluation and disposition. Diagnosis Primary Impression: Medical clearance for psychiatric admission Condition: Stable Ida Yu Aug 09, 2017 13:46
--- NOTE | 2017-08-09 14:56 | PD.PSY.CON ---
Provisional Diagnosis Admission Date [place]. Schizoaffective disorder bipolar type History of Present Illness Service Psychiatry Consult Requested By EDMD Reason for Consult Nina hoffman Primary Care Physician Unknown HPI Patient is a 21-year-old -Japanese female patient hospitalized at [facility] 528 through 531 discharged on medication that appears as difficulty getting medications filled. It appears a family attempt H [facility]hik Medrano concerning this they had the police called the patient was Wood acted back here. Patient laying quietly in her room and J pod nurse Evelyn present throughout session patient alert oriented calm cooperative with me says the voices are returned somewhat. In the started tell her not to take her evening medication. She denies suicidality or homicidality. States she is willing to take the medication. She is of appropriate follow-ups and Kaushik Medrano already in place. At this time I feel patient needs further observation and assessment overnight we will order her scheduled psychiatric medications from her last discharge to be given to her and reassess her in the morning Review of Systems Constitutional: DENIES: Diaphoretic episodes, Fatigue, Fever, Weight gain, Weight loss, Chills, Dizziness, Change in appetite, Night Sweats Endocrine: DENIES: Abnorml menstrual pattern, Heat/cold intolerance, Polydipsia , Polyuria, Polyphagia Eyes: DENIES: Blurred vision, Diplopia, Eye inflammation, Eye pain, Vision loss , Photosensitivity, Double Vision Ears, nose, mouth, throat: DENIES: Tinnitus, Hearing loss, Vertigo, Nasal discharge, Oral lesions, Throat pain, Hoarseness, Ear Pain, Running Nose, Epistaxis, Sinus Pain, Toothache, Odynophagia Respiratory: DENIES: Apneas, Cough, Snoring, Wheezing, Hemoptysis, Sputum production, Shortness of breath Cardiovascular: DENIES: Chest pain, Palpitations, Syncope, Dyspnea on Exertion , PND, Lower Extremity Edema, Orthopnea, Claudication Gastrointestinal: DENIES: Abdominal pain, Black stools, Bloody stools, Constipation, Diarrhea, Nausea, Vomiting, Difficulty Swallowing, Anorexia Genitourinary: DENIES: Abnormal vaginal bleeding, Dysmenorrhea, Dyspareunia, Sexual dysfunction, Urinary frequency, Urinary incontinence, Urgency, Hematuria , Dysuria, Nocturia, Vaginal discharge Musculoskeletal: DENIES: Joint pain, Muscle aches, Stiffness, Joint Swelling, Back pain, Neck pain Integumentary: DENIES: Abnormal pigmentation, Pruritus, Rash, Nail changes, Breast masses, Breast skin changes, Nipple discharge Hematologic/lymphatic: DENIES: Bruising, Lymphadenopathy Immunologic/allergic: DENIES: Eczema, Urticaria Neurologic: DENIES: Abnormal gait, Headache, Localized weakness, Paresthesias, Seizures, Speech Problems, Tremor, Poor Balance Psychiatric: COMPLAINS OF: Hallucinations (Vague auditory) Past Family Social History Coded Allergies: No Known Allergies (Unverified Allergy, Unknown, 03/10/17) Per pt. Active Scripts Quetiapine (Quetiapine) 100 Mg Tab, 100 MG PO DAILY for health for 30 Days, #30 TAB Prov:Michael Mace MD 08/06/17 Quetiapine (Seroquel) 25 Mg Tab, 50 MG PO HS for health for 30 Days, #60 TAB Prov:Michael Mace MD 08/06/17 Quetiapine (Quetiapine) 300 Mg Tab, 600 MG PO HS for health for 30 Days, #60 TAB Prov:Michael Mace MD 08/06/17 Propranolol (Propranolol) 10 Mg Tab, 10 MG PO Q12HR for health for 30 Days, #60 TAB 0 Refills Prov:Michael Mace MD 08/06/17 Discontinued Reported Medications Quetiapine (Seroquel) 300 Mg Tab, 300 MG PO HS, #30 TAB 0 Refills 08/03/17 Discontinued Scripts Olanzapine (Olanzapine) 15 Mg Tab, 30 MG PO HS for Mental Health for 7 Days, # 14 TAB 1 Refill Prov:Jessica Franco 06/19/17 Paliperidone Palmitate Inj (Invega Sustenna Inj) 156 Mg/Ml Inj, 156 MG IM Q28D for Mental Health, #1 VIAL 0 Refills This dose of Invega Sustenna is due on 06/10/2017. Prov:Blaine Benedict MD 05/18/17 Family Psych History Unknown at this time Social History Patient lives with family Patient's Strengths (min. 2) Patient verbal able access healthcare Physical Exam Patient medically cleared in our ED at the present time patient laying quietly in her bed she is in no acute distress, she is in no respiratory distress, no complaints of chest pain, no abdominal pain. Patient moving all 4 extremities were laying in bed Vital Signs Vital Signs Date Time Temp Pulse Resp B/P (MAP) Pulse Ox O2 Delivery O2 Flow Rate FiO2 08/09/17 13:44 98.2 92 18 100/58 (72) 97 Room Air Mental Status Examination Appearance: Appropriate Consciousness: Alert Orientation: x4 Motor Activity: Normal gait Speech: Unremarkable Language: Adequate Fund of Knowledge: Adequate Attention and Concentration: Other (Fair) Memory: Unremarkable Mood: Other Affect: Other (Decreased range and intensity) Thought Process & Associations: Linear Thought Content: Hallucinations (Auditory hallucinations) Hallucination Type: Auditory Delusion Type: None Suicidal Ideation: No Suicidal Plan: No Suicidal Intention: No Homicidal Ideation: No Homicidal Plan: No Homicidal Intention: No Insight: Poor Judgment: Poor Assessment & Plan Problem List: (1) Schizoaffective disorder, bipolar type ICD Codes: F25.0 - Schizoaffective disorder, bipolar type Assessment & Plan Estimated LOS: days we will continue observation and assessment in the J pod overnight continue her medications per the discharge summary. And reassess in a.m. Discharge Planning See above Request HC Surrog/Guard Advoc?: No James Jones MD Aug 09, 2017 14:56
[2017-08-09] MEDS: QUEtiapine FUMARATE 100 MG TAB PO SCH (15:00)
[2017-08-09] MEDS: PROPRANOLOL HCL 10 MG TAB PO SCH ×2 (15:00→21:00)
[2017-08-09] MEDS ORDERED: PILL SPLITTER OTHER PRN (15:30)
[2017-08-09 18:48] VITALS: BP 111/53; PULSE 64; RESP 16; O2SAT 100
[2017-08-09] MEDS ORDERED: QUEtiapine FUMARATE 300 MG TAB PO SCH (21:00)
[2017-08-09] MEDS ORDERED: QUEtiapine FUMARATE 100 MG TAB PO SCH (21:00)
[2017-08-09 21:38] VITALS: BP 100/58; PULSE 60
[2017-08-10] MEDS: QUEtiapine FUMARATE 100 MG TAB PO SCH (10:11)
[2017-08-10] MEDS: PROPRANOLOL HCL 10 MG TAB PO SCH (10:11)
--- NOTE | 2017-08-10 14:57 | PD ---
Physical Exam Time Seen by Provider: 14:[address] Patel has evaluated the patient, lifted Wood act and cleared the patient for discharge. Data Data Last Documented VS Vital Signs Date Time Temp Pulse Resp B/P (MAP) Pulse Ox O2 Delivery O2 Flow Rate FiO2 08/09/17 21:38 60 100/58 (72) 08/09/17 18:48 16 100 Room Air 08/09/17 13:44 98.2 Orders Orders Psych Screen (08/09/17 12:22) Drug Screen, Random Urine (08/09/17 12:22) Diet Regular Basic (08/09/17 Lunch) Diet Regular Basic (08/09/17 Dinner) Quetiapine (Seroquel) (08/09/17 15:00) Quetiapine (Seroquel) (08/09/17 21:00) Propranolol (Inderal) (08/09/17 15:00) Quetiapine (Seroquel) (08/09/17 21:00) Pill Splitter (Pill Splitter) (08/09/17 15:30) Diet Regular Basic (08/10/17 Breakfast) Diet Regular Basic (08/10/17 Lunch) Labs Laboratory Tests Test 08/10/17 02:37 Urine Opiates Screen NEG Urine Barbiturates Screen NEG Urine Amphetamines Screen NEG Urine Benzodiazepines Screen NEG Urine Cocaine Screen NEG Urine Cannabinoids Screen POS MDM Supervised Visit with [facility]: No Narrative Course Dr. Patel has evaluated the patient, lifted Wood act and cleared the patient for discharge. Patient contracts safety. Denies suicidal or homicidal ideations. Patient [facility] be [facility]. Has friends and family for support. Patient was medically cleared by alternate provider prior to psych screening. Patient has been evaluated by psychiatry and and is now cleared for discharge. Diagnosis Primary Impression: Schizoaffective disorder, bipolar type Referrals: [facility] (Out patient) [facility] Primary Care Physician Psychiatrist Vickie [facility] Patient Instructions: General Instructions, Schizoaffective Disorder (ED) Departure Forms: Tests/Procedures Additional Instruction: Contract safety to your self and others Follow-up with psychiatry Follow-up with primary care provider Follow-up with Kaushik Soto Return to the emergency department immediately with worsening of symptoms Med/Other Pt SpecificInfo: No Change to Meds, No Meds Exist/No RX given Disposition: 01 DISCHARGE HOME Condition: Stable Ida Yu Aug 10, 2017 14:57
--- NOTE | 2017-08-10 15:17 | HHI.PYPN ---
Subjective Remarks Patient seen and examined. Chart reviewed. Dr. Jones's note reviewed. Case discussed with nursing staff. No behavioral issues noted overnight. Patient has been eating and sleeping fine while under observation in the J pod. She has been medication compliant. Nurse has reached out to patient's mother who is reportedly comfortable with having the patient return home today. On my examination today, the patient is in good spirits. She tells me that she is "doing good." She denies any suicidal or homicidal ideation, intent or plan. She contracts for safety. Reports hearing a voice asking "what's he about to do ?" She says that she is wondering whether I am going to send her home, and so I cannot discern if this is a erum jeffrey hallucination versus inner dialogue. No reported command auditory hallucinations to hurt self or others. No other hallucinatory material. No delusions elicited. No depressive or hypomanic/ manic symptoms. No reported side effects from medications. No physical complaints. Agreeable to discharge home today. I did endeavor to reach out to patient's outpatient case repairer Andrew Kraus. I left a generic requesting a call back. Review of Systems Except as stated in HPI: all other systems reviewed are Neg Mental Status Examination Appearance: Appropriate Consciousness: Alert Orientation: x4 Motor Activity: Normal gait, Other (No motor abnormalities noted) Speech: Unremarkable Language: Adequate Fund of Knowledge: Adequate Attention and Concentration: Other (Remains fair) Memory: Unremarkable (Grossly intact on clinical exam) Mood: Appropriate Affect: Appropriate, Euthymic (Somewhat childlike) Thought Process & Associations: Intact, Linear Thought Content: Hallucinations Hallucination Type: Auditory (Noncommand, non-deprecatory. Patient does not appear internally stimulated) Delusion Type: None Suicidal Ideation: No Suicidal Plan: No Suicidal Intention: No Homicidal Ideation: No Homicidal Plan: No Homicidal Intention: No Insight: Poor (Chronic) Judgment: Poor (Chronic) Results Labs Laboratory Tests Test 08/10/17 02:37 Urine Opiates Screen NEG Urine Barbiturates Screen NEG Urine Amphetamines Screen NEG Urine Benzodiazepines Screen NEG Urine Cocaine Screen NEG Urine Cannabinoids Screen POS Vitals/IOs Vital Signs Date Time Temp Pulse Resp B/P (MAP) Pulse Ox O2 Delivery O2 Flow Rate FiO2 08/09/17 21:38 60 100/58 (72) 08/09/17 18:48 16 100 Room Air 08/09/17 13:44 98.2 Assessment & Plan Problem List: (1) Schizoaffective disorder, bipolar type ICD Codes: F25.0 - Schizoaffective disorder, bipolar type (2) Cannabis abuse ICD Codes: F12.10 - Cannabis abuse, uncomplicated Assessment & Plan On reevaluation, patient is denying suicidal or homicidal ideation. There is no evidence of severely decompensated mental illness as defined under the Wood act in this patient at this time. She appears to be attending to her basic needs. Patient's mother is comfortable with having the patient return home. Synthesizing this information and based on the available evidence, I core man that the patient does not meet the Wood act criteria. I have lifted the Wood act. Patient does not require inpatient psychiatric services at this time. She will be discharged home today. I have instructed the patient to follow up with her outpatient mental health provider. I have instructed her to remain adherent with psychotropic medications. I have recommended that she abstain from any substances of abuse. I have counseled the patient to return to the psychiatric emergency room for any concerning psychiatric symptoms as part of a general safety plan. Patient is otherwise psychiatrically clear for discharge from the ED. Thank you very much for this consultation. Justification for Cont. Inpt. Psychiatrically clear for discharge Request HC Surrog/Guard Advoc?: No Blaine Benedict MD Aug 10, 2017 15:17
== END 2017-08-10 15:58 | disposition home or self-care (01) ==
LOC: NEPJ 11:58
DX: F25.0 Schizoaffective disorder, bipolar type (principal); F12.90 Cannabis use, unspecified, uncomplicated; E05.90 Thyrotoxicosis, unspecified without thyrotoxic crisis or storm; Z79.899 Other long term (current) drug therapy
CPT/HCPCS: 80307; 99284

== ENCOUNTER 2017-08-28 12:47 | Emergency (ER) | payer OTHER ==
[2017-08-28 12:59] VITALS: BP 106/66; PULSE 100; RESP 16; TEMP 98.5; O2SAT 100
--- NOTE | 2017-08-28 15:23 | PD ---
HPI Chief Complaint: Psychiatric Symptoms Time Seen by Provider: 15:21 Travel History International Travel<30 days: No Contact w/Intl Traveler<30days: No Traveled to known affect area: No History of Present Illness HPI 21-year-old -[place] female with history of schizophrenia, is brought in with her chemical cell changer for psychiatric evaluation due to increased auditory hallucinations and feeling that her "medications do not work". She denies any medical issues currently. She denies fever, chills, abdominal pain, nausea, vomiting, urinary symptoms, or . She has no pain. She has no known drug allergies PFSH Past Medical History Hx Anticoagulant Therapy: No Bipolar Disorder: Yes Anxiety: No Depression: Yes Cancer: No Cardiovascular Problems: No Chemotherapy: No Cerebrovascular Accident: No Diabetes: No Diminished Hearing: No Endocrine: No Gastrointestinal Disorders: No Genitourinary: No Headaches: Yes Immune Disorder: No Implanted Vascular Access Dvce: No Musculoskeletal: No Neurologic: No Psychiatric: Yes (Schizophrenia, Schizoaffective Disorder, BiPolar Disorder) Reproductive: No Respiratory: No Immunizations Current: Yes Schizophrenia: Yes Thyroid Disease: Yes (hyperthyroidism) : 0 Para: 0 Miscarriage: 0 : 0 Past Surgical History Other Surgery: No Social History Alcohol Use: No Tobacco Use: No Substance Use: No Allergies-Medications (Allergen,Severity, Reaction): Coded Allergies: No Known Allergies (Unverified Allergy, Unknown, 03/10/17) Per pt. Reported Meds & Prescriptions Reported Meds & Active Scripts Active Quetiapine (Quetiapine Fumarate) 100 Mg Tab 100 Mg PO DAILY 30 Days Seroquel (Quetiapine Fumarate) 25 Mg Tab 50 Mg PO HS 30 Days Quetiapine (Quetiapine Fumarate) 300 Mg Tab 600 Mg PO HS 30 Days Propranolol (Propranolol HCl) 10 Mg Tab 10 Mg PO Q12HR 30 Days Review of Systems ROS Limitations: Poor Historian General / Constitutional: No: Fever Eyes: No: Visual changes HENT: No: Headaches Cardiovascular: No: Chest Pain or Discomfort Respiratory: No: Shortness of Breath Gastrointestinal: No: Abdominal Pain Genitourinary: No: Dysuria Musculoskeletal: No: Pain Skin: No Rash Neurologic: No: Weakness Psychiatric: No: Depression Endocrine: No: Polydipsia Hematologic/Lymphatic: No: Easy Bruising Physical Exam Narrative GENERAL: Patient appears no acute distress SKIN: Warm and dry. HEAD: Atraumatic. Normocephalic. EYES: Pupils equal and round. No scleral icterus. No injection or drainage. ENT: No nasal bleeding or discharge. Mucous membranes pink and moist. Pharynx is clear. Airways patent NECK: Trachea midline. Supple and nontender. CARDIOVASCULAR: Regular rate and rhythm. RESPIRATORY: No accessory muscle use. Clear to auscultation. Breath sounds equal bilaterally. MUSCULOSKELETAL: Extremities without clubbing, cyanosis, or edema. No obvious deformities. NEUROLOGICAL: Awake and alert. No obvious cranial nerve deficits. Motor grossly within normal limits. Five out of 5 muscle strength in the arms and legs. Normal speech. PSYCHIATRIC: Appropriate mood and affect; insight and judgment normal. Data Data Last Documented VS Vital Signs Date Time Temp Pulse Resp B/P (MAP) Pulse Ox O2 Delivery O2 Flow Rate FiO2 08/28/17 12:59 98.5 100 16 106/66 (79) 100 MDM Medical Decision Making Medical Screen Exam Complete: Yes Emergency Medical Condition: Yes Medical Record Reviewed: Yes Differential Diagnosis Schizophrenia. Auditory hallucinations. Mood disorder Narrative Course Patient appears medically stable at time of exam. Labs ordered per protocol including urine . Patient is medically cleared for psychiatric evaluation. Psych screen is ordered. Condition: Stable Edward Velazquez Aug 28, 2017 15:23
[2017-08-28 18:15] LABS: AUTOMATED NEUTROPHIL # 4.9 TH/MM3 (1.8-7.7); BASOPHIL % 0.5 % (0.0-2.0); EOSINOPHIL # 0.1 TH/MM3 (0-0.4); EOSINOPHIL % 1.6 % (0.0-4.0); HEMATOCRIT 39.7 % (35.0-46.0); HEMOGLOBIN 13.3 GM/DL (11.6-15.3); LYMPH % 35.9 % (9.0-44.0); LYMPHOCYTE # 3.3 TH/MM3 (1.0-4.8); MEAN CELL VOLUME 90.5 FL (80.0-100.0); MEAN CORPUSCULAR HEMOGLOBIN 30.3 PG (27.0-34.0); MEAN CORPUSCULAR HGB CONC 33.4 % (32.0-36.0); MEAN PLATELET VOLUME 8.3 FL (7.0-11.0); MONO % 7.5 % (0.0-8.0); MONOCYTE # 0.7 TH/MM3 (0-0.9); NEUT % 54.5 % (16.0-70.0); PLATELET COUNT 253 TH/MM3 (150-450); RED BLOOD COUNT 4.39 MIL/MM3 (4.00-5.30); RED CELL DISTRIBUTION WIDTH 14.5 % (11.6-17.2)
[2017-08-28 18:18] VITALS: BP 114/75; PULSE 76; RESP 16; TEMP 98.7; O2SAT 100
[2017-08-28 18:25] LABS: BILIRUBIN, URINE NEG (NEG); BLOOD, URINE NEG (NEG); GLUCOSE,URINE NEG (NEG); KETONE, URINE NEG (NEG); MUCUS URINE FEW /lpf (OCC); NITRITE,URINE NEG (NEG); SQUAMOUS EPITHELIAL CELL URINE 1 /hpf (0-5); URINE COLOR YELLOW (YELLW/STRAW); URINE LEUKOCYTE ESTERASE NEG (NEG)
[2017-08-28 18:36] LABS: ALBUMIN 3.8 GM/DL (3.4-5.0); ALT (GPT) 11 U/L (10-53); AST (GOT) 12 U/L (15-37); BICARBONATE 27.6 MEQ/L (21.0-32.0); BLOOD UREA NITROGEN 9 MG/DL (7-18); CALCIUM 8.9 MG/DL (8.5-10.1); CHLORIDE 111 MEQ/L (98-107); CREATININE 0.91 MG/DL (0.50-1.00); GLOMERULAR FILTRATION RATE 94 ML/MIN (>89); GLUCOSE,RANDOM 81 MG/DL (74-106); SODIUM (NA) 145 MEQ/L (136-145)
[2017-08-28 18:45] LABS: ALKALINE PHOSPHATASE 103 U/L (45-117); TOTAL BILIRUBIN ADULT 0.3 MG/DL (0.2-1.0); TOTAL PROTEIN 7.6 GM/DL (6.4-8.2)
[2017-08-28] MEDS ORDERED: PROPRANOLOL HCL 10 MG TAB PO ONE (19:15)
[2017-08-28] MEDS ORDERED: QUEtiapine FUMARATE 300 MG TAB PO ONE (19:15)
[2017-08-29] MEDS ORDERED: SERO400T PO (03:12)
[2017-08-29] MEDS ORDERED: PROP10TA6 PO (03:12)
[2017-08-29] MEDS ORDERED: SERO100T PO (03:12)
[2017-08-29 04:32] VITALS: BP 122/65; PULSE 59; RESP 16; O2SAT 99
[2017-08-29 10:01] VITALS: BP 122/78; PULSE 89; RESP 18; O2SAT 96
--- NOTE | 2017-08-29 11:51 | PD ---
History of Present Illness Chief Complaint: Psychiatric Symptoms Time Seen by Provider: 11:50 Travel History International Travel<30 Days: No Contact w/Intl Traveler<30days: No Known affected area: No Legal Status Legal Status: Voluntary History of Present Illness: History of Present Illness HPI 21-year-old -Swiss, single female, living in a fpc ran by [employer], with history of schizoaffective disorder bipolar type, multiple psychiatric hospitalizations most recently August 03 and discharged August 06 , who is brought in by her entry driver operator, Andrew for psychiatric evaluation due to increased auditory hallucinations and feeling that her "medications do not work ". The case supervisor unit manager reports that the patient began to complain that her medications were not working and that the voices were getting worse and requested to be brought back to the hospital. The patient was monitored in secure environment here in J pod. She presented no behavioral concerns. She was medication compliant. EMR is reviewed. Patient is seen. Patient is alert, and oriented. She is calm. Her speech is clear and logical. She does not appear to be internally stimulated. She is not manic or hypomanic. There is no suicidal or homicidal ideation, intent or plan. Patient is anxious over her placement at this new living facility. She continues to repeat that it is smaller than what she expected and that she does not have her own space. I spent some time with her discussing some coping strategies. She is ambivalent about this new living arrangement and wishes that she could go back to live with her mother. I met with her case supervisor , Andrew yesterday to discuss possible interventions. We agreed to observe her during the night. I will also order her medications for her. PFSH Past Medical History Hx Anticoagulant Therapy: No Bipolar Disorder: Yes Anxiety: No Depression: Yes Cancer: No Cardiovascular Problems: No Chemotherapy: No Cerebrovascular Accident: No Diabetes: No Diminished Hearing: No Endocrine: No Gastrointestinal Disorders: No Genitourinary: No Headaches: Yes Immune Disorder: No Implanted Vascular Access Dvce: No Musculoskeletal: No Neurologic: No Psychiatric: Yes (Schizophrenia, Schizoaffective Disorder, BiPolar Disorder) Reproductive: No Respiratory: No Immunizations Current: Yes Schizophrenia: Yes Thyroid Disease: Yes (hyperthyroidism) ?: Unknown : 0 Para: 0 Miscarriage: 0 : 0 Past Surgical History Other Surgery: No Psychiatric History Psychiatric History Hx Psychiatric Treatment: Multiple psychiatric admissions. Outpatient care through [facility] with Manish Fortune. History of Inpatient Treatment: Yes (Last admission August 03 - August 06) Guns or firearms in home: No Social History Single, completed ninth grade. Unemployed. Currently living in a fpc. Hx Alcohol Use: No Hx Tobacco Use: No Hx Substance Use: Yes (PT STATES SHE LAST USED "THE OTHER DAY") Substance Use Type: Alcohol, Marijuana, Other Hx of Substance Use Treatment: No Family Psychiatric History Mother is suspected of having bipolar disorder. Allergies-Medications (Allergen,Severity, Reaction): Coded Allergies: No Known Allergies (Unverified Allergy, Unknown, 03/10/17) Per pt. Reported Meds & Prescriptions Reported Meds & Active Scripts Active Reported Seroquel (Quetiapine Fumarate) 100 Mg Tab 100 Mg PO DAILY Propranolol (Propranolol HCl) 10 Mg Tab 10 Mg PO HS Seroquel (Quetiapine Fumarate) 400 Mg Tab 600 Mg PO HS Review of Systems Psychiatric: COMPLAINS OF: Anxiety Except as stated in HPI: all other systems reviewed are Neg Mental Status Examination Appearance: Disheveled Consciousness: Alert Orientation: x4 Motor Activity: Normal gait Speech: Unremarkable Language: Adequate Fund of Knowledge: Adequate Attention and Concentration: Adequate Memory: Unremarkable Mood: Anxious Affect: Appropriate Thought Process & Associations: Intact, Logical, Goal directed Thought Content: Appropriate Hallucination Type: Auditory (Reports noncommand-type hallucinations) Delusion Type: None Suicidal Ideation: No Suicidal Plan: No Suicidal Intention: No Homicidal Ideation: No Homicidal Plan: No Homicidal Intention: No Insight: Fair Judgment: Adequate [facility] Medical Decision Making Medical Record Reviewed: Yes Assessment/Plan 21-year-old -Swiss, single female, living in a fpc ran by a [employer], with history of schizoaffective disorder bipolar type, multiple psychiatric hospitalizations most recently August 03 and discharged August 06 , who is brought in by her entry driver operator, Andrew for psychiatric evaluation due to increased auditory hallucinations and feeling that her "medications do not work ". The case supervisor unit manager reports that the patient began to complain that her medications were not working and that the voices were getting worse and requested to be brought back to the hospital. The patient was monitored in secure environment here in J pod. She presented no behavioral concerns. She was medication compliant. Patient is feeling ambivalent and anxious about her current living situation. We spent some time addressing her anxiety, her fears , her expectations. We also discussed some positive coping skills, such as listening to music and dancing which she enjoys. I strongly encouraged her to follow up with Manish at [facility] for medication adjustment. Patient does not meet criteria for inpatient treatment at this time. Psychiatrically clear for discharge from ED. Orders Orders Complete Blood Count With Diff (08/28/17 15:24) Comprehensive Metabolic Panel (08/28/17 15:24) Thyroid Stimulating Hormone (08/28/17 15:24) Urinalysis - C+S If Indicated (08/28/17 15:24) Ed Urine Pregnancytest Poc (08/28/17 15:24) Psych Screen (08/28/17 15:24) Drug Screen, Random Urine (08/28/17 15:24) Quetiapine (Seroquel) (08/28/17 19:15) Propranolol (Inderal) (08/28/17 19:15) Diet Regular Basic (08/29/17 Breakfast) Diet Regular Basic (08/29/17 Lunch) Results Vital Signs Date Time Temp Pulse Resp B/P (MAP) Pulse Ox O2 Delivery O2 Flow Rate FiO2 08/29/17 10:01 89 18 122/78 (93) 96 Room Air 08/29/17 04:32 59 16 122/65 (84) 99 Room Air 9.00 08/28/17 18:18 98.7 76 16 114/75 (88) 100 Room Air 08/28/17 12:59 98.5 100 16 106/66 (79) 100 Laboratory Tests Test 08/28/17 17:50 08/28/17 18:00 White Blood Count 9.0 Red Blood Count 4.39 Hemoglobin 13.3 Hematocrit 39.7 Mean Corpuscular Volume 90.5 Mean Corpuscular Hemoglobin 30.3 Mean Corpuscular Hemoglobin Concent 33.4 Red Cell Distribution Width 14.5 Platelet Count 253 Mean Platelet Volume 8.3 Neutrophils (%) (Auto) 54.5 Lymphocytes (%) (Auto) 35.9 Monocytes (%) (Auto) 7.5 Eosinophils (%) (Auto) 1.6 Basophils (%) (Auto) 0.5 Neutrophils # (Auto) 4.9 Lymphocytes # (Auto) 3.3 Monocytes # (Auto) 0.7 Eosinophils # (Auto) 0.1 Basophils # (Auto) 0.0 CBC Comment DIFF FINAL Differential Comment Blood Urea Nitrogen 9 Creatinine 0.91 Random Glucose 81 Total Protein 7.6 Albumin 3.8 Calcium Level 8.9 Alkaline Phosphatase 103 Aspartate Amino Transf (AST/SGOT) 12 Alanine Aminotransferase (ALT/SGPT) 11 Total Bilirubin 0.3 Sodium Level 145 Potassium Level 4.1 Chloride Level 111 Carbon Dioxide Level 27.6 Anion Gap 6 Estimat Glomerular Filtration Rate 94 Thyroid Stimulating Hormone 3rd Gen 0.521 Urine Color YELLOW Urine Turbidity CLEAR Urine pH 6.0 Urine Specific [place] 1.026 Urine Protein 30 Urine Glucose (UA) NEG Urine Ketones NEG Urine Occult Blood NEG Urine Nitrite NEG Urine Bilirubin NEG Urine Urobilinogen 4.0 OR GREATER Urine Leukocyte Esterase NEG Urine RBC LESS THAN 1 Urine WBC 2 Urine Squamous Epithelial Cells 1 Urine Mucus FEW Microscopic Urinalysis Comment CULT NOT INDICATED Urine Opiates Screen NEG Urine Barbiturates Screen NEG Urine Amphetamines Screen NEG Urine Benzodiazepines Screen NEG Urine Cocaine Screen NEG Urine Cannabinoids Screen POS Diagnosis Primary Impression: Schizoaffective disorder, bipolar type Psychiatrically Cleared: Yes Med/ Other Pt Specific Info: No Change to Meds Disposition: 01 DISCHARGE HOME Condition: Stable Marlene Cabrera Aug 29, 2017 11:51
[2017-08-29] MEDS ORDERED: QUEtiapine FUMARATE 200 MG TAB PO ONE (12:00)
--- NOTE | 2017-08-29 12:09 | PD ---
Physical Exam Date Seen by Provider: Aug 29, 2017 Time Seen by Provider: 12:08 Narrative 21-year-old female previously medically clear for psychiatric evaluation, has been seen and evaluated by psychiatric staff. She is deemed stable for discharge psychiatrically. She remains medically stable for discharge at this time. Follow-up will be based on psychiatric note. Data Data Last Documented VS Vital Signs Date Time Temp Pulse Resp B/P (MAP) Pulse Ox O2 Delivery O2 Flow Rate FiO2 08/29/17 10:01 89 18 122/78 (93) 96 Room Air 08/29/17 04:32 9.00 08/28/17 18:18 98.7 Orders Orders Complete Blood Count With Diff (08/28/17 15:24) Comprehensive Metabolic Panel (08/28/17 15:24) Thyroid Stimulating Hormone (08/28/17 15:24) Urinalysis - C+S If Indicated (08/28/17 15:24) Ed Urine Pregnancytest Poc (08/28/17 15:24) Psych Screen (08/28/17 15:24) Drug Screen, Random Urine (08/28/17 15:24) Quetiapine (Seroquel) (08/28/17 19:15) Propranolol (Inderal) (08/28/17 19:15) Diet Regular Basic (08/29/17 Breakfast) Diet Regular Basic (08/29/17 Lunch) Quetiapine (Seroquel) (08/29/17 12:00) Labs Laboratory Tests Test 08/28/17 17:50 08/28/17 18:00 White Blood Count 9.0 TH/MM3 Red Blood Count 4.39 MIL/MM3 Hemoglobin 13.3 GM/DL Hematocrit 39.7 % Mean Corpuscular Volume 90.5 FL Mean Corpuscular Hemoglobin 30.3 PG Mean Corpuscular Hemoglobin Concent 33.4 % Red Cell Distribution Width 14.5 % Platelet Count 253 TH/MM3 Mean Platelet Volume 8.3 FL Neutrophils (%) (Auto) 54.5 % Lymphocytes (%) (Auto) 35.9 % Monocytes (%) (Auto) 7.5 % Eosinophils (%) (Auto) 1.6 % Basophils (%) (Auto) 0.5 % Neutrophils # (Auto) 4.9 TH/MM3 Lymphocytes # (Auto) 3.3 TH/MM3 Monocytes # (Auto) 0.7 TH/MM3 Eosinophils # (Auto) 0.1 TH/MM3 Basophils # (Auto) 0.0 TH/MM3 CBC Comment DIFF FINAL Differential Comment Blood Urea Nitrogen 9 MG/DL Creatinine 0.91 MG/DL Random Glucose 81 MG/DL Total Protein 7.6 GM/DL Albumin 3.8 GM/DL Calcium Level 8.9 MG/DL Alkaline Phosphatase 103 U/L Aspartate Amino Transf (AST/SGOT) 12 U/L Alanine Aminotransferase (ALT/SGPT) 11 U/L Total Bilirubin 0.3 MG/DL Sodium Level 145 MEQ/L Potassium Level 4.1 MEQ/L Chloride Level 111 MEQ/L Carbon Dioxide Level 27.6 MEQ/L Anion Gap 6 MEQ/L Estimat Glomerular Filtration Rate 94 ML/MIN Thyroid Stimulating Hormone 3rd Gen 0.521 uIU/ML Urine Color YELLOW Urine Turbidity CLEAR Urine pH 6.0 Urine Specific [place] 1.026 Urine Protein 30 mg/dL Urine Glucose (UA) NEG mg/dL Urine Ketones NEG mg/dL Urine Occult Blood NEG Urine Nitrite NEG Urine Bilirubin NEG Urine Urobilinogen 4.0 OR GREATER mg/dL Urine Leukocyte Esterase NEG Urine RBC LESS THAN 1 /hpf Urine WBC 2 /hpf Urine Squamous Epithelial Cells 1 /hpf Urine Mucus FEW /lpf Microscopic Urinalysis Comment CULT NOT INDICATED Urine Opiates Screen NEG Urine Barbiturates Screen NEG Urine Amphetamines Screen NEG Urine Benzodiazepines Screen NEG Urine Cocaine Screen NEG Urine Cannabinoids Screen POS [facility] Medical Record Reviewed: Yes Supervised Visit with LORENA: Yes Narrative Course 21-year-old female previously medically clear for psychiatric evaluation, has been seen and evaluated by psychiatric staff. She is deemed stable for discharge psychiatrically. She remains medically stable for discharge at this time. Follow-up will be based on psychiatric note. Patient Instructions: General Instructions Disposition: DISCHARGE HOME Condition: Stable Edward Velazquez Aug 29, 2017 12:09
== END 2017-08-29 12:35 | disposition home or self-care (01) ==
LOC: NEPJ 12:47
DX: F25.0 Schizoaffective disorder, bipolar type (principal); F41.9 Anxiety disorder, unspecified
CPT/HCPCS: 80053; 80307; 81001; 84443; 84703; 85025; 99283

== ENCOUNTER 2017-10-02 09:33 | Inpatient (IN) ==
--- NOTE | 2017-10-02 10:29 | ED ---
HPI General Chief Complaint: Psychiatric Symptoms Stated Complaint: Psych Eval/DBPD Time Seen by Provider: 10/02/17 10:17 Source: patient, RN notes reviewed and police Mode of arrival: other (POLICE ESCORT) History of Present Illness HPI Narrative: The patient is a 22-year-old female that was brought in by police as a carlson act for a suicide attempt by taking 6 pills of propanolol 60 mg around 10 AM today. The patient actually called 911 and stated that she attempted a suicide. She was seen here a few days ago with similar symptoms and had a psychiatric screening. She states that she hears voices and sees a goat in the devil and they told her to come to the hospital to get help. She actually told the nurse that the voices were telling her to kill herself and others but she denied that with me. States that she still feels suicidal. MD complaint: suicidal ideation Onset (ago): minute(s) (30 MINUTES AGO) Related Data Home Medications Medication Instructions Recorded Confirmed clozapine 100 mg PO HS 09/25/17 09/25/17 propranolol 10 mg PO BID 09/25/17 09/25/17 quetiapine 50 mg PO BID 09/25/17 09/25/17 quetiapine 100 mg PO DAILY 09/25/17 09/25/17 quetiapine 600 mg PO HS 09/25/17 09/25/17 Allergies Allergy/AdvReac Type Severity Reaction Status Date / Time No Known Allergies Allergy Unknown Abdominal Uncoded 10/02/17 09:50 Pain Review of Systems ROS Unobtainable All other systems reviewed negative except as stated in HPI [facility] Medical History Medical History Hyperthyroidism (Acute) Schizophrenia (Acute) Bipolar disorder (Acute) Surgical History Surgical History No history of previous surgery (Acute) Social History Social History Substance History: Active Abuse Second Hand Smoke Exposure: No Smoking Status: Former smoker Tobacco Type: Cigarettes How Often Do You Have a Drink Containing Alcohol: Never Recent Travel in [facility] within the Last 8 Weeks: No Recent Out of Country Travel within the Last 8 Weeks: No Substance Abuse Detail Crack/Cocaine: Substance Use Status: Active Marijuana: Substance Use Status: Active Immunization History Tetanus Immunization: Unsure Hx Influenza Vaccine This Season: No Exam Narrative Exam Narrative: GENERAL: Alert and oriented in no distress SKIN: Focused skin assessment warm/dry. HEAD: Atraumatic. Normocephalic. EYES: Pupils equal and round. No scleral icterus. No injection or drainage. ENT: No nasal bleeding or discharge. Mucous membranes pink and moist. NECK: Trachea midline. No JVD. CARDIOVASCULAR: Regular rate and rhythm. No murmur appreciated. RESPIRATORY: No accessory muscle use. Clear to auscultation. Breath sounds equal bilaterally. GASTROINTESTINAL: Abdomen soft, non-tender, nondistended. Hepatic and splenic margins not palpable. MUSCULOSKELETAL: No obvious deformities. No clubbing. No cyanosis. No edema. NEUROLOGICAL: Awake and alert. No obvious cranial nerve deficits. Motor grossly within normal limits. Normal speech. PSYCHIATRIC: Patient with inappropriate mood and affect with sardonic laugh. Suicidal ideation and hallucinations. No normal thought process. Course Reevaluation(s) Reevaluation #2: resting comfortably in no distress Time: 12:16 Consultations Consultation #1: [facility] CONTACT[facility]. MONITOR BP EKG RESPIRATORY DEPRESSION, GIVE GLUCAGON IF SYMPTOMATIC. THEY WILL FAX THEIR PROTOCOL. RECOMMENDS SERIAL EKGS Time: 10:35 Initial Documented Vital Signs Temperature 98.7 F 10/02/17 09:51 Pulse Rate 94 H 10/02/17 09:51 Respiratory Rate 16 10/02/17 09:51 Blood Pressure 126/67 10/02/17 09:51 Pulse Oximetry 100 10/02/17 09:51 Last Documented Vital Signs Temperature 98.2 F 10/02/17 16:36 Pulse Rate 70 10/02/17 16:36 Respiratory Rate 20 10/02/17 16:36 Blood Pressure 120/48 L 10/02/17 16:36 Pulse Oximetry 96 10/02/17 16:36 Medical Decision Making Lab Data Lab results reviewed: Yes I reviewed the patient's lab results. Result diagrams: 10/02/17 10:50 10/02/17 10:50 Lab Results 10/02/17 10/02/17 10/02/17 Range/Units 10:50 10:50 10:50 WBC 8.4 (4.0-11.0) th/mm3 RBC 4.34 (4.00-5.30) mil/mm3 Hgb 13.0 (11.6-15.3) gm/dL Hct 39.1 (35.0-46.0) % MCV 89.9 (80.0-100.0) fL MCH 29.9 (27.0-34.0) pg MCHC 33.3 (32.0-36.0) % RDW 14.9 (11.6-17.2) % Plt Count 259 (150-450) th/mm3 MPV 8.5 (7.0-11.0) fL Neut % (Auto) 61.9 (16.0-70.0) % Lymph % (Auto) 28.4 (9.0-44.0) % [place] % (Auto) 7.6 (0.0-8.0) % Eos % (Auto) 1.5 (0.0-4.0) % Baso % (Auto) 0.6 (0.0-2.0) % Neut # (Auto) 5.2 (1.8-7.7) th/mm3 Lymph # (Auto) 2.4 (1.0-4.8) th/mm3 [place] # (Auto) 0.6 (0.0-0.9) th/mm3 Eos # (Auto) 0.1 (0.0-0.4) th/mm3 Baso # (Auto) 0.1 (0.0-0.2) th/mm3 WBC Differential . Differential Comment Auto diff final Sodium 141 (136-145) meq/L Potassium 3.9 (3.5-5.1) meq/L Chloride 109 H (98-107) meq/L Carbon Dioxide 24.9 (21.0-32.0) meq/L Anion Gap 7 (5-15) meq/L BUN 8 (7-18) mg/dL Creatinine 0.87 (0.50-1.00) mg/dL Estimated GFR Greater than 89 (>89) mL/min POC Glucose (68-110) mg/dl Random Glucose 81 (74-106) mg/dL Calcium 8.7 (8.5-10.1) mg/dL Prot Corrected Calcium Total Bilirubin 0.5 (0.2-1.0) mg/dL AST 11 L (15-37) U/L ALT 14 (10-53) U/L Alkaline Phosphatase 108 (45-117) U/L Total Protein 7.6 D (6.4-8.2) g/dL Albumin 3.8 (3.4-5.0) g/dL TSH 0.878 (0.358-3.740) uIU/mL Beta HCG, Qual Less than 1.0 (0-5) mIU/mL Urine Color (Yellw/Straw) Urine Clarity (Clear) Urine pH (5.0-8.5) Ur Specific [place] (1.002-1.035) Urine Protein (Neg-Trace) mg/dL Urine Glucose (UA) (Negative) mg/dL Urine Ketones (Negative) mg/dL Urine Occult Blood (Negative) Urine Nitrate (Negative) Urine Bilirubin (Negative) Urine Urobilinogen (Less than 2) mg/dL Ur Leukocyte Esterase (Negative) Urine RBC (0-3) /hpf Ur Squamous Epith Cells (0-5) /hpf Urine Bacteria (None) /hpf Micro UA Comment Urine Culture Comments Salicylates 3.8 (2.8-20.0) mg/dL Urine Opiates Screen (Neg) Acetaminophen Less than 2.0 L (10.0-30.0) mcg/mL Ur Barbiturates Screen (Neg) Ur Amphetamines Screen (Neg) U Benzodiazepines Scrn (Neg) Urine Cocaine Screen (Neg) U Cannabinoids Screen (Neg) Serum Alcohol Less than 3 (0-5) mg/dL 10/02/17 10/02/17 10/02/17 Range/Units 10:50 14:28 14:28 WBC (4.0-11.0) th/mm3 RBC (4.00-5.30) mil/mm3 Hgb (11.6-15.3) gm/dL Hct (35.0-46.0) % MCV (80.0-100.0) fL MCH (27.0-34.0) pg MCHC (32.0-36.0) % RDW (11.6-17.2) % Plt Count (150-450) th/mm3 MPV (7.0-11.0) fL Neut % (Auto) (16.0-70.0) % Lymph % (Auto) (9.0-44.0) % [place] % (Auto) (0.0-8.0) % Eos % (Auto) (0.0-4.0) % Baso % (Auto) (0.0-2.0) % Neut # (Auto) (1.8-7.7) th/mm3 Lymph # (Auto) (1.0-4.8) th/mm3 [place] # (Auto) (0.0-0.9) th/mm3 Eos # (Auto) (0.0-0.4) th/mm3 Baso # (Auto) (0.0-0.2) th/mm3 WBC Differential Differential Comment Sodium Cancelled (136-145) meq/L Potassium Cancelled (3.5-5.1) meq/L Chloride Cancelled (98-107) meq/L Carbon Dioxide Cancelled (21.0-32.0) meq/L Anion Gap Cancelled (5-15) meq/L BUN Cancelled (7-18) mg/dL Creatinine Cancelled (0.50-1.00) mg/dL Estimated GFR Cancelled (>89) mL/min POC Glucose (68-110) mg/dl Random Glucose Cancelled (74-106) mg/dL Calcium Cancelled (8.5-10.1) mg/dL Prot Corrected Calcium Cancelled Total Bilirubin Cancelled (0.2-1.0) mg/dL AST Cancelled (15-37) U/L ALT Cancelled (10-53) U/L Alkaline Phosphatase Cancelled (45-117) U/L Total Protein Cancelled (6.4-8.2) g/dL Albumin Cancelled (3.4-5.0) g/dL TSH Cancelled (0.358-3.740) uIU/mL Beta HCG, Qual (0-5) mIU/mL Urine Color Colorless (Yellw/Straw) Urine Clarity Clear (Clear) Urine pH 7.0 (5.0-8.5) Ur Specific [place] 1.002 (1.002-1.035) Urine Protein Negative (Neg-Trace) mg/dL Urine Glucose (UA) Negative (Negative) mg/dL Urine Ketones Negative (Negative) mg/dL Urine Occult Blood Negative (Negative) Urine Nitrate Negative (Negative) Urine Bilirubin Negative (Negative) Urine Urobilinogen Less than 2 (Less than 2) mg/dL Ur Leukocyte Esterase Negative (Negative) Urine RBC Less than 1 (0-3) /hpf Ur Squamous Epith Cells <1 (0-5) /hpf Urine Bacteria Rare H (None) /hpf Micro UA Comment Culture not ind Urine Culture Comments Culture not ind Salicylates (2.8-20.0) mg/dL Urine Opiates Screen Neg (Neg) Acetaminophen (10.0-30.0) mcg/mL Ur Barbiturates Screen Neg (Neg) Ur Amphetamines Screen Neg (Neg) U Benzodiazepines Scrn Neg (Neg) Urine Cocaine Screen Neg (Neg) U Cannabinoids Screen Neg (Neg) Serum Alcohol Cancelled (0-5) mg/dL 10/02/17 10/02/17 Range/Units 14:28 17:13 WBC (4.0-11.0) th/mm3 RBC (4.00-5.30) mil/mm3 Hgb (11.6-15.3) gm/dL Hct (35.0-46.0) % MCV (80.0-100.0) fL MCH (27.0-34.0) pg MCHC (32.0-36.0) % RDW (11.6-17.2) % Plt Count (150-450) th/mm3 MPV (7.0-11.0) fL Neut % (Auto) (16.0-70.0) % Lymph % (Auto) (9.0-44.0) % [place] % (Auto) (0.0-8.0) % Eos % (Auto) (0.0-4.0) % Baso % (Auto) (0.0-2.0) % Neut # (Auto) (1.8-7.7) th/mm3 Lymph # (Auto) (1.0-4.8) th/mm3 [place] # (Auto) (0.0-0.9) th/mm3 Eos # (Auto) (0.0-0.4) th/mm3 Baso # (Auto) (0.0-0.2) th/mm3 WBC Differential Differential Comment Sodium (136-145) meq/L Potassium (3.5-5.1) meq/L Chloride (98-107) meq/L Carbon Dioxide (21.0-32.0) meq/L Anion Gap (5-15) meq/L BUN (7-18) mg/dL Creatinine (0.50-1.00) mg/dL Estimated GFR (>89) mL/min POC Glucose 90 (68-110) mg/dl Random Glucose (74-106) mg/dL Calcium (8.5-10.1) mg/dL Prot Corrected Calcium Total Bilirubin (0.2-1.0) mg/dL AST (15-37) U/L ALT (10-53) U/L Alkaline Phosphatase (45-117) U/L Total Protein (6.4-8.2) g/dL Albumin (3.4-5.0) g/dL TSH 0.597 (0.358-3.740) uIU/mL Beta HCG, Qual (0-5) mIU/mL Urine Color (Yellw/Straw) Urine Clarity (Clear) Urine pH (5.0-8.5) Ur Specific [place] (1.002-1.035) Urine Protein (Neg-Trace) mg/dL Urine Glucose (UA) (Negative) mg/dL Urine Ketones (Negative) mg/dL Urine Occult Blood (Negative) Urine Nitrate (Negative) Urine Bilirubin (Negative) Urine Urobilinogen (Less than 2) mg/dL Ur Leukocyte Esterase (Negative) Urine RBC (0-3) /hpf Ur Squamous Epith Cells (0-5) /hpf Urine Bacteria (None) /hpf Micro UA Comment Urine Culture Comments Salicylates (2.8-20.0) mg/dL Urine Opiates Screen (Neg) Acetaminophen (10.0-30.0) mcg/mL Ur Barbiturates Screen (Neg) Ur Amphetamines Screen (Neg) U Benzodiazepines Scrn (Neg) Urine Cocaine Screen (Neg) U Cannabinoids Screen (Neg) Serum Alcohol (0-5) mg/dL Imaging Data Radiologist's impression: Chest X-Ray 10/02/17 10:22 CONCLUSION: No acute cardiopulmonary disease. ECG Data Attestation: I personally reviewed and interpreted this ECG as follows: Interpretation: EKG obtained at 11:36 AM on October 02 revealed ventricular rate of 66 normal sinus rhythm 67 bpm with normal MD and QTc intervals normal axis no signs of acute ischemia nonspecific ST-T wave abnormalities. Discharge Plan Discharge Disposition Patient Disposition: 30 Still Patient Discharge Condition Condition: Stable Discharge Details Diagnosis: Suicidal behavior, Schizophrenia, Overdose of antihypertensive agent, Hallucinations Physicians Team ED Provider: Fracisco Fernandez Primary Care Provider: UNKNOWN, Attending Provider: Hussein Cormier Other Providers: Jian Donohue Status ED Status: Left Department Discharge Information Discharge Date/Time: 10/02/17 14:55
[2017-10-02 11:05] LABS: Baso # (Auto) 0.1 th/mm3 (0.0-0.2); Baso % (Auto) 0.6 % (0.0-2.0); Eos # (Auto) 0.1 th/mm3 (0.0-0.4); Eos % (Auto) 1.5 % (0.0-4.0); Hematocrit 39.1 % (35.0-46.0); Lymph # (Auto) 2.4 th/mm3 (1.0-4.8); Lymph % (Auto) 28.4 % (9.0-44.0); Mean Corpuscular HGB Conc 33.3 % (32.0-36.0); Mean Corpuscular Hemoglobin 29.9 pg (27.0-34.0); Mean Corpuscular Volume 89.9 fL (80.0-100.0); Mean Platelet Volume 8.5 fL (7.0-11.0); Mono # (Auto) 0.6 th/mm3 (0.0-0.9); Mono % (Auto) 7.6 % (0.0-8.0); Neut # (Auto) 5.2 th/mm3 (1.8-7.7); Neut % (Auto) 61.9 % (16.0-70.0); Platelet Count 259 th/mm3 (150-450); Red Blood Count 4.34 mil/mm3 (4.00-5.30); Red Cell Distribution Width 14.9 % (11.6-17.2); White Blood Count 8.4 th/mm3 (4.0-11.0)
[2017-10-02 11:31] LABS: Alanine Aminotransferase 14 U/L (10-53); Albumin 3.8 g/dL (3.4-5.0); Anion Gap 7 meq/L (5-15); Aspartate Aminotransferase 11 U/L (15-37); Blood Urea Nitrogen 8 mg/dL (7-18); Calcium 8.7 mg/dL (8.5-10.1); Carbon Dioxide 24.9 meq/L (21.0-32.0); Chloride 109 meq/L (98-107); Glomerular Filtration Rate Greater Than 89 mL/min (>89); Glucose,Random 81 mg/dL (74-106); Potassium 3.9 meq/L (3.5-5.1); Sodium 141 meq/L (136-145)
--- NOTE | 2017-10-02 11:34 | XR ---
EXAM DATE: 10/02/2017 11:25 AM EDT AGE/SEX: 22 years / Female INDICATIONS: Chest pain. Shortness of breath. CLINICAL DATA: This is the patient's initial encounter. Patient reports that signs and symptoms have been present for 1 day and indicates a pain score of 3/10. MEDICAL/SURGICAL HISTORY: Hypertension. None. [place] [facility] [place]. . FINDINGS: A single AP view of the chest demonstrates the lungs to be symmetrically aerated without evidence of mass, infiltrate or effusion. The cardiomediastinal contours are unremarkable. Osseous structures a re intact. CONCLUSION: No acute cardiopulmonary disease. Electronically signed by: Rey Jones MD 10/02/2017 11:33 AM EDT
[2017-10-02 11:41] LABS: Alkaline Phosphatase 108 U/L (45-117); Thyroid Stimulating Hormone 0.878 uIU/mL (0.358-3.740); Total Protein 7.6 g/dL (6.4-8.2)
[2017-10-02] MEDS ORDERED: Bisacodyl 10 MG Supp RECTAL PRN (13:30)
[2017-10-02] MEDS ORDERED: Temazepam 15 MG Capsule PO PRN (13:30)
--- NOTE | 2017-10-02 14:17 | P.HPIM ---
History of Present Illness Primary Care Physician: UNKNOWN History of Present Illness: 22-year-old female with a history of bipolar disorder, schizophrenia who is brought in due to suicide attempt, with overdose, having taken 6 propranolol 10 mg tablets this morning. She denies any chest pain, shortness of breath, nausea , vomiting, lightheadedness, dizziness. She says the voices in her head started yesterday. History is difficult due to tangential speech. Review of Systems Attempted, but difficult due to tangential speech. Patient does report voices in her head. [facility] - History History Provided By: Patient - Medical History Medical History: Medical History (Last Updated 10/02/17 @ 09:54 by Josselin Fowler) Hyperthyroidism (Acute) Schizophrenia (Acute) Bipolar disorder (Acute) - Surgical History Surgical History: Surgical History (Last Updated 10/02/17 @ 09:54 by Josselin Fowler) No history of previous surgery (Acute) - Tobacco History Second Hand Smoke Exposure: No Tobacco Use In Past 30 Days: No Smoking Status: Never smoker Tobacco Type: Cigarettes - Alcohol History How Often Do You Have a Drink Containing Alcohol: 2 to 3 times a week - Substance Use History Substance History: Active Abuse - Substance Use Type Crack/Cocaine Status: Active Marijuana Status: Active - Travel History Recent Travel in the [place] Within the Last 8 Weeks: No Recent Travel Out of the Country Within the Last 8 Weeks: No - Immunization History Tetanus Immunization: Unsure Hx Influenza Vaccine This Season: No Medications and Allergies Active Medications: Active Medications Al Hydroxide/Mg Hydroxide (Milk Of Magnesia Liq) 30 ml PO Q12H PRN PRN Reason: Mild Constipation Bisacodyl (Dulcolax Supp) 10 mg RECTAL DAILY PRN PRN Reason: SEVERE CONSITIPATION Lactulose (Lactulose Liq) 30 ml PO DAILY PRN PRN Reason: SEVERE CONSITIPATION Sennosides (Senokot) 17.2 mg PO Q12H PRN PRN Reason: Moderate Constipation Temazepam (Restoril) 15 mg PO HS PRN PRN Reason: INSOMNIA Allergies Allergy/AdvReac Type Severity Reaction Status Date / Time No Known Allergies Allergy Unknown Abdominal Uncoded 10/02/17 09:50 Pain Home Medications Medication Instructions Recorded Confirmed Type clozapine 100 mg PO HS 09/25/17 09/25/17 History propranolol 10 mg PO BID 09/25/17 09/25/17 History quetiapine 50 mg PO BID 09/25/17 09/25/17 History quetiapine 100 mg PO DAILY 09/25/17 09/25/17 History quetiapine 600 mg PO HS 09/25/17 09/25/17 History Exam Vital signs: Vital Signs 10/02/17 09:51 Temperature 98.7 F Pulse Rate 94 H Respiratory Rate 16 Blood Pressure 126/67 Pulse Oximetry 100 Intake & Output 10/01/17 10/02/17 10/02/17 18:59 06:59 18:59 Weight 104.326 kg Narrative: GENERAL: Patient lying in bed. Appears comfortable. Tangential speech, flight of ideas. SKIN: Warm and dry. HEAD: Normocephalic. EYES: No scleral icterus. No injection or drainage. NECK: Supple, trachea midline. No JVD or lymphadenopathy. CARDIOVASCULAR: Regular rate and rhythm without murmurs, gallops, or rubs. RESPIRATORY: Breath sounds equal bilaterally. No accessory muscle use. GASTROINTESTINAL: Abdomen soft, non-tender, nondistended. MUSCULOSKELETAL: No cyanosis, or edema. BACK: Nontender without obvious deformity. No CVA tenderness. Results - Labs CBC & Chem 7: 10/02/17 10:50 10/02/17 10:50 Labs: Short CBC 10/02/17 Range/Units 10:50 WBC 8.4 (4.0-11.0) th/mm3 Hgb 13.0 (11.6-15.3) gm/dL Hct 39.1 (35.0-46.0) % Plt Count 259 (150-450) th/mm3 [facility] 10/02/17 10/02/17 10:50 10:50 Sodium 141 Cancelled Potassium 3.9 Cancelled Chloride 109 H Cancelled Carbon Dioxide 24.9 Cancelled BUN 8 Cancelled Creatinine 0.87 Cancelled Calcium 8.7 Cancelled Liver Function 10/02/17 10/02/17 Range/Units 10:50 10:50 Total Bilirubin 0.5 Cancelled (0.2-1.0) mg/dL AST 11 L Cancelled (15-37) U/L ALT 14 Cancelled (10-53) U/L Alkaline Phosphatase 108 Cancelled (45-117) U/L Albumin 3.8 Cancelled (3.4-5.0) g/dL - Imaging Impressions Chest X-Ray 10/02/17 10:22 CONCLUSION: No acute cardiopulmonary disease. Caprini VTE Risk Assessment Caprini VTE Risk Assessment: No/Low Risk (score <= 1) Caprini Risk Assessment Model: Point Value = 1 Point Value = 2 Point Value = 3 Point Value = 5 Age 41-60 Minor surgery BMI > 25 kg/m2 Swollen legs Varicose veins or History of unexplained or recurrent spontaneous Oral contraceptives or hormone replacement Sepsis (< 1 month) Serious lung disease, including pneumonia (< 1 month) Abnormal pulmonary function Acute myocardial infarction Congestive heart failure (< 1 month) History of inflammatory bowel disease Medical patient at bed rest Age 61-74 Arthroscopic surgery Major open surgery (> 45 min) Laparoscopic surgery (> 45 min) Malignancy Confined to bed (> 72 hours) Immobilizing plaster cast Central venous access Age >= 75 History of VTE Family history of VTE Factor V Leiden Prothrombin [id number] Lupus anticoagulant Anticardiolipin antibodies Elevated serum homocysteine Heparin-induced thrombocytopenia Other congenital or acquired thrombophilia Stroke (< 1 month) Elective arthroplasty Hip, pelvis, or leg fracture Acute spinal cord injury (< 1 month) Prophylaxis Regimen: Total Risk Factor Score Risk Level Prophylaxis Regimen 0-1 Low Early ambulation 2 Moderate Order ONE of the following: *Sequential Compression Device (SCD) *Heparin 5000 units SQ BID 3-4 Higher Order ONE of the following medications: *Heparin 5000 units SQ TID *Enoxaparin/Lovenox 40 mg SQ daily (WT < 150 kg, CrCl > 30 mL/min) *Enoxaparin/Lovenox 30 mg SQ daily (WT < 150 kg, CrCl > 10-29 mL/min) *Enoxaparin/Lovenox 30 mg SQ BID (WT < 150 kg, CrCl > 30 mL/min) AND/OR *Sequential Compression Device (SCD) 5 or more Highest Order ONE of the following medications: *Heparin 5000 units SQ TID (Preferred with Epidurals) *Enoxaparin/Lovenox 40 mg SQ daily (WT < 150 kg, CrCl > 30 mL/min) *Enoxaparin/Lovenox 30 mg SQ daily (WT < 150 kg, CrCl > 10-29 mL/min) *Enoxaparin/Lovenox 30 mg SQ BID (WT < 150 kg, CrCl > 30 mL/min) AND *Sequential Compression Device (SCD) Assessment and Plan - Plan //Bipolar disorder. //Schizophrenia //Suicide attempt. Reportedly propranolol 60 mg = EKG reportedly unremarkable per report. Will trend EKGs, blood sugars. -Suicide precautions. Consult psychiatry. //Reported history of hypothyroidism. Will check TSH. //For history of tremor. On propranolol at home. No evidence of tremor on exam. Will hold off on propranolol and monitor. Discussed Condition With: Patient, ED physician. Discharge Planning: Will monitor on telemetry overnight. Likely clear for discharge to psychiatry tomorrow.
[2017-10-02 15:04] LABS: Bacteria,Urine Rare /hpf; Bilirubin,Urine Negative (Negative); Clarity,Urine Clear (Clear); Color,Urine Colorless (Yellw/Straw); Glucose,Urine (UA) Negative (Negative); Leukocyte Esterase,Urine Negative (Negative); Nitrite,Urine Negative (Negative); Specific Gravity,Urine 1.002 (1.002-1.035); Squamous Epithelial Cell,Urine <1 /hpf (0-5)
[2017-10-02 15:08] LABS: Amphetamine Screen,Urine Neg (Neg); Barbiturate Screen,Urine Neg (Neg); Cannabinoid Screen,Urine Neg (Neg); Cocaine Screen,Urine Neg (Neg)
[2017-10-02 15:09] LABS: Opiate Screen,Urine Neg (Neg)
[2017-10-03 07:25] LABS: Baso % (Auto) 0.5 % (0.0-2.0); Eos # (Auto) 0.2 th/mm3 (0.0-0.4); Eos % (Auto) 1.9 % (0.0-4.0); Hematocrit 37.7 % (35.0-46.0); Hemoglobin 12.5 gm/dL (11.6-15.3); Lymph # (Auto) 3.2 th/mm3 (1.0-4.8); Lymph % (Auto) 34.5 % (9.0-44.0); Mean Corpuscular HGB Conc 33.2 % (32.0-36.0); Mean Corpuscular Volume 90.3 fL (80.0-100.0); Mean Platelet Volume 8.3 fL (7.0-11.0); Mono # (Auto) 0.7 th/mm3 (0.0-0.9); Mono % (Auto) 7.9 % (0.0-8.0); Neut # (Auto) 5.2 th/mm3 (1.8-7.7); Neut % (Auto) 55.2 % (16.0-70.0); Platelet Count 240 th/mm3 (150-450); Red Blood Count 4.18 mil/mm3 (4.00-5.30); Red Cell Distribution Width 14.4 % (11.6-17.2); White Blood Count 9.4 th/mm3 (4.0-11.0)
[2017-10-03 07:52] LABS: Alanine Aminotransferase 13 U/L (10-53); Albumin 3.4 g/dL (3.4-5.0); Anion Gap 4 meq/L (5-15); Aspartate Aminotransferase 8 U/L (15-37); Blood Urea Nitrogen 11 mg/dL (7-18); Calcium 8.5 mg/dL (8.5-10.1); Chloride 109 meq/L (98-107); Glomerular Filtration Rate Greater Than 89 mL/min (>89); Glucose,Random 75 mg/dL (74-106); Potassium 3.9 meq/L (3.5-5.1); Sodium 141 meq/L (136-145)
[2017-10-03 07:54] LABS: Alkaline Phosphatase 93 U/L (45-117); Total Protein 6.7 g/dL (6.4-8.2)
--- NOTE | 2017-10-03 09:53 | P.PN ---
Subjective Interval history: Follow-up visit depression, bipolar disorder, schizophrenia, suicidal attempt. Patient seen and examined today. Reports continues to have suicidal ideation. States that she continues to have hallucinations hearing and seeing people. Patient states that she is on Seroquel and clozapine at home and also labetalol. Denies pain and discomfort. Denies SOB/ dyspnea. Denies chest pain , palpitations, headaches, dizziness. Denies fevers, chills, n/v/d. Denies dysuria. Physical Exam Vital signs: Vital Signs 10/02/17 16:26 10/02/17 16:36 10/02/17 20:00 Temperature 98.2 F 97.8 F Pulse Rate 77 70 84 Respiratory Rate 20 18 Blood Pressure 120/48 L 94/50 L Pulse Oximetry 96 96 10/03/17 00:00 10/03/17 04:00 10/03/17 08:00 Temperature 98.0 F 98.4 F 97.9 F Pulse Rate 89 98 H 75 Respiratory Rate 16 18 16 Blood Pressure 90/52 L 108/51 L 104/58 L Pulse Oximetry 95 97 86 L Intake & Output 10/02/17 10/03/17 10/03/17 18:59 06:59 18:59 Intake Total 480 / 480 Balance 480 / 480 Weight 104.326 kg Intake: Oral 480 / 480 Other: # Voids 2 Narrative: GENERAL: This is a well-nourished, well-developed patient, in no apparent distress. SKIN: Warm and dry. HEENT: Normocephalic. Pupils equal round and reactive. Nose without bleeding. Airway patent. NECK: Trachea midline. No JVD. Supple. CARDIOVASCULAR: Regular rate and rhythm without murmurs, gallops, or rubs. RESPIRATORY: Clear to auscultation. Breath sounds equal bilaterally. No wheezes , rales, or rhonchi. GASTROINTESTINAL: Abdomen soft, non-tender, nondistended. Bowel Sounds normoactive x4. MUSCULOSKELETAL: Extremities without clubbing, cyanosis, or edema. NEUROLOGICAL: Awake and alert. No focal neuro deficit. Moves all extremities. Normal speech. Results - Labs CBC & Chem 7: 10/03/17 06:15 10/03/17 06:15 Laboratory Results - last 24 hr 10/02/17 10/02/17 10/02/17 10:50 10:50 10:50 WBC 8.4 RBC 4.34 Hgb 13.0 Hct 39.1 MCV 89.9 MCH 29.9 MCHC 33.3 RDW 14.9 Plt Count 259 MPV 8.5 Neut % (Auto) 61.9 Lymph % (Auto) 28.4 [place] % (Auto) 7.6 Eos % (Auto) 1.5 Baso % (Auto) 0.6 Neut # (Auto) 5.2 Lymph # (Auto) 2.4 [place] # (Auto) 0.6 Eos # (Auto) 0.1 Baso # (Auto) 0.1 WBC Differential . Differential Comment Auto diff final Sodium 141 Potassium 3.9 Chloride 109 H Carbon Dioxide 24.9 Anion Gap 7 BUN 8 Creatinine 0.87 Estimated GFR Greater than 89 POC Glucose Random Glucose 81 Calcium 8.7 Prot Corrected Calcium Total Bilirubin 0.5 AST 11 L ALT 14 Alkaline Phosphatase 108 Total Protein 7.6 D Albumin 3.8 TSH 0.878 Beta HCG, Qual Less than 1.0 Urine Color Urine Clarity Urine pH Ur Specific [place] Urine Protein Urine Glucose (UA) Urine Ketones Urine Occult Blood Urine Nitrate Urine Bilirubin Urine Urobilinogen Ur Leukocyte Esterase Urine RBC Ur Squamous Epith Cells Urine Bacteria Micro UA Comment Urine Culture Comments Salicylates 3.8 Urine Opiates Screen Acetaminophen Less than 2.0 L Ur Barbiturates Screen Ur Amphetamines Screen U Benzodiazepines Scrn Urine Cocaine Screen U Cannabinoids Screen Serum Alcohol Less than 3 10/02/17 10/02/17 10/02/17 10:50 14:28 14:28 WBC RBC Hgb Hct MCV MCH MCHC RDW Plt Count MPV Neut % (Auto) Lymph % (Auto) [place] % (Auto) Eos % (Auto) Baso % (Auto) Neut # (Auto) Lymph # (Auto) [place] # (Auto) Eos # (Auto) Baso # (Auto) WBC Differential Differential Comment Sodium Cancelled Potassium Cancelled Chloride Cancelled Carbon Dioxide Cancelled Anion Gap Cancelled BUN Cancelled Creatinine Cancelled Estimated GFR Cancelled POC Glucose Random Glucose Cancelled Calcium Cancelled Prot Corrected Calcium Cancelled Total Bilirubin Cancelled AST Cancelled ALT Cancelled Alkaline Phosphatase Cancelled Total Protein Cancelled Albumin Cancelled TSH Cancelled Beta HCG, Qual Urine Color Colorless Urine Clarity Clear Urine pH 7.0 Ur Specific [place] 1.002 Urine Protein Negative Urine Glucose (UA) Negative Urine Ketones Negative Urine Occult Blood Negative Urine Nitrate Negative Urine Bilirubin Negative Urine Urobilinogen Less than 2 Ur Leukocyte Esterase Negative Urine RBC Less than 1 Ur Squamous Epith Cells <1 Urine Bacteria Rare H Micro UA Comment Culture not ind Urine Culture Comments Culture not ind Salicylates Urine Opiates Screen Neg Acetaminophen Ur Barbiturates Screen Neg Ur Amphetamines Screen Neg U Benzodiazepines Scrn Neg Urine Cocaine Screen Neg U Cannabinoids Screen Neg Serum Alcohol Cancelled 10/02/17 10/02/17 10/03/17 14:28 17:13 00:39 WBC RBC Hgb Hct MCV MCH MCHC RDW Plt Count MPV Neut % (Auto) Lymph % (Auto) [place] % (Auto) Eos % (Auto) Baso % (Auto) Neut # (Auto) Lymph # (Auto) [place] # (Auto) Eos # (Auto) Baso # (Auto) WBC Differential Differential Comment Sodium Potassium Chloride Carbon Dioxide Anion Gap BUN Creatinine Estimated GFR POC Glucose 90 87 Random Glucose Calcium Prot Corrected Calcium Total Bilirubin AST ALT Alkaline Phosphatase Total Protein Albumin TSH 0.597 Beta HCG, Qual Urine Color Urine Clarity Urine pH Ur Specific [place] Urine Protein Urine Glucose (UA) Urine Ketones Urine Occult Blood Urine Nitrate Urine Bilirubin Urine Urobilinogen Ur Leukocyte Esterase Urine RBC Ur Squamous Epith Cells Urine Bacteria Micro UA Comment Urine Culture Comments Salicylates Urine Opiates Screen Acetaminophen Ur Barbiturates Screen Ur Amphetamines Screen U Benzodiazepines Scrn Urine Cocaine Screen U Cannabinoids Screen Serum Alcohol 10/03/17 10/03/17 10/03/17 05:50 06:15 06:15 WBC 9.4 RBC 4.18 Hgb 12.5 Hct 37.7 MCV 90.3 MCH 30.0 MCHC 33.2 RDW 14.4 Plt Count 240 MPV 8.3 Neut % (Auto) 55.2 Lymph % (Auto) 34.5 [place] % (Auto) 7.9 Eos % (Auto) 1.9 Baso % (Auto) 0.5 Neut # (Auto) 5.2 Lymph # (Auto) 3.2 [place] # (Auto) 0.7 Eos # (Auto) 0.2 Baso # (Auto) 0.0 WBC Differential . Differential Comment Auto diff final Sodium 141 Potassium 3.9 Chloride 109 H Carbon Dioxide 28.0 Anion Gap 4 L BUN 11 Creatinine 0.85 Estimated GFR Greater than 89 POC Glucose 80 Random Glucose 75 Calcium 8.5 Prot Corrected Calcium Total Bilirubin 0.4 AST 8 L ALT 13 Alkaline Phosphatase 93 Total Protein 6.7 D Albumin 3.4 TSH Beta HCG, Qual Urine Color Urine Clarity Urine pH Ur Specific [place] Urine Protein Urine Glucose (UA) Urine Ketones Urine Occult Blood Urine Nitrate Urine Bilirubin Urine Urobilinogen Ur Leukocyte Esterase Urine RBC Ur Squamous Epith Cells Urine Bacteria Micro UA Comment Urine Culture Comments Salicylates Urine Opiates Screen Acetaminophen Ur Barbiturates Screen Ur Amphetamines Screen U Benzodiazepines Scrn Urine Cocaine Screen U Cannabinoids Screen Serum Alcohol - Imaging Impressions Chest X-Ray 10/02/17 10:22 CONCLUSION: No acute cardiopulmonary disease. Assessment and Plan - Assessment (1) Suicidal behavior Code(s): R46.89 - Other symptoms and signs involving appearance and behavior Status: Acute (2) Schizophrenia Code(s): F20.9 - Schizophrenia, unspecified Status: Acute - Plan 22-year-old female with a history of bipolar disorder, schizophrenia who is brought in due to suicide attempt, with overdose, having taken 6 propranolol 10 mg tablets. Bipolar, schizophrenia, suicidal ideation -Psychiatry consulted for evaluation. Possible discharge to inpatient psychiatry unit. -Needs to have hallucinations visual and auditory. Restart home medications. -TSH wnl Overdose on propranolol History of tremor -Heart rate 80s-90s, blood pressure within normal. -Continue to monitor. If tachycardia or increase in anxiety, tremor noted restart propranolol. -No evidence of tremor. DVT prop SCDs, early ambulation. Discharge patient to inpatient psychiatry Condition on discharge: Improved Regular Diet as tolerated Ad Ledy activity Rx written: psych medications restarted Follow-up with psychiatry physician Code Status: Full code Discussed Condition With: Patient, nursing, Dr. Donohue Discharge Planning: Plan to discharge inpatient psychiatry today. (1) Suicidal behavior Qualifiers: Attempted self-injury: with attempted self-injury Qualified Code(s): T14.91XA - Suicide attempt, initial encounter (2) Schizophrenia Qualifiers: Schizophrenia type: other Qualified Code(s): F20.89 - Other schizophrenia; F20.8 - Other schizophrenia
[2017-10-03] MEDS ORDERED: QUEtiapine 25 MG Tablet PO SCH (11:30)
[2017-10-03] MEDS ORDERED: Propranolol 10 MG Tablet PO SCH (11:30)
--- NOTE | 2017-10-03 11:46 | P.CONPSY ---
Provisional Diagnosis Admission Date: October 02, 2017 14:14 [place] I.: Schizoaffective disorder, bipolar type, cocaine and cannabis use disorder [place] II.: Deferred [place] III.: Hypothyroidism History of Present Illness Service: Medicine Primary Care Provider: UNKNOWN History of Present Illness: The patient is a 22-year-old -[place] woman, domiciled with her mother in [facility], single, unemployed, with well known psychiatric history of schizoaffective disorder, multiple psychiatric admissions, multiple ER visits to [place], last hospitalization was in August the care of Dr. Mace, documentation review, outpatient psychiatric care with [facility], she is on quetiapine 600 mg at bedtime, clozapine 100 mg, propanolol 10 mg 3 times daily, medical history of hypothyroidism, who is brought in due to suicide attempt, with overdose, having taken 6 propranolol 10 mg tablets this morning. On psychiatric evaluation the patient is kind of oppositional and irritable, and stated that she has been hearing voices telling her to kill herself. She says that the voices are better now, but she is afraid to be at home alone with the voices. The patient reports that she has been compliant with her medications, without no significant side effects. She is fully oriented 3. PPHx: The patient has psychiatric history of schizoaffective disorder, schizophrenia, multiple psychiatric hospitalizations, well known by the service , last hospitalization was here in [place] August 2017, after that hospitalization she has 2 ER visits, but she was clear, outpatient psychiatric care in [facility], medications are quetiapine 600 mg, clozapine 100 mg, propanolol 10 mg 3 times daily for akathisia. PMHx: Hypothyroidism Family psychiatric history: Patient has a grandmother with bipolar Substance history: Patient reports occasional use of cocaine and marijuana Social history: The patient was born and raised in [place], she lives with her mother in [facility], single, unemployed, her highest level of education is ninth grade [employer] - History History Provided By: Patient - Medical History Medical History: Medical History (Last Reviewed 10/02/17 @ 20:06 by Fracisco Fernandez DO) Hyperthyroidism (Acute) Schizophrenia (Acute) Bipolar disorder (Acute) - Surgical History Surgical History: Surgical History (Last Reviewed 10/02/17 @ 20:06 by Fracisco Fernandez DO) No history of previous surgery (Acute) - Tobacco History Second Hand Smoke Exposure: No Tobacco Use In Past 30 Days: No Smoking Status: Former smoker Tobacco Type: Cigarettes - Alcohol History How Often Do You Have a Drink Containing Alcohol: Never - Substance Use History Substance History: Active Abuse - Substance Use Type Crack/Cocaine Status: Active Marijuana Type: marijuana and cocaine Status: Active Route Used: By Mouth, Inhalation Frequency: marijuana 2x wk, cocaine q2-3 days Last Used: 10/01/17 Reason for Use: Calm Down Comment: reports helps calm her down and keeps the voices away - Travel History Recent Travel in the [place] Within the Last 8 Weeks: No Recent Travel Out of the Country Within the Last 8 Weeks: No - Immunization History Tetanus Immunization: Unsure Hx Influenza Vaccine This Season: No Medications and Allergies Active Medications: Active Medications Al Hydroxide/Mg Hydroxide (Milk Of Magnesia Liq) 30 ml PO Q12H PRN PRN Reason: Mild Constipation Bisacodyl (Dulcolax Supp) 10 mg RECTAL DAILY PRN PRN Reason: SEVERE CONSITIPATION Clozapine (Clozaril) 100 mg PO HS TOBIAS Lactulose (Lactulose Liq) 30 ml PO DAILY PRN PRN Reason: SEVERE CONSITIPATION Propranolol HCl (Inderal) 10 mg PO BID TOBIAS Quetiapine Fumarate (Seroquel) 50 mg PO BID TOBIAS Quetiapine Fumarate (Seroquel) 600 mg PO HS TOBIAS Sennosides (Senokot) 17.2 mg PO Q12H PRN PRN Reason: Moderate Constipation Temazepam (Restoril) 15 mg PO HS PRN PRN Reason: INSOMNIA Allergies Allergy/AdvReac Type Severity Reaction Status Date / Time No Known Allergies Allergy Unknown Abdominal Uncoded 10/02/17 09:50 Pain Home Medications Medication Instructions Recorded Confirmed Type clozapine 100 mg PO HS 09/25/17 09/25/17 History propranolol 10 mg PO BID 09/25/17 09/25/17 History quetiapine 50 mg PO BID 09/25/17 09/25/17 History quetiapine 100 mg PO DAILY 09/25/17 09/25/17 History quetiapine 600 mg PO HS 09/25/17 09/25/17 History Exam Vital signs: Vital Signs 10/02/17 16:26 10/02/17 16:36 10/02/17 20:00 Temperature 98.2 F 97.8 F Pulse Rate 77 70 84 Respiratory Rate 20 18 Blood Pressure 120/48 L 94/50 L Pulse Oximetry 96 96 10/03/17 00:00 10/03/17 04:00 10/03/17 08:00 Temperature 98.0 F 98.4 F 97.9 F Pulse Rate 89 98 H 75 Respiratory Rate 16 18 16 Blood Pressure 90/52 L 108/51 L 104/58 L Pulse Oximetry 95 97 86 L Intake & Output 10/02/17 10/03/17 10/03/17 18:59 06:59 18:59 Intake Total 480 / 480 Balance 480 / 480 Weight 104.326 kg Intake: Oral 480 / 480 Other: # Voids 2 Mental Status Examination Appearance: Appropriate Consciousness: Alert Orientation: x4 Speech: Unremarkable Language: Adequate Fund of Knowledge: Adequate Memory: Unremarkable Mood: Good Affect: Appropriate Thought Process & Associations: Intact Hallucination Type: Auditory Delusion Type: None Suicidal Ideation: No Suicidal Plan: No Suicidal Intention: No Homicidal Ideation: No Homicidal Plan: No Homicidal Intention: No Insight: Poor Judgment: Poor Assessment and Plan - Assessment (1) Schizophrenia Code(s): F20.9 - Schizophrenia, unspecified Status: Acute - Plan Plan: Estimated LOS: [] days On psychiatric evaluation the patient reports that she has been actively hearing commanding type auditory hallucinations of voices telling her to kill herself. Has already tried to commit suicide by overdosing with propanolol. Patient will be admitted in psychiatry for stabilization and safety. Will restart her current psychotropic regimen. Justification for Continued Inpatient Stay: Patient is actively hearing voices, will be admitted for stabilization
--- NOTE | 2017-10-03 14:10 | ECG ---
Date Performed: 10/03/2017 Time Performed: 01:11:00 PTAGE: 22 years EKG: Sinus rhythm NORMAL ECG PREVIOUS TRACING : 10/02/2017 17.18 DOCTOR: Blair Lee Interpretating Date/Time 10/03/2017 14:08:02
--- NOTE | 2017-10-03 14:45 | ECG ---
Date Performed: 10/02/2017 Time Performed: 11:36:55 PTAGE: 22 years EKG: Sinus rhythm Since previous tracing, no significant change noted NORMAL ECG PREVIOUS TRACING : 06/15/2017 17.14 DOCTOR: Blair Lee Interpretating Date/Time 10/03/2017 14:44:44
--- NOTE | 2017-10-03 14:46 | ECG ---
Date Performed: 10/02/2017 Time Performed: 17:18:02 PTAGE: 22 years EKG: Sinus rhythm Since previous tracing, no significant change noted NORMAL ECG PREVIOUS TRACING : 10/02/2017 11.36 DOCTOR: Blair Lee Interpretating Date/Time 10/03/2017 14:44:54
== END 2017-10-03 17:07 ==
LOC: NEDAMB 09:33 → NEDA 14:14 → NEPGCP 14:58
PROVIDERS: ADMIT Internal Medicine; ATTEND Internal Medicine

== ENCOUNTER 2017-10-03 17:08 | Inpatient (IN) ==
[2017-10-03] MEDS ORDERED: Bisacodyl 10 MG Supp RECTAL PRN (18:34)
[2017-10-03] MEDS ORDERED: Acetaminophen 325 MG Tablet PO PRN (18:34)
[2017-10-03] MEDS ORDERED: Aluminum/Magnesium/Simethacone Susp 30 ML UDC PO PRN (18:34)
[2017-10-03] MEDS: Propranolol 10 MG Tablet PO SCH (21:13)
[2017-10-03] MEDS: Senna/Docusate Sodium 8.6/50 MG Tablet PO SCH (21:13)
[2017-10-03] MEDS: QUEtiapine 25 MG Tablet PO SCH (21:13)
[2017-10-03] MEDS: LORazepam 1 MG Tablet PO PRN (21:13)
[2017-10-04] MEDS: Propranolol 10 MG Tablet PO SCH ×2 (08:37→21:10)
[2017-10-04] MEDS: Senna/Docusate Sodium 8.6/50 MG Tablet PO SCH ×2 (08:37→21:10)
[2017-10-04] MEDS: QUEtiapine 25 MG Tablet PO SCH ×3 (10:01→21:10)
--- NOTE | 2017-10-04 14:26 | P.HPPSY ---
Provisional Diagnosis Admission Date: October 03, 2017 17:08 [place] I.: Schizophrenia Competence Certification of Person's Competence To Provide Express and Informed Consent I have personally examined Sahara Rios, a person being served at [facility] on, October 04, 2017 1420. Express and informed consent means consent voluntarily given in writing, by a competent person, after sufficient explanation and disclosure of the subject matter involved to enable the person to make a knowing and willful decision without any element of force, fraud, deceit, duress, or other form of constraint or coercion. This person is 18 years of age or older, is not now known to be incompetent to consent to treatment with a guardian advocate, and does not have a health care surrogate or proxy currently making medical treatment decisions. I have found this person to be one of the following: [x] Competent to provide express and informed consent, as defined above, for voluntary admission to this facility and is competent to provide express and informed consent for treatment. He/she has the consistent capacity to make well reasoned, willful, and knowing decisions concerning his or her medical or mental health treatment. The person fully and consistently understands the purpose of the admission for examination/placement and is fully capable of personally exercising all rights assured [place] Incompetent to provide express and informed consent to voluntary admission, and this is incompetent to provide express and informed consent to treatment. The person must be transferred to involuntary status and a petition for a guardian advocate filed with the Circuit Court. [] Refusing to provide express and informed consent to voluntary admission but is competent to provide express and informed consent for treatment. The person must be discharged or transferred to involuntary status. Form shall be completed within 24 hours of a person's arrival at the receiving facility and filed in the clinical record of each person: 1. Admitted on a voluntary basis 2. Permitted to provide express and informed consent to his/her own treatment 3. Allowed to transfer from involuntary to voluntary status 4. Prior to permitting a person to consent to his or her own treatment after having been previously found incompetent to consent to treatment. History of Present Illness Capacity: Has capacity History of Present Illness: The patient is a 22-year-old -[place] woman, domiciled with her mother in [facility], single, unemployed, with well known psychiatric history of schizoaffective disorder, multiple psychiatric admissions, multiple ER visits to [place], last hospitalization was in August the care of Dr. Mace, documentation review, outpatient psychiatric care with [facility], she is on quetiapine 600 mg at bedtime, clozapine 100 mg, propanolol 10 mg 3 times daily, medical history of hypothyroidism, who is brought in due to suicide attempt, with overdose, having taken 6 propranolol 10 mg tablets this morning. The patient was seen by me yesterday in the observational area of the ER, I recommended a psychiatric admission at that moment. EMR reviewed. Case discussed with nursing charge. Today on psychiatric evaluation the patient says that she feels better, safer, still hearing voices telling her to kill herself "but with less intensity and decreased volume". She says that the voices are better now, but she is afraid to be at home alone with the voices. The patient reports that she has been compliant with her medications, without no significant side effects. She is fully oriented 3. PPHx: The patient has psychiatric history of schizoaffective disorder, schizophrenia, multiple psychiatric hospitalizations, well known by the service , last hospitalization was here in [place] August 2017, after that hospitalization she has 2 ER visits, but she was clear, outpatient psychiatric care in [facility], medications are quetiapine 600 mg, clozapine 100 mg, propanolol 10 mg 3 times daily for akathisia. PMHx: Hypothyroidism Family psychiatric history: Patient has a grandmother with bipolar Substance history: Patient reports occasional use of cocaine and marijuana Social history: The patient was born and raised in [place], she lives with her mother in [facility], single, unemployed, her highest level of education is ninth grade - Inpatient Certification I certify that the inpatient services were ordered in accordance with Medicare regulations governing the order. This includes certification that hospital inpatient services are reasonable and necessary and in the case of services not specified as inpatient-only under 42 CFR 419.22(n), that they are appropriately provided as inpatient services in accordance to with the 2-midnight benchmark under 43 CFR 412.3(e) I certify that inpatient psychiatric hospital services are medically necessary. Evaluation and treatment and/or diagnostic testing are expected to improve the patient's condition. The patient needs on a daily basis, active treatment furnished directly by or requiring the supervision of inpatient psychiatric facility personnel. Review of Systems Constitutional: Denies anorexia, Denies body ache(s), Denies chills, Denies daytime sleepiness, Denies excessive sweating, Denies fatigue, Denies fever(s), Denies headache(s), Denies increased appetite, Denies lack of energy, Denies malaise, Denies night sweats, Denies weakness, Denies weight gain, Denies weight loss, Denies other Ears, Nose, Mouth, and Throat: Denies abnormal hearing, Denies bleeding gums, Denies bad breath, Denies change in voice, Denies dental pain, Denies difficulty swallowing, Denies dizziness, Denies dry mouth, Denies ear discharge , Denies ear pain, Denies facial pain, Denies headache(s), Denies hearing loss, Denies hoarseness, Denies lip swelling, Denies nosebleed, Denies mouth lesions, Denies mouth pain, Denies nasal congestion, Denies nasal discharge, Denies nasal obstruction, Denies nasal trauma, Denies neck lump, Denies neck pain, Denies nose pain, Denies pain with swallowing, Denies poor balance, Denies post nasal drip, Denies ringing in the ears, Denies sinus pain, Denies sinus pressure , Denies sore throat, Denies throat swelling, Denies tongue swelling, Denies other Cardiovascular: Denies chest pain, Denies chest pain at rest, Denies chest pain with activity, Denies excessive sweating, Denies fainting, Denies fast heart rate, Denies foot swelling, Denies generalized swelling, Denies irregular heart rhythm, Denies leg pain with activity, Denies leg sores, Denies leg swelling, Denies lightheadedness, Denies radiating jaw, neck or arm pain, Denies rapid, pounding, or irregular heartbeat, Denies shortness of breath, Denies shortness of breath with activity, Denies shortness of breath when lying down, Denies shortness of breath causing sudden awakening, Denies slow heart rate, Denies other Respiratory: Denies change in phlegm color, Denies chest congestion, Denies cough, Denies coughing up blood, Denies excessive phlegm production, Denies pain on inspiration, Denies pain with cough, Denies shortness of breath, Denies shortness of breath with activity, Denies snoring, Denies stridor, Denies wheezing, Denies other Gastrointestinal: Denies abdominal pain, Denies belching, Denies black, tarry stools, Denies bloating, Denies bright, red blood in stools, Denies change in bowel habits, Denies constant urge to pass stool, Denies change in stools, Denies coffee ground vomit, Denies constipation, Denies cramping, Denies difficulty swallowing, Denies excessive passing of gas, Denies feeling full early, Denies heartburn, Denies incontinent of stools, Denies loose stools, Denies nausea, Denies pain with swallowing, Denies vomiting, Denies vomiting blood, Denies other Genitourinary: Denies abnormal periods, Denies abnormal vaginal bleeding, Denies absent period, Denies bleeding between periods, Denies blood in urine, Denies difficulty starting urination, Denies difficulty urinating, Denies dribbling after urination, Denies frequent nighttime urination, Denies genital itching, Denies genital lesions, Denies heavy periods, Denies hot flashes, Denies light periods, Denies nipple discharge, Denies painful intercourse, Denies painful periods, Denies painful urination, Denies pelvic pain, Denies prolapse symptoms, Denies sexual problems, Denies side pain, Denies urinary incontinence, Denies urinary urgency, Denies vaginal discharge, Denies vaginal dryness, Denies vaginal odor, Denies vaginal itching, Denies other Musculoskeletal: Denies abnormal walking, Denies back pain, Denies body aches, Denies decreased muscle mass, Denies deformity, Denies joint pain, Denies joint swelling, Denies limited joint movement, Denies loss of height, Denies muscle cramps, Denies muscle weakness, Denies neck pain, Denies numbness, Denies radiating pain into limb, Denies stiffness, Denies tingling, Denies other Skin/Breast: Denies acne, Denies bleeding lesions, Denies boil, Denies breast swelling, Denies breast skin changes, Denies breast pain, Denies breast lump, Denies change in breast shape, Denies change in hair, Denies change in skin color, Denies changing lesions, Denies dry skin, Denies excessive hair growth, Denies hair loss, Denies itching, Denies lesions, Denies nail changes, Denies new lesions, Denies nipple discharge, Denies non-healing lesions, Denies redness , Denies sensitivity to light, Denies rash, Denies skin pain, Denies skin ulcer , Denies sores, Denies stretch alonso, Denies unusual bruising, Denies wounds, Denies yellowing of the skin, Denies other Neurologic: Denies abnormal hearing, Denies abnormal movements, Denies abnormal speech, Denies abnormal walking, Denies behavioral changes, Denies burning sensations, Denies confusion, Denies dizziness, Denies fainting, Denies frequent falls, Denies headache(s), Denies lack of coordination, Denies localized weakness, Denies loss of vision, Denies memory loss, Denies numbness, Denies other visual disturbances, Denies radiating pain, Denies restless legs, Denies convulsions, Denies seizure-like activity, Denies sensory deficit, Denies tingling, Denies tingling/numbness/burning sensations, Denies tremor(s), Denies unsteadiness, Denies weakness, Denies other Psychiatric: Reports sensing things others do not sense, Reports thoughts of hurting/killing yourself, Denies abnormal sleep pattern, Denies anxiety, Denies behavioral changes, Denies change in appetite, Denies change in sex drive, Denies confusion, Denies depression, Denies difficulty concentrating, Denies hearing things others do not hear, Denies hopelessness, Denies irritability, Denies lack of enjoyment, Denies memory loss, Denies mood swings, Denies panic attacks, Denies paranoia, Denies seeing things others do not see, Denies tactile hallucinations, Denies thoughts of hurting/killing others, Denies other PMFSH - History History Provided By: Patient - Medical History Medical History: Medical History (Last Reviewed 10/02/17 @ 20:06 by Fracisco Fernandez DO) Hyperthyroidism (Acute) Schizophrenia (Acute) Bipolar disorder (Acute) - Surgical History Surgical History: Surgical History (Last Reviewed 10/02/17 @ 20:06 by Fracisco Fernandez DO) No history of previous surgery (Acute) - Tobacco History Second Hand Smoke Exposure: No Tobacco Use In Past 30 Days: No Smoking Status: Never smoker Tobacco Type: Cigarettes - Alcohol History How Often Do You Have a Drink Containing Alcohol: 2 to 4 times a month - Substance Use History Substance History: Active Abuse - Substance Use Type Crack/Cocaine Type: cocaine and marijuana Status: Active Route Used: Inhalation Frequency: ALSO SMOKES POT-BOTH ONCE WEEK Reason for Use: Get High Medications and Allergies Active Medications: Active Medications Acetaminophen (Tylenol) 650 mg PO Q4H PRN PRN Reason: Pain 1-5 or Temp >101F Al Hydrox/Mg Hydrox/Simethicone (Mag-Al Plus Susp Liq) 30 ml PO Q6H PRN PRN Reason: DYSPEPSIA Last Admin: 10/04/17 13:49 Dose: 30 ml Al Hydroxide/Mg Hydroxide (Milk Of Magnesia Liq) 30 ml PO Q12H PRN PRN Reason: Mild Constipation Bisacodyl (Dulcolax Supp) 10 mg RECTAL DAILY PRN PRN Reason: SEVERE CONSITIPATION Clozapine (Clozaril) 100 mg PO [facility] Lactulose (Lactulose Liq) 30 ml PO DAILY PRN PRN Reason: SEVERE CONSITIPATION Lorazepam (Ativan) 1 mg PO Q6H PRN PRN Reason: MODERATE TO SEVERE ANXIETY Last Admin: 10/03/17 21:13 Dose: 1 mg Lorazepam (Ativan Inj) 1 mg IM Q6H PRN PRN Reason: MODERATE TO SEVERE ANXIETY Nicotine (Habitrol 21 Mg Patch.24 Hr) 1 patch T-DERMAL DAILY [facility] Last Admin: 10/04/17 08:36 Dose: 1 patch Propranolol HCl (Inderal) 10 mg PO BID [facility] Last Admin: 10/04/17 08:37 Dose: 10 mg Propranolol HCl (Inderal) 10 mg PO BID [facility] Quetiapine Fumarate (Seroquel) 50 mg PO BID [facility] Last Admin: 10/04/17 10:49 Dose: 50 mg Quetiapine Fumarate (Seroquel) 600 mg PO [facility] Senna/Docusate Sodium (Miranda-Colace) 1 tab PO BID [facility] Last Admin: 10/04/17 08:37 Dose: 1 tab Sennosides (Senokot) 17.2 mg PO Q12H PRN PRN Reason: Moderate Constipation Allergies Allergy/AdvReac Type Severity Reaction Status Date / Time No Known Allergies Allergy Unknown Abdominal Uncoded 10/02/17 09:50 Pain Home Medications Medication Instructions Recorded Confirmed Type clozapine 100 mg PO HS 09/25/17 09/25/17 History propranolol 10 mg PO BID 09/25/17 09/25/17 History quetiapine 50 mg PO BID 09/25/17 09/25/17 History quetiapine 600 mg PO HS 09/25/17 09/25/17 History Exam Vital signs: Vital Signs 10/03/17 18:56 10/04/17 06:00 Temperature 98.3 F 98.0 F Pulse Rate 90 75 Respiratory Rate 18 18 Blood Pressure 117/64 107/59 L Pulse Oximetry 97 Intake & Output 10/03/17 10/04/17 10/04/17 18:59 06:59 18:59 Weight 105.3 kg Other: Weight On Admission 105.3 kg Narrative: No psychomotor agitation or retardation, no EPS, no withdrawal symptoms, no acute akathisia, no catatonia, no gait disturbance Mental Status Examination Appearance: Appropriate Consciousness: Alert Orientation: x4 Motor Activity: Normal gait Speech: Unremarkable Language: Adequate Fund of Knowledge: Adequate Memory: Unremarkable Affect: Appropriate Thought Process & Associations: Intact Thought Content: Hallucinations Hallucination Type: Auditory Delusion Type: None Suicidal Ideation: No Suicidal Plan: No Suicidal Intention: No Homicidal Ideation: No Homicidal Plan: No Homicidal Intention: No Insight: Poor Judgment: Poor Assessment and Plan - Assessment (1) Schizophrenia Code(s): F20.9 - Schizophrenia, unspecified Status: Acute - Plan Plan: Estimated LOS: [] days On psychiatric evaluation today the patient reports that she has been actively hearing commanding type auditory hallucinations of voices telling her to kill herself. She Has already tried to commit suicide by overdosing with propanolol. Patient will be admitted in psychiatry for stabilization and safety. Will restart her current psychotropic regimen. Justification for Continued Inpatient Stay: Patient will continue psychiatric admission for stabilization and safety.
[2017-10-04] MEDS ORDERED: Propranolol 10 MG Tablet PO SCH (21:00)
[2017-10-04] MEDS: LORazepam 1 MG Tablet PO PRN (21:39)
[2017-10-05] MEDS: Senna/Docusate Sodium 8.6/50 MG Tablet PO SCH ×2 (08:28→20:27)
[2017-10-05] MEDS: Propranolol 10 MG Tablet PO SCH ×2 (08:28→20:27)
[2017-10-05] MEDS: QUEtiapine 25 MG Tablet PO SCH ×2 (08:28→20:26)
--- NOTE | 2017-10-05 09:52 | P.PNPSY ---
Subjective Remarks: Patient seen and examined with nurse. Chart reviewed. Case discussed with nursing staff. Patient noted to be social and reporting that the voices are less clear. On my examination today, the patient tells me that her mother went to [place] and is not coming back. 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 Patient says that she continues to hear voices intermittently saying "nobody loves you." She also endorses intermittent command auditory hallucinations to self injure. Although she denies any suicidal ideation presently, she says that she experienced some SI yesterday evening. Denies side effects from medications. No physical complaints. She is requesting that I reach out to her outpatient CM, Andrew Kraus , regarding getting her some clothing. I did leave Mr. Kraus a VM. Vital Signs Temp Pulse Resp BP Pulse Ox 10/04/17 17:22 97.9 F 110 H 16 123/73 100 Laboratory Tests 10/02/17 10/02/17 10/02/17 10:50 14:28 14:28 WBC Hgb Plt Count Neut # (Auto) Sodium Potassium Chloride Carbon Dioxide BUN Creatinine POC Glucose AST ALT Alkaline Phosphatase TSH 0.597 Beta HCG, Qual Less than 1.0 Urine Opiates Screen Neg Ur Barbiturates Screen Neg Ur Amphetamines Screen Neg U Benzodiazepines Scrn Neg Urine Cocaine Screen Neg U Cannabinoids Screen Neg Serum Alcohol Less than 3 10/03/17 10/03/17 10/03/17 06:15 06:15 13:04 WBC 9.4 Hgb 12.5 Plt Count 240 Neut # (Auto) 5.2 Sodium 141 Potassium 3.9 Chloride 109 H Carbon Dioxide 28.0 BUN 11 Creatinine 0.85 POC Glucose 89 AST 8 L ALT 13 Alkaline Phosphatase 93 TSH Beta HCG, Qual Urine Opiates Screen Ur Barbiturates Screen Ur Amphetamines Screen U Benzodiazepines Scrn Urine Cocaine Screen U Cannabinoids Screen Serum Alcohol Labs reviewed. ANC adequate for clozapine therapy. Review of Systems All other systems reviewed negative except as stated in HPI Mental Status Examination Appearance: Appropriate Consciousness: Alert Orientation: Person, Place (At least) Motor Activity: Other (No motor abnormalities noted) Speech: Unremarkable Language: Adequate Fund of Knowledge: Adequate Attention and Concentration: Other (Fair) Memory: Unremarkable (Grossly intact on clinical exam) Mood: Other (Somewhat dysphoric) Affect: Blunt Thought Process & Associations: Intact Thought Content: Hallucinations Hallucination Type: Auditory, Command Delusion Type: None Suicidal Ideation: Yes (Intermittent) Suicidal Plan: No Suicidal Intention: No Homicidal Ideation: No Homicidal Plan: No Homicidal Intention: No Insight: Poor Judgment: Poor Assessment and Plan - Assessment (1) Schizoaffective disorder, bipolar type Code(s): F25.0 - Schizoaffective disorder, bipolar type Status: Acute - Plan Plan: Titrate clozapine to 150mg to target ongoing psychotic symptoms. Plan for weekly CBC monitoring. Continue Seroquel as ordered. Continue to monitor on inpatient unit. Continue other medications and care as ordered. Justification for Continued Inpatient Stay: Medication changes. Monitoring for impairment in safety. High risk for decompensation in less restrictive environment. Discharge Planning: Pending psychiatric stabilization. Request Healthcare Surrogate/Guardian Advocate?: No
[2017-10-06] MEDS: QUEtiapine 25 MG Tablet PO SCH ×2 (08:19→21:35)
[2017-10-06] MEDS: Senna/Docusate Sodium 8.6/50 MG Tablet PO SCH ×2 (08:20→21:36)
[2017-10-06] MEDS: Propranolol 10 MG Tablet PO SCH (08:20)
--- NOTE | 2017-10-06 11:20 | P.PNPSY ---
Subjective Remarks: Patient seen and examined with nurse and counselor. Chart reviewed. Case discussed with nursing staff who reports patient was complaining of increased auditory hallucinations this morning. Case discussed in treatment team. On my examination today, the patient endorses ongoing auditory hallucinations but denies command auditory hallucinations to hurt self/others. She denies any SI or HI. She complains of some mild sedation from medications. She also complains of what sounds like mild dizziness upon standing. I have counseled the patient on safe standing, and we will check a set of orthostatics. No other side effects or physical complaints. Vital Signs Temp Pulse Resp BP Pulse Ox 10/06/17 05:52 97.9 F 81 17 110/59 L 100 10/05/17 15:24 97.5 F L 18 110/61 100 Labs reviewed. No new labs. Review of Systems All other systems reviewed negative except as stated in HPI Mental Status Examination Appearance: Appropriate Consciousness: Alert Orientation: Person, Place (At least) Motor Activity: Other (No motor abnormalities noted) Speech: Unremarkable Language: Adequate Fund of Knowledge: Adequate Attention and Concentration: Other (Fair) Memory: Unremarkable (Remains grossly intact on clinical exam) Mood: Other (Calm) Affect: Blunt Thought Process & Associations: Intact Thought Content: Hallucinations Hallucination Type: Auditory Delusion Type: None Suicidal Ideation: No Suicidal Plan: No Suicidal Intention: No Homicidal Ideation: No Homicidal Plan: No Homicidal Intention: No Insight: Poor Judgment: Poor Assessment and Plan - Assessment (1) Schizoaffective disorder, bipolar type Code(s): F25.0 - Schizoaffective disorder, bipolar type Status: Acute - Plan Plan: Check a set of orthostatics. If patient is only mildly orthostatic, to consider further titration of antipsychotic to target residual psychotic symptoms, although we will probably need to slow the rate of titration. If significant orthostasis, may need to change antipsychotic. Weekly CBC for clozapine ordered for Thursday. Continue to monitor on the inpatient unit. Continue other medications and care as ordered. Justification for Continued Inpatient Stay: Possible complicating condition. Impairment in reality construction. High risk for decompensation in less restrictive environment. Discharge Planning: Placement. Case discussed with counselor who will reach out to patient's outpatient correctional counselor/case manager. Request Healthcare Surrogate/Guardian Advocate?: No
[2017-10-07] MEDS: Propranolol 10 MG Tablet PO SCH ×3 (06:21→20:55)
[2017-10-07] MEDS: Senna/Docusate Sodium 8.6/50 MG Tablet PO SCH ×2 (09:05→20:55)
[2017-10-07] MEDS: QUEtiapine 25 MG Tablet PO SCH (09:06)
--- NOTE | 2017-10-07 12:23 | P.PNPSY ---
Subjective Remarks: Patient seen and examined with nurse. Chart reviewed. Case discussed with nursing staff. On my examination today, the patient presents as somewhat hypoverbal and flat. She complains of being excessively sedated from medications. She tells me that she feels "like a turtle" in that the medications are slowing her down. She denies any AVH presently but says that she was hearing voices just 5 minutes before our interview telling her to "stay put." She denies any SI or HI. Besides the sedation, no side effects from medications. No physical complaints. Vital Signs Temp Pulse Resp BP Pulse Ox 10/07/17 06:00 97.7 F 93 H 16 114/59 L 96 10/06/17 23:52 101 H 118/58 L 10/06/17 20:00 120 H 147/70 H Intake and Output 10/06/17 10/07/17 10/07/17 22:59 06:59 14:59 Intake Total 240 / 240 Balance 240 / 240 Intake: Oral 240 / 240 Orthostatic vital signs reviewed with nurse yesterday afternoon. Patient not orthostatic. Labs reviewed. No new labs. Review of Systems All other systems reviewed negative except as stated in HPI Mental Status Examination Appearance: Appropriate Consciousness: Alert Orientation: Person, Place (At least) Motor Activity: Normal gait, Other (No motoric abnormalities noted) Speech: Unremarkable Language: Adequate Fund of Knowledge: Adequate Attention and Concentration: Other (Fair) Memory: Unremarkable (Remains grossly intact on clinical exam) Mood: Other (Calm) Affect: Flat Thought Process & Associations: Intact Thought Content: Hallucinations Hallucination Type: Auditory Delusion Type: None Suicidal Ideation: No Suicidal Plan: No Suicidal Intention: No Homicidal Ideation: No Homicidal Plan: No Homicidal Intention: No Insight: Poor Judgment: Poor Assessment and Plan - Assessment (1) Schizoaffective disorder, bipolar type Code(s): F25.0 - Schizoaffective disorder, bipolar type Status: Acute - Plan Plan: Patient remains symptomatic with respect to her psychosis but is complaining of sedation. We discuss pharmacotherapeutic options at this point and settle on tapering Seroquel and titrating clozapine in hopes that we can discontinue the Seroquel in favor of clozapine monotherapy, which may prove to be less sedating. Taper Seroquel to 600mg qHS (eliminating morning dose and 50mg of HS dose) and titrate clozapine to 200mg qHS. Weekly CBCs. Continue to monitor on the inpatient unit. Continue other medications and care as ordered. Justification for Continued Inpatient Stay: Medication changes. High risk for decompensation in less restrictive environment. Discharge Planning: Placement Request Healthcare Surrogate/Guardian Advocate?: No
[2017-10-08] MEDS: Propranolol 10 MG Tablet PO SCH ×2 (08:37→21:20)
[2017-10-08] MEDS: Senna/Docusate Sodium 8.6/50 MG Tablet PO SCH ×2 (08:37→21:20)
--- NOTE | 2017-10-08 18:35 | P.PNPSY ---
Subjective Remarks: Patient seen for follow-up, chart reviewed. Discussion with nursing staff reported that the patient noted to be lethargic and a.m., attending some groups but continues with command hallucinations. Patient was found to participating in groups noted be calm and cooperative. Patient states she is feeling "so-so" but continues report feeling depressed and that her medications have been making her feel sleepy. Patient continues to endorse auditory hallucinations which have been constant and mentions that she has had complete cessation of auditory hallucinations 1 month ago but only for a couple of hours. Patient states that she still having "racing voices in my head" which he is able to tolerate more when alone. She continues to endorse command auditory hallucinations to hurt herself. Review of Systems All other systems reviewed negative except as stated in HPI Mental Status Examination Appearance: Appropriate Consciousness: Alert Orientation: Person, Place (At least) Motor Activity: Normal gait, Other (No motoric abnormalities noted) Speech: Unremarkable Language: Adequate Fund of Knowledge: Adequate Attention and Concentration: Other (Fair) Memory: Unremarkable (Remains grossly intact on clinical exam) Mood: Other ("so-so") Affect: Blunt Thought Process & Associations: Intact Thought Content: Hallucinations Hallucination Type: Auditory Delusion Type: None Suicidal Ideation: No Suicidal Plan: No Suicidal Intention: No Homicidal Ideation: No Homicidal Plan: No Homicidal Intention: No Insight: Poor Judgment: Poor Assessment and Plan - Assessment (1) Schizoaffective disorder, bipolar type Code(s): F25.0 - Schizoaffective disorder, bipolar type Status: Acute - Plan Plan: Patient continues with command auditory hallucinations to hurt himself and continues report daytime sedation from current medication regimen. Patient will continue. We will decrease quetiapine to 500 mg p.o. and increase clozapine to 250 mg and continue plan to cross taper of quetiapine with clozapine. Continue to monitor mood and behavior. Discharge planning in progress. Justification for Continued Inpatient Stay: At risk for further decompensation if at lower level of care. Request Healthcare Surrogate/Guardian Advocate?: No
[2017-10-09] MEDS: Propranolol 10 MG Tablet PO SCH ×2 (09:53→21:24)
[2017-10-09] MEDS: Senna/Docusate Sodium 8.6/50 MG Tablet PO SCH ×2 (09:53→21:24)
--- NOTE | 2017-10-09 10:11 | P.PNPSY ---
Subjective Remarks: Reviewed electronic medical records and discussed case with staff. Follow-up was conducted in patient's room. Patient found in bed sleeping. Wakes to verbal stimuli. She reports that she did not sleep well due to "the voices kept me awake". She reports the voices are telling her to "come in the room to get away from everybody". Mental Status Examination Appearance: Appropriate Consciousness: Alert Orientation: Person, Place (At least) Motor Activity: Normal gait, Other (No motoric abnormalities noted) Speech: Unremarkable Language: Adequate Fund of Knowledge: Adequate Attention and Concentration: Other (Fair) Memory: Unremarkable (Remains grossly intact on clinical exam) Mood: Other ("so-so") Affect: Blunt Thought Process & Associations: Intact Thought Content: Hallucinations Hallucination Type: Auditory Delusion Type: None Suicidal Ideation: No Suicidal Plan: No Suicidal Intention: No Homicidal Ideation: No Homicidal Plan: No Homicidal Intention: No Insight: Poor Judgment: Poor Assessment and Plan - Assessment (1) Schizoaffective disorder, bipolar type Code(s): F25.0 - Schizoaffective disorder, bipolar type Status: Acute - Plan Plan: Continue with current treatment plan as ordered. Patient has not stabilized psychiatrically as of yet. Additionally, her medication is in the process of being titrated. Justification for Continued Inpatient Stay: Moving this patient to a less restrictive environment would likely result in decompensation. Request Healthcare Surrogate/Guardian Advocate?: No
[2017-10-09 20:19] LABS: Baso % (Auto) 0.5 % (0.0-2.0); Eos # (Auto) 0.2 th/mm3 (0.0-0.4); Eos % (Auto) 1.7 % (0.0-4.0); Hematocrit 37.9 % (35.0-46.0); Hemoglobin 12.7 gm/dL (11.6-15.3); Lymph % (Auto) 33.5 % (9.0-44.0); Mean Corpuscular HGB Conc 33.5 % (32.0-36.0); Mean Corpuscular Hemoglobin 30.3 pg (27.0-34.0); Mean Corpuscular Volume 90.6 fL (80.0-100.0); Mean Platelet Volume 8.1 fL (7.0-11.0); Mono # (Auto) 0.8 th/mm3 (0.0-0.9); Mono % (Auto) 9.2 % (0.0-8.0); Neut % (Auto) 55.1 % (16.0-70.0); Platelet Count 263 th/mm3 (150-450); Red Blood Count 4.18 mil/mm3 (4.00-5.30); Red Cell Distribution Width 14.5 % (11.6-17.2)
[2017-10-10] MEDS: Senna/Docusate Sodium 8.6/50 MG Tablet PO SCH ×2 (09:11→21:31)
[2017-10-10] MEDS: Propranolol 10 MG Tablet PO SCH ×2 (09:11→21:31)
--- NOTE | 2017-10-10 19:37 | P.PNPSY ---
Subjective Remarks: Reviewed electronic medical records and discussed case with staff. Follow-up was conducted in patient's room. Patient's mood is good her affect is euthymic. Her speech is clear, logical, and organized. Her nurse had reported that she been perseverating about [place] however, she does have a packet of paperwork which she states she was given by a lining caser in regards to transportation to [place] as well as homeless shelters. She states that she spoke with her mother on the phone and her mother is in a domestic prison in [place] and she cannot stay there. She slightly distraught stating she wants to stay in the area. Staff report that she mentioned having auditory hallucinations earlier however she stated, "the voices are pretty chill". Mental Status Examination Appearance: Appropriate Consciousness: Alert Orientation: Person, Place (At least) Motor Activity: Normal gait, Other (No motoric abnormalities noted) Speech: Unremarkable Language: Adequate Fund of Knowledge: Adequate Attention and Concentration: Other (Fair) Memory: Unremarkable (Remains grossly intact on clinical exam) Mood: Other ("so-so") Affect: Blunt Thought Process & Associations: Intact Thought Content: Hallucinations Hallucination Type: Auditory Delusion Type: None Suicidal Ideation: No Suicidal Plan: No Suicidal Intention: No Homicidal Ideation: No Homicidal Plan: No Homicidal Intention: No Insight: Poor Judgment: Poor Assessment and Plan - Assessment (1) Schizoaffective disorder, bipolar type Code(s): F25.0 - Schizoaffective disorder, bipolar type Status: Acute - Plan Plan: Patient will be reevaluated Thursday by the attending psychiatrist. Continue with current treatment plan. Justification for Continued Inpatient Stay: Moving this patient to a less restrictive environment would likely result in decompensation. Request Healthcare Surrogate/Guardian Advocate?: No
[2017-10-11] MEDS: Senna/Docusate Sodium 8.6/50 MG Tablet PO SCH ×2 (10:47→21:18)
[2017-10-11] MEDS: Propranolol 10 MG Tablet PO SCH ×2 (10:47→21:18)
--- NOTE | 2017-10-11 12:57 | P.PNPSY ---
Subjective Remarks: Reviewed electronic medical records and discussed case with staff. Follow-up was conducted in patient's room. She was found lying on the bed awake and alert. She states "I cannot get out of the bed". When asked why she says because her medicine makes her tired. She does report that she has been sleeping well and has had a good appetite. Later while he was on the unit I encountered her out in the hallway up and walking around. She asked what was going to happen with her post discharge since she does not want to go to [place] explained to her that would be up to case management and what they are able to arrange. I see no indication of internal stimulation or thought blocking at this time her speech is clear, logical, and organized. Mental Status Examination Appearance: Appropriate Consciousness: Alert Orientation: Person, Place (At least) Motor Activity: Normal gait, Other (No motoric abnormalities noted) Speech: Unremarkable Language: Adequate Fund of Knowledge: Adequate Attention and Concentration: Other (Fair) Memory: Unremarkable (Remains grossly intact on clinical exam) Mood: Other ("so-so") Affect: Blunt Thought Process & Associations: Intact Thought Content: Hallucinations Hallucination Type: Auditory Delusion Type: None Suicidal Ideation: No Suicidal Plan: No Suicidal Intention: No Homicidal Ideation: No Homicidal Plan: No Homicidal Intention: No Insight: Poor Judgment: Poor Assessment and Plan - Assessment (1) Schizoaffective disorder, bipolar type Code(s): F25.0 - Schizoaffective disorder, bipolar type Status: Acute - Plan Plan: Patient will be reevaluated tomorrow by the attending psychiatrist. Continue with current treatment plan. Justification for Continued Inpatient Stay: Moving this patient to a less restrictive environment would likely result in decompensation. Request Healthcare Surrogate/Guardian Advocate?: No
--- NOTE | 2017-10-12 08:59 | P.PNPSY ---
Subjective Remarks: Patient seen and examined with nurse. Chart reviewed. Case discussed with nursing staff. No behavioral issues noted overnight. Case discussed with counselor who reports that having patient go to stay with mother in [place] is not a viable discharge plan. Patient will likely have to be discharged locally, although the exact location where she will stay is not presently clear. I have instructed the counselor to firm up the discharge plan. On my examination today, the patient has a brighter affect. She complains of ongoing auditory hallucinations "telling me to go back to my room" when she is in the day area, for example during meals. She denies any command auditory hallucinations to hurt self/others. She denies any SI or HI. She complains of a subjective tremor but does not have any evidence of EPS or other motoric abnormalities on exam. Denies other side effects from medications. No physical complaints. Vital Signs Temp Pulse Resp BP Pulse Ox 10/12/17 06:37 98.2 F 16 97 10/11/17 18:14 97.6 F 104 H 16 136/63 99 Intake and Output 10/11/17 10/12/17 10/12/17 22:59 06:59 14:59 Other: Date of Last Bowel Movement 10/10/17 10/11/17 Laboratory Tests 10/09/17 19:43 WBC 9.0 Hgb 12.7 RDW 14.5 Neut # (Auto) 5.0 ANC remains adequate for clozapine therapy. Review of Systems All other systems reviewed negative except as stated in HPI Mental Status Examination Appearance: Appropriate Consciousness: Alert Orientation: Person, Place (At least) Motor Activity: Other (No hand tremor, no cogwheeling, no dystonia, no dyskinesia noted) Speech: Unremarkable Language: Adequate Fund of Knowledge: Adequate Attention and Concentration: Adequate Memory: Unremarkable (Remains grossly intact on clinical exam) Mood: Appropriate Affect: Appropriate Thought Process & Associations: Intact, Logical, Linear Thought Content: Hallucinations Hallucination Type: Auditory (Denies command auditory hallucinations to hurt self/others) Delusion Type: None Suicidal Ideation: No Suicidal Plan: No Suicidal Intention: No Homicidal Ideation: No Homicidal Plan: No Homicidal Intention: No Insight: Poor Judgment: Poor Assessment and Plan - Assessment (1) Schizoaffective disorder, bipolar type Code(s): F25.0 - Schizoaffective disorder, bipolar type Status: Acute - Plan Plan: Titrate clozapine to 300 mg at bedtime and taper Seroquel to 400 mg at bedtime to target residual psychotic symptoms. The patient seems to be doing better with a larger dose of clozapine. I will add Cogentin for subjective tremor complaint. R/B/A for medication changes discussed with patient. Continue to monitor on the inpatient unit. Continue other medications and care as ordered. Justification for Continued Inpatient Stay: Medication changes. Risk for decompensation in less restrictive environment. Discharge Planning: Patient's course is improving. If discharge planning can be completed, hopeful for discharge within the next 1-2 days. Request Healthcare Surrogate/Guardian Advocate?: No
[2017-10-12] MEDS: Senna/Docusate Sodium 8.6/50 MG Tablet PO SCH ×2 (09:05→21:21)
[2017-10-12] MEDS: Propranolol 10 MG Tablet PO SCH ×2 (09:05→21:21)
[2017-10-13] MEDS: Senna/Docusate Sodium 8.6/50 MG Tablet PO SCH ×2 (08:29→20:40)
[2017-10-13] MEDS: Propranolol 10 MG Tablet PO SCH ×2 (08:29→20:40)
--- NOTE | 2017-10-13 09:33 | P.PNPSY ---
Subjective Remarks: Patient seen and examined with nurse. Chart reviewed. Case discussed with nursing staff. No behavioral issues noted. Case discussed in treatment team. Counselor is exploring possible sober living placement as alternatives at this point are fairly limited. On my examination today, the patient is calm and cooperative. Complains of mild anxiety related to uncertainty regarding disposition. Tells me overall though that she feels like she is "doing a lot better." Reports that she continues to hear voices telling her to return to her room when she is out in the day area but says that these are improving. No command auditory hallucinations to hurt self/others. No medication side effects. No physical complaints. Vital Signs Temp Pulse Resp BP Pulse Ox 10/12/17 18:00 98.2 F 101 H 17 112/54 L 98 10/12/17 17:51 100 H 18 135/75 100 Intake and Output 10/12/17 10/13/17 10/13/17 22:59 06:59 14:59 Other: Date of Last Bowel Movement 10/11/17 Labs reviewed. No new labs. Review of Systems All other systems reviewed negative except as stated in HPI Mental Status Examination Appearance: Appropriate Consciousness: Alert Orientation: Person, Place (At least) Motor Activity: Other (No motor abnormalities noted) Speech: Unremarkable Language: Adequate Fund of Knowledge: Adequate Attention and Concentration: Adequate Memory: Unremarkable (Remains grossly intact on clinical exam) Mood: Anxious (Mild) Affect: Appropriate Thought Process & Associations: Intact, Logical, Linear Thought Content: Hallucinations Hallucination Type: Auditory (Improving. No command auditory hallucinations to hurt self/others.) Delusion Type: None Suicidal Ideation: No Suicidal Plan: No Suicidal Intention: No Homicidal Ideation: No Homicidal Plan: No Homicidal Intention: No Insight: Poor Judgment: Poor Assessment and Plan - Assessment (1) Schizoaffective disorder, bipolar type Code(s): F25.0 - Schizoaffective disorder, bipolar type Status: Acute - Plan Plan: Continue current psychotropics as ordered. To consider further titration of clozapine and tapering of Seroquel. Continue to monitor on the inpatient unit. Continue other medications and care as ordered. Justification for Continued Inpatient Stay: Resolving impairment in reality construction. High risk for decompensation in less restrictive environment. Discharge Planning: As noted above. Request Healthcare Surrogate/Guardian Advocate?: No
[2017-10-14] MEDS: Senna/Docusate Sodium 8.6/50 MG Tablet PO SCH ×2 (08:48→21:00)
[2017-10-14] MEDS: Propranolol 10 MG Tablet PO SCH ×2 (08:48→21:00)
--- NOTE | 2017-10-14 10:32 | P.PNPSY ---
Subjective Remarks: Patient seen and examined with counselor Karlie. Chart reviewed. Case discussed with nursing staff. No behavioral issues noted overnight. Case discussed with counselor. Counselor continues to work on discharge plan. On my examination today, the patient reports that auditory hallucinations are still present, unchanged in content but decreasing intensity. She is agreeable to further medication adjustments to continue to lessen severity of voices. No SI or HI. Continues to complain of some mild subjective tremor. No objective motoric abnormality noted. Complains of mild bilateral foot pain. No calf pain , no palpable cord, negative Homans. No other physical complaints. Vital Signs Temp Pulse Resp BP Pulse Ox 10/14/17 06:00 98.3 F 90 16 114/72 99 10/13/17 17:25 98.2 F 108 H 18 124/67 99 Labs reviewed. No new labs. Review of Systems All other systems reviewed negative except as stated in HPI Mental Status Examination Appearance: Appropriate Consciousness: Alert Orientation: Person, Place (At least) Motor Activity: Other (No abnormal motor movements appreciated) Speech: Unremarkable Language: Adequate Fund of Knowledge: Adequate Attention and Concentration: Adequate Memory: Unremarkable (Remains grossly intact on clinical exam) Mood: Appropriate Affect: Appropriate Thought Process & Associations: Intact, Logical, Linear Thought Content: Hallucinations Hallucination Type: Auditory (Again improving. No command auditory hallucinations to hurt self/others.) Delusion Type: None Suicidal Ideation: No Suicidal Plan: No Suicidal Intention: No Homicidal Ideation: No Homicidal Plan: No Homicidal Intention: No Insight: Poor Judgment: Poor Assessment and Plan - Assessment (1) Schizoaffective disorder, bipolar type Code(s): F25.0 - Schizoaffective disorder, bipolar type Status: Acute - Plan Plan: Titrate clozapine to 50 mg in the morning and 300 mg at bedtime for management of psychosis. Taper Seroquel to 300 mg at bedtime with long-term goal of tapering to discontinuation to return patient to antipsychotic monotherapy with clozapine if able. Titrate Cogentin for subjective tremor. Monitor foot pain. Continue to monitor on the inpatient unit. Continue other medications and care as ordered. Justification for Continued Inpatient Stay: Medication changes. Risk for decompensation in less restrictive environment. Discharge Planning: Pending safe discharge plan. Request Healthcare Surrogate/Guardian Advocate?: No
[2017-10-15] MEDS: Propranolol 10 MG Tablet PO SCH ×2 (08:52→21:14)
[2017-10-15] MEDS: Senna/Docusate Sodium 8.6/50 MG Tablet PO SCH ×2 (08:52→21:14)
--- NOTE | 2017-10-15 13:30 | P.PNPSY ---
Subjective Remarks: Patient seen and examined with nurse. Chart reviewed. Case discussed with nursing staff. No behavioral issues noted overnight. Case discussed with counselor. Counselor is still working on discharge plan for patient. On my examination today, the patient denies any SI or HI. Auditory hallucinations continue to improve. No side effects from medications besides some mild sedation. We discuss adjusting medications to try to lessen sedation, but given symptomatic improvement decided to hold off for now. No physical complaints. Vital Signs Temp Pulse Resp BP Pulse Ox 10/15/17 08:19 98.1 F 70 16 148/62 H 96 10/14/17 17:58 98.8 F 100 H 18 140/80 98 Intake and Output 10/14/17 10/15/17 10/15/17 22:59 06:59 14:59 Other: Date of Last Bowel Movement 10/14/17 Labs reviewed. No new labs. Review of Systems All other systems reviewed negative except as stated in HPI Mental Status Examination Appearance: Appropriate Consciousness: Alert Orientation: Person, Place (At least) Motor Activity: Other (No motoric abnormalities noted) Speech: Unremarkable Language: Adequate Fund of Knowledge: Adequate Attention and Concentration: Adequate Memory: Unremarkable (Intact on clinical exam) Mood: Appropriate Affect: Appropriate Thought Process & Associations: Intact, Logical, Linear Thought Content: Hallucinations Hallucination Type: Auditory (Decreasing. Noncommand.) Delusion Type: None Suicidal Ideation: No Suicidal Plan: No Suicidal Intention: No Homicidal Ideation: No Homicidal Plan: No Homicidal Intention: No Insight: Poor Judgment: Poor Assessment and Plan - Assessment (1) Schizoaffective disorder, bipolar type Code(s): F25.0 - Schizoaffective disorder, bipolar type Status: Acute - Plan Plan: Continue current psychotropics as ordered. Continue to monitor on the inpatient unit. Continue other medications and care as ordered. Justification for Continued Inpatient Stay: Risk for decompensation in less restrictive environment. Discharge Planning: Pending safe discharge plan. Request Healthcare Surrogate/Guardian Advocate?: No
[2017-10-16] MEDS: Propranolol 10 MG Tablet PO SCH ×2 (11:16→21:20)
[2017-10-16] MEDS: Senna/Docusate Sodium 8.6/50 MG Tablet PO SCH ×2 (11:16→21:20)
--- NOTE | 2017-10-16 15:26 | P.PNPSY ---
Subjective Remarks: Patient seen and examined with nurse. Chart reviewed. Case discussed with nursing staff. No behavioral issues noted. Case discussed in treatment team. Counselor continues to work on placement for the patient. On my examination today, the patient reports that she is doing well. Auditory hallucinations continued to decrease. Affect is bright, full and reactive. Insight into mental illness and need for treatment seems improved and the patient does say " I need medication." No SI or HI. Denies side effects from medications. No physical complaints. Vital Signs Temp Pulse Resp BP Pulse Ox 10/16/17 05:45 98.2 F 99 H 18 107/72 96 10/15/17 18:32 98.3 F 115 H 17 128/71 99 Labs reviewed. No new labs. Review of Systems All other systems reviewed negative except as stated in HPI Mental Status Examination Appearance: Appropriate Consciousness: Alert Orientation: Person, Place (At least) Motor Activity: Other (No abnormal motor movements noted) Speech: Unremarkable Language: Adequate Fund of Knowledge: Adequate Attention and Concentration: Adequate Memory: Unremarkable (Intact on clinical exam) Mood: Appropriate Affect: Appropriate, Euthymic Thought Process & Associations: Intact, Logical, Linear Thought Content: Hallucinations Hallucination Type: Auditory (Continuing to decrease. Noncommand.) Delusion Type: None Suicidal Ideation: No Suicidal Plan: No Suicidal Intention: No Homicidal Ideation: No Homicidal Plan: No Homicidal Intention: No Insight: Fair Judgment: Poor Assessment and Plan - Assessment (1) Schizoaffective disorder, bipolar type Code(s): F25.0 - Schizoaffective disorder, bipolar type Status: Acute - Plan Plan: Continue current psychotropic medications as ordered. Check a CBC for clozapine therapy tomorrow morning. Continue to monitor on the inpatient unit. Continue other care as ordered. Justification for Continued Inpatient Stay: Risk for decompensation in less restrictive environment. Discharge Planning: Pending safe discharge plan. Request Healthcare Surrogate/Guardian Advocate?: No
[2017-10-17] MEDS: Propranolol 10 MG Tablet PO SCH ×2 (09:37→20:10)
[2017-10-17] MEDS: Senna/Docusate Sodium 8.6/50 MG Tablet PO SCH ×2 (09:37→20:10)
--- NOTE | 2017-10-17 13:56 | P.PNPSY ---
Subjective Remarks: Patient was seen and case discussed with nursing. Patient remains bright and pleasant during the interview. Insight is slowly improving. She says that the hallucinations have decreased in intensity and now she can watch TV. Compliant with her medications and tolerating it well Mental Status Examination Appearance: Appropriate Consciousness: Alert Orientation: Person, Place (At least) Motor Activity: Other (No abnormal motor movements noted) Speech: Unremarkable Language: Adequate Fund of Knowledge: Adequate Attention and Concentration: Adequate Memory: Unremarkable (Intact on clinical exam) Mood: Appropriate Affect: Appropriate, Euthymic Thought Process & Associations: Intact, Logical, Linear Thought Content: Hallucinations Hallucination Type: Auditory (Continuing to decrease. Noncommand.) Delusion Type: None Suicidal Ideation: No Suicidal Plan: No Suicidal Intention: No Homicidal Ideation: No Homicidal Plan: No Homicidal Intention: No Insight: Fair Judgment: Poor Assessment and Plan - Assessment (1) Schizoaffective disorder, bipolar type Code(s): F25.0 - Schizoaffective disorder, bipolar type Status: Acute - Plan Plan: Continue current treatment plan Justification for Continued Inpatient Stay: Patient would decompensate in a less restrictive setting Request Healthcare Surrogate/Guardian Advocate?: No
[2017-10-18] MEDS: Senna/Docusate Sodium 8.6/50 MG Tablet PO SCH ×2 (09:02→20:46)
[2017-10-18] MEDS: Propranolol 10 MG Tablet PO SCH ×2 (09:02→20:46)
[2017-10-18 11:19] LABS: Baso % (Auto) 0.5 % (0.0-2.0); Eos # (Auto) 0.1 th/mm3 (0.0-0.4); Eos % (Auto) 1.7 % (0.0-4.0); Hematocrit 38.1 % (35.0-46.0); Hemoglobin 12.6 gm/dL (11.6-15.3); Lymph # (Auto) 2.2 th/mm3 (1.0-4.8); Lymph % (Auto) 30.6 % (9.0-44.0); Mean Corpuscular HGB Conc 33.1 % (32.0-36.0); Mean Corpuscular Hemoglobin 30.4 pg (27.0-34.0); Mean Corpuscular Volume 91.7 fL (80.0-100.0); Mean Platelet Volume 7.6 fL (7.0-11.0); Mono # (Auto) 0.6 th/mm3 (0.0-0.9); Mono % (Auto) 7.5 % (0.0-8.0); Neut # (Auto) 4.4 th/mm3 (1.8-7.7); Neut % (Auto) 59.7 % (16.0-70.0); Platelet Count 268 th/mm3 (150-450); Red Blood Count 4.15 mil/mm3 (4.00-5.30); Red Cell Distribution Width 14.9 % (11.6-17.2); White Blood Count 7.3 th/mm3 (4.0-11.0)
--- NOTE | 2017-10-18 13:34 | P.PNPSY ---
Subjective Remarks: Patient was seen and case discussed with nursing. Patient continues to have auditory hallucinations. Command in nature but are not telling her to hurt himself or others. Patient says they are improved and she is able to go about her daily activities. She pleasant and cooperative with exam. No outbursts. Tolerating her medications well Mental Status Examination Appearance: Appropriate Consciousness: Alert Orientation: Person, Place (At least) Motor Activity: Other (No abnormal motor movements noted) Speech: Unremarkable Language: Adequate Fund of Knowledge: Adequate Attention and Concentration: Adequate Memory: Unremarkable (Intact on clinical exam) Mood: Appropriate Affect: Appropriate, Euthymic Thought Process & Associations: Intact, Logical, Linear Thought Content: Hallucinations Hallucination Type: Auditory (Command) Delusion Type: None Suicidal Ideation: No Suicidal Plan: No Suicidal Intention: No Homicidal Ideation: No Homicidal Plan: No Homicidal Intention: No Insight: Fair Judgment: Poor Assessment and Plan - Assessment (1) Schizoaffective disorder, bipolar type Code(s): F25.0 - Schizoaffective disorder, bipolar type Status: Acute - Plan Plan: Continue current treatment plan Justification for Continued Inpatient Stay: Patient would decompensate in a less restrictive setting Request Healthcare Surrogate/Guardian Advocate?: No
[2017-10-19] MEDS: Propranolol 10 MG Tablet PO SCH ×2 (09:12→21:10)
[2017-10-19] MEDS: Senna/Docusate Sodium 8.6/50 MG Tablet PO SCH ×2 (09:13→21:10)
--- NOTE | 2017-10-19 14:47 | P.PNPSY ---
Subjective Remarks: Patient seen and examined with nurse. Chart reviewed. Case discussed with nursing staff. No behavioral issues noted overnight. Case discussed with counselor. Counselor continues to work on a safe discharge plan for the patient. On my examination today, the patient is in good spirits. She is participating in Project group. No SI or HI. Still some ongoing auditory hallucinations, occasionally command. She reports that these are much more manageable with the benefit of medications. No command auditory hallucinations to hurt herself or others. Affect is bright and euthymic. No side effects from medications. No physical complaints. We discussed discharge planning. Vital Signs Temp Pulse Resp BP Pulse Ox 10/19/17 05:43 98.1 F 103 H 18 135/79 99 10/18/17 18:15 98.2 F 80 20 128/74 96 Intake and Output 10/19/17 10/19/17 10/19/17 06:59 14:59 22:59 Other: Weight 109.9 kg Labs reviewed. No new labs. Review of Systems All other systems reviewed negative except as stated in HPI Mental Status Examination Appearance: Appropriate Consciousness: Alert Orientation: Person, Place (At least) Motor Activity: Other (No motoric abnormalities noted) Speech: Unremarkable Language: Adequate Fund of Knowledge: Adequate Attention and Concentration: Adequate Memory: Unremarkable (Intact on clinical exam) Mood: Appropriate, Good Affect: Appropriate, Euthymic Thought Process & Associations: Intact, Logical, Linear Thought Content: Hallucinations Hallucination Type: Auditory, Command, Other (No CAH to hurt self/others.) Delusion Type: None Suicidal Ideation: No Suicidal Plan: No Suicidal Intention: No Homicidal Ideation: No Homicidal Plan: No Homicidal Intention: No Insight: Fair Judgment: Poor Assessment and Plan - Assessment (1) Schizoaffective disorder, bipolar type Code(s): F25.0 - Schizoaffective disorder, bipolar type Status: Acute - Plan Plan: Continue current psychotropics as ordered. ANC adequate for clozapine therapy. Continue to monitor on the inpatient unit. Continue other medications and care as ordered. Justification for Continued Inpatient Stay: Risk for decompensation in less restrictive environment. Discharge Planning: Pending safe discharge plan Request Healthcare Surrogate/Guardian Advocate?: No
[2017-10-19 18:49] VITALS: RESP 16; O2SAT 100
[2017-10-20 06:44] VITALS: BP 114/58; PULSE 95; TEMP 98
[2017-10-20] MEDS: Propranolol 10 MG Tablet PO SCH (09:02)
[2017-10-20] MEDS: Senna/Docusate Sodium 8.6/50 MG Tablet PO SCH (09:02)
--- NOTE | 2017-10-20 09:29 | P.DSPSY ---
Psychiatry Discharge Summary Inpatient Psychiatric care?: Yes Advance Directives: No Mental Health Advance Directive: No Health Care Proxy: No - Admission Admission Date: October 03, 2017 17:08 - Admission Diagnosis (1) Schizophrenia Code(s): F20.9 - Schizophrenia, unspecified Brief History: The patient is a 22-year-old -[place] woman, domiciled with her mother in [facility], single, unemployed, with well known psychiatric history of schizoaffective disorder, multiple psychiatric admissions, multiple ER visits to [place], last hospitalization was in August the care of Dr. Mace, documentation review, outpatient psychiatric care with [facility], she is on quetiapine 600 mg at bedtime, clozapine 100 mg, propanolol 10 mg 3 times daily, medical history of hypothyroidism, who is brought in due to suicide attempt, with overdose, having taken 6 propranolol 10 mg tablets this morning. The patient was seen by me yesterday in the observational area of the ER, I recommended a psychiatric admission at that moment. EMR reviewed. Case discussed with nursing charge. Today on psychiatric evaluation the patient says that she feels better, safer, still hearing voices telling her to kill herself "but with less intensity and decreased volume". She says that the voices are better now, but she is afraid to be at home alone with the voices. The patient reports that she has been compliant with her medications, without no significant side effects. She is fully oriented 3. PPHx: The patient has psychiatric history of schizoaffective disorder, schizophrenia, multiple psychiatric hospitalizations, well known by the service , last hospitalization was here in [place] August 2017, after that hospitalization she has 2 ER visits, but she was clear, outpatient psychiatric care in [facility], medications are quetiapine 600 mg, clozapine 100 mg, propanolol 10 mg 3 times daily for akathisia. PMHx: Hypothyroidism Family psychiatric history: Patient has a grandmother with bipolar Substance history: Patient reports occasional use of cocaine and marijuana Social history: The patient was born and raised in [place], she lives with her mother in [facility], single, unemployed, her highest level of education is ninth grade Tobacco Use In Past 30 Days: No How Often Do You Have a Drink Containing Alcohol: 2 to 4 times a month Hospital Course: Patient was admitted to a locked, inpatient psychiatric unit. Appropriate precautions were in place throughout patient's hospital stay. Patient was seen and examined on the unit by psychiatry and also visited by counselor. Psychotropic medications were adjusted. Patient had improvement in presenting psychiatric symptomatology during the course of her hospital stay. There was no evidence of any suicidality or homicidality on the inpatient unit. There was no evidence of significant self-care deficit. On the day of discharge: Patient seen and examined. Chart reviewed. Case discussed with nursing staff. No behavioral issues noted overnight. Case discussed in treatment team. Counselor relates that she has assembled a discharge plan working with the patient in which the patient will go to a domestic violence custodial in [facility] near her grandmother and boyfriend. She will follow up at a local [facility]. On my examination today, the patient has no suicidal or homicidal ideation, intent or plan. She contracts for safety. No depressive or hypomanic/manic symptoms. She continues to report some auditory hallucinations but has no command auditory hallucinations to hurt self/others. These are improved versus admission. No delusional material. No side effects from medications. No physical complaints. Suicide and violence risk assessment on day of discharge both suggest lower imminent risk from mental illness as defined under the [place] act, and the patient's level of function is adequate for outpatient care. Patient has maximized benefit from this inpatient psychiatric hospital stay. She will be discharged today with psychiatric follow-up as arranged by counselor. Patient is also to follow up with primary care. I have ordered 2 weeks of follow-up CBCs for clozapine therapy. Further CBC monitoring as per outpatient provider. I have counseled the patient regarding warning signs for need to return to the psychiatric emergency room as part of a general safety plan. - Discharge Discharge Date: 10/20/17 - Discharge Diagnosis (1) Schizoaffective disorder, bipolar type Diagnosis: Principal (improved versus admission) Code(s): F25.0 - Schizoaffective disorder, bipolar type Status: Acute Discharge Disposition: Residential (DV custodial) - Discharge Instructions Discharge Diet: Regular Diet Activities You Can Perform: Weight Bearing As Tolerat - Discharge Time > 30 minutes Mental Status Examination Appearance: Appropriate Consciousness: Alert Orientation: x4 Motor Activity: Normal gait, Other (No abnormal motor movements noted) Speech: Unremarkable Language: Adequate Fund of Knowledge: Adequate Attention and Concentration: Adequate Memory: Unremarkable (Intact on clinical exam) Mood: Appropriate, Good Affect: Appropriate, Euthymic Thought Process & Associations: Intact, Logical, Goal directed, Linear Thought Content: Hallucinations Hallucination Type: Auditory (Improved versus admission. No reported command auditory hallucinations to hurt self/others.) Delusion Type: None Suicidal Ideation: No Suicidal Plan: No Suicidal Intention: No Homicidal Ideation: No Homicidal Plan: No Homicidal Intention: No Insight: Fair Judgment: Poor (Chronic) Discharge/Advance Care Plan - Results Vital Signs: Last Vital Signs Temp 98.0 F 10/20/17 07:06 Pulse 95 H 10/20/17 07:06 Resp 16 10/20/17 07:06 BP 114/58 L 10/20/17 07:06 Pulse Ox 100 10/20/17 07:06 Lab Results: Laboratory Tests 10/18/17 10:47 WBC 7.3 Hgb 12.6 Plt Count 268 Neut # (Auto) 4.4 Summary of Procedures: None done Pending Results: None - Medications Number of antipsychotic medications at discharge: 2 Appropriate use of more than 1 antipsychotic med: Justification other than those in allowable values 1-3, document here: (Required multiple antipsychotics for stabilization) - Discharge Care Plan Goals to Promote Your Health: * To prevent worsening of your condition and complications * To maintain your health at the optimal level Directions to Meet Your Goals: Take your medications as prescribed Follow your dietary instruction Follow activity as directed Keep your appointments as scheduled Take your immunizations and boosters as scheduled If your symptoms worsen call your PCP, if no PCP go to Urgent Care Center or Emergency Room For 29/09 questions related to your inpatient stay or results of tests pending at discharge, please contact Dr. Blaine Benedict MD at Smoking is Dangerous to Your Health. Avoid second hand smoking
== END 2017-10-20 14:05 | disposition home or self-care (01) ==
LOC: H270 17:08 → H260 10-06 17:16
PROVIDERS: ADMIT Psychiatry & Neurology Psychiatry; ATTEND Psychiatry & Neurology Psychiatry